=== PATIENT | female | born 1965 | race Caucasian/White ===

== ENCOUNTER → 2016-05-13 | Outpatient (CLI) | payer OTHER ==
[2016-05-13 12:42] VITALS: BP 144/81; PULSE 92; RESP 18
--- NOTE | 2016-05-13 13:13 | P.PN ---
Progress Note - Text This is a 50-year-old female with lower back pain due to lumbar spondylosis without myelopathy. The patient's pain has been relatively well controlled with a combination of Wilmer and tramadol. She does not show any drug-seeking behavior and she does not look oversedated. She also denies any suicidal thoughts. She did have coronary stents placed and and has been on Effient however she stopped using it recently and was cleared by her senior drafter to receive any injections that we deem appropriate for her. The patient has a pending computed tomography scan for her cervical and lumbar spines. Today I will discontinue with tramadol and keep her on Wilmer up to 4 pills a day if needed for pain I will add trazodone to help her sleep at night because she complains of some insomnia and pain during the night. We will see the patient next month for reevaluation.
== END | disposition home or self-care (01) ==
LOC: PNWHC3 12:13
PROVIDERS: ATTEND Anesthesiology
DX: M47.816 Spondylosis without myelopathy or radiculopathy, lumbar region (principal); G47.00 Insomnia, unspecified; Z95.5 Presence of coronary angioplasty implant and graft; Z79.899 Other long term (current) drug therapy
CPT/HCPCS: 99211

== ENCOUNTER 2016-05-14 21:21 | Observation (INO) | payer OTHER ==
--- NOTE | 2016-05-14 21:48 | ED ---
General Adult HPI - General Chief complaint: Chest Pain Stated complaint: Palpatations Time Seen by Provider: 05/14/16 21:39 Source: patient, RN notes reviewed, old records reviewed Mode of arrival: ambulatory Limitations: no limitations - History of Present Illness Initial comments: This is a 50-year-old female here for evaluation of chest pain. Patient currently without chest pain but has had episodic chest pain for the past week. Patient does have history of heart disease with 3 stents. Patient states she also has history of back pain which she does see a pain specialist for. Patient states the pain is episodic, comes and goes, can be sometimes heaviness with symptoms under her jaw. Patient states that her heart that she did have symptoms and her job but it was different than the pain she is having now. No significant shortness of breath, and can't tie the pain and any certain experience, the pain has been going on for greater than a week and again is episodic. She takes nothing for the pain when it comes and it usually abates after a few seconds - Related Data Home Medications Medication Instructions Recorded Confirmed Multivitamins, Thera [Multivitamin] 1 tab PO DAILY 10/23/13 05/14/16 Omeprazole [PriLOSEC] 20 mg PO AC-BRKFST 04/16/15 05/14/16 Vitamin B Complex 1 cap PO DAILY 04/16/15 05/14/16 Trolamine Salicylate [Aspercreme] 1 applic TOPICAL DAILY PRN 11/27/15 05/14/16 Lisinopril [Zestril] 2.5 mg PO QAM 03/03/16 05/14/16 Acetaminophen Tab [Tylenol Tab] 500 mg PO Q6H PRN 04/01/16 05/14/16 Ipratropium-Albuterol Nebulize 3 ml INHALATION RT-QID PRN 04/01/16 05/14/16 [Duoneb 0.5 mg-3 mg/3 ml Soln] Ascorbic Acid [Vitamin C] 500 mg PO DAILY 05/14/16 05/14/16 Previous Rx's Medication Instructions Recorded Aspirin 325 mg PO DAILY #30 tab 02/22/14 Atorvastatin [Lipitor] 80 mg PO HS #30 tab 02/22/14 Metoprolol Tartrate [Lopressor] 25 mg PO BID #60 tab 02/22/14 Nitroglycerin Sl Tabs [Nitrostat] 0.4 mg SUBLINGUAL Q5M PRN #25 tab 02/22/14 Gabapentin [Neurontin] 300 mg PO TID #90 cap 03/18/16 HYDROcodone/APAP 10-325MG [Gazelle 1 tab PO Q4-6H PRN #120 tab 03/18/16 10-325] traMADol HCL [Ultram] 50 mg PO Q8HR PRN #90 tablet 03/18/16 Allergies Allergy/AdvReac Type Severity Reaction Status Date / Time ibuprofen [From Motrin] Allergy throat Verified 05/14/16 22:00 swelling amoxicillin trihydrate AdvReac Vomiting Verified 05/14/16 22:00 [From Augmentin] potassium clavulanate AdvReac Vomiting Verified 05/14/16 22:00 [From Augmentin] SALMON Allergy Anaphylaxis Uncoded 05/14/16 21:36 Review of Systems ROS Statement: Those systems with pertinent positive or pertinent negative responses have been documented in the HPI. ROS Other: All systems not noted in ROS Statement are negative. Past Medical History Past Medical History: Coronary Artery Disease (CAD), COPD, Fibromyalgia, Hyperlipidemia, Hypertension, Myocardial Infarction (ME), Osteoarthritis (OA), Pneumonia Additional Past Medical History / Comment(s): crohns, colitis, osteoporosis, CHRONIC BACK PAIN,DDD,DJD, SCIATICA,SPINAL STENOSIS RADIATES DOWN LEGS, INCONT OF URINE, PAIN CLINIC FOR INJECTIONS FOR BACK PROBLEMS Last Myocardial Infarction Date:: 02/19/14- NON-ST ELEVATATION ME History of Any Multi-Drug Resistant Organisms: MRSA Date of last positivie culture/infection: 2009 MDRO Source:: abdominal Past Surgical History: Appendectomy, Bowel Resection, Heart Catheterization With Stent, Joint Replacement, Orthopedic Surgery, Tonsillectomy Additional Past Surgical History / Comment(s): 2 small bowel resections D/T CROHNS; LT TOTAL KNEE REPLACEMENT THEN A REVISION-HAS TITANIUM; ADA CTR; trigger finger and thumbs Past Anesthesia/Blood Transfusion Reactions: No Reported Reaction Date of Last Stent Placement:: 2 STENTS PLACED 02/20/14 Past Psychological History: Anxiety, Depression Additional Psychological History / Comment(s): FOUND SPOUSE ON 03/17/14, HAD ME 02/19/14. STILL TRYING TO PROCESS EVERYTHING. Smoking Status: Former smoker Past Alcohol Use History: None Reported Additional Past Alcohol Use History / Comment(s): QUIT SMOKING 02/19/14, for 15 YRS, LESS A PPD. Past Drug Use History: None Reported - Past Family History Father Family Medical History: Cancer Additional Family Medical History / Comment(s): LUNG CANCER Mother Additional Family Medical History / Comment(s): WHEN PT WAS AGE 14 NOT SURE WHY, HX OF MENTAL HEALTH ISSUES General Exam Limitations: no limitations Course Vital Signs 05/14/16 05/14/16 21:34 22:32 Temperature 98.3 F Pulse Rate 86 67 Respiratory 20 16 Rate Blood Pressure 147/92 144/90 O2 Sat by Pulse 98 98 Oximetry - Reevaluation(s) Reevaluation #1: 05/14/16 23:47 Patient still having bouts of episodic chest pain EKG Findings - EKG Comments: EKG Findings:: EKG shows normal sinus rhythm rate of 89, DC 154, QRS 86, QTc 455 Medical Decision Making - Medical Decision Making 50 female here with significant heart history coming in with chest pain, side chest pain for a week, patient is high cardiac risk initial EKG and troponin are negative patient be admitted for cardiac observation, still troponins - Lab Data Result diagrams: 05/14/16 21:55 05/14/16 21:55 Lab Results 05/14/16 05/14/16 05/14/16 Range/Units 21:55 21:55 21:55 WBC 12.3 H (3.8-10.6) k/uL RBC 4.86 (3.80-5.40) m/uL Hgb 13.9 (11.4-16.0) gm/dL Hct 42.9 (34.0-46.0) % MCV 88.2 (80.0-100.0) fL MCH 28.5 (25.0-35.0) pg MCHC 32.3 (31.0-37.0) g/dL RDW 13.7 (11.5-15.5) % Plt Count 113 L (150-450) k/uL Neutrophils % (Manual) 40.0 % Lymphocytes % (Manual) 53.0 % Monocytes % (Manual) 6.0 % Eosinophils % (Manual) 1.0 % Neutrophils # (Manual) 4.9 (1.3-7.7) k/uL Lymphocytes # (Manual) 6.5 H (1.0-4.8) k/uL Monocytes # (Manual) 0.7 (0-1.0) k/uL Eosinophils # (Manual) 0.1 (0-0.7) k/uL Nucleated RBCs 0 (0-0) /100 WBC Large Platelets Present Polychromasia Present PT (9.0-12.0) sec INR (<1.1) APTT (22.0-30.0) sec Sodium 139 (137-145) mmol/L Potassium 3.4 L (3.5-5.1) mmol/L Chloride 106 (98-107) mmol/L Carbon Dioxide 22 (22-30) mmol/L Anion Gap 11 mmol/L BUN 6 L (7-17) mg/dL Creatinine 0.65 (0.52-1.04) mg/dL Est GFR (MDRD) Af Amer >60 (>60 ml/min/1.73 sqM) Est GFR (MDRD) Non-Af >60 (>60 ml/min/1.73 sqM) Glucose 86 (74-99) mg/dL Calcium 9.4 (8.4-10.2) mg/dL Magnesium 1.5 L (1.6-2.3) mg/dL Total Bilirubin 0.4 (0.2-1.3) mg/dL AST 23 (14-36) U/L ALT 32 (9-52) U/L Alkaline Phosphatase 42 (38-126) U/L Total Creatine Kinase 64 (30-135) U/L CK-MB (CK-2) 0.8 (0.0-2.4) ng/mL CK-MB (CK-2) Rel Index 1.3 Troponin I <0.012 (0.000-0.034) ng/mL Total Protein 6.8 (6.3-8.2) g/dL Albumin 4.1 (3.5-5.0) g/dL Lipase 116 (23-300) U/L 05/14/16 Range/Units 21:55 WBC (3.8-10.6) k/uL RBC (3.80-5.40) m/uL Hgb (11.4-16.0) gm/dL Hct (34.0-46.0) % MCV (80.0-100.0) fL MCH (25.0-35.0) pg MCHC (31.0-37.0) g/dL RDW (11.5-15.5) % Plt Count (150-450) k/uL Neutrophils % (Manual) % Lymphocytes % (Manual) % Monocytes % (Manual) % Eosinophils % (Manual) % Neutrophils # (Manual) (1.3-7.7) k/uL Lymphocytes # (Manual) (1.0-4.8) k/uL Monocytes # (Manual) (0-1.0) k/uL Eosinophils # (Manual) (0-0.7) k/uL Nucleated RBCs (0-0) /100 WBC Large Platelets Polychromasia PT 10.9 (9.0-12.0) sec INR 1.1 (<1.1) APTT 25.9 (22.0-30.0) sec Sodium (137-145) mmol/L Potassium (3.5-5.1) mmol/L Chloride (98-107) mmol/L Carbon Dioxide (22-30) mmol/L Anion Gap mmol/L BUN (7-17) mg/dL Creatinine (0.52-1.04) mg/dL Est GFR (MDRD) Af Amer (>60 ml/min/1.73 sqM) Est GFR (MDRD) Non-Af (>60 ml/min/1.73 sqM) Glucose (74-99) mg/dL Calcium (8.4-10.2) mg/dL Magnesium (1.6-2.3) mg/dL Total Bilirubin (0.2-1.3) mg/dL AST (14-36) U/L ALT (9-52) U/L Alkaline Phosphatase (38-126) U/L Total Creatine Kinase (30-135) U/L CK-MB (CK-2) (0.0-2.4) ng/mL CK-MB (CK-2) Rel Index Troponin I (0.000-0.034) ng/mL Total Protein (6.3-8.2) g/dL Albumin (3.5-5.0) g/dL Lipase (23-300) U/L - Radiology Data Radiology results: report reviewed (Chest x-ray negative for acute disease), image reviewed Critical Care Time Critical Care Time: Yes Total Critical Care Time: 31 Disposition Clinical Impression: Chest pain Disposition: ADMITTED IP TO THIS [facility] Condition: Undetermined
[2016-05-14 22:10] LABS: CH 29.1; CHCM 33.2; HCT 42.9 % (34.0-46.0); HDW 2.55; HGB 13.9 gm/dL (11.4-16.0); Large Platelets Flag Slight; MCH 28.5 pg (25.0-35.0); MCHC 32.3 g/dL (31.0-37.0); MCV 88.2 fL (80.0-100.0); Mean Platelet Volume 10.8; RBC 4.86 m/uL (3.80-5.40); RDW 13.7 % (11.5-15.5); WBC 12.3 k/uL (3.8-10.6)
--- NOTE | 2016-05-14 22:13 | XR ---
EXAMINATION TYPE: XR chest 2V DATE OF EXAM: 05/14/2016 10:06 PM COMPARISON: 04/01/2016 HISTORY: Chest pain TECHNIQUE: Frontal and lateral views of the chest are obtained. FINDINGS: There is no heart failure nor confluent pneumonic infiltrate. Costophrenic angles are jojo r. Heart and mediastinum are normal. There is no pleural effusion. There is slight coarsening of inte rstitial markings. IMPRESSION: Minimal pulmonary fibrotic changes. No acute lung disease. No change.
[2016-05-14 22:19] LABS: INR 1.1 (<1.1); Partial Thromboplastin Time 25.9 sec (22.0-30.0); Prothrombin Time 10.9 sec (9.0-12.0)
[2016-05-14 22:21] LABS: ALT 32 U/L (9-52); AST 23 U/L (14-36); Alkaline Phosphatase 42 U/L (38-126); Anion Gap 11 mmol/L; Blood Urea Nitrogen 6 mg/dL (7-17); Calcium 9.4 mg/dL (8.4-10.2); Carbon Dioxide 22 mmol/L (22-30); Chloride 106 mmol/L (98-107); Glucose 86 mg/dL (74-99); Magnesium 1.5 mg/dL (1.6-2.3); Non-African American GFR(MDRD) >60 (>60 ml/min/1.73 sqM); Potassium 3.4 mmol/L (3.5-5.1); Sodium 139 mmol/L (137-145); Total Bilirubin 0.4 mg/dL (0.2-1.3); Total Protein 6.8 g/dL (6.3-8.2)
[2016-05-14 22:31] LABS: Creatine Kinase 64 U/L (30-135)
[2016-05-14 22:44] LABS: Creatine Kinase MB 0.8 ng/mL (0.0-2.4); Troponin I <0.012 ng/mL (0.000-0.034)
[2016-05-14 22:45] LABS: Add Differential Manual Differential
[2016-05-14 22:48] LABS: Large Platelets Present; Nucleated Red Blood Cells 0 /100 WBC (0-0); Polychromasia Present; Total Cells Counted 100
[2016-05-14] MEDS ORDERED: HEPARIN SODIUM,PORCINE 5,000 UNIT/ML 1 ML VIAL IV ONE (23:37)
[2016-05-14] MEDS ORDERED: ASPIRIN 81 MG CHEW PO STA (23:37)
[2016-05-14] MEDS ORDERED: NITROGLYCERIN SL TABS 0.4 MG TAB SUBLINGUAL PRN (23:37)
[2016-05-14] MEDS ORDERED: HEPARIN SODIUM,PORCINE 5,000 UNIT/ML 1 ML VIAL IV PRN (23:37)
[2016-05-14] MEDS ORDERED: SODIUM CHLORIDE 0.9% 1,000 ML IV SCH (23:45)
[2016-05-14] MEDS ORDERED: HEPARIN SODIUM,PORCINE/D5W PMX 25,000 UNIT in DEXTROSE/WATER 1 500ML.BAG IV SCH (23:45)
[2016-05-15] MEDS: MORPHINE SULFATE 4 MG/ML SYRINGE IVP PRN ×3 (00:03→08:04)
[2016-05-15 01:05] VITALS: BMI 30.9
[2016-05-15 05:09] LABS: Large Platelets Flag Slight; Mean Platelet Volume 10.6
[2016-05-15 05:40] LABS: Creatine Kinase 47 U/L (30-135)
[2016-05-15 05:50] LABS: Cholesterol 102 mg/dL (<200); HDL Cholesterol 45 mg/dL (40-60); Triglycerides 104 mg/dL (<150)
[2016-05-15 05:51] LABS: Creatine Kinase MB 0.6 ng/mL (0.0-2.4); Troponin I <0.012 ng/mL (0.000-0.034)
[2016-05-15] MEDS ORDERED: ASPIRIN 325 MG TAB PO SCH (09:00)
[2016-05-15] MEDS ORDERED: ATORVASTATIN 80 MG TAB PO SCH ×2 (09:00→21:00)
[2016-05-15] MEDS ORDERED: REGADENOSON 0.4 MG/5 ML SYRINGE IV ONE (09:08)
[2016-05-15] MEDS ORDERED: AMINOPHYLLINE 500 MG/20 ML VIAL IV PRN (09:08)
[2016-05-15 09:48] LABS: Basophils # (A) 0.1 k/uL (0-0.2); Basophils % (A) 1 %; CH 28.7; CHCM 31.7; Eosinophils # (A) 0.2 k/uL (0-0.7); Eosinophils % (A) 2 %; HCT 42.2 % (34.0-46.0); HDW 2.47; HGB 13.4 gm/dL (11.4-16.0); Luc # (Auto) 0.18; Luc % (Auto) 2; Lymphocytes # (A) 4.3 k/uL (1.0-4.8); Lymphocytes % (A) 44 %; MCH 28.9 pg (25.0-35.0); MCHC 31.8 g/dL (31.0-37.0); MCV 91.2 fL (80.0-100.0); Mean Platelet Volume 10.6; Monocytes # (A) 0.5 k/uL (0-1.0); Monocytes % (A) 5 %; Neutrophils # (A) 4.5 k/uL (1.3-7.7); Neutrophils % (A) 46 %; RBC 4.63 m/uL (3.80-5.40); RDW 13.6 % (11.5-15.5); WBC 9.6 k/uL (3.8-10.6); WBC (Perox) 10.53
--- NOTE | 2016-05-15 10:01 | CONS ---
DATE OF CONSULTATION: CHIEF COMPLAINT: Chest pain. Abeba is a 50-year-old lady with a history of coronary artery disease, status post multivessel angioplasty, hypertension, and dyslipidemia who presented to the hospital complaining of chest pain. She states that she has been having on and off episodes of chest discomfort for the last several weeks, has been evaluated by Dr. Horowitz in the outpatient setting, was supposed to have a stress test done which she never got around to schedule. Came in as she continues to have these vague symptoms that are similar to the symptoms that she had prior to her angioplasty, but not as severe Since admission she ruled out for myocardial infarction, EKG does not reveal ischemic changes. She denies any other symptoms. She is not short of breath. There are focal neurological deficits. Past medical history is significant for coronary artery disease, status post multivessel angioplasty, hypertension, and dyslipidemia. Current medications include Lopressor 25 b.i.d., lisinopril 2.5 q. daily, Lidoderm patch, Neurontin, Lipitor, aspirin. ALLERGIES: The patient is allergic to MOTRIN, AUGMENTIN and SALMON. Family history is negative for premature coronary artery disease. Social history is negative for smoking, EtOH abuse, or drug abuse. REVIEW OF SYSTEMS: HEENT: Unremarkable. CARDIAC: As described above. RESPIRATORY: Negative. GI: Negative. GENITOURINARY: Negative. ALLERGY/IMMUNOLOGY: Negative. MUSCULOSKELETAL: Significant for arthritis. PSYCHOSOCIAL: Negative. ENDOCRINE: Negative. HEMATOLOGIC: Negative. DERMATOLOGY: Negative. CONSTITUTIONAL: Negative. ONCOLOGICAL: Negative. The rest of the system review is not relevant. On exam, comfortable at rest. Vital signs are stable. There is no jugular venous distention. Carotid upstroke is normal. There is no bruit. Chest exam reveals good air entry bilaterally. Heart exam reveals first and second heart sounds. No gallop. No murmur, no rub. Abdomen is soft, nontender. Exam of extremities did not reveal edema. Peripheral pulses are felt. LOAN ANALYST exam did not reveal focal neurological deficits. Labs show a hemoglobin of 13.9. Creatinine is 0.6. Two sets of cardiac enzymes are negative. LDL cholesterol is normal. ASSESSMENT: 1. Chest pain in a patient with known coronary artery disease, status post multivessel angioplasty. 2. Hypertension. 3. Dyslipidemia. PLAN: I advised the patient to undergo a stress test today. If this is abnormal she will undergo cardiac catheterization. If stress test is normal, she can be discharged home and outpatient followup arranged with Dr. Horowitz.
[2016-05-15 10:27] LABS: ALT 34 U/L (9-52); AST 22 U/L (14-36); Alkaline Phosphatase 41 U/L (38-126); Anion Gap 9 mmol/L; Blood Urea Nitrogen 6 mg/dL (7-17); Calcium 8.8 mg/dL (8.4-10.2); Carbon Dioxide 23 mmol/L (22-30); Chloride 111 mmol/L (98-107); Glucose 84 mg/dL (74-99); Magnesium 1.6 mg/dL (1.6-2.3); Non-African American GFR(MDRD) >60 (>60 ml/min/1.73 sqM); Potassium 3.9 mmol/L (3.5-5.1); Sodium 143 mmol/L (137-145); Total Bilirubin 0.6 mg/dL (0.2-1.3); Total Protein 6.3 g/dL (6.3-8.2)
[2016-05-15 10:29] LABS: Creatine Kinase 47 U/L (30-135)
[2016-05-15 10:39] LABS: Troponin I <0.012 ng/mL (0.000-0.034)
[2016-05-15 10:51] LABS: Creatine Kinase MB 0.7 ng/mL (0.0-2.4)
--- NOTE | 2016-05-15 11:05 | EST ---
DATE OF SERVICE: 05/15/2016 AGE: 50Y SEX: F HT: 5'3" WT: 180 lbs. Protocol Ovidio: Other: Lexiscan Cardiolite Stage: Dur. of Exercise: *Heart Rate Blood Pressure *Rest: 76 Rest: 101/57 * *Max. Achieved: 122 Maximum BP: 144/47 85% PMHR: 100% PMHR: *METS: INDICATION OF THE STUDY: Chest pain. MEDICATIONS: STRESS DATA: Pretesting physical examination showed the heart rate of 76, pressure is 101/57 mmHg. Baseline EKG showed sinus mechanism; 0.4 mg of Lexiscan was given to the patient over 15 seconds per protocol. Max heart rate was 122 beats per minute. Maximum pressure was 144/47 mmHg. Clinically, the patient did not have any symptoms of chest pain and the EKG did not show any significant ST or T wave abnormalities consistent with ischemia. CONCLUSION: 1. Nondiagnostic electrocardiogram stress testing in response to Lexiscan. 2. Please follow up on the Cardiolite portion on a separate report from the radiology department.
--- NOTE | 2016-05-15 11:51 | NM ---
EXAMINATION TYPE: NM stress lexiscan cardiolite DATE OF EXAM: 05/15/2016 11:21 AM COMPARISON: 07/23/2014 HISTORY: Chest pain TECHNIQUE: After the intravenous administration of 11.0 mCi Tc 99m Sestamibi - Cardiolite resting SP ECT images acquired 45 minutes post injection. The patient received 0.4mg Lexiscan, 27.3 mCi Tc 99m Sestamibi - Stress images obtained [address] injection FINDINGS: Review of stress and rest SPECT images demonstrates no distinct perfusion abnormality. Gated analysi s shows normal wall motion with an estimated left ventricular ejection fraction of 52 %. No fixed or reversible perfusion defects are evident. Gated wall motion is unremarkable. IMPRESSION: No stress-induced ischemic changes.
--- NOTE | 2016-05-15 12:22 | ECHOF ---
Referral Reason:heart structure/ function MEASUREMENTS -------- HEIGHT: 160.0 cm WEIGHT: 79.4 kg BP: IVSd: 1.2 cm (0.6 - 1.1) LVIDd: 3.6 cm (3.9 - 5.3) LVPWd: 1.3 cm (0.6 - 1.1) IVSs: 2.2 cm LVIDs: 1.3 cm LVPWs: 1.7 cm Ao Diam: 3.0 cm (2.0 - 3.7) AV Cusp: 1.8 cm (1.5 - 2.6) LA Diam: 3.0 cm (2.7 - 3.8) MV EXCURSION: 13.189 mm (> 18.000) MV EF SLOPE: 103 mm/s (70 - 150) EPSS: 0.6 cm MV E Elias: 1.20 m/s MV DecT: 260 ms MV A Elias: 1.18 m/s MV E/A Ratio: 1.01 RAP: 5.00 mmHg RVSP: 18.88 mmHg FINDINGS -------- Sinus rhythm. This was a technically good study. There is mild concentric left ventricular hypertrophy. Overall left ventricular systolic function is normal with, an EF between 55 - 60 %. The right ventricle is normal in size and function. The left atrium is normal in size. The right atrium is normal in size. Aortic valve is trileaflet and is mildly thickened. The mitral valve leaflets are mildly thickened. Mild mitral regurgitation is present. Mild tricuspid regurgitation present. The right ventricular systolic pressure, as measured by Doppler, is 18.88mmHg. Pulmonic valve appears structurally normal. The aortic root size is normal. The pericardium is normal. CONCLUSIONS -------- 1. Sinus rhythm. 2. Mild mitral regurgitation is present. 3. Mild tricuspid regurgitation present. 4. The right ventricular systolic pressure, as measured by Doppler, is 18.88mmHg. 5. Pulmonic valve appears structurally normal. 6. The aortic root size is normal. 7. The pericardium is normal. 8. This was a technically good study. 9. There is mild concentric left ventricular hypertrophy. 10. Overall left ventricular systolic function is normal with, an EF between 55 - 60 %. 11. The right ventricle is normal in size and function. 12. The left atrium is normal in size. 13. The right atrium is normal in size. 14. Aortic valve is trileaflet and is mildly thickened. 15. The mitral valve leaflets are mildly thickened. CABINET PROFESSIONAL: Sade Goff RDCS
[2016-05-15] MEDS ORDERED: HYDROcodone/APAP 10-325MG 1 EACH TAB PO PRN (13:10)
[2016-05-15] MEDS ORDERED: IPRATROPIUM-ALBUTEROL 3 ML NEB INHALATION PRN (13:10)
[2016-05-15] MEDS ORDERED: traMADol 50 MG TAB PO PRN (13:10)
[2016-05-15] MEDS ORDERED: ACETAMINOPHEN TAB 500 MG TAB PO PRN (13:10)
[2016-05-15] MEDS ORDERED: NICOTINE 14MG/24HR PATCH TRANSDERM SCH (13:30)
[2016-05-15] MEDS ORDERED: METOPROLOL TARTRATE 25 MG TAB PO SCH (14:00)
[2016-05-15 14:05] VITALS: BP 108/51; PULSE 73; RESP 14; TEMP 98.6
--- NOTE | 2016-05-15 14:27 | P.HPIM ---
History of Present Illness H&P Date: 05/15/16 Chief Complaint: Chest pain Patient is a 50-year-old female who presented to [facility] emergency room with a chief complaint of chest pain, patient describes a pressure in the middle of her chest radiating up to her jaw having episodes on and off of the chest pain she also had multiple medical problems including epigastric discomfort and acid reflux and neck and upper back pain she was evaluated in emergency room and was admitted for 24-hour observation and serial EKGs and cardiac enzymes were ordered. Past Medical History Past Medical History: Coronary Artery Disease (CAD), COPD, Fibromyalgia, Hyperlipidemia, Hypertension, Myocardial Infarction (OR), Osteoarthritis (OA), Pneumonia Additional Past Medical History / Comment(s): crohns, colitis, osteoporosis, CHRONIC BACK PAIN,DDD,DJD, SCIATICA,SPINAL STENOSIS RADIATES DOWN LEGS, INCONT OF URINE, PAIN CLINIC FOR INJECTIONS FOR BACK PROBLEMS Last Myocardial Infarction Date:: 02/19/14- NON-ST ELEVATATION [place] History of Any Multi-Drug Resistant Organisms: MRSA Date of last positivie culture/infection: 2009 MDRO Source:: abdominal Past Surgical History: Appendectomy, Bowel Resection, Heart Catheterization With Stent, Joint Replacement, Orthopedic Surgery, Tonsillectomy Additional Past Surgical History / Comment(s): 2 small bowel resections D/T CROHNS; LT TOTAL KNEE REPLACEMENT THEN A REVISION-HAS TITANIUM; ADA CTR; trigger finger and thumbs Past Anesthesia/Blood Transfusion Reactions: No Reported Reaction Date of Last Stent Placement:: 2 STENTS PLACED 02/20/14 Past Psychological History: Anxiety, Depression Additional Psychological History / Comment(s): FOUND SPOUSE ON 03/17/14, HAD OR 02/19/14. STILL TRYING TO PROCESS EVERYTHING. Smoking Status: Former smoker Past Alcohol Use History: None Reported Additional Past Alcohol Use History / Comment(s): QUIT SMOKING 02/19/14, for 15 YRS, LESS A PPD. Past Drug Use History: None Reported - Past Family History Father Family Medical History: Cancer Additional Family Medical History / Comment(s): LUNG CANCER Mother Additional Family Medical History / Comment(s): WHEN PT WAS AGE 14 NOT SURE WHY, HX OF MENTAL HEALTH ISSUES Medications and Allergies Home Medications Medication Instructions Recorded Confirmed Type Multivitamins, Thera [Multivitamin] 1 tab PO DAILY 10/23/13 05/15/16 History Omeprazole [PriLOSEC] 20 mg PO AC-BRKFST 04/16/15 05/15/16 History Vitamin B Complex 1 cap PO DAILY 04/16/15 05/15/16 History Trolamine Salicylate [Aspercreme] 1 applic TOPICAL DAILY PRN 11/27/15 05/15/16 History Lisinopril [Zestril] 2.5 mg PO QAM 03/03/16 05/15/16 History Acetaminophen Tab [Tylenol Tab] 500 mg PO Q6H PRN 04/01/16 05/15/16 History Ipratropium-Albuterol Nebulize 3 ml INHALATION RT-QID PRN 04/01/16 05/15/16 History [Duoneb 0.5 mg-3 mg/3 ml Soln] Ascorbic Acid [Vitamin C] 500 mg PO DAILY 05/14/16 05/15/16 History Lidocaine 5% Patch [Lidoderm 5% 1 patch TOPICAL BID 05/15/16 05/15/16 History Patch] Allergies Allergy/AdvReac Type Severity Reaction Status Date / Time ibuprofen [From Motrin] Allergy throat Verified 05/15/16 01:06 swelling amoxicillin trihydrate AdvReac Vomiting Verified 05/15/16 01:06 [From Augmentin] potassium clavulanate AdvReac Vomiting Verified 05/15/16 01:06 [From Augmentin] SALMON Allergy Anaphylaxis Uncoded 05/15/16 01:06 Physical Exam Vitals: Vital Signs Temp Pulse Pulse Resp BP BP BP 05/15/16 12:00 98.6 F 73 14 108/51 05/15/16 08:00 74 16 05/15/16 07:33 98.4 F 74 16 93/56 05/15/16 04:00 98.1 F 66 16 96/53 05/15/16 00:00 97.9 F 59 L 18 103/58 05/14/16 23:59 97.1 F L 75 16 132/81 Pulse Ox 05/15/16 12:00 96 05/15/16 08:00 05/15/16 07:33 97 05/15/16 04:00 97 05/15/16 00:00 100 05/14/16 23:59 98 Intake and Output 05/14/16 05/15/16 05/15/16 22:59 06:59 14:59 Intake Total 693 222 Balance 693 222 Intake: Intake, IV Titration 693 Amount Heparin Sodium,Porcine/ 93 D5w Pmx 25,000 unit In Dextrose/Water 1 500ml. bag @ 12 UNITS/KG/HR 18.5 mls/hr IV .Q24H GERA Rx#: [id number] Sodium Chloride 0.9% 1, 600 000 ml @ 100 mls/hr IV . Q10H GERA Rx#:[id number] Oral 0 222 Other: Voiding Method Toilet Toilet Diaper Diaper # Voids 2 2 Weight 79.379 kg In general patient is alert and oriented 3 in no apparent distress HEENT head normocephalic and atraumatic Neck is supple no JVD no goiter no lymphadenopathy Chest exam reveals a few scattered crackles bilaterally no wheezing Cardiac exam reveals regular heart sounds no gallops no murmurs Abdomen is soft nontender no organomegaly Extremity exam reveals no edema no cyanosis or clubbing Results CBC & Chem 7: 05/15/16 09:28 05/15/16 09:28 Labs: Abnormal Lab Results - Last 24 Hours (Table) 05/15/16 05/15/16 05/15/16 Range/Units 04:50 04:50 09:28 Plt Count 102 L 111 L (150-450) k/uL APTT 65.3 H (22.0-30.0) sec Chloride (98-107) mmol/L BUN (7-17) mg/dL 05/15/16 Range/Units 09:28 Plt Count (150-450) k/uL APTT (22.0-30.0) sec Chloride 111 H (98-107) mmol/L BUN 6 L (7-17) mg/dL Thrombosis Risk Factor Assmnt - Choose All That Apply Each Factor Represents 1 point: Age 41-60 years, Obesity (BMI >25) Thrombosis Risk Factor Assessment Total Risk Factor Score: 2 Thrombosis Risk Factor Assessment Level: Low Risk Assessment and Plan Plan: #1 episode of chest pain in a 50-year-old female was known history of coronary artery disease was previous history of angioplasty and 3 stent placement in 2013 , patient is admitted to observation unit serial EKGs and cardiac enzymes were ordered cardiology consult was requested. #2 gastroesophageal reflux disease was epigastric discomfort continue was omeprazole 20 mg twice daily #3 history of hypertension well-controlled continue was current medication #4 COPD maintained on DuoNeb 4 times daily when necessary continue #5 tobacco abuse patient was counseled in length quit smoking #6 hyperlipidemia At this time awaiting cardiac testing will follow
--- NOTE | 2016-05-15 14:30 | P.DS ---
Providers Date of admission: 05/14/16 23:39 Expected date of discharge: 05/15/16 Attending physician: Juliane Santos Primary care physician: Juliane Santos [place] Hospital Course: Hospital course Patient is a 50-year-old female admitted with an episode of chest pain, serial EKG and cardiac enzymes did not reveal any evidence of acute myocardial infarction, patient underwent a stress test during this admission which was negative. Echocardiogram revealed good left ventricular function with ejection fraction of 55-60% patient was seen by cardiology and was cleared for discharge Patient was stable and she did not have any recurrence of her chest pain she was discharged home on 05/15/2016 she will be continued on her same home medications Follow-up with her primary care physician Dr. 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 Horowitz in 1-2 weeks Patient Condition at Discharge: Undetermined Plan - Discharge Summary Discharge Medication List Multivitamins, Thera [Multivitamin] 1 tab PO DAILY 10/23/13 [History] Aspirin 325 mg PO DAILY #30 tab 02/22/14 [Rx] Atorvastatin [Lipitor] 80 mg PO HS #30 tab 02/22/14 [Rx] Metoprolol Tartrate [Lopressor] 25 mg PO BID #60 tab 02/22/14 [Rx] Nitroglycerin Sl Tabs [Nitrostat] 0.4 mg SUBLINGUAL Q5M PRN #25 tab 02/22/14 [Rx ] Omeprazole [PriLOSEC] 20 mg PO AC-BRKFST 04/16/15 [History] Vitamin B Complex 1 cap PO DAILY 04/16/15 [History] Trolamine Salicylate [Aspercreme] 1 applic TOPICAL DAILY PRN 11/27/15 [History] Lisinopril [Zestril] 2.5 mg PO QAM 03/03/16 [History] Gabapentin [Neurontin] 300 mg PO TID #90 cap 03/18/16 [Rx] HYDROcodone/APAP 10-325MG [[place] 10-325] 1 tab PO Q4-6H PRN #120 tab 03/18/16 [ Rx] traMADol HCL [Ultram] 50 mg PO Q8HR PRN #90 tablet 03/18/16 [Rx] Acetaminophen Tab [Tylenol Tab] 500 mg PO Q6H PRN 04/01/16 [History] Ipratropium-Albuterol Nebulize [Duoneb 0.5 mg-3 mg/3 ml Soln] 3 ml INHALATION RT -QID PRN 04/01/16 [History] Ascorbic Acid [Vitamin C] 500 mg PO DAILY 05/14/16 [History] Lidocaine 5% Patch [Lidoderm 5% Patch] 1 patch TOPICAL BID 05/15/16 [History] Follow up Appointment(s)/Referral(s): Bryan Horowitz MD [STAFF PHYSICIAN] - 1 Week Juliane Santos MD [Primary Care Provider] - 1-2 days
[2016-05-15] MEDS ORDERED: GABAPENTIN 300 MG CAP PO SCH (16:00)
[2016-05-16] MEDS ORDERED: PANTOPRAZOLE 40 MG TABLET PO SCH (07:30)
[2016-05-16] MEDS ORDERED: ASPIRIN 325 MG TAB PO SCH (09:00)
[2016-05-16] MEDS ORDERED: ASCORBIC ACID 500 MG TAB PO SCH (12:00)
[2016-05-16] MEDS ORDERED: MULTIVITAMINS, THERA 1 EACH TAB PO SCH (12:00)
== END 2016-05-15 15:47 | disposition home or self-care (01) ==
LOC: EC 21:21 → 3OBS 23:39
PROVIDERS: ADMIT Internal Medicine; ATTEND Internal Medicine
DX: R07.9 Chest pain, unspecified (principal); I25.10 Atherosclerotic heart disease of native coronary artery without angina pectoris; I10 Essential (primary) hypertension; E78.5 Hyperlipidemia, unspecified; I25.2 Old myocardial infarction; J44.9 Chronic obstructive pulmonary disease, unspecified; K21.9 Gastro-esophageal reflux disease without esophagitis; M79.7 Fibromyalgia; F17.200 Nicotine dependence, unspecified, uncomplicated; Z79.82 Long term (current) use of aspirin; Z95.5 Presence of coronary angioplasty implant and graft; Z79.899 Other long term (current) drug therapy; Z88.6 Allergy status to analgesic agent; Z88.1 Allergy status to other antibiotic agents
CPT/HCPCS: 36415; 93005; 93017; 93306; 80061; 80053 ×2; 82550 ×2; 82553 ×2; 83690; 83735 ×2; 84484 ×2; 85025 ×2; 85049; 85610; 85730 ×2; 71020; 78452; 99291; 96376; 96375; G0378 ×2; A9500; S4990; J2270; J1644 ×2; J2785; 96366

== ENCOUNTER → 2016-06-01 | Outpatient (CLI) | payer OTHER ==
--- NOTE | 2016-06-01 14:06 | CT ---
EXAMINATION TYPE: CT cervical spine wo con DATE OF EXAM: 06/01/2016 1:55 PM COMPARISON: NONE HISTORY: Cervical spondylosis, pain and numbness down arms and fingers CT DLP: 557 mGycm Automated exposure control for dose reduction was used. TECHNIQUE: CT scan of the cervical spine is obtained without contrast, axial images are obtained, sa gittal and coronal reformatted images are also reviewed. FINDINGS: Some mild disc bulging is present C4-5 with mild anterior thecal sac contact. No AP spinal canal stenosis is present. Some endplate spurring from the superior endplate of C5 is present. There is mild narrowing of the C5-6 disc space. Endplates disc bulging is present with moderate anter ior thecal sac compression. Some spinal canal narrowing may be present. Consider MRI for additional e valuation. IMPRESSION: 1. Disc bulging C5-C6 with loss of disc height. Some spinal canal narrowing may be present. Consider additional evaluation with MRI of the cervical spine without contrast. 2. Disc bulging C4-5
--- NOTE | 2016-06-01 14:09 | CT ---
EXAMINATION TYPE: CT lumbar spine wo con DATE OF EXAM: 06/01/2016 1:55 PM COMPARISON: NONE HISTORY: Lumbar spondylosis CT DLP: 753.4 mGycm CONTRAST: None TECHNIQUE: CT of the lumbar spine is performed on a spiral scan at 3 mm thick sections. Reconstructed images are performed in the coronal and sagittal planes. FINDINGS: T12-L1: No focal disc herniation or significant disc bulge is evident. No spinal canal stenosis or neural foraminal stenosis is present. L1-L2: No focal disc herniation or significant disc bulge is evident. No spinal canal stenosis or n eural foraminal stenosis is present L2-L3: Minimal disc bulge may be present with anterior thecal sac flattening. No AP spinal canal sten osis or neural foraminal stenosis is present. Some facet ligamentum flavum laxity is noted. L3-L4: Minimal disc bulge is present with anterior thecal sac flattening. Ligamentum flavum laxity is present. No spinal canal stenosis or neural foraminal stenosis is present. L4-L5: There is a grade 1 spondylolisthesis of L4 anterior to L5. Disc uncovering is present. There i s moderate anterior thecal sac flattening. Facet hypertrophy is present with ligamentum flavum laxity . These are contributing to some spinal canal narrowing at the level of the superior endplate of L5. L5-S1: No focal disc herniation or significant disc bulge is evident. No spinal canal stenosis or n eural foraminal stenosis is present. Facet hypertrophy is present. IMPRESSION: 1. Grade 1 spondylolisthesis of L4 anteriorly on L5. 2. Mild spinal canal narrowing L4-5 secondary to disc uncovering and ligamentum flavum laxity. 3. Multilevel facet hypertrophy
== END | disposition home or self-care (01) ==
LOC: RADCTMAIN 13:07
PROVIDERS: ATTEND Anesthesiology
DX: M50.222 Other cervical disc displacement at C5-C6 level (principal); M48.06 Spinal stenosis, lumbar region; M43.16 Spondylolisthesis, lumbar region
CPT/HCPCS: 72125; 72131

== ENCOUNTER → 2016-06-10 | Outpatient (CLI) | payer OTHER ==
[2016-06-10 11:02] VITALS: BP 140/83; PULSE 80; RESP 18; TEMP 98.7
--- NOTE | 2016-06-10 11:40 | P.PN ---
Progress Note - Text Patient returns for followup for chronic back and leg pain. Patient had bilateral lumbar RFA with some relief. Patient continues on [place] and Neurontin medications for pain with good relief, as Dr. Beth stopped her tramadol at last visit. Patient denies adverse drug effects from medications but states that trazodone does not help her sleep and she would prefer to have her tramadol pills. Today, pt denies new-onset weakness, bowel/bladder incontinence, or any other signs or symptoms of cauda equina syndrome. There are no signs of acute intoxication, and no indications of medication diversion or overuse. Today, patient also complains of neck pain in the right side of her neck with some radiation of numbness/prickly feeling into RUE. In addition to above, 13-point review of systems is also negative for chest pain , shortness of breath, changes in vision, changes in hearing, new onset weakness , abdominal pain, diarrhea, extreme fatigue, malaise, fever, skin changes, homicidal or suicidal ideation, or bowel or bladder incontinence. Gen: WDWN, AAOx3, NAD HEENT: NCAT, EOMI, hearing grossly normal Pulm: resp unlabored Abd: soft, NT, ND Neck: supple, trachea midline. Decreased ROM in extension, Spurling's + R side. 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 ROM in flexion lumbar spine: reduced ROM in extension lumbar spine: reduced Lumbar paravertebral tenderness: + Facet loading: + bilaterally, R > L SI joint tenderness: + R side Jared's test: + R side Straight leg raise: negative bilaterally Neuro: CN II-XII grossly intact, muscle strength lower extremities PRESERVED Imaging: Computed tomography scan of the lumbar spine dated 06/01/2016 demonstrates minimal disc bulges at the L2-L3 and L3-L4 levels with anterior thecal sac flattening. There is ligamentum flavum laxity noted at the L3-L4 level. There is a grade 1 spondylolisthesis of L4 anterior to L5 with disc uncovering present there is moderate anterior thecal sac flattening. There is facet hypertrophy present with ligamentum flavum laxity at this level. There is facet hypertrophy present at the L5-S1 level. Computed tomography scan of the cervical spine dated 06/01/2016 demonstrates disc bulging at C5-C6 with loss of disc height there is some's possible spinal canal stenosis. There is also disc bulging at the C4-C5 level with anterior thecal sac contact. Assessment and Plan (1) Lumbosacral spondylosis without myelopathy (2) Sacroiliitis (3) Lumbar degenerative disc disease (4) Cervical radiculopathy Plan: 1. Explanation: Opioid and psychological risk scores were reviewed. Diagnoses , prognoses, and multiple treatment options including but not limited to physical therapy, interventional therapies, adjuvant medical therapies, narcotic medication therapies, and surgery were discussed with the patient and all questions were answered to the patient's satisfaction. 2. Opioid agreement: Patient has previously signed narcotic agreement, and was orally counseled to not overuse, abuse, divert, or cell medications, and to take them as prescribed by only 1 healthcare provider. The patient was also counseled to take medications as prescribed by only 1 healthcare provider and to store opioid medications in the safe and preferably locked location. Patient was also counseled against driving while using narcotic medications and also to not use alcohol or any illicit or recreational drugs. The patient verbalized understanding that lack of compliance with any of the above and likely result in failure to renew narcotic prescriptions, possible discharge from the clinic, and possible legal ramifications thereafter if indicated. 3. Counseling: The patient was counseled extensively on BODY MASS INDEX, EXERCISE, and ALCOHOL use. Specifically, the patient was instructed regarding the importance of obesity, and exercise in the context of both chronic pain and overall health. 4. Procedures: R SIJ injection in next 2-3 weeks 5. Consultations: none 6. Investigations: UDS repeat today (last negative for opioids), CT cervical spine for eval of neck pain and CT lumbar spine 7. Medications: [place] #120 x 1 month; start MSContin 15 mg po qhs to help with sleep and pain; stop trazodone 8. Disposition: f/u for procedure as scheduled PQRS measures: 1-Patient's medications are documented in the chart. 2-Tobacco use is negative, counseling given 3-Patient has not had a pneumococcal vaccine. 4-Advanced care planning discussed, patient not eligible. 5-Opioid contract signed with the patient. 6-Pain positive, follow-up visit or procedure scheduled 7-Patient's blood pressure measured and documented, and patient will follow up with the primary care due to hypertension. 8-Patient's weight was measured, and body mass index ABOVE the normal limits, and counseling was done. Patient instructed to follow up with PCP. 9-Patient WAS NOT identified as an unhealthy alcohol user.
== END | disposition home or self-care (01) ==
LOC: PNWHC3 10:42
PROVIDERS: ATTEND Anesthesiology
DX: G89.29 Other chronic pain (principal); M47.817 Spondylosis without myelopathy or radiculopathy, lumbosacral region; M46.1 Sacroiliitis, not elsewhere classified; M51.36 Other intervertebral disc degeneration, lumbar region; I10 Essential (primary) hypertension; M54.12 Radiculopathy, cervical region; Z71.6 Tobacco abuse counseling; Z79.891 Long term (current) use of opiate analgesic; Z98.890 Other specified postprocedural states; Z71.3 Dietary counseling and surveillance
CPT/HCPCS: 80307 ×2; G0480; G0463; 80373; 99211

== ENCOUNTER → 2016-07-08 | Outpatient (CLI) | payer OTHER ==
[2016-07-08 12:52] VITALS: PULSE 82; RESP 16; TEMP 98
--- NOTE | 2016-07-08 13:19 | P.PN ---
Progress Note - Text Patient returns for followup for chronic back and leg pain. Patient had bilateral lumbar RFA with some relief. Patient continues on MSContin + [place] and Neurontin medications for pain with good relief. Patient denies adverse drug effects from medications and notes that her sleeping has improved with MSContin. Today, pt denies new-onset weakness, bowel/bladder incontinence, or any other signs or symptoms of cauda equina syndrome. There are no signs of acute intoxication, and no indications of medication diversion or overuse. Today, patient also complains of neck pain in the right side of her neck with some radiation of numbness/prickly feeling into RUE. In addition to above, 13-point review of systems is also negative for chest pain , shortness of breath, changes in vision, changes in hearing, new onset weakness , abdominal pain, diarrhea, extreme fatigue, malaise, fever, skin changes, homicidal or suicidal ideation, or bowel or bladder incontinence. Gen: WDWN, AAOx3, NAD HEENT: NCAT, EOMI, hearing grossly normal Pulm: resp unlabored Abd: soft, NT, ND Neck: supple, trachea midline. Decreased ROM in extension, Spurling's + R side. 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 ROM in flexion lumbar spine: reduced ROM in extension lumbar spine: reduced Lumbar paravertebral tenderness: + Facet loading: + bilaterally, R > L SI joint tenderness: + R side Jared's test: + R side Straight leg raise: negative bilaterally Neuro: CN II-XII grossly intact, muscle strength lower extremities PRESERVED Imaging: Computed tomography scan of the lumbar spine dated 06/01/2016 demonstrates minimal disc bulges at the L2-L3 and L3-L4 levels with anterior thecal sac flattening. There is ligamentum flavum laxity noted at the L3-L4 level. There is a grade 1 spondylolisthesis of L4 anterior to L5 with disc uncovering present there is moderate anterior thecal sac flattening. There is facet hypertrophy present with ligamentum flavum laxity at this level. There is facet hypertrophy present at the L5-S1 level. Computed tomography scan of the cervical spine dated 06/01/2016 demonstrates disc bulging at C5-C6 with loss of disc height there is some's possible spinal canal stenosis. There is also disc bulging at the C4-C5 level with anterior thecal sac contact. Assessment and Plan (1) Lumbosacral spondylosis without myelopathy (2) Sacroiliitis (3) Lumbar degenerative disc disease (4) Cervical radiculopathy Plan: 1. Explanation: Opioid and psychological risk scores were reviewed. Diagnoses , prognoses, and multiple treatment options including but not limited to physical therapy, interventional therapies, adjuvant medical therapies, narcotic medication therapies, and surgery were discussed with the patient and all questions were answered to the patient's satisfaction. 2. Opioid agreement: Patient has previously signed narcotic agreement, and was orally counseled to not overuse, abuse, divert, or cell medications, and to take them as prescribed by only 1 healthcare provider. The patient was also counseled to take medications as prescribed by only 1 healthcare provider and to store opioid medications in the safe and preferably locked location. Patient was also counseled against driving while using narcotic medications and also to not use alcohol or any illicit or recreational drugs. The patient verbalized understanding that lack of compliance with any of the above and likely result in failure to renew narcotic prescriptions, possible discharge from the clinic, and possible legal ramifications thereafter if indicated. 3. Counseling: The patient was counseled extensively on BODY MASS INDEX, EXERCISE, and ALCOHOL use. Specifically, the patient was instructed regarding the importance of obesity, and exercise in the context of both chronic pain and overall health. 4. Procedures: R SIJ injection in next 2-3 weeks 5. Consultations: none 6. Investigations: UDS repeat today (positive for tramadol) 7. Medications: [place] #120 x 2 month; MSContin 15 mg po qhs #30 x 2 months; Neurontin with two refills 8. Disposition: f/u for procedure as scheduled PQRS measures: 1-Patient's medications are documented in the chart. 2-Tobacco use is negative, counseling given 3-Patient has not had a pneumococcal vaccine. 4-Advanced care planning discussed, patient not eligible. 5-Opioid contract signed with the patient. 6-Pain positive, follow-up visit or procedure scheduled 7-Patient's blood pressure measured and documented, and patient will follow up with the primary care due to hypertension. 8-Patient's weight was measured, and body mass index ABOVE the normal limits, and counseling was done. Patient instructed to follow up with PCP. 9-Patient WAS NOT identified as an unhealthy alcohol user.
[2016-07-08 13:25] VITALS: BP 149/88
== END | disposition home or self-care (01) ==
LOC: PNWHC3 12:19
PROVIDERS: ATTEND Anesthesiology
DX: M51.36 Other intervertebral disc degeneration, lumbar region (principal); M47.817 Spondylosis without myelopathy or radiculopathy, lumbosacral region; M54.12 Radiculopathy, cervical region; M46.1 Sacroiliitis, not elsewhere classified
CPT/HCPCS: 80307 ×2; G0463; 80364; 99211

== ENCOUNTER 2016-07-17 17:37 | Emergency (ER) | payer OTHER ==
[2016-07-17] MEDS ORDERED: SODIUM CHLORIDE 0.9% 1,000 ML IV STA (17:58)
--- NOTE | 2016-07-17 18:01 | ED ---
General Adult HPI - General Chief complaint: Chest Pain Stated complaint: CHEST DISCOMFORT BETWEEN FRONT AND BACK Time Seen by Provider: 07/17/16 17:58 Source: patient, RN notes reviewed, old records reviewed Mode of arrival: wheelchair Limitations: no limitations - History of Present Illness Initial comments: This is a 51-year-old female ER for evaluation. This patient presents today for evaluation of chest pain. Patient does have strong history of chest pain and heart disease. Patient states it's more of his pulled muscle today. But she is home alone and became a little bit nervous. She was doing some moving of some go shopping earlier today felt a twinge in her lower back, that seems to be worse with movement. Patient has no shortness of breath no diaphoresis and again is without pain when she moves or pushes in the right direction. She does have recent hospitalization which she told she had stress test which was normal - Related Data Home Medications Medication Instructions Recorded Confirmed Multivitamins, Thera [Multivitamin 1 tab PO DAILY 10/23/13 07/17/16 (formulary)] Omeprazole [PriLOSEC] 20 mg PO AC-BRKFST 04/16/15 07/17/16 Vitamin B Complex 1 cap PO DAILY 04/16/15 07/17/16 Trolamine Salicylate [Aspercreme] 1 applic TOPICAL DAILY PRN 11/27/15 07/17/16 Lisinopril [Zestril] 2.5 mg PO QAM 03/03/16 07/17/16 Acetaminophen Tab [Tylenol] 500 mg PO Q6H PRN 04/01/16 07/17/16 Ipratropium-Albuterol Nebulize 3 ml INHALATION RT-QID PRN 04/01/16 07/17/16 [Duoneb 0.5 mg-3 mg/3 ml Soln] Ascorbic Acid [Vitamin C] 500 mg PO DAILY 05/14/16 07/17/16 Previous Rx's Medication Instructions Recorded Aspirin 325 mg PO DAILY #30 tab 02/22/14 Atorvastatin [Lipitor] 80 mg PO HS #30 tab 02/22/14 Metoprolol Tartrate [Lopressor] 25 mg PO BID #60 tab 02/22/14 Nitroglycerin Sl Tabs [Nitrostat] 0.4 mg SUBLINGUAL Q5M PRN #25 tab 02/22/14 Gabapentin [Neurontin] 300 mg PO TID #90 cap 07/08/16 HYDROcodone/APAP 10-325MG [[place] 1 tab PO Q6HR PRN #120 tab 07/08/16 10-325] Morphine Sulfate ER [Ms Contin] 15 mg PO DAILY #30 tab 07/08/16 Allergies Allergy/AdvReac Type Severity Reaction Status Date / Time ibuprofen [From Motrin] Allergy throat Verified 07/17/16 17:46 swelling amoxicillin trihydrate AdvReac Vomiting Verified 07/17/16 17:46 [From Augmentin] potassium clavulanate AdvReac Vomiting Verified 07/17/16 17:46 [From Augmentin] SALMON Allergy Anaphylaxis Uncoded 07/17/16 17:46 Review of Systems ROS Statement: Those systems with pertinent positive or pertinent negative responses have been documented in the HPI. ROS Other: All systems not noted in ROS Statement are negative. Past Medical History Past Medical History: Coronary Artery Disease (CAD), COPD, Fibromyalgia, Hyperlipidemia, Hypertension, Myocardial Infarction (SC), Osteoarthritis (OA), Pneumonia Additional Past Medical History / Comment(s): crohns, colitis, osteoporosis, CHRONIC BACK PAIN,DDD,DJD, SCIATICA,SPINAL STENOSIS RADIATES DOWN LEGS, INCONT OF URINE, PAIN CLINIC FOR INJECTIONS FOR BACK PROBLEMS Last Myocardial Infarction Date:: 02/19/14- NON-ST ELEVATATION SC History of Any Multi-Drug Resistant Organisms: MRSA Date of last positivie culture/infection: 2009 MDRO Source:: abdominal Past Surgical History: Appendectomy, Bowel Resection, Heart Catheterization With Stent, Joint Replacement, Orthopedic Surgery, Tonsillectomy Additional Past Surgical History / Comment(s): 2 small bowel resections D/T CROHNS; LT TOTAL KNEE REPLACEMENT THEN A REVISION-HAS TITANIUM; ADA CTR; trigger finger and thumbs Past Anesthesia/Blood Transfusion Reactions: No Reported Reaction Date of Last Stent Placement:: 2 STENTS PLACED 02/20/14 Past Psychological History: Anxiety, Depression Additional Psychological History / Comment(s): FOUND SPOUSE ON 03/17/14, HAD SC 02/19/14. STILL TRYING TO PROCESS EVERYTHING. Smoking Status: Former smoker Past Alcohol Use History: None Reported Additional Past Alcohol Use History / Comment(s): QUIT SMOKING 02/19/14, for 15 YRS, LESS A PPD. Past Drug Use History: None Reported - Past Family History Father Family Medical History: Cancer Additional Family Medical History / Comment(s): LUNG CANCER Mother Additional Family Medical History / Comment(s): WHEN PT WAS AGE 14 NOT SURE WHY, HX OF MENTAL HEALTH ISSUES General Exam Limitations: no limitations General appearance: alert, in no apparent distress Head exam: Present: atraumatic, normocephalic, normal inspection Eye exam: Present: normal appearance, PERRL, EOMI. Absent: scleral icterus, conjunctival injection, periorbital swelling ENT exam: Present: normal exam, mucous membranes moist Neck exam: Present: normal inspection. Absent: tenderness, meningismus, lymphadenopathy Respiratory exam: Present: normal lung sounds bilaterally. Absent: respiratory distress, wheezes, rales, rhonchi, stridor Cardiovascular Exam: Present: regular rate, normal rhythm, normal heart sounds. Absent: systolic murmur, diastolic murmur, rubs, gallop, clicks GI/Abdominal exam: Present: soft, normal bowel sounds. Absent: distended, tenderness, guarding, rebound, rigid Extremities exam: Present: normal inspection, full ROM, normal capillary refill. Absent: tenderness, pedal edema, joint swelling, calf tenderness Back exam: Present: normal inspection Neurological exam: Present: alert, oriented X3, CN II-XII intact Psychiatric exam: Present: normal affect, normal mood Skin exam: Present: warm, dry, intact, normal color. Absent: rash Course Vital Signs 07/17/16 17:43 Temperature 98.3 F Pulse Rate 74 Respiratory 20 Rate Blood Pressure 117/68 O2 Sat by Pulse 98 Oximetry - Reevaluation(s) Reevaluation #1: 07/17/16 18:17 Medical records thoroughly reviewed EKG Findings - EKG Comments: EKG Findings:: EKG shows normal sinus rhythm rate of 76, ID 1:30, QRS 86, QTC 420 Medical Decision Making - Medical Decision Making 51 female here for evaluation nonspecific chest pain, muscle strain, patient will be discharged home with normal troponin and normal EKG - Radiology Data Radiology results: report reviewed (Chest x-ray is negative for acute disease), image reviewed Disposition Clinical Impression: Chronic pain syndrome, Chest pain Disposition: HOME SELF-CARE Condition: Good Instructions: Costochondritis (ED), Chest Pain (ED) Referrals: Juliane Barksdale MD [Primary Care Provider] - 1-2 days
[2016-07-17 18:15] LABS: Basophils # (A) 0.1 k/uL (0-0.2); Basophils % (A) 1 %; CH 28.4; CHCM 32.2; Eosinophils # (A) 0.2 k/uL (0-0.7); Eosinophils % (A) 2 %; HCT 42.5 % (34.0-46.0); HDW 2.46; HGB 13.6 gm/dL (11.4-16.0); Luc # (Auto) 0.19; Luc % (Auto) 2; Lymphocytes # (A) 4.7 k/uL (1.0-4.8); Lymphocytes % (A) 45 %; MCH 28.4 pg (25.0-35.0); MCV 88.6 fL (80.0-100.0); Mean Platelet Volume 9.5; Monocytes # (A) 0.5 k/uL (0-1.0); Monocytes % (A) 5 %; Neutrophils # (A) 4.8 k/uL (1.3-7.7); Neutrophils % (A) 46 %; RBC 4.79 m/uL (3.80-5.40); RDW 14.3 % (11.5-15.5); WBC 10.5 k/uL (3.8-10.6); WBC (Perox) 10.45
[2016-07-17 18:28] LABS: ALT 29 U/L (9-52); AST 29 U/L (14-36); Alkaline Phosphatase 39 U/L (38-126); Anion Gap 10 mmol/L; Blood Urea Nitrogen 5 mg/dL (7-17); Calcium 9.6 mg/dL (8.4-10.2); Carbon Dioxide 25 mmol/L (22-30); Chloride 105 mmol/L (98-107); Glucose 80 mg/dL (74-99); Magnesium 1.8 mg/dL (1.6-2.3); Non-African American GFR(MDRD) >60 (>60 ml/min/1.73 sqM); Partial Thromboplastin Time 26.2 sec (22.0-30.0); Potassium 3.4 mmol/L (3.5-5.1); Prothrombin Time 10.5 sec (9.0-12.0); Sodium 140 mmol/L (137-145); Total Bilirubin 0.5 mg/dL (0.2-1.3); Total Protein 7.2 g/dL (6.3-8.2)
[2016-07-17 18:38] LABS: Creatine Kinase 68 U/L (30-135)
[2016-07-17 18:41] VITALS: RESP 16
--- NOTE | 2016-07-17 18:42 | XR ---
EXAMINATION TYPE: XR chest 2V DATE OF EXAM: 07/17/2016 6:36 PM COMPARISON: 05/14/2016 HISTORY: Chest pain TECHNIQUE: Frontal and lateral views of the chest are obtained. FINDINGS: Heart and mediastinum are normal. Lungs are clear of consolidation. Costophrenic angles ar e clear. There are slight increased interstitial pulmonary markings. There are chest leads. IMPRESSION: Mild pulmonary fibrotic changes. No acute lung disease. No change compared to old exam. Normal heart.
[2016-07-17 18:51] LABS: Creatine Kinase MB 0.8 ng/mL (0.0-2.4); Troponin I <0.012 ng/mL (0.000-0.034)
[2016-07-17 19:21] VITALS: BP 118/87; PULSE 74; TEMP 98.1
== END 2016-07-17 19:22 | disposition home or self-care (01) ==
LOC: EC 17:37
DX: G89.4 Chronic pain syndrome (principal); R07.89 Other chest pain; I10 Essential (primary) hypertension; I25.10 Atherosclerotic heart disease of native coronary artery without angina pectoris; I25.2 Old myocardial infarction; Z87.891 Personal history of nicotine dependence; Z79.891 Long term (current) use of opiate analgesic; Z79.899 Other long term (current) drug therapy; Z88.0 Allergy status to penicillin; Z88.6 Allergy status to analgesic agent; Z91.013 Allergy to seafood; Z87.19 Personal history of other diseases of the digestive system; Z95.818 Presence of other cardiac implants and grafts
CPT/HCPCS: 36415; 71020; 80053; 82550; 82553; 83690; 83735; 83880; 84484; 85025; 85379; 85610; 85730; 93005; 96360; 99285

== ENCOUNTER → 2016-09-02 | Outpatient (CLI) | payer OTHER ==
[2016-09-02 12:18] VITALS: BP 145/83; PULSE 80; RESP 16; TEMP 99
--- NOTE | 2016-09-02 12:26 | P.PN ---
Subjective This is follow-up visit for this patient with a history of severe and chronic low back pain secondary to lumbar degenerative disc diseases , lumbar spondylosis with facet arthropathy, And right sacroiliitis we have done interventional pain management injection,, diagnostic medial branch block , RFA of the medial branches and right sacroiliac joint. Steroid Injection, she did well after the injections, ,she is currently on pain medications 1-[place] 10/325 every 6 hours 2-MS Contin 15 mg daily at bedtime. 3-Neurontin 300 mg every 8 hours Patient reportes excessive drowsiness with the Neurontin 300 mg, denies suicidal ideation, and reports that the current pain medication is NOT helping To control the pain and improve activity of daily living Patient denies any motor or sensory deficit , patient denies any fever or night sweats, denies any change in the bowel movements or urination Objective - Vital Signs Vital signs: Vital Signs Temp 99.0 F 09/02/16 12:17 Pulse 80 09/02/16 12:17 Resp 16 09/02/16 12:17 BP 145/83 09/02/16 12:17 Pulse Ox Intake & Output 09/01/16 09/02/16 09/02/16 18:59 06:59 18:59 Weight 77.111 kg - Exam Physical Examinations : 1-Constitutiona : Cooperative , not in acute distress . 2-HEENT : nech ; supple , no Lymphadenopathy , normal thyroid size . eyes : no ptosis , no icterus, no photophobia . ENT : normal of hearing , normal oropharynx , no Thrush . 3- Respiratory : Chest clear to auscultations Bilaterally , no wheezing , no Rhonchi . 4- Cardiovascular : regular rate and rhythem , S1 , S2 , no S3 , no S4. 5- Gastrointestinal : abdomen soft no tenderness , bowel sounds positive all four quadrents , no organomegally . 6- Genitourinary : Defferred . 7- neurologic : Cranial nerve II to XII intact , no focal neurological deffecit . 8-psychatric : alert , oriented X 3 , appropriate affect , intact judgment and insight . 9-Lymphatic : no Lymphadenopathy . 10- musculoskeltal : , . exams of the Lumber spine = normal moter stegnth lower extremities ,thigh and legs .5/5 deep tendon reflexes : normal Knee Jerk , normal ankle Jerk . positive lumber facet Loading Test strait leg raising test positive at 30 degree , RT ,LT , Fabere test positive RT and positive LT . Sever tenderness over the Sacroiliac joint on the Right , Assessment and Plan Plan: Assessment and plan = - Chronic low back pain secondary to lumbar degenerative disc disease , lumbar spondylosis with facet arthropathy without myelopathy , right sacroiliitis The patient was counseled about risk of opioid use, psychological risk associated with opioids discussed with the patient, body mass index and exercise. Patient signed the narcotic agreement , and was orally counseled not to overuse , abuse , divert, or sell medications ,and take them as prescribed only , and the patient was counseled against driving and while you are using the narcotic medication also not to use alcohol or any illicit drugs and the patient verbalized understanding that lack of compliance and could result in failure to renew narcotics prescriptions and possible discharge from the clinic - diagnoses, prognosis, and treatment options including but not limited to physical therapy, surgical interventions, interventional therapies and medication management including narcotics and adjuvant medication were discussed with the patient and all questions answered to the patient's satisfaction. -medication refile =1- MS Contin 15 mg daily at bedtime dispense 30 with one refill 2- [place] 10/325 every 6 hours dispense 120 with one refill 3-decrease in Neurontin to 200 mg 2 tablets 3 times a day dispense 180 with 1 refill -procedure= right side medial branch radiofrequency ablation at L3-4 /L4-L5/L5- S1 Time with Patient: Less than 30
== END | disposition home or self-care (01) ==
LOC: PNWHC3 11:21
PROVIDERS: ATTEND Specialist
DX: M51.36 Other intervertebral disc degeneration, lumbar region (principal); M47.816 Spondylosis without myelopathy or radiculopathy, lumbar region; M46.96 Unspecified inflammatory spondylopathy, lumbar region; M46.1 Sacroiliitis, not elsewhere classified; G89.29 Other chronic pain; Z79.899 Other long term (current) drug therapy
CPT/HCPCS: 99211

== ENCOUNTER 2016-10-15 09:51 | Day surgery (SDC) | payer OTHER ==
[2016-10-09 18:22] VITALS: BMI 31.8
[~2016-10-15 09:51] MED LIST: LACTATED RINGERS 1,000 ML IV SCH
[2016-10-15] MEDS ORDERED: LIDOCAINE 1% 20 ML VIAL (10MG/ML) FOR IV START INTRADERMA ONE (09:52)
[2016-10-15 10:02] VITALS: RESP 18; TEMP 97.7
--- NOTE | 2016-10-15 11:19 | P.PCN ---
Date of Procedure: 10/15/16 Preoperative Diagnosis: Lumbar spondylosis without myelopathy Postoperative Diagnosis: Same as above Procedure(s) Performed: Right lumbar medial branch radiofrequency ablation under fluoroscopic guidance Implants: Anesthesia: other (Local with moderate sedation) Surgeon: Angelita Beth Pathology: none sent Condition: stable Disposition: PACU Indications for Procedure: Operative Findings: Description of Procedure: The patient was seen in preop holding area consent was obtained then she was brought into the procedure when placed in prone position. Then was prepped with ChloraPrep and draped in a sterile manner. Lidocaine 1% was used to numb the skin up at the target points that were chosen as follows: For the L5-S1 level which corresponds to the dorsal ramus of L5 the target point was at the superior medial aspect of the sacral ala on the right side of the spine on the AP view of fluoroscopy, and for the L2,L3 and L4 medial branches the target points were the connection between the transverse process and the superior to go process of L3,L4 and L5 vertebra respectively on the right oblique view of fluoroscopy. I used 18-gauge 150 mm in length with 10 mm curved active tip radiofrequency ablation needles for this procedure. AP, oblique, and lateral views of fluoroscopy were used to verify needle tip position. Motor stimulation showed only local twitches of these needles with no radiation of twitching to the right lower extremity. I then prepared a solution of 3 MLS Marcaine 0.5% +10 mg of dexamethasone. 1 mL of this solution was given in each needle then radiofrequency ablation was started for 90 seconds at 80C and after the first session was done the needles were withdrawn by 1 or 2 mm and the bevels were turned 180 then another session of ablation was started for 90 seconds at 80C. The patient tolerated procedure well.
--- NOTE | 2016-10-15 11:21 | FL ---
EXAMINATION TYPE: FL guided pain mgmt statistic DATE OF EXAM: 10/15/2016 CLINICAL HISTORY: Low back pain. TECHNIQUE: Fluoroscopy. COMPARISON: None. FINDINGS: Fluoroscopic guidance was provided during pain relief procedure performed by Dr. Beth . A total of 11 seconds of fluoroscopic time was utilized during the procedure and single spot images acquired. Single image acquired shows needle localization at several levels in the lower lumbar spi ne. IMPRESSION: As Above.
[2016-10-15 11:36] VITALS: BP 104/62; PULSE 56
[2016-10-15] MEDS ORDERED: IV FLUID CONTINUATION 350 ML IV ONE (11:43)
== END 2016-10-15 12:06 | disposition home or self-care (01) ==
LOC: ORPAIN 09:51
PROVIDERS: ATTEND Anesthesiology
DX: M47.816 Spondylosis without myelopathy or radiculopathy, lumbar region (principal); I25.10 Atherosclerotic heart disease of native coronary artery without angina pectoris; Z91.09 Other allergy status, other than to drugs and biological substances
CPT/HCPCS: 64635; 64636; 99152; 99153; J2250; J1100; J3010

== ENCOUNTER 2016-10-26 12:36 | Emergency (ER) | payer OTHER ==
--- NOTE | 2016-10-26 13:19 | ED ---
General Adult HPI - General Chief complaint: Shortness of Breath Stated complaint: Difficulty Breathing Time Seen by Provider: 10/26/16 13:00 Source: patient, RN notes reviewed Mode of arrival: ambulatory Limitations: no limitations - History of Present Illness Initial comments: This is a 51-year-old female presents emergency department with past medical history significant for cardiac stents. Patient states she has had a cough for 2 weeks and has some pleuritic chest pain with deep breathing over that time period. Patient states that he has been coughing up some green sputum as well. Patient also is complaining of occasional fullness in her neck over the 2 week. Patient denies any palpitations. Patient denies any known fever patient denies chills. Patient denies any lightheadedness dizziness or near syncopal episode. Patient denies any abdominal pain patient denies nausea vomiting diarrhea. Patient denies any injury or trauma. - Related Data Home Medications Medication Instructions Recorded Confirmed Multivitamins, Thera [Multivitamin 1 tab PO DAILY 10/23/13 10/26/16 (formulary)] Omeprazole [PriLOSEC] 20 mg PO AC-BRKFST 04/16/15 10/26/16 Vitamin B Complex 1 cap PO DAILY 04/16/15 10/26/16 Trolamine Salicylate [Aspercreme] 1 applic TOPICAL BID PRN 11/27/15 10/26/16 Lisinopril [Zestril] 2.5 mg PO QAM 03/03/16 10/26/16 Acetaminophen Tab [Tylenol] 500 mg PO BID PRN 04/01/16 10/26/16 Aspirin EC [Ecotrin] 325 mg PO DAILY 07/17/16 10/26/16 Morphine Sulfate ER [Ms Contin] 15 mg PO HS PRN 07/17/16 10/26/16 Tetrahydrozoline HCl/Zinc Sulf 1 drop BOTH EYES BID PRN 07/17/16 10/26/16 [Visine Allergy Relief Drop] Gabapentin [Neurontin] 200 mg PO TID 09/02/16 10/26/16 Previous Rx's Medication Instructions Recorded Atorvastatin [Lipitor] 80 mg PO HS #30 tab 02/22/14 Metoprolol Tartrate [Lopressor] 25 mg PO BID #60 tab 02/22/14 Nitroglycerin Sl Tabs [Nitrostat] 0.4 mg SUBLINGUAL Q5M PRN #25 tab 02/22/14 HYDROcodone/APAP 10-325MG [[place] 1 tab PO Q6HR PRN #120 tab 07/08/16 10-325] Azithromycin [Zithromax Tri-Jared] 500 mg PO DAILY #3 tab 10/26/16 Allergies Allergy/AdvReac Type Severity Reaction Status Date / Time ibuprofen [From Motrin] Allergy Anaphylaxis Verified 10/26/16 13:52 /Swelling amoxicillin trihydrate AdvReac Nausea & Verified 10/26/16 13:52 [From Augmentin] Vomiting potassium clavulanate AdvReac Nausea & Verified 10/26/16 13:52 [From Augmentin] Vomiting SALMON Allergy Anaphylaxis Uncoded 10/26/16 12:49 Review of Systems ROS Statement: Those systems with pertinent positive or pertinent negative responses have been documented in the HPI. ROS Other: All systems not noted in ROS Statement are negative. Past Medical History Past Medical History: Coronary Artery Disease (CAD), COPD, Fibromyalgia, Hyperlipidemia, Hypertension, Myocardial Infarction (NM), Osteoarthritis (OA), Pneumonia Additional Past Medical History / Comment(s): Crohns, Colitis. Osteoporosis. CHRONIC BACK PAIN, DDD, DJD, SCIATICA, SPINAL STENOSIS RADIATES DOWN LEGS. INCONT OF URINE IN NOC, SINCE BOWEL SURGERY. LMP 2011. Last Myocardial Infarction Date:: 02/19/14- NON-ST ELEVATION NM History of Any Multi-Drug Resistant Organisms: MRSA Date of last positivie culture/infection: 2009 MDRO Source:: abdominal Past Surgical History: Appendectomy, Bowel Resection, Heart Catheterization With Stent, Joint Replacement, Orthopedic Surgery, Tonsillectomy Additional Past Surgical History / Comment(s): 2 Small Bowel Resections D/T CROHNS; LT TOTAL KNEE REPLACEMENT THEN A REVISION-HAS TITANIUM; ADA CTR; Trigger Fingers, Thumbs. PTCA 02/2014 W/ 2 STENTS; 1 STENT 04/2014. MULT PAIN PROCEDURES. Past Anesthesia/Blood Transfusion Reactions: No Reported Reaction Date of Last Stent Placement:: 2 STENTS PLACED 02/20/14 Past Psychological History: Anxiety Smoking Status: Former smoker - Past Family History Father Family Medical History: Cancer Additional Family Medical History / Comment(s): LUNG CANCER Mother Additional Family Medical History / Comment(s): WHEN PT WAS AGE 14 NOT SURE WHY, HX OF MENTAL HEALTH ISSUES General Exam - General Exam Comments Initial Comments: GENERAL: Patient is well-developed and well-nourished. Patient is nontoxic and well- hydrated and is in mild distress. ENT: Neck is soft and supple. No significant lymphadenopathy is noted. Oropharynx is clear. Moist mucous membranes. Neck has full range of motion without eliciting any pain. EYES: The sclera were anicteric and conjunctiva were pink and moist. Extraocular movements were intact and pupils were equal round and reactive to light. Eyelids were unremarkable. PULMONARY: Unlabored respirations. Good breath sounds bilaterally. No audible rales rhonchi or wheezing was noted. CARDIOVASCULAR: There is a regular rate and rhythm without any murmurs gallops or rubs. ABDOMEN: Soft and nontender with normal bowel sounds. No palpable organomegaly was noted. There is no palpable pulsatile mass. SKIN: Skin is clear with no lesions or rashes and otherwise unremarkable. NEUROLOGIC: Patient is alert and oriented x3. Cranial nerves II through XII are grossly intact. Motor and sensory are also intact. Normal speech, volume and content. Symmetrical smile. MUSCULOSKELETAL: Normal extremities with adequate strength and full range of motion. No lower extremity swelling or edema. No calf tenderness. LYMPHATICS: No significant lymphadenopathy is noted PSYCHIATRIC: Normal psychiatric evaluation. Normal interpersonal interactions appears functionally intact in deals appropriately with others. 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 Patient's EKG shows no ST segment elevation or depression or T wave abnormalities are noted. QT interval 388 QTC is 409 Patient was sleeping comfortably without any distress. When she awoke I told her all lab work was good and she stated she felt much better just knowing that. Patient states she still is coughing and coughing up some green sputum. - Lab Data Result diagrams: 10/26/16 13:25 10/26/16 13:25 Lab Results 10/26/16 10/26/16 10/26/16 Range/Units 13:25 13:25 13:25 WBC 11.0 H (3.8-10.6) k/uL RBC 4.78 (3.80-5.40) m/uL Hgb 13.8 (11.4-16.0) gm/dL Hct 41.4 (34.0-46.0) % MCV 86.7 (80.0-100.0) fL MCH 28.8 (25.0-35.0) pg MCHC 33.3 (31.0-37.0) g/dL RDW 15.2 (11.5-15.5) % Plt Count 124 L (150-450) k/uL Neutrophils % 59 % Lymphocytes % 32 % Monocytes % 5 % Eosinophils % 2 % Basophils % 1 % Neutrophils # 6.5 (1.3-7.7) k/uL Lymphocytes # 3.6 (1.0-4.8) k/uL Monocytes # 0.5 (0-1.0) k/uL Eosinophils # 0.2 (0-0.7) k/uL Basophils # 0.1 (0-0.2) k/uL PT (9.0-12.0) sec INR (<1.2) APTT (22.0-30.0) sec D-Dimer 0.51 (<0.60) mg/L FEU Sodium (137-145) mmol/L Potassium (3.5-5.1) mmol/L Chloride (98-107) mmol/L Carbon Dioxide (22-30) mmol/L Anion Gap mmol/L BUN (7-17) mg/dL Creatinine (0.52-1.04) mg/dL Est GFR (MDRD) Af Amer (>60 ml/min/1.73 sqM) Est GFR (MDRD) Non-Af (>60 ml/min/1.73 sqM) Glucose (74-99) mg/dL Calcium (8.4-10.2) mg/dL Total Bilirubin (0.2-1.3) mg/dL AST (14-36) U/L ALT (9-52) U/L Alkaline Phosphatase (38-126) U/L Total Creatine Kinase 71 (30-135) U/L CK-MB (CK-2) 0.7 (0.0-2.4) ng/mL CK-MB (CK-2) Rel Index 1.0 Troponin I <0.012 (0.000-0.034) ng/mL Total Protein (6.3-8.2) g/dL Albumin (3.5-5.0) g/dL TSH (0.465-4.680) mIU/L Free T4 (0.78-2.19) ng/dL 10/26/16 10/26/16 Range/Units 13:25 13:25 WBC (3.8-10.6) k/uL RBC (3.80-5.40) m/uL Hgb (11.4-16.0) gm/dL Hct (34.0-46.0) % MCV (80.0-100.0) fL MCH (25.0-35.0) pg MCHC (31.0-37.0) g/dL RDW (11.5-15.5) % Plt Count (150-450) k/uL Neutrophils % % Lymphocytes % % Monocytes % % Eosinophils % % Basophils % % Neutrophils # (1.3-7.7) k/uL Lymphocytes # (1.0-4.8) k/uL Monocytes # (0-1.0) k/uL Eosinophils # (0-0.7) k/uL Basophils # (0-0.2) k/uL PT 10.6 (9.0-12.0) sec INR 1.0 (<1.2) APTT 25.9 (22.0-30.0) sec D-Dimer (<0.60) mg/L FEU Sodium 141 (137-145) mmol/L Potassium 4.0 (3.5-5.1) mmol/L Chloride 109 H (98-107) mmol/L Carbon Dioxide 20 L (22-30) mmol/L Anion Gap 12 mmol/L BUN 5 L (7-17) mg/dL Creatinine 0.60 (0.52-1.04) mg/dL Est GFR (MDRD) Af Amer >60 (>60 ml/min/1.73 sqM) Est GFR (MDRD) Non-Af >60 (>60 ml/min/1.73 sqM) Glucose 78 (74-99) mg/dL Calcium 9.6 (8.4-10.2) mg/dL Total Bilirubin 0.5 (0.2-1.3) mg/dL AST 26 (14-36) U/L ALT 27 (9-52) U/L Alkaline Phosphatase 38 (38-126) U/L Total Creatine Kinase (30-135) U/L CK-MB (CK-2) (0.0-2.4) ng/mL CK-MB (CK-2) Rel Index Troponin I (0.000-0.034) ng/mL Total Protein 7.0 (6.3-8.2) g/dL Albumin 4.3 (3.5-5.0) g/dL TSH 1.510 (0.465-4.680) mIU/L Free T4 1.01 (0.78-2.19) ng/dL Disposition Clinical Impression: Acute bronchitis Disposition: HOME SELF-CARE Condition: Good Instructions: Acute Bronchitis (ED) Prescriptions: Azithromycin [Zithromax Tri-Jared] 500 mg PO DAILY #3 tab Referrals: Juliane Barksdale MD [Primary Care Provider] - 1-2 days Time of Disposition: 15:09
[2016-10-26 13:34] VITALS: RESP 18
[2016-10-26 13:44] LABS: Basophils # (A) 0.1 k/uL (0-0.2); Basophils % (A) 1 %; CH 28.3; CHCM 32.8; Eosinophils # (A) 0.2 k/uL (0-0.7); Eosinophils % (A) 2 %; HCT 41.4 % (34.0-46.0); HDW 2.45; HGB 13.8 gm/dL (11.4-16.0); Luc # (Auto) 0.17; Luc % (Auto) 2; Lymphocytes # (A) 3.6 k/uL (1.0-4.8); Lymphocytes % (A) 32 %; MCH 28.8 pg (25.0-35.0); MCHC 33.3 g/dL (31.0-37.0); MCV 86.7 fL (80.0-100.0); Mean Platelet Volume 10.4; Monocytes # (A) 0.5 k/uL (0-1.0); Monocytes % (A) 5 %; Neutrophils # (A) 6.5 k/uL (1.3-7.7); Neutrophils % (A) 59 %; RBC 4.78 m/uL (3.80-5.40); RDW 15.2 % (11.5-15.5)
[2016-10-26 13:54] LABS: ALT 27 U/L (9-52); AST 26 U/L (14-36); Alkaline Phosphatase 38 U/L (38-126); Anion Gap 12 mmol/L; Blood Urea Nitrogen 5 mg/dL (7-17); Calcium 9.6 mg/dL (8.4-10.2); Carbon Dioxide 20 mmol/L (22-30); Chloride 109 mmol/L (98-107); Glucose 78 mg/dL (74-99); Non-African American GFR(MDRD) >60 (>60 ml/min/1.73 sqM); Sodium 141 mmol/L (137-145); Total Bilirubin 0.5 mg/dL (0.2-1.3)
--- NOTE | 2016-10-26 13:57 | XR ---
EXAMINATION TYPE: XR chest 2V DATE OF EXAM: 10/26/2016 HISTORY: difficulty breathing. REFERENCE: Previous study dated 07/17/2016. FINDINGS: There is a stable reticular-nodular pattern to the lungs particularly in the lower lobes. T here is no lobar pneumonia or edema. The heart is not enlarged. Pleural spaces are clear IMPRESSION: CHRONIC RETICULAR-NODULAR PATTERN WITHOUT SUPERIMPOSED ABNORMALITY.
[2016-10-26 14:17] LABS: Partial Thromboplastin Time 25.9 sec (22.0-30.0); Prothrombin Time 10.6 sec (9.0-12.0)
[2016-10-26 14:24] LABS: Creatine Kinase 71 U/L (30-135)
[2016-10-26 14:36] VITALS: BP 113/50; PULSE 66; TEMP 98
[2016-10-26 14:37] LABS: Creatine Kinase MB 0.7 ng/mL (0.0-2.4); Troponin I <0.012 ng/mL (0.000-0.034)
== END 2016-10-26 15:22 | disposition home or self-care (01) ==
LOC: EC 12:36
DX: J20.9 Acute bronchitis, unspecified (principal); E78.5 Hyperlipidemia, unspecified; I25.10 Atherosclerotic heart disease of native coronary artery without angina pectoris; I10 Essential (primary) hypertension; M19.90 Unspecified osteoarthritis, unspecified site; M79.7 Fibromyalgia; Z87.891 Personal history of nicotine dependence; Z88.6 Allergy status to analgesic agent; Z88.0 Allergy status to penicillin; Z91.018 Allergy to other foods; Z79.82 Long term (current) use of aspirin; Z79.899 Other long term (current) drug therapy
CPT/HCPCS: 36415; 71020; 80053; 82550; 82553; 84439; 84443; 84484; 85025; 85379; 85610; 85730; 93005; 99285

== ENCOUNTER → 2016-11-11 | Outpatient (CLI) | payer OTHER ==
[2016-11-11 13:51] VITALS: BP 119/65; PULSE 66; RESP 16; TEMP 98
--- NOTE | 2016-11-11 14:21 | P.PN ---
Progress Note - Text Patient returns for followup for chronic back and leg pain. Patient had recent right lumbar RFA with 60% relief of back pain. Patient continues on MSContin + [place] and Neurontin medications for pain with good relief, but complains of sedation with MSContin and wishes to have tramadol at night instead. Patient denies other ADEs. Today, pt denies new-onset weakness, bowel/bladder incontinence, or any other signs or symptoms of cauda equina syndrome. There are no signs of acute intoxication, and no indications of medication diversion or overuse. In addition to above, 13-point review of systems is also negative for chest pain , shortness of breath, changes in vision, changes in hearing, new onset weakness , abdominal pain, diarrhea, extreme fatigue, malaise, fever, skin changes, homicidal or suicidal ideation, or bowel or bladder incontinence. Gen: WDWN, AAOx3, NAD HEENT: NCAT, EOMI, hearing grossly normal Pulm: resp unlabored Abd: soft, NT, ND ROM in flexion lumbar spine: reduced ROM in extension lumbar spine: reduced Lumbar paravertebral tenderness: + Facet loading: + bilateral SI joint tenderness: + R side > L side Jared's test: + R side > L side Straight leg raise: negative bilaterally Neuro: CN II-XII grossly intact, muscle strength lower extremities PRESERVED Imaging: Reviewed in EMR Assessment: 1. lumbar spondylosis without myelopathy 2. lumbar DDD 3. cervical radic 4. sacroiliitis Plan: 1. Explanation: Opioid and psychological risk scores were reviewed. Diagnoses , prognoses, and multiple treatment options including but not limited to physical therapy, interventional therapies, adjuvant medical therapies, narcotic medication therapies, and surgery were discussed with the patient and all questions were answered to the patient's satisfaction. 2. Opioid agreement: Patient has previously signed narcotic agreement, and was orally counseled to not overuse, abuse, divert, or cell medications, and to take them as prescribed by only 1 healthcare provider. The patient was also counseled to take medications as prescribed by only 1 healthcare provider and to store opioid medications in the safe and preferably locked location. Patient was also counseled against driving while using narcotic medications and also to not use alcohol or any illicit or recreational drugs. The patient verbalized understanding that lack of compliance with any of the above and likely result in failure to renew narcotic prescriptions, possible discharge from the clinic, and possible legal ramifications thereafter if indicated. 3. Counseling: The patient was counseled extensively on BODY MASS INDEX, EXERCISE. Specifically, the patient was instructed regarding the importance of weight control and exercise in the context of both chronic pain and overall health. 4. Procedures: none for now 5. Consultations: none 6. Investigations: none 7. Medications: [place] 10/325 #120 x 2 month; start tramadol 50 mg #30 to be used at night; Neurontin with two refills 8. Disposition: f/u for procedure as scheduled PQRS measures: 1-Patient's medications are documented in the chart. 2-Tobacco use is negative, counseling given 3-Patient has not had a pneumococcal vaccine. 4-Advanced care planning discussed, patient not eligible. 5-Opioid contract signed with the patient. 6-Pain positive, follow-up visit or procedure scheduled 7-Patient's blood pressure measured and documented, and patient will follow up with the primary care due to hypertension. 8-Patient's weight was measured, and body mass index ABOVE the normal limits, and counseling was done. Patient instructed to follow up with PCP. 9-Patient WAS NOT identified as an unhealthy alcohol user.
== END ==
LOC: PNWHC3 12:27
PROVIDERS: ATTEND Anesthesiology
DX: M51.36 Other intervertebral disc degeneration, lumbar region (principal); M47.816 Spondylosis without myelopathy or radiculopathy, lumbar region; M46.1 Sacroiliitis, not elsewhere classified; Z79.891 Long term (current) use of opiate analgesic; Z79.899 Other long term (current) drug therapy
CPT/HCPCS: 99211

== ENCOUNTER → 2017-01-06 | Outpatient (CLI) | payer OTHER ==
[2017-01-06 13:01] VITALS: BP 126/67; PULSE 74; RESP 16
--- NOTE | 2017-01-06 13:24 | P.PN ---
Progress Note - Text Progress Note Date: 01/06/17 Patient returns for followup for chronic back and leg pain. Patient had recent right lumbar RFA with 60% relief of back pain but it has begun to return. Patient continues on MSContin, Neurontin, and tramadol (at night only) and is doing better with this combination. Patient denies other ADEs. Today, pt denies new-onset weakness, bowel/bladder incontinence, or any other signs or symptoms of cauda equina syndrome. There are no signs of acute intoxication, and no indications of medication diversion or overuse. In addition to above, 13-point review of systems is also negative for chest pain , shortness of breath, changes in vision, changes in hearing, new onset weakness , abdominal pain, diarrhea, extreme fatigue, malaise, fever, skin changes, homicidal or suicidal ideation, or bowel or bladder incontinence. Gen: WDWN, AAOx3, NAD HEENT: NCAT, EOMI, hearing grossly normal Pulm: resp unlabored Abd: soft, NT, ND ROM in flexion lumbar spine: reduced ROM in extension lumbar spine: reduced Lumbar paravertebral tenderness: + Facet loading: + bilateral SI joint tenderness: + R side >> L side Jared's test: + R side >> L side Straight leg raise: negative bilaterally Neuro: CN II-XII grossly intact, muscle strength lower extremities PRESERVED Imaging: Reviewed in EMR Assessment: 1. lumbar spondylosis without myelopathy 2. lumbar DDD 3. cervical radic 4. sacroiliitis Plan: 1. Explanation: Opioid and psychological risk scores were reviewed. Diagnoses , prognoses, and multiple treatment options including but not limited to physical therapy, interventional therapies, adjuvant medical therapies, narcotic medication therapies, and surgery were discussed with the patient and all questions were answered to the patient's satisfaction. 2. Opioid agreement: Patient has previously signed narcotic agreement, and was orally counseled to not overuse, abuse, divert, or cell medications, and to take them as prescribed by only 1 healthcare provider. The patient was also counseled to take medications as prescribed by only 1 healthcare provider and to store opioid medications in the safe and preferably locked location. Patient was also counseled against driving while using narcotic medications and also to not use alcohol or any illicit or recreational drugs. The patient verbalized understanding that lack of compliance with any of the above and likely result in failure to renew narcotic prescriptions, possible discharge from the clinic, and possible legal ramifications thereafter if indicated. 3. Counseling: The patient was counseled extensively on BODY MASS INDEX, EXERCISE. Specifically, the patient was instructed regarding the importance of weight control and exercise in the context of both chronic pain and overall health. 4. Procedures: R SIJ injection 5. Consultations: none 6. Investigations: none 7. Medications: [place] 10/325 #120 with no refill; continue tramadol 50 mg #30 to be used at night; Neurontin with two refills 8. Disposition: f/u for procedure as scheduled PQRS measures: 1-Patient's medications are documented in the chart. 2-Tobacco use is negative, counseling given 3-Patient has not had a pneumococcal vaccine. 4-Advanced care planning discussed, patient not eligible. 5-Opioid contract signed with the patient. 6-Pain positive, follow-up visit or procedure scheduled 7-Patient's blood pressure measured and documented, and patient will follow up with the primary care due to hypertension. 8-Patient's weight was measured, and body mass index ABOVE the normal limits, and counseling was done. Patient instructed to follow up with PCP. 9-Patient WAS NOT identified as an unhealthy alcohol user.
== END | disposition home or self-care (01) ==
LOC: PNWHC3 12:33
PROVIDERS: ATTEND Anesthesiology
DX: M51.36 Other intervertebral disc degeneration, lumbar region (principal); M47.816 Spondylosis without myelopathy or radiculopathy, lumbar region; M46.1 Sacroiliitis, not elsewhere classified
CPT/HCPCS: 99211

== ENCOUNTER 2017-02-01 07:28 | Day surgery (SDC) | payer OTHER ==
[2017-01-26 15:23] VITALS: BMI 30.9
[2017-02-01 07:45] VITALS: TEMP 97.5
[2017-02-01] MEDS ORDERED: LACTATED RINGERS 1,000 ML IV SCH (07:45)
[2017-02-01] MEDS ORDERED: LIDOCAINE 1% 20 ML VIAL (10MG/ML) FOR IV START INTRADERMA ONE (07:48)
--- NOTE | 2017-02-01 08:29 | P.PCN ---
Date of Procedure: 02/01/17 Surgeon: Maurisio Bryant Pathology: none sent Condition: stable Disposition: PACU Description of Procedure: PREOPERATIVE DIAGNOSIS: 1-Bilateral sacroiliitis. 2 Lumbar DDD POSTOPERATIVE DIAGNOSIS:. 1-Bilateral sacroiliitis. 2 Lumbar DDD PROCEDURES: Right Sacroiliac joint steroid injection with fluoroscopic guidance ANESTHESIA: Local with 1% lidocaine; conscious sedation EBL: Minimal. PROCEDURE INDICATIONS: This patient with a history of low back pain secondary to sacroiliitis and lumbar DDD unresponsive to conservative management, R SIJ injection #1. No use of blood thinners. PROCEDURE DESCRIPTION: The patient was seen and identified in the preoperative area. Risks, benefits, complications, and alternatives were discussed with the patient (including but not limited to incomplete pain relief, bleeding, infection, nerve damage, and allergies to medications), the patient agreed to proceed with the procedure and signed the consent after all questions were answered. Patient was taken to the OR and time out was completed to verify proper patient , position, laterality of pain, and allergies. Pt was placed in the prone position and a pillow was placed under the abdomen to reduce lumbar lordosis. The lumbosacral area was prepped and draped in the usual sterile fashion. Critical pause was taken. Vital signs were closely monitored during the procedure. The fluoroscopic camera was placed in contralateral oblique view and right sacroiliiac joint lower pole was identified. After local infiltration with 1% lidocaine 2 ml, Subsequently, a 22-gauge 3.5 inch spinal needle was introduced into the posteroinferior aspect of the right sacroiliac joint under direct fluoroscopic visualization. Subsequently, 4 ml of a solution of a total of 4 ml solution containing total 3 mL of 0.5% preservative-free bupivicaine mixed with 40 mg of Kenalog was injected after negative aspiration for CSF, blood, and air and negative for paresthesia. The entire procedure was repeated on the left side as above. Needle was withdrawn intact. Skin was cleansed, and bandages were applied. COMPLICATIONS: None. COMMENTS: DISPOSITION / PLANS: The patient was placed in a supine position and transferred to the recovery area in a stable condition for observation and was discharged from the recovery room after meeting discharge criteria. Home discharge instructions given to the patient by the staff. The patient was reexamined prior to discharge. The patient will schedule a repeat procedure (R SIJ injection) in 2-4 weeks.
[2017-02-01] MEDS ORDERED: IV FLUID CONTINUATION 1,000 ML IV ONE (08:32)
[2017-02-01 08:36] VITALS: RESP 18
[2017-02-01] MEDS ORDERED: PANTOPRAZOLE 40 MG TABLET PO STA (08:50)
[2017-02-01 08:53] VITALS: BP 109/60; PULSE 78
--- NOTE | 2017-02-01 09:16 | FL ---
Fluoroscopy HISTORY: Pain 3 seconds fluoroscopy time supplied to the referring clinician. 2 intraoperative C-arm images docume nt the procedure. See dictated report from anesthesia.
== END 2017-02-01 09:20 | disposition home or self-care (01) ==
LOC: ORPAIN 07:28
PROVIDERS: ATTEND Anesthesiology
DX: G89.29 Other chronic pain (principal); M46.1 Sacroiliitis, not elsewhere classified; M51.36 Other intervertebral disc degeneration, lumbar region; Z79.891 Long term (current) use of opiate analgesic; Z79.899 Other long term (current) drug therapy
CPT/HCPCS: J2250; J3301; Q9965; J3010; G0260; 27096; 99152

== ENCOUNTER 2017-03-03 07:52 | Day surgery (SDC) | payer OTHER ==
[2017-03-01 15:02] VITALS: BMI 30.1
[2017-03-03 09:10] VITALS: RESP 18; TEMP 98.6
[2017-03-03] MEDS ORDERED: LIDOCAINE 1% 20 ML VIAL (10MG/ML) FOR IV START INTRADERMA ONE (09:12)
--- NOTE | 2017-03-03 09:33 | P.PCN ---
Date of Procedure: 03/03/17 Surgeon: Maurisio Bryant Pathology: none sent Condition: stable Disposition: PACU Description of Procedure: PREOPERATIVE DIAGNOSIS: 1-Bilateral sacroiliitis. 2 Lumbar DDD POSTOPERATIVE DIAGNOSIS:. 1-Bilateral sacroiliitis. 2 Lumbar DDD PROCEDURES: Right Sacroiliac joint steroid injection with fluoroscopic guidance ANESTHESIA: Local with 1% lidocaine; conscious sedation EBL: Minimal. PROCEDURE INDICATIONS: This patient with a history of low back pain secondary to sacroiliitis and lumbar DDD unresponsive to conservative management, R SIJ injection #2 after two weeks' relief from first procedure. No use of blood thinners. PROCEDURE DESCRIPTION: The patient was seen and identified in the preoperative area. Risks, benefits, complications, and alternatives were discussed with the patient (including but not limited to incomplete pain relief, bleeding, infection, nerve damage, and allergies to medications), the patient agreed to proceed with the procedure and signed the consent after all questions were answered. Patient was taken to the OR and time out was completed to verify proper patient , position, laterality of pain, and allergies. Pt was placed in the prone position and a pillow was placed under the abdomen to reduce lumbar lordosis. The lumbosacral area was prepped and draped in the usual sterile fashion. Critical pause was taken. Vital signs were closely monitored during the procedure. The fluoroscopic camera was placed in contralateral oblique view and right sacroiliiac joint lower pole was identified. After local infiltration with 1% lidocaine 2 ml, Subsequently, a 22-gauge 3.5 inch spinal needle was introduced into the posteroinferior aspect of the right sacroiliac joint under direct fluoroscopic visualization. Subsequently, 4 ml of a solution of a total of 4 ml solution containing total 3 mL of 0.5% preservative-free bupivacaine mixed with 40 mg of Kenalog was injected after negative aspiration for CSF, blood, and air and negative for paresthesia. The entire procedure was repeated on the left side as above. Needle was withdrawn intact. Skin was cleansed, and bandages were applied. COMPLICATIONS: None. COMMENTS: DISPOSITION / PLANS: The patient was placed in a supine position and transferred to the recovery area in a stable condition for observation and was discharged from the recovery room after meeting discharge criteria. Home discharge instructions given to the patient by the staff. The patient was reexamined prior to discharge and there were no issues. The patient will schedule a follow-up in clinic in 2-4 weeks.
[2017-03-03] MEDS ORDERED: IV FLUID CONTINUATION 1,000 ML IV ONE (09:39)
--- NOTE | 2017-03-03 09:43 | FL ---
EXAMINATION TYPE: FL guided pain mgmt statistic DATE OF EXAM: 03/03/2017 CLINICAL HISTORY: Low back sacroiliac joint pain. TECHNIQUE: Fluoroscopy. COMPARISON: None. FINDINGS: Fluoroscopic guidance was provided during pain relief procedure performed by Dr. Bryant . A total of 3 seconds of fluoroscopic time was utilized during the procedure and two spot images are a cquired. Images acquired shows needle localization at level of right sacroiliac joint. IMPRESSION: As Above.
[2017-03-03 09:58] VITALS: BP 91/55; PULSE 72
== END 2017-03-03 10:18 | disposition home or self-care (01) ==
LOC: ORPAIN 07:52
PROVIDERS: ATTEND Anesthesiology
DX: M46.1 Sacroiliitis, not elsewhere classified (principal); M51.36 Other intervertebral disc degeneration, lumbar region; I10 Essential (primary) hypertension; J44.9 Chronic obstructive pulmonary disease, unspecified; Z88.0 Allergy status to penicillin; Z88.6 Allergy status to analgesic agent; Z79.82 Long term (current) use of aspirin; Z95.5 Presence of coronary angioplasty implant and graft
CPT/HCPCS: G0260; J2250; J3301; Q9965; J3010; 27096

== ENCOUNTER → 2017-03-18 | Outpatient (CLI) | payer OTHER ==
[2017-03-18 14:29] VITALS: BP 136/82; PULSE 94; RESP 16; TEMP 98.2
--- NOTE | 2017-03-18 15:12 | P.PN ---
Subjective Progress Note Date: 03/18/17 This is follow-up visit for this patient with a history of severe and chronic low back pain secondary to lumbar degenerative disc disease, lumbar facet arthropathy, and right sacroiliitis ,we did interventional pain management injection, Zwolle ablation of the right medial branch lumbar area, simply we have done right side sacroiliac joint steroid injections , reported that she gets excellent pain relief after the right sacroiliac joint steroid injections patient currently on 1-[place] 10/325 every 6 hours 2- ultram 50 mg daily 3-Neurontin 100 mg 2 tablets 3 times a day Patient denies any side effects of the medication, denies excessive drowsiness or sleepiness, denies suicidal ideation, and reports that the current pain medication is helping To control the pain and improve activity of daily living . Patient denies any motor or sensory deficit, denies change in bowel movement or urination, patient denies any fever or night sweats and patient here for follow-up visit and medication refill Objective - Vital Signs Vital signs: Vital Signs Temp 98.2 F 03/18/17 14:17 Pulse 94 03/18/17 14:17 Resp 16 03/18/17 14:17 BP 136/82 03/18/17 14:17 Pulse Ox Intake & Output 03/17/17 03/18/17 03/18/17 18:59 06:59 18:59 Weight 77.111 kg - Exam Physical Examinations : 1-Constitutiona : Cooperative , not in acute distress . 2-HEENT : nech ; supple , no Lymphadenopathy , normal thyroid size . eyes : no ptosis , no icterus, no photophobia . ENT : normal of hearing , normal oropharynx , no Thrush . 3- Respiratory : Chest clear to auscultations Bilaterally , no wheezing , no Rhonchi . 4- Cardiovascular : regular rate and rhythem , S1 , S2 , no S3 , no S4. 5- Gastrointestinal : abdomen soft no tenderness , bowel sounds positive all four quadrents , no organomegally . 6- Genitourinary : Defferred . 7- neurologic : Cranial nerve II to XII intact , no focal neurological deffecit . 8-psychatric : alert , oriented X 3 , appropriate affect , intact judgment and insight . 9-Lymphatic : no Lymphadenopathy . 10- musculoskeltal : , Lumber spine = normal moter stegnth lower extremities ,thigh and legs .5/5 deep tendon reflexes : normal Knee Jerk , normal ankle Jerk . lumber facet Loading Test positive strait leg raising test negative Fabere test negative bilaterally tenderness over the Sacroiliac joint on the Right , Trigger points identified in the lumbar paravertebral muscles Assessment and Plan Plan: Assessment and plan= chronic low back pain secondary to lumbar degenerative disc disease , lumbar spondylosis with lumbar facet arthropathy , sacroiliitis She had excellent pain relief after the right-sided sacroiliac joint steroid injections chronic and current use of high-risk medication (opioids) Patient denies any side effects of the current pain medication and the current treatment/medication ML and the patient to do activity of daily living , Diagnoses, prognosis, treatment options, including but not limited to physical therapy, medication management, interventional therapies, and surgery, were discussed with the patient All the questions answered Patient signed the narcotic agreement, and he was orally counseled, not to overuse, not to abuse, not to Divert , not tp sell pain medication, and to take it as prescribed only, Patient was counseled not to drive or operate heavy equipment while using narcotic medication, and advised not to use alcohol or any Illicit drugs while using the narcotis, the patient's verbalized understanding that lack of compliance with any of the above instructions and will likely to cause discharge from the pain service, not to renew his narcotic prescriptions Medication managements= patient will be given prescription refills for 1-[place] 10/325 every 6 hours dispense 120 with one refill 2-ultram 50 mg daily dispense 30 with one refill 3-Neurontin 100 mg 2 tablets every 8 hours dispense 180 with 1 refill Interventional pain management=in the future patient could be a good candidate for radiofrequency ablation of the right sacroiliac join Follow-up= 2 months , ( next visit we'll do a urine drug screen ) , Time with Patient: Less than 30
--- NOTE | 2017-03-18 15:14 | P.PN ---
Progress Note - Text Progress Note Date: 03/18/17 This is an addendum to the note dictated today addendume To the diagnosis patient had myofascial pain syndrome lumbar area. addendum to the end that the patient will be referred to have physical therapy to have myofascial release lumbar area
== END | disposition home or self-care (01) ==
LOC: PNWHC3 12:35
PROVIDERS: ATTEND Specialist
DX: M51.36 Other intervertebral disc degeneration, lumbar region (principal); M47.816 Spondylosis without myelopathy or radiculopathy, lumbar region; M46.96 Unspecified inflammatory spondylopathy, lumbar region; M53.3 Sacrococcygeal disorders, not elsewhere classified; M79.1 Myalgia; Z79.899 Other long term (current) drug therapy
CPT/HCPCS: 99211

== ENCOUNTER → 2017-05-13 | Outpatient (CLI) | payer OTHER ==
[2017-05-13 12:19] VITALS: BP 156/74; PULSE 75; RESP 16
--- NOTE | 2017-05-13 13:10 | P.PN ---
Subjective Progress Note Date: 05/13/17 This is follow-up visit for this patient with a history of severe and chronic low back pain secondary to lumbar degenerative disc diseases , lumbar spondylosis with facet arthropathy, And sacroiliitis ,we have done radiofrequency ablation of the medial branch lumbar area and right side sacroiliac joint steroid injections, she had good results. Patients currently on [place] 10/325 every 6 hours, Neurontin 200 mg every 8 hours , Ultram 50 mg once a day Patient denies any side effects of the medication, denies excessive drowsiness or sleepiness, denies suicidal ideation, and reports that the current pain medication is NOT helping To control the pain , and improve activity of daily living Patient denies any motor or sensory deficit , patient denies any fever or night sweats, denies any change in the bowel movements or urination Physical Examinations : 1-Constitutiona : Cooperative , not in acute distress . 2-HEENT : nech ; supple , no Lymphadenopathy , no Thyromegaly , normal thyroid size . eyes : no ptosis , no icterus, no photophobia . ENT : normal of hearing , normal oropharynx , no Thrush . 3- Respiratory : Chest clear to auscultations Bilaterally , no wheezing , no Rhonchi . 4- Cardiovascular : regular rate and rhythem , S1 , S2 , no S3 , no S4. 5- Gastrointestinal : abdomen soft no tenderness , bowel sounds positive all four quadrents , no organomegally . 6- Genitourinary : Defferred . 7- neurologic : Cranial nerve II to XII intact , no focal neurological deffecit . 8-psychatric : alert , oriented X 3 , appropriate affect , intact judgment and insight . 9-Lymphatic : no Lymphadenopathy . 10- musculoskeltal : exams of the Lumber spine = motor strength lower extremities ,thigh and legs .5/5 deep tendon reflexes : normal Knee Jerk , normal ankle Jerk . lumber facet Loading Test positive on the Right side , negative on the left side strait leg raising test negative bilaterally Fabere test negative bilaterally Range of motion: Range of motion in flexion of the lumbar spine 30 degrees Range of motion range of motion of extension of the lumbar spine 10 Assessment and plan = Chronic low back pain secondary to lumbar degenerative disc disease , lumbar spondylosis with facet arthropathy without myelopathy , and sacroiliitis chronic and current use of high-risk medication (Opioids). The patient was counseled about risk of opioid use, psychological risk associated with opioids and was orally counseled to not overuse , divert,or sell dictations to take medications as prescribed only , and to restore medication in safe location , and the patient counseled against driving while using narcotic medications, and also not to use alcohol or any illicit recreational drugs, the patient's verbalized understanding that the lack of compliance will result in failure to renew narcotic prescription and possible discharge from the clinic - diagnoses, prognosis, and treatment options including but not limited to physical therapy, surgical interventions, interventional therapies , and medication management including narcotics and adjuvant medication were discussed with the patient and all the questions answered Patient could benefit from repeat radiofrequency ablation of the medial branch on the right side Prescription refill for [place] 10/325 dispense 120 with one refill , Ultram 50 mg every 8 hours dispense 30 with one refill , Neurontin 100 mg 2 tablets every 8 hours dispensed 180 with 2 refill Objective - Vital Signs Vital signs: Vital Signs Temp Pulse 75 05/13/17 12:04 Resp 16 05/13/17 12:04 BP 156/74 05/13/17 12:04 Pulse Ox Intake & Output 05/12/17 05/13/17 05/13/17 18:59 06:59 18:59 Weight 78.471 kg
== END | disposition home or self-care (01) ==
LOC: PNWHC3 11:30
PROVIDERS: ATTEND Specialist
DX: G89.29 Other chronic pain (principal); M54.5 Low back pain; M51.36 Other intervertebral disc degeneration, lumbar region; M47.816 Spondylosis without myelopathy or radiculopathy, lumbar region; M46.86 Other specified inflammatory spondylopathies, lumbar region; M46.1 Sacroiliitis, not elsewhere classified; Z79.52 Long term (current) use of systemic steroids; Z79.891 Long term (current) use of opiate analgesic; Z79.899 Other long term (current) drug therapy; Z79.1 Long term (current) use of non-steroidal anti-inflammatories (NSAID); Z71.89 Other specified counseling; Z76.0 Encounter for issue of repeat prescription
CPT/HCPCS: 99211

== ENCOUNTER 2017-06-25 13:44 | Emergency (ER) | payer OTHER ==
[2017-06-25 14:56] VITALS: RESP 20
[2017-06-25] MEDS ORDERED: IPRATROPIUM-ALBUTEROL 3 ML NEB INHALATION STA (15:19)
[2017-06-25] MEDS ORDERED: SODIUM CHLORIDE 0.9% 1,000 ML IV STA (15:19)
[2017-06-25 15:48] LABS: Basophils % (A) 1 %; Eosinophils # (A) 0.1 k/uL (0-0.7); Eosinophils % (A) 1 %; HCT 42.7 % (34.0-46.0); HGB 14.4 gm/dL (11.4-16.0); Lymphocytes # (A) 2.8 k/uL (1.0-4.8); Lymphocytes % (A) 44 %; MCH 28.7 pg (25.0-35.0); MCHC 33.8 g/dL (31.0-37.0); MCV 84.9 fL (80.0-100.0); Mean Platelet Volume 11.7; Monocytes # (A) 0.3 k/uL (0-1.0); Monocytes % (A) 5 %; Neutrophils # (A) 2.9 k/uL (1.3-7.7); Neutrophils % (A) 46 %; RBC 5.03 m/uL (3.80-5.40); RDW 13.3 % (11.5-15.5); WBC 6.4 k/uL (3.8-10.6)
--- NOTE | 2017-06-25 15:56 | XR ---
EXAMINATION TYPE: XR chest 2V DATE OF EXAM: 06/25/2017 COMPARISON: 10/26/2016 HISTORY: Shortness of breath TECHNIQUE: Frontal and lateral views of the chest are obtained. FINDINGS: Scattered senescent parenchymal changes noted. Hyperinflation compatible with COPD. No evidence for infiltrate. No evidence for atelectasis. Heart size is stable. Mediastinal structures are stable and grossly unremarkable. No evidence for hilar prominence. Degenerative changes dorsal spine. IMPRESSION: 1. No evidence for acute pulmonary disease.
[2017-06-25 15:59] LABS: ALT 27 U/L (9-52); AST 35 U/L (14-36); Albumin 4.1 g/dL (3.5-5.0); Alkaline Phosphatase 39 U/L (38-126); Anion Gap 14 mmol/L; Blood Urea Nitrogen 7 mg/dL (7-17); Calcium 9.4 mg/dL (8.4-10.2); Carbon Dioxide 20 mmol/L (22-30); Chloride 107 mmol/L (98-107); D-Dimer 0.7 mg/L FEU (<0.60); Glucose 85 mg/dL (74-99); Magnesium 1.9 mg/dL (1.6-2.3); Potassium 3.9 mmol/L (3.5-5.1); Sodium 141 mmol/L (137-145); Total Bilirubin 0.4 mg/dL (0.2-1.3); Total Protein 6.9 g/dL (6.3-8.2)
[2017-06-25 16:03] LABS: Partial Thromboplastin Time 27.4 sec (22.0-30.0)
[2017-06-25 16:09] LABS: Large Platelets Present; Platelet Count 81 k/uL (150-450)
[2017-06-25 16:12] LABS: Creatine Kinase 48 U/L (30-135)
--- NOTE | 2017-06-25 16:13 | ED ---
General Adult HPI - General Chief complaint: Upper Respiratory Infection Stated complaint: Congested Time Seen by Provider: 06/25/17 15:03 Source: patient, RN notes reviewed, old records reviewed Mode of arrival: ambulatory Limitations: no limitations - History of Present Illness Initial comments: This is a 52-year-old female to the ER for evaluation today. She presents for evaluation regards to increased fatigue as of late, sore throat 2 weeks ago occasional cough and congestion. He denies any specific chest pain. She does acute occasionally cough up sputum. No recent travel history or sick contacts. No prior hospitalizations - Related Data Home Medications Medication Instructions Recorded Confirmed Multivitamins, Thera [Multivitamin 1 tab PO DAILY 10/23/13 06/25/17 (formulary)] Omeprazole [PriLOSEC] 20 mg PO AC-BRKFST 04/16/15 06/25/17 Trolamine Salicylate [Aspercreme] 1 applic TOPICAL BID PRN 11/27/15 06/25/17 Lisinopril [Zestril] 2.5 mg PO QAM 03/03/16 06/25/17 Aspirin EC [Ecotrin] 325 mg PO DAILY 07/17/16 06/25/17 Tetrahydrozoline HCl/Zinc Sulf 1 drop BOTH EYES BID PRN 07/17/16 06/25/17 [Visine Allergy Relief Drop] Albuterol Inhaler [Ventolin Hfa 2 puff INHALATION RT-QID PRN 06/25/17 06/25/17 Inhaler] HYDROcodone/APAP 10-325MG [C[place] 1 tab PO QID PRN 06/25/17 06/25/17 10-325] Previous Rx's Medication Instructions Recorded Atorvastatin [Lipitor] 80 mg PO HS #30 tab 02/22/14 Metoprolol Tartrate [Lopressor] 25 mg PO BID #60 tab 02/22/14 Nitroglycerin Sl Tabs [Nitrostat] 0.4 mg SUBLINGUAL Q5M PRN #25 tab 02/22/14 Gabapentin [Neurontin] 200 mg PO TID #180 cap 05/13/17 traMADol HCL [Ultram] 50 mg PO HS PRN #30 tablet 05/13/17 Allergies Allergy/AdvReac Type Severity Reaction Status Date / Time ibuprofen [From Motrin] Allergy Anaphylaxis Verified 06/25/17 15:28 /Swelling amoxicillin trihydrate AdvReac Nausea & Verified 06/25/17 15:28 [From Augmentin] Vomiting potassium clavulanate AdvReac Nausea & Verified 06/25/17 15:28 [From Augmentin] Vomiting SALMON Allergy Anaphylaxis Uncoded 06/25/17 14:56 Review of Systems ROS Statement: Those systems with pertinent positive or pertinent negative responses have been documented in the HPI. ROS Other: All systems not noted in ROS Statement are negative. Past Medical History Past Medical History: Coronary Artery Disease (CAD), COPD, Fibromyalgia, Hyperlipidemia, Hypertension, Myocardial Infarction ([place]), Osteoarthritis (OA), Pneumonia Additional Past Medical History / Comment(s): Crohns, Colitis. Osteoporosis. CHRONIC BACK PAIN, DDD, DJD, SCIATICA, SPINAL STENOSIS RADIATES DOWN LEGS. INCONT OF URINE IN NOC, SINCE BOWEL SURGERY. Last Myocardial Infarction Date:: 02/19/14- NON-ST ELEVATION [place] History of Any Multi-Drug Resistant Organisms: MRSA Date of last positivie culture/infection: 2009 MDRO Source:: abdominal Past Surgical History: Appendectomy, Bowel Resection, Heart Catheterization With Stent, Joint Replacement, Orthopedic Surgery, Tonsillectomy Additional Past Surgical History / Comment(s): 2 Small Bowel Resections D/T CROHNS; LT TOTAL KNEE REPLACEMENT THEN A REVISION-HAS TITANIUM; ADA CTR; Trigger Fingers, Thumbs. PTCA 02/2014 W/ 2 STENTS; 1 STENT 04/2014. MULT PAIN PROCEDURES. Past Anesthesia/Blood Transfusion Reactions: No Reported Reaction Date of Last Stent Placement:: 04/2016 Past Psychological History: No Psychological Hx Reported Smoking Status: Former smoker Past Alcohol Use History: None Reported Past Drug Use History: None Reported - Past Family History Father Family Medical History: Cancer Additional Family Medical History / Comment(s): LUNG CANCER Mother Additional Family Medical History / Comment(s): WHEN PT WAS AGE 14 NOT SURE WHY, HX OF MENTAL HEALTH ISSUES General Exam Limitations: no limitations General appearance: alert, in no apparent distress Head exam: Present: atraumatic, normocephalic, normal inspection Eye exam: Present: normal appearance, PERRL, EOMI. Absent: scleral icterus, conjunctival injection, periorbital swelling ENT exam: Present: normal exam, mucous membranes moist Neck exam: Present: normal inspection. Absent: tenderness, meningismus, lymphadenopathy Respiratory exam: Present: normal lung sounds bilaterally. Absent: respiratory distress, wheezes, rales, rhonchi, stridor Cardiovascular Exam: Present: regular rate, normal rhythm, normal heart sounds. Absent: systolic murmur, diastolic murmur, rubs, gallop, clicks GI/Abdominal exam: Present: soft, normal bowel sounds. Absent: distended, tenderness, guarding, rebound, rigid Extremities exam: Present: normal inspection, full ROM, normal capillary refill. Absent: tenderness, pedal edema, joint swelling, calf tenderness Back exam: Present: normal inspection Neurological exam: Present: alert, oriented X3, CN II-XII intact Psychiatric exam: Present: normal affect, normal mood Skin exam: Present: warm, dry, intact, normal color. Absent: rash Course Vital Signs 06/25/17 06/25/17 06/25/17 14:53 15:45 15:57 Temperature 98.9 F Pulse Rate 88 78 80 Respiratory 20 Rate Blood Pressure 142/83 O2 Sat by Pulse 99 Oximetry - Reevaluation(s) Reevaluation #1: 06/25/17 18:14 Patient's in no acute distress EKG Findings - EKG Comments: EKG Findings:: EKG shows normal sinus rhythm rate of 85, ND 154, QRS Medical Decision Making - Medical Decision Making 52 female the ER for evaluation of cough and congestion, remote history of smoking, positive bronchitis. Patient can be discharged home - Lab Data Result diagrams: 06/25/17 15:33 06/25/17 15:33 Lab Results 06/25/17 06/25/17 06/25/17 Range/Units 15:33 15:33 15:33 WBC 6.4 (3.8-10.6) k/uL RBC 5.03 (3.80-5.40) m/uL Hgb 14.4 (11.4-16.0) gm/dL Hct 42.7 (34.0-46.0) % MCV 84.9 (80.0-100.0) fL MCH 28.7 (25.0-35.0) pg MCHC 33.8 (31.0-37.0) g/dL RDW 13.3 (11.5-15.5) % Plt Count 81 L (150-450) k/uL Neutrophils % 46 % Lymphocytes % 44 % Monocytes % 5 % Eosinophils % 1 % Basophils % 1 % Neutrophils # 2.9 (1.3-7.7) k/uL Lymphocytes # 2.8 (1.0-4.8) k/uL Monocytes # 0.3 (0-1.0) k/uL Eosinophils # 0.1 (0-0.7) k/uL Basophils # 0.0 (0-0.2) k/uL Manual Slide Review Performed Large Platelets Present PT (9.0-12.0) sec INR (<1.2) APTT (22.0-30.0) sec D-Dimer (<0.60) mg/L FEU Sodium 141 (137-145) mmol/L Potassium 3.9 (3.5-5.1) mmol/L Chloride 107 (98-107) mmol/L Carbon Dioxide 20 L (22-30) mmol/L Anion Gap 14 mmol/L BUN 7 (7-17) mg/dL Creatinine 0.51 L (0.52-1.04) mg/dL Est GFR (CKD-EPI)AfAm >90 (>60 ml/min/1.73 sqM) Est GFR (CKD-EPI)NonAf >90 (>60 ml/min/1.73 sqM) Glucose 85 (74-99) mg/dL Calcium 9.4 (8.4-10.2) mg/dL Magnesium 1.9 (1.6-2.3) mg/dL Total Bilirubin 0.4 (0.2-1.3) mg/dL AST 35 (14-36) U/L ALT 27 (9-52) U/L Alkaline Phosphatase 39 (38-126) U/L Total Creatine Kinase 48 (30-135) U/L CK-MB (CK-2) 0.5 (0.0-2.4) ng/mL CK-MB (CK-2) Rel Index 1.0 Troponin I <0.012 (0.000-0.034) ng/mL NT-Pro-B Natriuret Pep pg/mL Total Protein 6.9 (6.3-8.2) g/dL Albumin 4.1 (3.5-5.0) g/dL 06/25/17 06/25/17 Range/Units 15:33 15:33 WBC (3.8-10.6) k/uL RBC (3.80-5.40) m/uL Hgb (11.4-16.0) gm/dL Hct (34.0-46.0) % MCV (80.0-100.0) fL MCH (25.0-35.0) pg MCHC (31.0-37.0) g/dL RDW (11.5-15.5) % Plt Count (150-450) k/uL Neutrophils % % Lymphocytes % % Monocytes % % Eosinophils % % Basophils % % Neutrophils # (1.3-7.7) k/uL Lymphocytes # (1.0-4.8) k/uL Monocytes # (0-1.0) k/uL Eosinophils # (0-0.7) k/uL Basophils # (0-0.2) k/uL Manual Slide Review Large Platelets PT 10.0 (9.0-12.0) sec INR 1.0 (<1.2) APTT 27.4 (22.0-30.0) sec D-Dimer 0.70 H (<0.60) mg/L FEU Sodium (137-145) mmol/L Potassium (3.5-5.1) mmol/L Chloride (98-107) mmol/L Carbon Dioxide (22-30) mmol/L Anion Gap mmol/L BUN (7-17) mg/dL Creatinine (0.52-1.04) mg/dL Est GFR (CKD-EPI)AfAm (>60 ml/min/1.73 sqM) Est GFR (CKD-EPI)NonAf (>60 ml/min/1.73 sqM) Glucose (74-99) mg/dL Calcium (8.4-10.2) mg/dL Magnesium (1.6-2.3) mg/dL Total Bilirubin (0.2-1.3) mg/dL AST (14-36) U/L ALT (9-52) U/L Alkaline Phosphatase (38-126) U/L Total Creatine Kinase (30-135) U/L CK-MB (CK-2) (0.0-2.4) ng/mL CK-MB (CK-2) Rel Index Troponin I (0.000-0.034) ng/mL NT-Pro-B Natriuret Pep 22 pg/mL Total Protein (6.3-8.2) g/dL Albumin (3.5-5.0) g/dL - Radiology Data Radiology results: report reviewed (Chest x-ray CTA chest negative for acute disease), image reviewed Disposition Clinical Impression: Upper respiratory infection, Acute bronchitis Disposition: ADMITTED IP TO THIS HOSP Condition: Good Instructions: Upper Respiratory Infection (ED), Acute Bronchitis (ED) Referrals: Juliane Barksdale MD [Primary Care Provider] - 1-2 days
[2017-06-25 16:25] LABS: Creatine Kinase MB 0.5 ng/mL (0.0-2.4); Troponin I <0.012 ng/mL (0.000-0.034)
[2017-06-25] MEDS ORDERED: RX INFO: IV CONTRAST WAS GIVEN 1 EACH MISC MISCELLANE PRN (16:45)
[2017-06-25] MEDS ORDERED: AZITHROMYCIN 500 MG TAB PO STA (18:15)
[2017-06-25] MEDS ORDERED: methylPREDNISolone SOD SUCCI 125 MG/2 ML VIAL IV STA (18:15)
[2017-06-25 18:27] VITALS: BP 127/62; PULSE 86; TEMP 98
--- NOTE | 2017-06-25 18:42 | CT ---
EXAMINATION TYPE: t with contrast and with 3-D reconstruction renderings. DATE OF EXAM: 06/25/2017 5:51 PM COMPARISON: 04/16/2015 HISTORY: Congestion and shortness of breath. CT DLP: 466 mGycm Automated exposure control for dose reduction was used. CONTRAST: CTA scan of the thorax is performed with IV Contrast, patient injected with 78 mL of Omnipaque 350, p ulmonary embolism protocol. 3-D reconstruction renderings. FINDINGS: LUNGS: There is a minimal diffuse bronchiectasis pattern with hyperinflation. There is also a mosaic pattern of groundglass opacity, nonspecific finding which can correlate with a clinical diagnosis of asthma. No lung consolidation. No dependent changes to suggest pulmonary edema. 5 mm right upper lobe and 5 mm pulmonary lower lobe nodules are unchanged when compared to the prior CT. PLEURAL SPACES: Negative. SOFT TISSUES: There is satisfactory enhancement of the pulmonary artery and its branches, there is no CT evidence for pulmonary embolism. There are prominent coronary artery calcifications redemonstrate d. No cardiomegaly. No pericardial effusion. Bilateral mild hilar adenopathy, greater on the right. M ild subcarinal adenopathy noted with few top normal mediastinal lymph nodes also seen. The aorta is u nremarkable. Generalized subcutaneous diaphragmatic structures are negative for acute findings. OSSEOUS STRUCTURES: Unremarkable. IMPRESSION: 1. NEGATIVE FOR PULMONARY EMBOLISM. 2. HYPERINFLATION PATTERN DISCUSSED. 3. Prominent Coronary Calcifications Redemonstrated. 4. Mild Bilateral Hilar And Subcarinal Adenopathy, Nonspecific. 5. Two 5 Mm Pulmonary Nodules.
== END 2017-06-25 19:38 | disposition other institution (70) ==
LOC: EC 13:44
DX: J20.9 Acute bronchitis, unspecified (principal); J06.9 Acute upper respiratory infection, unspecified; R53.83 Other fatigue; I25.10 Atherosclerotic heart disease of native coronary artery without angina pectoris; I10 Essential (primary) hypertension; I25.2 Old myocardial infarction; Z86.14 Personal history of Methicillin resistant Staphylococcus aureus infection; Z87.891 Personal history of nicotine dependence; Z79.82 Long term (current) use of aspirin; Z79.899 Other long term (current) drug therapy; Z88.6 Allergy status to analgesic agent; Z88.0 Allergy status to penicillin; Z91.013 Allergy to seafood
CPT/HCPCS: 36415; 94640; 93005; 85379; 83880; 80053; 82550; 82553; 83735; 84484; 85025; 85610; 85730; 71046; 71275; 99284; 96374; 96361 ×3; J2930; Q9967

== ENCOUNTER → 2017-07-08 | Outpatient (CLI) | payer OTHER ==
[2017-07-08 12:36] VITALS: BP 130/74; PULSE 66; RESP 18
--- NOTE | 2017-07-08 14:56 | P.PN ---
Subjective Progress Note Date: 07/08/17 This is follow-up visit for this patient with a history of severe and chronic low back pain secondary to lumbar degenerative disc disease, lumbar facet arthropathy, and right sacroiliitis we have done diagnostic medial branch block lumbar area , which was positive on it and we did right-sided sacroiliac joint steroid injection patient getting excellent pain relief patient currently on [place] 10/ 325 every 6 hours , Neurontin 200 mg 3 times a day , Ultram 50 mg daily at bedtime Patient denies any side effects of the medication, denies excessive drowsiness or sleepiness, denies suicidal ideation, and reports that the current pain medication is helping To control the pain and improve activity of daily living . Patient denies any motor or sensory deficit, denies change in bowel movement or urination, patient denies any fever or night sweats and patient here for follow-up visit and medication refill Objective - Vital Signs Vital signs: Vital Signs Temp Pulse 66 07/08/17 12:26 Resp 18 07/08/17 12:26 BP 130/74 07/08/17 12:26 Pulse Ox 95 07/08/17 12:26 Intake & Output 07/07/17 07/08/17 07/08/17 18:59 06:59 18:59 Weight 78.018 kg - Exam Physical Examinations : 1-Constitutiona : Cooperative , not in acute distress . 2-HEENT : nech ; supple , no Lymphadenopathy , normal thyroid size . eyes : no ptosis , no icterus, no photophobia . ENT : normal of hearing , normal oropharynx , no Thrush . 3- Respiratory : Chest clear to auscultations Bilaterally , no wheezing , no Rhonchi . 4- Cardiovascular : regular rate and rhythem , S1 , S2 , no S3 , no S4. 5- Gastrointestinal : abdomen soft no tenderness , bowel sounds positive all four quadrents , no organomegally . 6- Genitourinary : Defferred . 7- neurologic : Cranial nerve II to XII intact , no focal neurological deffecit . 8-psychatric : alert , oriented X 3 , appropriate affect , intact judgment and insight . 9-Lymphatic : no Lymphadenopathy . 10- musculoskeltal : cervical spine = motor stregnth in the deltoid and biceps, motor stregnth biceps and the wrist extensors (C6) . motor stregnth in the triceps muscle . deep tendon reflexes normal at the biceps , normal at Brachioradialis , normal at the Triceps positive cervical facet loading test . , Lumber spine = normal moter stegnth lower extremities ,thigh and legs .5/5 deep tendon reflexes : normal Knee Jerk , normal ankle Jerk . lumber facet Loading Test positive strait leg raising test negative bilaterally Fabere test negative bilaterally Sever tenderness over the Sacroiliac joint on the Right , Assessment and Plan Plan: Assessment and plan= chronic low back pain secondary to lumbar degenerative disc disease , lumbar spondylosis with lumbar facet arthropathy , right sacroiliitis She hasn't been resolved after the medial branch block and after the right- sided sacroiliac joint steroid injections chronic and current use of high-risk medication (opioids) Patient denies any side effects of the current pain medication and the current treatment/medication ML and the patient to do activity of daily living , Diagnoses, prognosis, treatment options, including but not limited to physical therapy, medication management, interventional therapies, and surgery, were discussed with the patient All the questions answered Patient signed the narcotic agreement, and he was orally counseled, not to overuse, not to abuse, not to Divert , not tp sell pain medication, and to take it as prescribed only, Patient was counseled not to drive or operate heavy equipment while using narcotic medication, and advised not to use alcohol or any Illicit drugs while using the narcotis, the patient's verbalized understanding that lack of compliance with any of the above instructions and will likely to cause discharge from the pain service, not to renew his narcotic prescriptions Medication managements= patient will be given prescription refills for [place] 10/325 every 6 hours dispensed 120 with one refill, Neurontin 200 mg 3 times a day, Ultram 50 mg daily at bedtime dispense 30 with one refill, and patient scheduled to have radiofrequency ablation of the lumbar/sacral area ,
== END | disposition home or self-care (01) ==
LOC: PNWHC3 12:15
PROVIDERS: ATTEND Specialist
DX: G89.29 Other chronic pain (principal); M51.36 Other intervertebral disc degeneration, lumbar region; M47.816 Spondylosis without myelopathy or radiculopathy, lumbar region; M46.96 Unspecified inflammatory spondylopathy, lumbar region; M46.1 Sacroiliitis, not elsewhere classified; Z79.891 Long term (current) use of opiate analgesic; Z79.899 Other long term (current) drug therapy
CPT/HCPCS: 99211

== ENCOUNTER 2017-07-22 08:29 | Day surgery (SDC) | payer OTHER ==
[2017-07-19 14:31] VITALS: BMI 30.1
[2017-07-22] MEDS ORDERED: LIDOCAINE 1% 20 ML VIAL (10MG/ML) FOR IV START INTRADERMA ONE (10:02)
[2017-07-22 10:10] VITALS: RESP 16; TEMP 98.4
[2017-07-22] MEDS ORDERED: ONDANSETRON 4 MG/2 ML VIAL ONE (10:18)
[2017-07-22] MEDS ORDERED: ONDANSETRON 4 MG/2 ML VIAL IVP ONE (10:19)
--- NOTE | 2017-07-22 11:11 | P.PCN ---
Date of Procedure: 07/22/17 Procedure(s) Performed: PREOPERATIVE DIAGNOSIS: 1-Lumbar Spondylosis with Facet Arthropathy without myelopathy. 2-sacroiliitis POSTOPERATIVE DIAGNOSIS: 1- Lumbar Spondylosis with Facet Arthropathy without myelopathy. 2- sacroiliitis. PROCEDURES : Right Radiofrequency thermocoagulation, L3-L4, L4-L5, and L5-S1 medial branch, with fluoroscopic guidance ANESTHESIA: Moderate sedation with intravenous versed 2 mg and fentaneyl 100 mcg and local infiltration with lidocaine 1% 6 ml EBL: Minimal PROCEDURE INDICATION: The patient with low back pain secondary to lumbar facet arthropathy who had more than 50% relief of her pain with previous diagnostic lumbar medial branch block with bupivacaine. PROCEDURE DESCRIPTION / TECHNIQUE: The patient was seen and identified in the preoperative area. Risks, benefits, complications, including but not limited to risk of infection ,bleeding , allergic reactions to the medications and no complete pain releife , and alternatives were discussed with the patient, the patient agreed to proceed with the procedure and signed the consent. IV was started. Vital signs remained stable throughout the procedure. Patient was taken to the OR and time out was completed. The patient was placed in the prone position on the procedure table. The lumber area was prepped and draped in the usual sterile fashion. . Vital signs were closely monitored during the procedure .IV sedation was used during the procedure to decrease patients anxiety. Using AP and then oblique fluoroscopy, the ``eye of the Lee dog corresponding to the connection between the superior and transverse articular processes of right L3, L4, and L5 were identified, marked, and localized with 1 % lidocaine. Subsequently, a 18 [id number] radiofrequency cannula with a 10- mm active tip was advanced guided by fluoroscopy to each of the ``eyes of the Lee dog at right L3, L4, and L5. Each site then underwent sensory testing at 50 Hz and 0 to 1 volt and motor testing at 2.5 Hz and 0 to 3 volt with local stimulation, but no radicular symptoms down the legs. Thereafter the right L3-4, L4-5, and L5-S1 sites underwent radiofrequency thermocoagulation at 80 degrees celsius for 90 seconds after injecting 0.5 ml of PF lidocaine 1%. then After the thermocoagulation done , 1 ml of the block solution containing Kenalog 40 mg and 3 ml of marcain 0.5% was injected at the right L3- 4 , L4-5 , and L5-S1, levels after negative aspiration of CSF and blood and with no paresthesias. Cannulas were retracted while injecting lidocaine 1% until the needle is out. At the end of the procedure, the skin was cleansed and bandages were applied. COMPLICATIONS: No acute complications. DISPOSITION / PLANS: The patient was placed in a supine position and transferred to the recovery area in a stable condition for observation and was discharged from the recovery room after meeting discharge criteria. Home discharge instructions given to the patient by the staff. The patient was reexamined prior to discharge. The patient will schedule a follow up in the clinic in 2-4 weeks.
[2017-07-22] MEDS ORDERED: IV FLUID CONTINUATION 1,000 ML IV ONE (11:16)
--- NOTE | 2017-07-22 11:25 | FL ---
EXAMINATION TYPE: FL guided pain mgmt statistic DATE OF EXAM: 07/22/2017 HISTORY: Lumbar Rad Freq 6sec fluoro time, 3 images scanned.
[2017-07-22 11:36] VITALS: BP 103/58; PULSE 16
== END 2017-07-22 11:52 | disposition home or self-care (01) ==
LOC: ORPAIN 08:29
PROVIDERS: ATTEND Specialist
DX: M47.816 Spondylosis without myelopathy or radiculopathy, lumbar region (principal); M46.1 Sacroiliitis, not elsewhere classified; Z78.0 Asymptomatic menopausal state; F17.200 Nicotine dependence, unspecified, uncomplicated; Z88.6 Allergy status to analgesic agent; Z91.013 Allergy to seafood
CPT/HCPCS: 64635; 64636; 99152

== ENCOUNTER → 2017-09-02 | Outpatient (CLI) | payer OTHER ==
[2017-09-02 11:53] VITALS: BP 133/68; PULSE 81; RESP 16
--- NOTE | 2017-09-02 13:12 | P.PAINPG ---
Subjective Progress Note Date: 09/02/17 Principal diagnosis: bilateral lumbar spondylosis This is a 52-year-old woman with a long-standing history of low back pain. We have been treating her with facet type interventions. She most recently has been going through treatment for her right side. This is been helpful for her. Approximately 3 years ago, she did go to radio frequency ablation on her left side. She reports to me today that these symptoms and feelings are coming back and she is adjusted in pursuing therapy on this side. She reports that she does have good benefit from taking [place] as well as tramadol. She also reports that the Neurontin is helpful. For her. She does need a refill of her [place] today. She denies any bowel or bladder dysfunction. Objective - Vital Signs Vital signs: Vital Signs Temp Pulse 81 09/02/17 11:42 Resp 16 09/02/17 11:42 BP 133/68 09/02/17 11:42 Pulse Ox Intake & Output 09/01/17 09/02/17 09/02/17 18:59 06:59 18:59 Weight 77.111 kg - Exam General: The patient is alert and oriented. Patient is not sedateded Patient is a question appropriately. Cardiac: Heart is regular in rate and rhythm Respiratory: Clear to auscultation. No audible wheezes. Abdomen: Soft nontender nondistended. Lower extremities: Strength is normal bilaterally. Sensation is normal bilaterally. Reflexes are preserved and symmetric bilaterally. Straight leg raise is negative bilaterally. Facet loading maneuvers are positive bilaterally but more so on the left Assessment and Plan (1) Lumbar spondylosis Current Visit: Yes Status: Acute Code(s): M47.816 - SPONDYLOSIS W/O MYELOPATHY OR RADICULOPATHY, LUMBAR REGION SNOMED Code(s): 133849028 Plan: Plan of Care 1. Medications: We'll refill the patient's [place] today. She does not need refills for gabapentin or tramadol I have reviewed the patient's MAPS report and it reveals expected results. Patient has signed an opiate agreement as well as opiate consent for treatment in our clinic. They understand the risks and benefits of opiate medications. They are aware of the potential for addiction. 2. Interventions: Schedule the patient for left lumbar medial branch radiofrequency ablation at the L4, L5 and sacral ala levels. 3. Referrals: None 4. Testing: We will obtain a CAT scan of the patient's lumbar spine if she feels receive benefit from this procedure. 5. Psychological: Patient denies significant depression or anxiety. PQRS Measure Charge Sheet Measure #130: Documentation of Current Meds in Medical Chart: Patient's medications documented in chart Measure #226: Tobacco Use: Screen & Cessation Intervention: Pt screened for tobacco use AND intervention given Measure #111: Pneumonia Vaccination: Pneumococcal vaccine NOT administered or previously given Measure #47: Advance Care Plan: Advance care planning discussed & documented, pt chose/unable to give Measure #412: Opioid Treatment Agreement: Documented signed opioid trtmnt agreemnt min once during opioid trtmnt Measure #408: Opioid Therapy Follow-up Evaluation: Patient had f/u eval minimum every 3 months during opioid therapy Measure #317: Preventitive Care & Scrn High Bld Press & F/U: Pre-hypertensive or hypertensive BP documented, pt will f/u with PCP Measure #128: Body Mass Index (BMI) Screening & Follow-up: BMI documented ABOVE normal parameters - f/u documented Measure #131: Pain Assessment & Follow-up: Pain positive & plan documented Measure #431: Unhealthy Alcohol Use Preventative Care & Scrn: Patient not identified as an unhealthy alcohol user PQRS Narrative: Smoking Status Current some day smoker Do You Want the Pneumonia No Vaccine AT THIS TIME? Narcotic Agreement Date Signed 06/10/16 Blood Pressure 133/68 Pain Intensity [Bilateral 7 Lower Back] Scale Used Numeric (1 - 10) Hx Alcohol Use (MH) No Home Medications: Ambulatory Orders Multivitamins, Thera [Multivitamin (formulary)] 1 tab PO DAILY 10/23/13 Atorvastatin [Lipitor] 80 mg PO HS #30 tab 02/22/14 Metoprolol Tartrate [Lopressor] 25 mg PO BID #60 tab 02/22/14 Nitroglycerin Sl Tabs [Nitrostat] 0.4 mg SUBLINGUAL Q5M PRN #25 tab 02/22/14 Omeprazole [PriLOSEC] 20 mg PO AC-BRKFST 04/16/15 Trolamine Salicylate [Aspercreme] 1 applic TOPICAL BID PRN 11/27/15 Lisinopril [Zestril] 2.5 mg PO QAM 03/03/16 Aspirin EC [Ecotrin] 325 mg PO DAILY 04/14/17 Tetrahydrozoline HCl/Zinc Sulf [Visine Allergy Relief Drop] 1 drop BOTH EYES BID PRN 07/17/16 Albuterol Inhaler [Ventolin Hfa Inhaler] 2 puff INHALATION RT-QID PRN 06/25/17 Albuterol Sulfate [Proair Hfa] 1 - 2 puff INHALATION Q4H PRN #1 inhaler Gabapentin [Neurontin] 200 mg PO TID #180 cap 07/08/17 traMADol HCL [Ultram] 50 mg PO HS PRN #30 tablet 07/08/17 HYDROcodone/APAP 10-325MG [[place] 10-325] 1 tab PO Q6H PRN #120 tab 09/02/17 Controlled Substance Measures - Controlled Substance Measures Is patient prescribed a controlled substance at discharge?: Yes When asked, does pt state using other controlled substances?: No If prescribed controlled substance>3 days was MAPS reviewed?: Yes If Rx opioid, was Start Talking consent form obtained?: Yes If opioid is for acute pain is fill amount 7 days or less?: Yes Was information provided regarding opioid addiction?: Yes
== END | disposition home or self-care (01) ==
LOC: PNWHC3 10:55
PROVIDERS: ATTEND Pain Medicine Pain Medicine
DX: M47.816 Spondylosis without myelopathy or radiculopathy, lumbar region (principal); Z79.891 Long term (current) use of opiate analgesic; Z79.899 Other long term (current) drug therapy; Z87.891 Personal history of nicotine dependence; Z79.82 Long term (current) use of aspirin; Z79.51 Long term (current) use of inhaled steroids
CPT/HCPCS: 80356; 99211

== ENCOUNTER 2017-09-30 09:16 | Day surgery (SDC) | payer OTHER ==
[2017-09-28 16:12] VITALS: BMI 31.5
[2017-09-30 10:00] VITALS: RESP 16; TEMP 97.5
[2017-09-30] MEDS ORDERED: LIDOCAINE 1% 20 ML VIAL (10MG/ML) FOR IV START INTRADERMA ONE (10:19)
--- NOTE | 2017-09-30 11:21 | P.PCN ---
Date of Procedure: 09/30/17 Surgeon: Angelita Beth Pathology: none sent Condition: stable Disposition: PACU Description of Procedure: PREOPERATIVE DIAGNOSIS: 1-Lumbar Spondylosis with Facet Arthropathy without myelopathy. 2-sacroiliitis POSTOPERATIVE DIAGNOSIS: 1- Lumbar Spondylosis with Facet Arthropathy without myelopathy. 2- sacroiliitis. PROCEDURES : Left Radiofrequency thermocoagulation, L3-L4, L4-L5, and L5-S1 medial branch, with fluoroscopic guidance ANESTHESIA: Moderate sedation with intravenous versed 2 mg and fentaneyl 100 mcg and local infiltration with lidocaine 1% EBL: Minimal PROCEDURE INDICATION: The patient with low back pain secondary to lumbar facet arthropathy who had more than 50% relief of her pain with previous diagnostic lumbar medial branch block with bupivacaine. PROCEDURE DESCRIPTION / TECHNIQUE: The patient was seen and identified in the preoperative area. Risks, benefits, complications, including but not limited to risk of infection ,bleeding , allergic reactions to the medications and no complete pain releife , and alternatives were discussed with the patient, the patient agreed to proceed with the procedure and signed the consent. IV was started. Vital signs remained stable throughout the procedure. Patient was taken to the OR and time out was completed. The patient was placed in the prone position on the procedure table. The lumber area was prepped and draped in the usual sterile fashion. . Vital signs were closely monitored during the procedure .IV sedation was used during the procedure to decrease patients anxiety. Using AP and then oblique fluoroscopy, the ``eye of the Lee dog corresponding to the connection between the superior and transverse articular processes of left L3, L4, and L5 were identified, marked, and localized with 1 % lidocaine. Subsequently, a 18 -gh radiofrequency cannula with a 10- mm active tip was advanced guided by fluoroscopy to each of the ``eyes of the Lee dog at Left L3, L4, and L5. Each site then underwent sensory testing at 50 Hz and 0 to 1 volt and motor testing at 2.5 Hz and 0 to 3 volt with local stimulation, but no radicular symptoms down the legs. Thereafter the leftL3-4, L4-5, and L5-S1 sites underwent radiofrequency thermocoagulation at 80 degrees celsius for 90 seconds after injecting 0.5 ml of PF lidocaine 1%. then After the thermocoagulation done , 1 ml of the block solution containing Kenalog 40 mg and 3 ml of Ropivacaine 0.5% was injected at the leftL3-4 , L4- 5 , and L5-S1, levels after negative aspiration of CSF and blood and with no paresthesias. Cannulas were retracted while injecting lidocaine 1% until the needle is out. At the end of the procedure, the skin was cleansed and bandages were applied. COMPLICATIONS: No acute complications. DISPOSITION / PLANS: The patient was placed in a supine position and transferred to the recovery area in a stable condition for observation and was discharged from the recovery room after meeting discharge criteria. Home discharge instructions given to the patient by the staff. The patient was reexamined prior to discharge. The patient will schedule a follow up in the clinic in 2-4 weeks.
[2017-09-30] MEDS ORDERED: IV FLUID CONTINUATION 1,000 ML IV ONE (11:29)
[2017-09-30 11:51] VITALS: BP 112/54; PULSE 68
--- NOTE | 2017-09-30 12:07 | FL ---
EXAMINATION TYPE: FL guided pain mgmt statistic DATE OF EXAM: 09/30/2017 HISTORY: Pain 22 sec fl time 2 images scanned
== END 2017-09-30 12:10 | disposition home or self-care (01) ==
LOC: ORPAIN 09:16
PROVIDERS: ATTEND Anesthesiology
DX: M47.816 Spondylosis without myelopathy or radiculopathy, lumbar region (principal); M46.1 Sacroiliitis, not elsewhere classified; K50.90 Crohn's disease, unspecified, without complications; M19.90 Unspecified osteoarthritis, unspecified site; I25.10 Atherosclerotic heart disease of native coronary artery without angina pectoris; F17.200 Nicotine dependence, unspecified, uncomplicated; Z78.0 Asymptomatic menopausal state; Z88.0 Allergy status to penicillin; Z88.8 Allergy status to other drugs, medicaments and biological substances; Z88.6 Allergy status to analgesic agent; Z91.013 Allergy to seafood
CPT/HCPCS: 64635; 64636; J2250; J3301; J2001; J3010; 99152

== ENCOUNTER → 2017-10-28 | Outpatient (CLI) | payer OTHER ==
[2017-10-28 12:10] VITALS: BP 134/68; PULSE 77; RESP 16
--- NOTE | 2017-10-28 12:34 | P.PAINPG ---
Subjective Progress Note Date: 10/28/17 Principal diagnosis: Back pain, left foot pain This is a pleasant 52-year-old woman with a history of intractable low back pain as well as neuropathy in her legs and previous orthopedic pain in her left foot who presents today for follow-up appointment after undergoing a left lumbar medial branch radiofrequency ablation. She reports this was very helpful in controlling her back pain. She reports that since the procedure she has had pain in her left foot. It is unclear whether this is related the procedure or not. She does have a known history of significant orthopedic problems in her left foot and she has seen specialists for this in the past and been told she has bone spurs among other abnormalities in her foot. She has not followed up with any other foot doctor. She also does not know if she did something to her foot of a traumatic nature since she had the procedure. She denies bowel or bladder dysfunction. She does report numbness or lower extremities bilaterally to the mid resendez level. Objective - Vital Signs Vital signs: Vital Signs Temp Pulse 77 10/28/17 12:07 Resp 16 10/28/17 12:07 BP 134/68 10/28/17 12:07 Pulse Ox 97 10/28/17 12:07 Intake & Output 10/27/17 10/28/17 10/28/17 18:59 06:59 18:59 Weight 79.379 kg - Exam General: The patient is alert and oriented. Patient is not sedateded Patient answers all question appropriately. Cardiac: Heart is regular in rate and rhythm Respiratory: Clear to auscultation. No audible wheezes. Abdomen: Soft nontender nondistended. Lower extremities: Strength is normal bilaterally. Sensation is normal bilaterally. Reflexes are preserved and symmetric bilaterally. Straight leg raise is negative bilaterally. Minimal tenderness to palpation over the lumbar facets in the left side. Decreased strength with extensor pollicis longus on the left side. Decreased strength with foot dorsiflexion. Neurologic: Patient demonstrated decreased sensory perception in the L4, L5 and sacral ala dermatomes on the left side compared to the right. Reflexes are depressed but symmetric bilaterally. Straight leg raise is negative bilaterally. No focal deficits are seen. Assessment and Plan (1) Peripheral neuropathy Narrative/Plan: Plan of Care 1. Medications: I will refill the patient's [place] and Neurontin today. I have reviewed the patient's MAPS report and it reveals expected results. Patient has signed an opiate agreement as well as opiate consent for treatment in our clinic. They understand the risks and benefits of opiate medications. They are aware of the potential for addiction. 2. Interventions: No interventions are indicated this time. 3. Referrals: I'm referring the patient to a foot doctor for evaluation of her foot pain given her previous history of foot problems. 4. Testing: I ordered x-rays of her left foot as well as EMGs of her lower extremities to evaluate for her diagnosis of neuropathy. I'm also ordering a CAT scan of her lower back to evaluate for lumbar compression. She had one of the stomach couple years ago. I will not order an MRI due to the fact the patient has cardiac stents. 5. Psychological: Patient reports she is doing well psychologically I would not refer her to a specialist at this time. Current Visit: Yes Status: Acute Code(s): G62.9 - POLYNEUROPATHY, UNSPECIFIED SNOMED Code(s): 734623235 (2) Foot pain, left Current Visit: Yes Status: Acute Code(s): M79.672 - PAIN IN LEFT FOOT SNOMED Code(s): 31466028 (3) Lumbar spondylosis Current Visit: No Status: Acute Code(s): M47.816 - SPONDYLOSIS W/O MYELOPATHY OR RADICULOPATHY, LUMBAR REGION SNOMED Code(s): 579858455 PQRS Measure Charge Sheet Measure #130: Documentation of Current Meds in Medical Chart: Patient's medications documented in chart Measure #226: Tobacco Use: Screen & Cessation Intervention: Pt screened for tobacco use AND intervention given Measure #111: Pneumonia Vaccination: Pneumococcal vaccine administered or previously received Measure #47: Advance Care Plan: Advance care planning discussed & documented, pt chose/unable to give Measure #412: Opioid Treatment Agreement: Documented signed opioid trtmnt agreemnt min once during opioid trtmnt Measure #408: Opioid Therapy Follow-up Evaluation: Patient had f/u eval minimum every 3 months during opioid therapy Measure #317: Preventitive Care & Scrn High Bld Press & F/U: Normal blood pressure, f/u not required Measure #128: Body Mass Index (BMI) Screening & Follow-up: BMI documented ABOVE normal parameters - f/u documented Measure #131: Pain Assessment & Follow-up: Pain positive & plan documented Measure #431: Unhealthy Alcohol Use Preventative Care & Scrn: Patient not identified as an unhealthy alcohol user PQRS Narrative: Smoking Status Former smoker Do You Want the Pneumonia Vaccine Up to Date Vaccine AT THIS TIME? Narcotic Agreement Date Signed 06/10/16 Blood Pressure 134/68 Pain Intensity [Lower Back] 6 Scale Used Numeric (1 - 10) Hx Alcohol Use (MH) No Home Medications: Ambulatory Orders Multivitamins, Thera [Multivitamin (formulary)] 1 tab PO DAILY 10/23/13 Atorvastatin [Lipitor] 80 mg PO HS #30 tab 02/22/14 Metoprolol Tartrate [Lopressor] 25 mg PO BID #60 tab 02/22/14 Nitroglycerin Sl Tabs [Nitrostat] 0.4 mg SUBLINGUAL Q5M PRN #25 tab 02/22/14 Omeprazole [PriLOSEC] 20 mg PO AC-BRKFST 04/16/15 Trolamine Salicylate [Aspercreme] 1 applic TOPICAL BID PRN 11/27/15 Lisinopril [Zestril] 2.5 mg PO QAM 03/03/16 Aspirin EC [Ecotrin] 325 mg PO DAILY 07/17/16 Tetrahydrozoline HCl/Zinc Sulf [Visine Allergy Relief Drop] 1 drop BOTH EYES BID PRN 07/17/16 Albuterol Sulfate [Proair Hfa] 1 - 2 puff INHALATION Q4H PRN #1 inhaler Gabapentin [Neurontin] 200 mg PO TID #180 cap 07/08/17 traMADol HCL [Ultram] 50 mg PO HS PRN #30 tablet 07/08/17 HYDROcodone/APAP 10-325MG [[place] 10-325] 1 tab PO Q6H PRN #120 tab 09/02/17 Controlled Substance Measures - Controlled Substance Measures Is patient prescribed a controlled substance at discharge?: Yes When asked, does pt state using other controlled substances?: No If Rx opioid, was Start Talking consent form obtained?: Yes Was information provided regarding opioid addiction?: Yes
== END | disposition home or self-care (01) ==
LOC: PNWHC3 11:41
PROVIDERS: ATTEND Pain Medicine Pain Medicine
DX: M79.672 Pain in left foot (principal); M47.816 Spondylosis without myelopathy or radiculopathy, lumbar region; G62.9 Polyneuropathy, unspecified; Z87.891 Personal history of nicotine dependence; Z79.899 Other long term (current) drug therapy; Z79.82 Long term (current) use of aspirin
CPT/HCPCS: 99211

== ENCOUNTER → 2017-12-03 | Outpatient (CLI) | payer OTHER ==
--- NOTE | 2017-12-03 13:46 | CT ---
EXAMINATION TYPE: CT lumbar spine wo con DATE OF EXAM: 12/03/2017 COMPARISON: 05/25/1716 HISTORY: Low back pain CT DLP: [address] of the lumbar spine was performed. Bone and soft tissue window settings are submitted as well as coronal and sagittal reconstructions. L1-L2: Normal disc space height. No disc herniation protrusion or central stenosis. No facet joint arthropathy. No evidence for foraminal encroachment. L2-L3: Normal disc space height. No disc herniation protrusion or central stenosis. No facet joint arthropathy. No evidence for foraminal encroachment. L3-L4: Normal disc space height. No disc herniation protrusion or central stenosis. No facet joint arthropathy. No evidence for foraminal encroachment. L4-L5: Grade 1 anterolisthesis L4 and L5 measuring 4.3 mm. Vacuum disc noted. Deformity of thecal sac with moderate central stenosis. Vacuum changes of the facet joints. L5-S1: Normal disc space height. No disc herniation protrusion or central stenosis. No facet joint arthropathy. No evidence for foraminal encroachment. No paraspinal masses are identified. Lumbar segments are free if fracture. IMPRESSION: 1. Grade 1 anterolisthesis L4 and L5 measuring 4.3 mm. Vacuum disc noted. Deformity of thecal sac wit h moderate central stenosis. Vacuum changes of the facet joints.
== END | disposition home or self-care (01) ==
LOC: RADCTMAIN 12:18
PROVIDERS: ATTEND Pain Medicine Pain Medicine
DX: M48.061 Spinal stenosis, lumbar region without neurogenic claudication (principal); M43.16 Spondylolisthesis, lumbar region
CPT/HCPCS: 72131

== ENCOUNTER → 2017-12-23 | Outpatient (CLI) | payer OTHER ==
[2017-12-23 12:17] VITALS: BP 137/68; PULSE 80; RESP 16
--- NOTE | 2017-12-25 06:29 | P.PN ---
Subjective Progress Note Date: 12/23/17 This is a follow-up visit for this 52 years old female with a chronic history of severe low back pain, she is diagnosed with lumbar spondylosis, and we've done radiofrequency ablation of the medial branch lumbar area, patient continued to severe low back pain with rotation to the buttock area bilaterally , and there is occasional numbness and tingling sensation in the buttock and thigh, she had MRI of the lumbar spine recently which showed patient spondylolisthesis ,and central canal stenosis and lumbar facet arthropathy at L4 5, and also she had EMG showing sensory neuropathic ,she is able to ambulate without difficult she is complaining of severe pain in the buttock area bilaterally, she denies any fever or night sweats, she denies any change in the bowel movements or urination, and no motor or sensory deficits, she continued to use [place] 10/325 every 6 hours, Ultram 50 mg daily at bedtime, and Neurontin 100 mg 2 tablet 3 times a day, she denies any side effect of the medication. Objective - Vital Signs Vital signs: Vital Signs Temp Pulse 80 12/23/17 12:16 Resp 16 12/23/17 12:16 BP 137/68 12/23/17 12:16 Pulse Ox 98 12/23/17 12:16 - Exam Physical Examinations : 1-Constitutiona : Cooperative , not in acute distress . 2-HEENT : nech ; supple , no Lymphadenopathy , normal thyroid size . eyes : no ptosis , no icterus , no photophobia . ENT : normal of hearing , normal oropharynx , no Thrush . 3- Respiratory : Chest clear to auscultations Bilaterally , no wheezing , no Rhonchi . 4- Cardiovascular : regular rate and rhythem , S1 , S2 , no S3 , no S4. 5- Gastrointestinal : abdomen soft no tenderness , bowel sounds , no organomegally . 6- Genitourinary : Defferred . 7- neurologic : Cranial nerve II to XII intact , no focal neurological deffecit . 8-psychatric : alert , oriented X 3 , appropriate affect , intact judgment and insight . 9-Lymphatic : no Lymphadenopathy . 10- musculoskeltal : Lumber spine moter stegnth lower extremities ,thigh and legs 5/5 Right side , 5/5 Left side deep tendon reflexes : normal Knee Jerk , normal ankle Jerk positive lumber facet Loading Test Range of motion of the lumbar spine Flexion 30 degrees, extension 10 degrees strait leg raising test , positive at 30 degree Fabere test positive RT and positive LT . Sever tenderness over the Sacroiliac joint on the R and L sides Assessment and Plan Plan: Assessment and plan= chronic low back pain secondary to lumbar degenerative disc disease , lumbar spondylosis with lumbar facet arthropathy . chronic and current use of high-risk medication (opioids) Patient denies any side effects of the current pain medication and the current treatment/medication helping the patient to do activity of daily living , Diagnoses, prognosis, treatment options, including but not limited to physical therapy, medication management, interventional therapies, and surgery, were discussed with the patient All the questions answered The narcotic consent was signed and patient agreed and understood the side effects and complications of opioid treatment. Patient signed the narcotic agreement, and was orally counseled, not to overuse, not to abuse, not to Divert , not tp sell pain medication, and to take it as prescribed only, Patient was counseled not to drive or operate heavy equipment while using narcotic medication, and advised not to use alcohol or any Illicit drugs while using the narcotices understanding that lack of compliance with any of the above instructions, will likely to cause discharge from, the pain service, not to renew his narcotic prescriptions [facility] Reviwed and it was apropriate . Medication managements= patient will be given prescription refills for Neurontin 100 mg tabletes , 3 times a day, , Talco 10/325 every 6 hours dispense 120 with one refill Ultram 50 mg daily at bedtime dispense 30 with one refill. Interventions patient could benefit from bilateral sacroiliac steroid injections, procedure risk and benefits and alternatives discussed with the patient and she agreed with proceeding , - PQRS measures = - Patient's medications are documented in the chart. -Tobacco use is positive, and counseling.Given. -Patient's has received pneumococcal vaccine. -Advanced care planning discussed, patient not eligible. -Opiate contract signed. -Pain positive and follow-up visit/procedure is scheduled. -Patient's blood pressure measured 137/64 , and documented in the record ,and patient will follow up with the primary care. -Patient's weight was measured and body mass index [ 31,9 ] above the, and counseling was done. and patient instructed to follow-up with the primary care physician. -Patient was not identified as an unhealthy alcohol user Time with Patient: Less than 30
== END | disposition home or self-care (01) ==
LOC: PNWHC3 10:59
PROVIDERS: ATTEND Specialist
DX: G89.29 Other chronic pain (principal); M51.36 Other intervertebral disc degeneration, lumbar region; M47.816 Spondylosis without myelopathy or radiculopathy, lumbar region; M46.96 Unspecified inflammatory spondylopathy, lumbar region; Z98.890 Other specified postprocedural states; Z79.891 Long term (current) use of opiate analgesic; Z79.899 Other long term (current) drug therapy
CPT/HCPCS: 99211

== ENCOUNTER 2017-12-24 11:34 | Emergency (ER) | payer OTHER ==
[2017-12-24 11:45] VITALS: RESP 18
[2017-12-24 12:31] LABS: Basophils # (A) 0.1 k/uL (0-0.2); Basophils % (A) 1 %; Eosinophils # (A) 0.3 k/uL (0-0.7); Eosinophils % (A) 3 %; HGB 13.6 gm/dL (11.4-16.0); Lymphocytes # (A) 4.4 k/uL (1.0-4.8); Lymphocytes % (A) 38 %; MCH 28.3 pg (25.0-35.0); MCHC 33.2 g/dL (31.0-37.0); MCV 85.3 fL (80.0-100.0); Mean Platelet Volume 9.8; Monocytes # (A) 0.5 k/uL (0-1.0); Monocytes % (A) 4 %; Neutrophils # (A) 6.2 k/uL (1.3-7.7); Neutrophils % (A) 53 %; Platelet Count 139 k/uL (150-450); RDW 14.3 % (11.5-15.5); WBC 11.6 k/uL (3.8-10.6)
[2017-12-24 12:38] LABS: Prothrombin Time 10.2 sec (9.0-12.0)
--- NOTE | 2017-12-24 12:46 | ED ---
General Adult HPI - General Chief complaint: Chest Pain Stated complaint: Chest Pressure Time Seen by Provider: 12/24/17 11:47 Source: patient, RN notes reviewed, old records reviewed Mode of arrival: wheelchair Limitations: no limitations - History of Present Illness Initial comments: 52-year-old female presenting for evaluation of central chest pressure. Pain has been present for the past 2 days, worsened yesterday evening. Patient does report some nausea and vomiting although this is been ongoing she relates to her gastric reflux, present for the past several months. She does have history of CAD status post stenting. She follows with cardiology on a regular basis. States her symptoms are somewhat similar to her chest pain in the past although there is some differences as well. No jaw pain, no extremity pain. No abdominal pain. No fever or chills. No cough. - Related Data Home Medications Medication Instructions Recorded Confirmed Multivitamins, Thera [Multivitamin 1 tab PO DAILY 10/23/13 12/24/17 (formulary)] Omeprazole [PriLOSEC] 20 mg PO AC-BRKFST 04/16/15 12/24/17 Trolamine Salicylate [Aspercreme] 1 applic TOPICAL BID PRN 11/27/15 12/24/17 Lisinopril [Zestril] 2.5 mg PO QAM 03/03/16 12/24/17 Aspirin EC [Ecotrin] 325 mg PO DAILY 07/17/16 12/24/17 Tetrahydrozoline HCl/Zinc Sulf 1 drop BOTH EYES BID PRN 07/17/16 12/24/17 [Visine Allergy Relief Drop] Previous Rx's Medication Instructions Recorded Atorvastatin [Lipitor] 80 mg PO HS #30 tab 02/22/14 Metoprolol Tartrate [Lopressor] 25 mg PO BID #60 tab 02/22/14 Nitroglycerin Sl Tabs [Nitrostat] 0.4 mg SUBLINGUAL Q5M PRN #25 tab 02/22/14 Albuterol Sulfate [Proair Hfa] 1 - 2 puff INHALATION Q4H PRN #1 06/25/17 inhaler Gabapentin [Neurontin] 200 mg PO TID #180 cap 07/08/17 HYDROcodone/APAP 10-325MG [[place] 1 tab PO Q6H PRN #120 tab 12/23/17 10-325] traMADol HCL [Ultram] 50 mg PO HS PRN #30 tablet 12/23/17 Allergies Allergy/AdvReac Type Severity Reaction Status Date / Time ibuprofen [From Motrin] Allergy Anaphylaxis Verified 12/24/17 12:04 /Swelling amoxicillin trihydrate AdvReac Nausea & Verified 12/24/17 12:04 [From Augmentin] Vomiting potassium clavulanate AdvReac Nausea & Verified 12/24/17 12:04 [From Augmentin] Vomiting SALMON Allergy Anaphylaxis Uncoded 12/24/17 11:45 Review of Systems ROS Statement: Those systems with pertinent positive or pertinent negative responses have been documented in the HPI. ROS Other: All systems not noted in ROS Statement are negative. Past Medical History Past Medical History: Coronary Artery Disease (CAD), COPD, Fibromyalgia, Hyperlipidemia, Hypertension, Myocardial Infarction (IA), Osteoarthritis (OA), Pneumonia Additional Past Medical History / Comment(s): Crohns, Colitis. Osteoporosis. CHRONIC BACK PAIN, DDD, DJD, SCIATICA, SPINAL STENOSIS RADIATES DOWN LEGS. INCONT OF URINE IN NOC, SINCE BOWEL SURGERY. 06/26 UPPER RESPIRATORY INFECTION- MANAGED BY ER-ZITHROMAX DOSE FINISHED Last Myocardial Infarction Date:: 02/19/14- NON-ST ELEVATION IA History of Any Multi-Drug Resistant Organisms: MRSA Date of last positivie culture/infection: 2009 MDRO Source:: abdominal Past Surgical History: Appendectomy, Bowel Resection, Heart Catheterization With Stent, Joint Replacement, Orthopedic Surgery, Tonsillectomy Additional Past Surgical History / Comment(s): 2 Small Bowel Resections D/T CROHNS; LT TOTAL KNEE REPLACEMENT THEN A REVISION-HAS TITANIUM; ADA CTR; Trigger Fingers, Thumbs. PTCA 02/2014 W/ 2 STENTS; 1 STENT 04/2014. MULT PAIN PROCEDURES. Diagnosed with Peripheral Artery disease per Dr. Patton Past Anesthesia/Blood Transfusion Reactions: No Reported Reaction Date of Last Stent Placement:: 04/2016 Past Psychological History: No Psychological Hx Reported Smoking Status: Former smoker Past Alcohol Use History: None Reported Past Drug Use History: None Reported - Past Family History Father Family Medical History: Cancer Additional Family Medical History / Comment(s): LUNG CANCER Mother Additional Family Medical History / Comment(s): WHEN PT WAS AGE 14 NOT SURE WHY, HX OF MENTAL HEALTH ISS General Exam Limitations: no limitations General appearance: alert, in no apparent distress Head exam: Present: atraumatic, normocephalic Eye exam: Present: normal appearance, PERRL ENT exam: Present: normal exam Neck exam: Present: normal inspection. Absent: tenderness, meningismus Respiratory exam: Present: normal lung sounds bilaterally. Absent: respiratory distress, wheezes Cardiovascular Exam: Present: regular rate, normal rhythm GI/Abdominal exam: Present: soft. Absent: distended, tenderness, guarding Extremities exam: Present: normal inspection, normal capillary refill. Absent: pedal edema Neurological exam: Present: alert, oriented X3, CN II-XII intact. Absent: motor sensory deficit Psychiatric exam: Present: normal affect, normal mood Skin exam: Present: warm, dry, intact. Absent: cyanosis, diaphoretic Course Vital Signs 12/24/17 11:43 Temperature 98.7 F Pulse Rate 74 Respiratory 18 Rate Blood Pressure 102/65 O2 Sat by Pulse 96 Oximetry EKG Findings - EKG Comments: EKG Findings:: EKG: Normal sinus rhythm, rate of 72, AR interval 168, QRS duration 82, QTC 392, QTC 429, no ST segment elevation or depression Medical Decision Making - Medical Decision Making 52-year-old female presenting with central chest pressure. Symptoms have been present for the past several days but they worsened yesterday evening. They have been constant since yesterday evening which is greater than 12 hours. EKG shows normal sinus rhythm. Patient does have history of CAD. She states her pain is dissimilar from previous IA. No cough or fever. EKG is nonischemic, chest x-ray negative for focal pneumonia, normal CBC, normal CMP, troponin is negative which is reassuring given the timing of symptoms. Patient is offered observation for serial cardiac enzymes and cardiology consultation, she declines. She prefers outpatient follow-up. She will return with worsening or changing symptoms. - Lab Data Result diagrams: 12/24/17 12:12 12/24/17 12:12 Lab Results 12/24/17 12/24/17 12/24/17 Range/Units 12:12 12:12 12:12 WBC 11.6 H (3.8-10.6) k/uL RBC 4.80 (3.80-5.40) m/uL Hgb 13.6 (11.4-16.0) gm/dL Hct 41.0 (34.0-46.0) % MCV 85.3 (80.0-100.0) fL MCH 28.3 (25.0-35.0) pg MCHC 33.2 (31.0-37.0) g/dL RDW 14.3 (11.5-15.5) % Plt Count 139 L (150-450) k/uL Neutrophils % 53 % Lymphocytes % 38 % Monocytes % 4 % Eosinophils % 3 % Basophils % 1 % Neutrophils # 6.2 (1.3-7.7) k/uL Lymphocytes # 4.4 (1.0-4.8) k/uL Monocytes # 0.5 (0-1.0) k/uL Eosinophils # 0.3 (0-0.7) k/uL Basophils # 0.1 (0-0.2) k/uL PT (9.0-12.0) sec INR (<1.2) APTT (22.0-30.0) sec Sodium 139 (137-145) mmol/L Potassium 3.8 (3.5-5.1) mmol/L Chloride 107 (98-107) mmol/L Carbon Dioxide 20 L (22-30) mmol/L Anion Gap 12 mmol/L BUN 7 (7-17) mg/dL Creatinine 0.57 (0.52-1.04) mg/dL Est GFR (CKD-EPI)AfAm >90 (>60 ml/min/1.73 sqM) Est GFR (CKD-EPI)NonAf >90 (>60 ml/min/1.73 sqM) Glucose 95 (74-99) mg/dL Calcium 9.4 (8.4-10.2) mg/dL Magnesium 1.7 (1.6-2.3) mg/dL Total Bilirubin 0.5 (0.2-1.3) mg/dL AST 26 (14-36) U/L ALT 22 (9-52) U/L Alkaline Phosphatase 35 L (38-126) U/L Total Creatine Kinase 65 (30-135) U/L CK-MB (CK-2) 0.7 (0.0-2.4) ng/mL CK-MB (CK-2) Rel Index 1.1 Troponin I <0.012 (0.000-0.034) ng/mL Total Protein 6.9 (6.3-8.2) g/dL Albumin 4.1 (3.5-5.0) g/dL 12/24/17 Range/Units 12:12 WBC (3.8-10.6) k/uL RBC (3.80-5.40) m/uL Hgb (11.4-16.0) gm/dL Hct (34.0-46.0) % MCV (80.0-100.0) fL MCH (25.0-35.0) pg MCHC (31.0-37.0) g/dL RDW (11.5-15.5) % Plt Count (150-450) k/uL Neutrophils % % Lymphocytes % % Monocytes % % Eosinophils % % Basophils % % Neutrophils # (1.3-7.7) k/uL Lymphocytes # (1.0-4.8) k/uL Monocytes # (0-1.0) k/uL Eosinophils # (0-0.7) k/uL Basophils # (0-0.2) k/uL PT 10.2 (9.0-12.0) sec INR 1.0 (<1.2) APTT 26.0 (22.0-30.0) sec Sodium (137-145) mmol/L Potassium (3.5-5.1) mmol/L Chloride (98-107) mmol/L Carbon Dioxide (22-30) mmol/L Anion Gap mmol/L BUN (7-17) mg/dL Creatinine (0.52-1.04) mg/dL Est GFR (CKD-EPI)AfAm (>60 ml/min/1.73 sqM) Est GFR (CKD-EPI)NonAf (>60 ml/min/1.73 sqM) Glucose (74-99) mg/dL Calcium (8.4-10.2) mg/dL Magnesium (1.6-2.3) mg/dL Total Bilirubin (0.2-1.3) mg/dL AST (14-36) U/L ALT (9-52) U/L Alkaline Phosphatase (38-126) U/L Total Creatine Kinase (30-135) U/L CK-MB (CK-2) (0.0-2.4) ng/mL CK-MB (CK-2) Rel Index Troponin I (0.000-0.034) ng/mL Total Protein (6.3-8.2) g/dL Albumin (3.5-5.0) g/dL Disposition Clinical Impression: Chest pain Disposition: HOME SELF-CARE Condition: Good Instructions: Chest Pain (ED) Is patient prescribed a controlled substance at d/c from ED?: No Referrals: Jaja Goodman MD [Primary Care Provider] - 1-2 days Decision to Admit Reason: Admit from EC Decision Date: 12/24/17 Decision Time: 14:56
[2017-12-24 12:56] LABS: Creatine Kinase 65 U/L (30-135)
[2017-12-24 13:08] LABS: Creatine Kinase MB 0.7 ng/mL (0.0-2.4); Troponin I <0.012 ng/mL (0.000-0.034)
[2017-12-24 13:20] LABS: ALT 22 U/L (9-52); AST 26 U/L (14-36); Albumin 4.1 g/dL (3.5-5.0); Alkaline Phosphatase 35 U/L (38-126); Anion Gap 12 mmol/L; Blood Urea Nitrogen 7 mg/dL (7-17); Calcium 9.4 mg/dL (8.4-10.2); Carbon Dioxide 20 mmol/L (22-30); Chloride 107 mmol/L (98-107); Glucose 95 mg/dL (74-99); Magnesium 1.7 mg/dL (1.6-2.3); Potassium 3.8 mmol/L (3.5-5.1); Sodium 139 mmol/L (137-145); Total Bilirubin 0.5 mg/dL (0.2-1.3); Total Protein 6.9 g/dL (6.3-8.2)
--- NOTE | 2017-12-24 14:00 | XR ---
EXAMINATION TYPE: XR chest 2V DATE OF EXAM: 12/24/2017 COMPARISON: Chest x-ray and CTA chest June 25, 2017 HISTORY: Chest pain for 2 days. TECHNIQUE: Frontal and lateral views of the chest are obtained. FINDINGS overlying EKG leads are seen currently. There is some chronic parenchymal change without escobedo spicious new focal air space opacity, pleural effusion, or pneumothorax seen. The cardiac silhouette size is within normal limits. The osseous structures are intact. IMPRESSION: No acute cardiopulmonary process. No significant change from prior studies.
[2017-12-24 15:21] VITALS: BP 120/55; PULSE 80; TEMP 98.2
== END 2017-12-24 15:10 | disposition home or self-care (01) ==
LOC: EC 11:34
DX: R07.89 Other chest pain (principal); R11.2 Nausea with vomiting, unspecified; I25.10 Atherosclerotic heart disease of native coronary artery without angina pectoris; J44.9 Chronic obstructive pulmonary disease, unspecified; I10 Essential (primary) hypertension; I25.2 Old myocardial infarction; K21.9 Gastro-esophageal reflux disease without esophagitis; Z86.14 Personal history of Methicillin resistant Staphylococcus aureus infection; Z95.5 Presence of coronary angioplasty implant and graft; Z96.652 Presence of left artificial knee joint; Z87.891 Personal history of nicotine dependence; Z53.29 Procedure and treatment not carried out because of patient's decision for other reasons; Z79.82 Long term (current) use of aspirin; Z79.899 Other long term (current) drug therapy; Z88.6 Allergy status to analgesic agent; Z88.0 Allergy status to penicillin; Z91.013 Allergy to seafood
CPT/HCPCS: 36415; 71046; 80053; 82550; 82553; 83735; 84484; 85025; 85610; 85730; 93005; 99285

== ENCOUNTER → 2018-02-08 | Day surgery (SDC) | payer OTHER ==
[~2018-02-08] MED LIST changes: -LACTATED RINGERS 1,000 ML IV SCH; +SODIUM CHLORIDE 0.9% 500 ML 500 ML IV ONE
[2018-02-08 10:24] VITALS: TEMP 98.4
--- NOTE | 2018-02-08 11:04 | P.PCN ---
Date of Procedure: 02/08/18 Procedure(s) Performed: Procedure= bilateral sacral iliac joints steroid injection under fluoroscopy guidance Preoperative diagnosis= 1-sacroiliitis 2-lumbar degenerative disc disease 3- lumbar spondylosis with lumbar facet arthropathy Postoperative diagnosis= same as they have diagnoses. Complication = none Condition= stable Fluoroscopy time = seconds Anesthesia= moderate sedation with intravenous Versed 2 mg , and fentanyl 100 micrograms and local infiltration with lidocaine 1% 5 mL Indication for the procedure= patient complaining of low back pain , examination was positive for severe tenderness over the sacroiliac joints bilaterally and patient diagnosed with sacroiliitis, for this reason he/ she was good candidate for sacroiliac joint steroid injection. Description of the procedure= procedure risk and benefits discussed with the patient, including but not limited, risk of infection and bleeding, and ALLERGIC reaction to the medication and not complete pain relief and patient agreed with the preceding patient taken to the operating room, placed in prone position or standard monitors applied to the patient then after induction of anesthesia back prepped with chlorhexidine 3 times , Then under strict sterile technique, first I did the right sacroiliac joint the which was identified under fluoroscopy guidance been local infiltration of the skin and subcu interstitial with lidocaine 1% then 25-gauge Quincke Needle advanced slowly under fluoroscopy and placed in the right sacroiliac joint needle placement confirmed with AP and oblique and lateral view and after appropriate needle placement confirmed and after negative aspiration, or heme , then Ropivacaine 0.5% 3 mL, and 20 mg of Kenalog mixed together and injected in the right sacroiliac joint after negative aspiration patient tolerated the procedure well without any complication. Then the left sacroiliac joint steroid injection done under strict sterile technique local infiltration of the skin and subcu interstitial at the location of the left sacroiliac joint then a 25-gauge Quincke Needle advanced slowly under fluoroscopy time placed in the left sacroiliac joint, needle placement confirmed with AP and oblique and lateral view then after appropriate needle placement confirmed and after negative aspiration 0.5% Marcaine 3 mL and 20 mg of Kenalog injected in the left sacroiliac joint after negative aspiration patient tolerated the procedure well that any complications and she will follow up in clinic 3 weeks
[2018-02-08 11:17] VITALS: RESP 18
[2018-02-08 11:40] VITALS: BP 102/54; PULSE 64
--- NOTE | 2018-02-08 13:06 | FL ---
Fluoroscopy INDICATION: Pain FINDINGS: Fluoroscopy time: 4 seconds. Images obtained: 2. IMPRESSIONS: 1. Documentation of fluoroscopy.
== END ==
LOC: ORPAIN 09:07
PROVIDERS: ATTEND Specialist
DX: M46.1 Sacroiliitis, not elsewhere classified (principal); M51.36 Other intervertebral disc degeneration, lumbar region; M47.816 Spondylosis without myelopathy or radiculopathy, lumbar region; I25.10 Atherosclerotic heart disease of native coronary artery without angina pectoris; Z79.82 Long term (current) use of aspirin; Z88.6 Allergy status to analgesic agent; Z91.013 Allergy to seafood; Z78.0 Asymptomatic menopausal state
CPT/HCPCS: J2250; J3301; J3010; G0260

== ENCOUNTER 2018-03-24 09:16 | Day surgery (SDC) | payer OTHER ==
[2018-03-22 12:27] VITALS: BMI 30.1
[~2018-03-24 09:16] MED LIST changes: -SODIUM CHLORIDE 0.9% 500 ML 500 ML IV ONE; +SODIUM CHLORIDE 0.9% 500 ML 500 ML IV SCH
[2018-03-24 10:35] VITALS: RESP 16; TEMP 97.5
[2018-03-24] MEDS ORDERED: LIDOCAINE 1% 20 ML VIAL (10MG/ML) FOR IV START INTRADERMA ONE (10:42)
[2018-03-24] MEDS ORDERED: LACTATED RINGERS 1,000 ML IV ONE (10:44)
--- NOTE | 2018-03-24 11:49 | P.PCN ---
Date of Procedure: 03/24/18 Procedure(s) Performed: PREOPERATIVE DIAGNOSIS: 1-Lumbosacral spondylosis with facet arthropathy without myelopathy. 2- sacroiliit. post operative Diagnosis: . 1-Lumbosacral spondylosis with facet arthropathy without myelopathy. 2-sacroiliit. PROCEDURES: 1- Right radiofrequency thermocoagulation/ablation of the L5 dorsal ramus. 2- Right multi-site radiofrequency thermocoagulation/ablation of the S1, S2 lateral branchs. The procedure was performed using fluoroscopic guidance during needle placement to assure proper position and maximize safety . ANESTHESIA: LOCAL ANESTHESIA = moderate sedation with intravenous versed 2 mg and Fentanyle 100mcg EBL: NONE INDICATION/MEDICAL NECESSITY: History of low back pain secondary to left right bilateral sacroiliitis and lumbosacral arthropathy unresponsive to more conservative treatments. The patient reported more than 50% relief of pain symptoms following 2 previous diagnostic blocks with Bupivacaine. PROCEDURE DESCRIPTION: The patient was seen and identified in the preoperative area. Risks, benefits, complications, and alternatives were discussed with the patient. The patient agreed to proceed with the procedure and signed the consent. Vital signs were checked before and after the procedure and they remained stable. Patient ambulated to the procedure room and time out was completed. The patient was placed in the prone position on the procedure table and a pillow was placed under the abdomen to reduce lumbar lordosis. The lumbosacral area was prepped and draped in the usual sterile fashion. Critical pause was taken. L5 Dorsal Ramus RF: Using right oblique fluoroscopy, the junction of the transverse process and the superior articular process of the right S1 vertebra, which correspond to the fluoroscopic image of the "eye of the Lee dog" was identified. Subsequently, a 10-cm 20 -gauge radiofrequency cannula with a 10-mm active tip was advanced under fluoroscopic guidance until contact was made with periosteum. At this level, the Sensory testing of the L5 dorsal ramus was performed at 50 Hz and 0 to 1 volt with production of concordant pain starting at 0.5 volt. Motor stimulation was done at 2.5 Hz with stimulation of mulitifidus muscle contration . No radicular symptoms or paresthesias were produced during the testing. Subsequently, the L5 dorsal ramus was subjected to a radiofrequency ablation at 80 degree celsius for 90 seconds . after 0.5% Ropivacaine 1 ml injected at each level after negative aspirations . The needle was withdrawn intact . S1, and S2 Lateral Branch RF: The lateral margins of the Right S1, S2, and S3 foramina were identified using AP fluoroscopy. Under fluoroscopic guidance, three 10-cm 20 -gauge radiofrequency cannula with a 10-mm active tip were inserted at 8-10 mm peripheral to the posterior S1 foramen, at various locations using clock-face coordinates. The center of the clock was registered at the lateral margin of the foramen. The 2:30, 4:00, and 5:30 oclock positions were used. At this level, the sensory testing of the S1 lateral branch was performed at 50 Hz and 0 to 1 volt at the three levels with production of concordant pain starting at 0.5 volt. Motor stimulation was done at 2.5 Hz. No radicular symptoms or paresthesias were produced during the testing. Subsequently, the S1 lateral branch was subjected to a radiofrequency ablation at a mode of 90 seconds at 80 degrees Celsius at the 3 levels after negative motor and sensory testing and after injecting 0.5 ml of preservative free Ropivacaine 0.5 %. The same procedure was performed at the level of the S2 foramen. ( I did not visualizethe S3 foramina ) COMPLICATIONS: The patient tolerated the procedure well without any acute complications. DISPOSTION/PLAN: The patient ambulated to the recovery area after the procedure in a stable condition for observation. Patient was reexamined prior to discharge. Patient was observed for 30 minutes in the recovery area and was discharged home, accompanied by an adult, after meeting discharged criteria. Discharge instructions were give to the patient by the staff. Patient was specifically instructed not to drive today and to rest for the rest of the day. The patient will schedule a follow up visit in the clinic in weeks or earlier if needed.
[2018-03-24] MEDS ORDERED: LACTATED RINGERS 600 ML IV ONE (11:59)
--- NOTE | 2018-03-24 12:03 | FL ---
EXAMINATION TYPE: FL guided pain mgmt statistic DATE OF EXAM: 03/24/2018 HISTORY: Pain R side SI and foramina steroid injections, 12sec fl time
[2018-03-24 12:19] VITALS: BP 103/52; PULSE 76
== END 2018-03-24 12:26 | disposition home or self-care (01) ==
LOC: ORPAIN 09:16
PROVIDERS: ATTEND Specialist
DX: M47.817 Spondylosis without myelopathy or radiculopathy, lumbosacral region (principal); M46.1 Sacroiliitis, not elsewhere classified
CPT/HCPCS: 64640; 64635; J2250; J1030; J3010; 64636; 99152; 99153

== ENCOUNTER → 2018-04-14 | Outpatient (CLI) | payer OTHER ==
[2018-04-14 13:38] VITALS: BP 103/62; PULSE 99; RESP 16
--- NOTE | 2018-04-14 14:09 | P.PN ---
Subjective Progress Note Date: 04/14/18 Georgia is a 52-year-old female presents today with continued low back pain. She is status post radiofrequency ablation of the right sacroiliac lateral branch. Is also has had radiofrequency ablation the lumbar medial branch as well. She continues to have some pain over the left side of her lower spine. She reports a right-sided significantly better after the radiofrequency ablation. She has a history of bilateral lower extremity pain secondary to peripheral vascular disease and claudication. Was that she uses medications as prescribed and denies any side effects from the current medication regimen which includes tramadol 50 mg once per day as well as [place] 10 2-3 times per day. She denies any new symptoms, any new bowel or bladder incontinence, any new numbness or tingling in her lower upper extremities. On her last visit we Decreased her [place] to 3 times per day and added one tramadol. She reports that , does not help and is requesting to go back to [place] 10 3-4 times per day. Objective - Vital Signs Vital signs: Intake & Output 04/13/18 04/14/18 04/14/18 18:59 06:59 18:59 Weight 79.379 kg - Exam General: Awake and alert oriented 3 no distress Respiratory exam: No audible wheezing no accessory muscle usage Cardiovascular exam: regular rate, decreased bilateral pulses in her lower extremities, positive for skin changes in the lower extremities, minimal edema Abdominal exam: No distention nontender to palpation Cervical spine: Normal alignment, Spurling's negative, facet loading negative Lumbar spine: Loss of lumbar lordosis, normal alignment, tender to palpation over bilateral paraspinal muscles, facet loading is positive bilaterally. Straight leg raise is negative. Sacroiliac joints: Tender to palpation over left SI joint gaenselons test positive on the left, Silvana's test is positive on the left Neuro exam: Normal sensation in bilateral upper extremities, deep tendon reflexes are 2+ bilateral upper extremities. Normal sensation in bilateral lower extremities. Deep tendon reflexes are 1+ in lower extremities Psych exam: Cooperative, appropriate mood Assessment and Plan Assessment: #1 lumbar spondylosis without myelopathy #2 sacroiliitis #3 peripheral vascular disease with claudication Plan: Sacral lateral branch ablation on the left side to be done soon. Refill [place] 10 mg #120 tablets. Maps was checked. Urine drug screens have been adequate and appropriate. Opioid start talking forms in the chart. I also refilled her gabapentin.
== END ==
LOC: PNWHC3 13:04
PROVIDERS: ATTEND Hospitalist
DX: M47.816 Spondylosis without myelopathy or radiculopathy, lumbar region (principal); M46.1 Sacroiliitis, not elsewhere classified; I73.9 Peripheral vascular disease, unspecified
CPT/HCPCS: 99211

== ENCOUNTER 2018-04-16 12:56 | Emergency (ER) | payer OTHER ==
[2018-04-16 13:03] VITALS: RESP 18
[2018-04-16 14:22] LABS: Appearance,Urine Clear (Clear); Basophils # (A) 0.1 k/uL (0-0.2); Basophils % (A) 1 %; Bilirubin,Urine Negative (Negative); Blood,Urine Negative (Negative); Color,Urine Yellow; Eosinophils # (A) 0.2 k/uL (0-0.7); Eosinophils % (A) 2 %; Glucose,Urine (UA) Negative (Negative); HCT 45.1 % (34.0-46.0); HGB 14.1 gm/dL (11.4-16.0); Ketones,Urine Negative (Negative); Leukocyte Esterase,Urine Negative (Negative); Lymphocytes # (A) 3.6 k/uL (1.0-4.8); Lymphocytes % (A) 29 %; MCH 26.8 pg (25.0-35.0); MCHC 31.3 g/dL (31.0-37.0); MCV 85.4 fL (80.0-100.0); Mean Platelet Volume 10.7; Monocytes # (A) 0.5 k/uL (0-1.0); Monocytes % (A) 4 %; Neutrophils % (A) 64 %; Nitrite,Urine Negative (Negative); Platelet Count 123 k/uL (150-450); Protein,Urine Negative (Negative); RBC 5.28 m/uL (3.80-5.40); Specific Gravity,Urine 1.016 (1.001-1.035); Urobilinogen,Urine <2.0 mg/dL (<2.0); WBC 12.6 k/uL (3.8-10.6)
--- NOTE | 2018-04-16 14:26 | XR ---
EXAMINATION TYPE: XR chest 2V DATE OF EXAM: 04/16/2018 COMPARISON: Prior chest x-ray 12/24/2017 HISTORY: Cough and congestion TECHNIQUE: Frontal and lateral views of the chest are obtained. FINDINGS: There is no focal air space opacity, pleural effusion, or pneumothorax seen. The cardiac silhouette size is within normal limits. The osseous structures are intact. Interstitium mildly inc reased. Suggestion of some mild bronchial wall thickening. IMPRESSION: Possible underlying interstitial lung disease. Correlate for bronchitis, reactive airways disease.
[2018-04-16 14:32] LABS: ALT 22 U/L (9-52); AST 24 U/L (14-36); Albumin 4.4 g/dL (3.5-5.0); Alkaline Phosphatase 38 U/L (38-126); Anion Gap 8 mmol/L; Blood Urea Nitrogen 8 mg/dL (7-17); Calcium 9.8 mg/dL (8.4-10.2); Carbon Dioxide 27 mmol/L (22-30); Chloride 106 mmol/L (98-107); Glucose 101 mg/dL (74-99); Potassium 3.5 mmol/L (3.5-5.1); Sodium 141 mmol/L (137-145); Total Bilirubin 0.5 mg/dL (0.2-1.3); Total Protein 7.3 g/dL (6.3-8.2)
--- NOTE | 2018-04-16 14:38 | ED ---
General Adult HPI - General Chief complaint: Upper Respiratory Infection Stated complaint: Cough Source: patient Mode of arrival: ambulatory Limitations: no limitations - History of Present Illness Initial comments: 52-year-old female patient with past medical history of COPD, heart stents, chronic back pain, GERD, hypertension presents to ED with 2 complaints. Patient initial complaint of sinus congestion, rhinorrhea for approximately 4 weeks. Patient states that she has been taking mucinex at home with mild success. Patient additionally complains of intermittent dry cough. Patient denies sore throat, otalgia. Patient denies chest pain, shortness of breath, nausea vomiting diarrhea. Patient second complaint is of right shoulder pain for approximately 2 weeks. She states that the pain is located primarily at her acromioclavicular joint. Patient states that the pain is worse with movements, lifting motions of her right arm. Patient states that she has had chronic pain in shoulders and past and this feels similar. Patient states that she has used warming blankets on shoulder with success. Patient denies other complaints. Systemic: Pt denies fatigue, rash. Pt denies weakness, night sweats, weight loss. Neuro: Pt denies headache, visual disturbances, syncope or pre-syncope. HEENT: Pt denies ocular discharge or irritation, otalgia, rhinorrhea, pharyngitis or notable lymphadenopathy. Cardiopulmonary: Pt denies chest pain, SOB, heart palpitations, dyspnea on exertion. Abdominal/GI: Pt denies abdominal pain, n/v/d. : Pt denies dysuria, burning w/ urination, frequency/urgency. Denies new onset urinary or bowel incontinence. MSK: Pt denies loss of strength or function in extremities. Neuro: Pt denies new onset weakness, paresthesias. - Related Data Home Medications Medication Instructions Recorded Confirmed Multivitamins, Thera [Multivitamin 1 tab PO DAILY 10/23/13 04/16/18 (formulary)] Omeprazole [PriLOSEC] 20 mg PO AC-BRKFST 04/16/15 04/16/18 Trolamine Salicylate [Aspercreme] 1 applic TOPICAL BID PRN 11/27/15 04/16/18 Lisinopril [Zestril] 2.5 mg PO QAM 03/03/16 04/16/18 Aspirin EC [Ecotrin] 325 mg PO DAILY 07/17/16 04/16/18 Tetrahydrozoline HCl/Zinc Sulf 1 drop BOTH EYES BID PRN 07/17/16 04/16/18 [Visine Allergy Relief Drop] Tussin Dm 10 ml PO DIRECTED PRN 03/22/18 04/16/18 HYDROcodone/APAP 10-325MG [[place] 1 tab PO Q8HR PRN 04/14/18 04/16/18 10-325] Previous Rx's Medication Instructions Recorded Atorvastatin [Lipitor] 80 mg PO HS #30 tab 02/22/14 Metoprolol Tartrate [Lopressor] 25 mg PO BID #60 tab 02/22/14 Nitroglycerin Sl Tabs [Nitrostat] 0.4 mg SUBLINGUAL Q5M PRN #25 tab 02/22/14 Albuterol Sulfate [Proair Hfa] 1 - 2 puff INHALATION Q4H PRN #1 06/25/17 inhaler Gabapentin [Neurontin] 200 mg PO TID #180 cap 07/08/17 Doxycycline [Vibramycin] 100 mg PO BID 7 Days #14 capsule 04/16/18 Allergies Allergy/AdvReac Type Severity Reaction Status Date / Time ibuprofen [From Motrin] Allergy Anaphylaxis Verified 04/16/18 13:03 /Swelling amoxicillin trihydrate AdvReac Nausea & Verified 04/16/18 13:03 [From Augmentin] Vomiting potassium clavulanate AdvReac Nausea & Verified 04/16/18 13:03 [From Augmentin] Vomiting SALMON Allergy Anaphylaxis Uncoded 04/16/18 13:03 Review of Systems ROS Statement: Those systems with pertinent positive or pertinent negative responses have been documented in the HPI. ROS Other: All systems not noted in ROS Statement are negative. Past Medical History Past Medical History: Coronary Artery Disease (CAD), Chest Pain / Angina, COPD, Fibromyalgia, GERD/Reflux, Hypertension, Myocardial Infarction ([place]), Osteoarthritis (OA), Pneumonia, Vascular Disorder Additional Past Medical History / Comment(s): Crohns, Colitis. Osteoporosis. CHRONIC BACK PAIN, DDD, nighttime leakage of urine, PAD, hx kidney stone Last Myocardial Infarction Date:: 02/19/14- History of Any Multi-Drug Resistant Organisms: MRSA Date of last positivie culture/infection: 2009 MDRO Source:: abdominal Past Surgical History: Appendectomy, Bowel Resection, Heart Catheterization With Stent, Joint Replacement, Orthopedic Surgery, Tonsillectomy Additional Past Surgical History / Comment(s): 2 Small Bowel Resections D/T CROHNS; LT TOTAL KNEE REPLACEMENT THEN A REVISION-HAS TITANIUM; ADA carpal tunnel, Trigger Fingersthumb x 6. total 3 cardiac stents Past Anesthesia/Blood Transfusion Reactions: Motion Sickness Date of Last Stent Placement:: 04/2014 Past Psychological History: No Psychological Hx Reported Smoking Status: Current some day smoker Past Alcohol Use History: None Reported Past Drug Use History: None Reported - Past Family History Father Family Medical History: Cancer Additional Family Medical History / Comment(s): LUNG CANCER Mother Additional Family Medical History / Comment(s): WHEN PT WAS AGE 14 NOT SURE WHY, HX OF MENTAL HEALTH ISS General Exam - General Exam Comments Initial Comments: Constitutional: NAD, AOX3, Pt has pleasant affect. HEENT: NC/AT, trachea midline, neck supple, no lymphadenopathy. Posterior pharynx non erythematous, without exudates. External ears appear normal, without discharge. Mucous membranes moist. Eyes PERRLA, EOM intact. There is no scleral icterus. No pallor noted. Cardiopulmonary: RRR, no murmurs, rubs or gallops, no JVD noted. Lungs CTAB in anterior and posterior heredia. No peripheral edema. Abdominal exam: Abdomen soft and non-distended. Abdomen non-tender to palpation in all 4 quadrants. Bowel sounds active in LLQ. No hepatosplenomegaly. No ecchymosis Neuro: CN II-XII grossly intact. No nuchal rigidity. MSK: Empty can test positive R arm, triceps and biceps strength 5/5 bilaterally , tricep extension reproduced pain in R shoulder. R AC joint mildly tender to palpation. No ecchymosis. No posterior calf tenderness bilaterally, homans sign negative bilaterally. Posterior tibialis and radial pulse +2 bilaterally. Sensation intact in upper and lower extremities. Full active ROM in upper and lower extremities, 5/5 stregnth. Limitations: no limitations Course Vital Signs 04/16/18 04/16/18 13:00 16:03 Temperature 98.2 F 97.5 F L Pulse Rate 83 85 Respiratory 18 18 Rate Blood Pressure 131/86 114/70 O2 Sat by Pulse 97 97 Oximetry Medical Decision Making - Medical Decision Making 52-year-old female patient with past medical history of COPD, heart stents, chronic back pain, GERD, hypertension presents to ED with 2 complaints. Patient initial complaint of sinus congestion, rhinorrhea for approximately 4 weeks. Patient additionally complains of intermittent dry cough. Patient denies chest pain, shortness of breath, nausea vomiting diarrhea. Patient second complaint is of right shoulder pain for approximately 2 weeks. She states that the pain is located primarily at her acromioclavicular joint. Patient states that the pain is worse with movements, lifting motions of her right arm. Patient states that she has had chronic pain in shoulders and past and this feels similar. Phyical exam displayed: Empty can test positive R arm, triceps and biceps strength 5/5 bilaterally, tricep extension reproduced pain in R shoulder. R AC joint mildly tender to palpation. No ecchymosis. No posterior calf tenderness bilaterally, homans sign negative bilaterally. RRR, no murmurs, rubs or gallops, no JVD noted. Lungs CTAB in anterior and posterior heredia. Laboratory investigations revealed mild leukocytosis of 12.6, mild decrease of platelets that for patient. CMP was non-impressive. Troponin negative. EKG not concerning for acute ischemia. UA nonimpressive. Influenza A &B negative. X-ray right shoulder suggestive of calcific tendinitis. Chest x- ray displayed some bronchial wall thickening. PT states that she cannot be because she is 8 years post menopausal and has not been sexually active in <3 years. Pt to be tx with doxycycline for sinusitis. Pt to follow up with orthopedics for right shoulder pain. Patient to follow up with primary care provider in 1-2 days. Patient to return to ED if conditions worsen, new signs or symptoms develop. Pt discussed in depth with Dr. Davis. - Lab Data Result diagrams: 04/16/18 14:10 04/16/18 14:10 Lab Results 04/16/18 04/16/18 04/16/18 Range/Units 13:38 14:10 14:10 WBC 12.6 H (3.8-10.6) k/uL RBC 5.28 (3.80-5.40) m/uL Hgb 14.1 (11.4-16.0) gm/dL Hct 45.1 (34.0-46.0) % MCV 85.4 (80.0-100.0) fL MCH 26.8 (25.0-35.0) pg MCHC 31.3 (31.0-37.0) g/dL RDW 15.0 (11.5-15.5) % Plt Count 123 L (150-450) k/uL Neutrophils % 64 % Lymphocytes % 29 % Monocytes % 4 % Eosinophils % 2 % Basophils % 1 % Neutrophils # 8.0 H (1.3-7.7) k/uL Lymphocytes # 3.6 (1.0-4.8) k/uL Monocytes # 0.5 (0-1.0) k/uL Eosinophils # 0.2 (0-0.7) k/uL Basophils # 0.1 (0-0.2) k/uL Sodium (137-145) mmol/L Potassium (3.5-5.1) mmol/L Chloride (98-107) mmol/L Carbon Dioxide (22-30) mmol/L Anion Gap mmol/L BUN (7-17) mg/dL Creatinine (0.52-1.04) mg/dL Est GFR (CKD-EPI)AfAm (>60 ml/min/1.73 sqM) Est GFR (CKD-EPI)NonAf (>60 ml/min/1.73 sqM) Glucose (74-99) mg/dL Calcium (8.4-10.2) mg/dL Total Bilirubin (0.2-1.3) mg/dL AST (14-36) U/L ALT (9-52) U/L Alkaline Phosphatase (38-126) U/L Troponin I <0.012 (0.000-0.034) ng/mL Total Protein (6.3-8.2) g/dL Albumin (3.5-5.0) g/dL Urine Color Urine Appearance (Clear) Urine pH (5.0-8.0) Ur Specific [place] (1.001-1.035) Urine Protein (Negative) Urine Glucose (UA) (Negative) Urine Ketones (Negative) Urine Blood (Negative) Urine Nitrite (Negative) Urine Bilirubin (Negative) Urine Urobilinogen (<2.0) mg/dL Ur Leukocyte Esterase (Negative) Influenza Type A RNA Not Detected (Not Detectd) Influenza Type B (PCR) Not Detected (Not Detectd) 04/16/18 04/16/18 Range/Units 14:10 14:10 WBC (3.8-10.6) k/uL RBC (3.80-5.40) m/uL Hgb (11.4-16.0) gm/dL Hct (34.0-46.0) % MCV (80.0-100.0) fL MCH (25.0-35.0) pg MCHC (31.0-37.0) g/dL RDW (11.5-15.5) % Plt Count (150-450) k/uL Neutrophils % % Lymphocytes % % Monocytes % % Eosinophils % % Basophils % % Neutrophils # (1.3-7.7) k/uL Lymphocytes # (1.0-4.8) k/uL Monocytes # (0-1.0) k/uL Eosinophils # (0-0.7) k/uL Basophils # (0-0.2) k/uL Sodium 141 (137-145) mmol/L Potassium 3.5 (3.5-5.1) mmol/L Chloride 106 (98-107) mmol/L Carbon Dioxide 27 (22-30) mmol/L Anion Gap 8 mmol/L BUN 8 (7-17) mg/dL Creatinine 0.57 (0.52-1.04) mg/dL Est GFR (CKD-EPI)AfAm >90 (>60 ml/min/1.73 sqM) Est GFR (CKD-EPI)NonAf >90 (>60 ml/min/1.73 sqM) Glucose 101 H (74-99) mg/dL Calcium 9.8 (8.4-10.2) mg/dL Total Bilirubin 0.5 (0.2-1.3) mg/dL AST 24 (14-36) U/L ALT 22 (9-52) U/L Alkaline Phosphatase 38 (38-126) U/L Troponin I (0.000-0.034) ng/mL Total Protein 7.3 (6.3-8.2) g/dL Albumin 4.4 (3.5-5.0) g/dL Urine Color Yellow Urine Appearance Clear (Clear) Urine pH 6.0 (5.0-8.0) Ur Specific [place] 1.016 (1.001-1.035) Urine Protein Negative (Negative) Urine Glucose (UA) Negative (Negative) Urine Ketones Negative (Negative) Urine Blood Negative (Negative) Urine Nitrite Negative (Negative) Urine Bilirubin Negative (Negative) Urine Urobilinogen <2.0 (<2.0) mg/dL Ur Leukocyte Esterase Negative (Negative) Influenza Type A RNA (Not Detectd) Influenza Type B (PCR) (Not Detectd) - EKG Data -: EKG Interpreted by Me (and dr davis) EKG Comments: Ventricular rate 70, patient follow 164, QRS 76, QT/QTC 388/424. Normal sinus rhythm, normal EKG. Disposition Clinical Impression: Sinusitis, Shoulder pain, right Disposition: HOME SELF-CARE Condition: Good Instructions: Sinusitis (ED) Additional Instructions: Patient to adhere to previously discussed treatment plan and will take medication(s) as directed. Patient to follow up with PCP in 1-2 days. Patient to return to ED if symptoms do not improve. Prescriptions: Doxycycline [Vibramycin] 100 mg PO BID 7 Days #14 capsule Is patient prescribed a controlled substance at d/c from ED?: No Referrals: None,Stated [Primary Care Provider] - 1-2 days Jose Moncada MD [Medical Doctor] - 1-2 days
--- NOTE | 2018-04-16 14:59 | XR ---
Right shoulder HISTORY: Pain 3 views of the right shoulder Small calcification adjacent to the humeral head may represent calcific tendinitis. There is arthropa thy at the acromioclavicular joint. Glenohumeral joint is intact. No fracture or dislocation. Right l xochitl apex as visualized is normal. IMPRESSION: Suggestive of calcific tendinitis, shoulder MRI may be of benefit. Acromioclavicular join t arthropathy.
[2018-04-16 16:29] VITALS: BP 114/70; PULSE 85; TEMP 97.5
== END 2018-04-16 16:15 | disposition home or self-care (01) ==
LOC: EC 12:56
DX: J32.9 Chronic sinusitis, unspecified (principal); M25.511 Pain in right shoulder; G89.29 Other chronic pain; D72.829 Elevated white blood cell count, unspecified; R91.8 Other nonspecific abnormal finding of lung field; Z78.0 Asymptomatic menopausal state; I10 Essential (primary) hypertension; I25.119 Atherosclerotic heart disease of native coronary artery with unspecified angina pectoris; M19.90 Unspecified osteoarthritis, unspecified site; K21.9 Gastro-esophageal reflux disease without esophagitis; I25.2 Old myocardial infarction; F17.200 Nicotine dependence, unspecified, uncomplicated; Z88.0 Allergy status to penicillin; Z88.6 Allergy status to analgesic agent; Z91.013 Allergy to seafood; Z79.82 Long term (current) use of aspirin; Z79.899 Other long term (current) drug therapy; Z95.5 Presence of coronary angioplasty implant and graft; Z96.652 Presence of left artificial knee joint; Z86.14 Personal history of Methicillin resistant Staphylococcus aureus infection; Z80.1 Family history of malignant neoplasm of trachea, bronchus and lung; Z87.19 Personal history of other diseases of the digestive system; Z90.49 Acquired absence of other specified parts of digestive tract
CPT/HCPCS: 36415; 71046; 80053; 81003; 84484; 85025; 87502; 93005; 99284

== ENCOUNTER → 2018-06-09 | Outpatient (CLI) | payer OTHER ==
[2018-06-09 12:09] VITALS: BP 137/84; PULSE 88; RESP 16; TEMP 98.7
--- NOTE | 2018-06-09 12:24 | P.PAINPG ---
Subjective Progress Note Date: 06/09/18 Principal diagnosis: Lumbar spondylosis, bilateral sacroiliac pain This very pleasant 53-year-old woman who presents today for reevaluation in our clinic. She is undergone previous sacroiliac joint radiofrequency ablations and these have been helpful for her. She was recently scheduled to have this done on the left side however she had to cancel due to some significant illnesses in the family. She presents today to ask for medication refills. She also has pain in her back which radiates down both legs. This is much worse with standing and walking. She does see a engineer automated equipment. She has had some vascular studies done recently in her lower extremities and she is going to have these results reviewed with her engineer automated equipment shortly. She also had a CAT scan performed which demonstrated moderate lumbar spinal stenosis at L4 5. She also has an EMG which demonstrates L4 V nerve irritation. She has never had epidural steroid injections performed. She denies any bowel or bladder dysfunction. She also reports pain in her right shoulder. This is been diagnosed as calcific tendinitis. Objective - Vital Signs Vital signs: Vital Signs Temp 98.7 F 06/09/18 12:01 Pulse 88 06/09/18 12:01 Resp 16 06/09/18 12:01 BP 137/84 06/09/18 12:01 Pulse Ox 98 06/09/18 12:01 Intake & Output 06/08/18 06/09/18 06/09/18 18:59 06:59 18:59 Weight 77.111 kg - Exam General: The patient is alert and oriented. Patient is not sedated Patient answers all question appropriately. Cardiac: Heart is regular in rate and rhythm Respiratory: Clear to auscultation. No audible wheezes. Abdomen: Soft nontender nondistended. Musculoskeletal: Strength is normal bilaterally. Sensation is normal bilaterally. Straight leg raise is negative bilaterally. Neurological: Reflexes are preserved and symmetric bilaterally. Sensation is intact in the lower extremities on the left side however it is decreased on the right side from the knee to the foot. Assessment and Plan (1) Lumbar spinal stenosis Narrative/Plan: Plan of Care 1. Medications: I will refill the patient's gabapentin at 200 mg by mouth 3 times a day. She has tried this at 300 mg and finds this dose is quite sedating. She also continues take [place] on a daily basis. She reports that this is extremely helpful and she cannot function without it. It helps her sleep as well as function and be active. She is aware of the risks and benefits of opiate medications. I discussed these with her. She does give her medications locked up at home. I have reviewed the patient's MAPS report and it reveals expected results. Patient has signed an opiate agreement as well as opiate consent for treatment in our clinic. They understand the risks and benefits of opiate medications. They are aware of the potential for addiction. 2. Interventions: We will schedule patient for left sacroiliac joint radiofrequency ablation as she previously had been scheduled. We will also schedule her after that for a lumbar epidural steroid injection at L4 5. 3. Referrals: Patient will follow up with her engineer automated equipment to discuss results of her vascular studies 4. Testing: None 5. Follow-up: Left sacroiliac radio frequency ablation Current Visit: Yes Status: Acute Code(s): M48.061 - SPINAL STENOSIS, LUMBAR REGION WITHOUT NEUROGENIC LEONARDO SNOMED Code(s): 65415844 (2) Lumbosacral spondylosis without myelopathy Current Visit: No Status: Chronic Code(s): M47.817 - SPONDYLS W/O MYELOPATHY OR RADICULOPATHY, LUMBOSACR REGION SNOMED Code(s): 85402487 (3) Sacroiliitis Current Visit: No Status: Chronic Code(s): M46.1 - SACROILIITIS, NOT ELSEWHERE CLASSIFIED SNOMED Code(s): 37456337 PQRS Measure Charge Sheet Measure #130: Documentation of Current Meds in Medical Chart: Patient's medications documented in chart Measure #226: Tobacco Use: Screen & Cessation Intervention: Pt screened for tobacco use AND intervention given Measure #111: Pneumonia Vaccination: Pneumococcal vaccine NOT administered or previously given Measure #47: Advance Care Plan: Advance care planning discussed & documented, plan or surrogate given Measure #412: Opioid Treatment Agreement: No documentation of signed opioid treatment agreement Measure #408: Opioid Therapy Follow-up Evaluation: Patient had f/u eval minimum every 3 months during opioid therapy Measure #317: Preventitive Care & Scrn High Bld Press & F/U: Normal blood pressure, f/u not required Measure #128: Body Mass Index (BMI) Screening & Follow-up: BMI documented ABOVE normal parameters - f/u documented Measure #131: Pain Assessment & Follow-up: Pain positive & plan documented Measure #431: Unhealthy Alcohol Use Preventative Care & Scrn: Patient not identified as an unhealthy alcohol user PQRS Narrative: Smoking Status Current some day smoker Do You Want the Pneumonia No Vaccine AT THIS TIME? Narcotic Agreement Date Signed 06/10/16 Blood Pressure 137/84 Pain Intensity [Bilateral 8 Lower Posterior Back] Scale Used Numeric (1 - 10) Hx Alcohol Use (MH) No Home Medications: Ambulatory Orders Multivitamins, Thera [Multivitamin (formulary)] 1 tab PO DAILY 10/23/13 Atorvastatin [Lipitor] 80 mg PO HS #30 tab 02/22/14 Metoprolol Tartrate [Lopressor] 25 mg PO BID #60 tab 02/22/14 Nitroglycerin Sl Tabs [Nitrostat] 0.4 mg SUBLINGUAL Q5M PRN #25 tab 02/22/14 Omeprazole [PriLOSEC] 20 mg PO AC-BRKFST 04/16/15 Trolamine Salicylate [Aspercreme] 1 applic TOPICAL BID PRN 11/27/15 Lisinopril [Zestril] 2.5 mg PO QAM 03/03/16 Aspirin EC [Ecotrin] 325 mg PO DAILY 07/17/16 Tetrahydrozoline HCl/Zinc Sulf [Visine Allergy Relief Drop] 1 drop BOTH EYES BID PRN 07/17/16 Albuterol Sulfate [Proair Hfa] 1 - 2 puff INHALATION Q4H PRN #1 inhaler 06/25/17 Gabapentin [Neurontin] 200 mg PO TID #180 cap 07/08/17 Tussin Dm 10 ml PO DIRECTED PRN 03/22/18 HYDROcodone/APAP 10-325MG [[place] 10-325] 1 tab PO Q6H PRN 04/14/18 Controlled Substance Measures - Controlled Substance Measures Is patient prescribed a controlled substance at discharge?: Yes When asked, does pt state using other controlled substances?: No If prescribed controlled substance>3 days was MAPS reviewed?: Yes If Rx opioid, was Start Talking consent form obtained?: Yes
== END ==
LOC: PNWHC3 11:45
PROVIDERS: ATTEND Pain Medicine Pain Medicine
DX: M48.061 Spinal stenosis, lumbar region without neurogenic claudication (principal); M47.816 Spondylosis without myelopathy or radiculopathy, lumbar region; M46.1 Sacroiliitis, not elsewhere classified; F17.200 Nicotine dependence, unspecified, uncomplicated; Z79.899 Other long term (current) drug therapy; Z79.82 Long term (current) use of aspirin; Z79.891 Long term (current) use of opiate analgesic
CPT/HCPCS: 99211

== ENCOUNTER 2018-06-24 12:21 | Emergency (ER) | payer OTHER ==
[2018-06-24 12:35] VITALS: TEMP 98.8
[2018-06-24] MEDS ORDERED: SODIUM CHLORIDE 0.9% 1,000 ML IV STA (12:52)
[2018-06-24] MEDS ORDERED: IPRATROPIUM-ALBUTEROL 3 ML NEB INHALATION STA (12:52)
[2018-06-24] MEDS ORDERED: methylPREDNISolone SOD SUCCI 125 MG/2 ML VIAL IV STA (12:53)
[2018-06-24 13:00] VITALS: RESP 16
[2018-06-24 13:13] LABS: Basophils % (A) 0 %; Eosinophils # (A) 0.1 k/uL (0-0.7); Eosinophils % (A) 1 %; HGB 13.6 gm/dL (11.4-16.0); Hypochromasia Slight; Lymphocytes # (A) 2.8 k/uL (1.0-4.8); Lymphocytes % (A) 30 %; MCH 27.4 pg (25.0-35.0); MCHC 31.7 g/dL (31.0-37.0); MCV 86.3 fL (80.0-100.0); Mean Platelet Volume 9.4; Monocytes # (A) 0.4 k/uL (0-1.0); Monocytes % (A) 4 %; Neutrophils # (A) 5.7 k/uL (1.3-7.7); Neutrophils % (A) 63 %; Platelet Count 136 k/uL (150-450); RBC 4.98 m/uL (3.80-5.40); RDW 14.7 % (11.5-15.5); WBC 9.2 k/uL (3.8-10.6)
--- NOTE | 2018-06-24 13:20 | ED ---
SOB HPI - General Chief Complaint: Shortness of Breath Stated Complaint: SOB, Cough Time Seen by Provider: 06/24/18 12:40 Source: patient, RN notes reviewed Mode of arrival: ambulatory Limitations: no limitations - History of Present Illness Initial Comments: 53-year-old female presents emergency Department chief complaint cough congestion. Patient states she has been sick for last 2 months. Patient has been on 3 different antibiotics for her cough congestion. Patient states that she is not improved. She states the cough is worsening which is productive with phlegm. She has a history of COPD. Patient does not take any current breathing treatments at home for this. Patient states that she believes she had a fever but no recorded temperature. Patient denies any nausea vomiting diarrhea constipation. Patient states she does not have a current primary care physician. Patient does see pain management on a regular basis. Patient denies any current chest pain but states that she's had intermittent pain with coughing. - Related Data Home Medications Medication Instructions Recorded Confirmed Multivitamins, Thera [Multivitamin 1 tab PO DAILY 10/23/13 06/24/18 (formulary)] Omeprazole [PriLOSEC] 20 mg PO AC-BRKFST 04/16/15 06/24/18 Lisinopril [Zestril] 2.5 mg PO QAM 03/03/16 06/24/18 Aspirin EC [Ecotrin] 325 mg PO DAILY 07/17/16 06/24/18 HYDROcodone/APAP 10-325MG [[place] 1 tab PO Q4H PRN 04/14/18 06/24/18 10-325] Nicotine 14Mg/24Hr Patch [Habitrol 1 patch TRANSDERM DAILY 06/24/18 06/24/18 14Mg/24Hr Patch] Previous Rx's Medication Instructions Recorded Atorvastatin [Lipitor] 80 mg PO HS #30 tab 02/22/14 Metoprolol Tartrate [Lopressor] 25 mg PO BID #60 tab 02/22/14 Nitroglycerin Sl Tabs [Nitrostat] 0.4 mg SUBLINGUAL Q5M PRN #25 tab 02/22/14 Gabapentin [Neurontin] 200 mg PO TID #180 cap 07/08/17 Albuterol Sulfate [Proair Hfa] 1 - 2 puff INHALATION Q4HR PRN #1 06/24/18 inhaler Levofloxacin [Levaquin] 500 mg PO DAILY #10 tab 06/24/18 predniSONE 50 mg PO DAILY #5 tab 06/24/18 Allergies Allergy/AdvReac Type Severity Reaction Status Date / Time ibuprofen [From Motrin] Allergy Anaphylaxis Verified 06/24/18 12:58 /Swelling amoxicillin trihydrate AdvReac Nausea & Verified 06/24/18 12:58 [From Augmentin] Vomiting potassium clavulanate AdvReac Nausea & Verified 06/24/18 12:58 [From Augmentin] Vomiting SALMON Allergy Anaphylaxis Uncoded 06/24/18 12:35 Review of Systems ROS Statement: Those systems with pertinent positive or pertinent negative responses have been documented in the HPI. ROS Other: All systems not noted in ROS Statement are negative. Past Medical History Past Medical History: Coronary Artery Disease (CAD), Chest Pain / Angina, COPD, Fibromyalgia, GERD/Reflux, Hypertension, Myocardial Infarction ([place]), Osteoarthritis (OA), Pneumonia, Vascular Disorder Additional Past Medical History / Comment(s): Crohns, Colitis. Osteoporosis. CHRONIC BACK PAIN, DDD, nighttime leakage of urine, PAD, hx kidney stone X1. Last Myocardial Infarction Date:: 02/16 History of Any Multi-Drug Resistant Organisms: MRSA Date of last positivie culture/infection: 2009 MDRO Source:: abdominal Past Surgical History: Appendectomy, Bowel Resection, Heart Catheterization With Stent, Joint Replacement, Orthopedic Surgery, Tonsillectomy Additional Past Surgical History / Comment(s): 2 Small Bowel Resections D/T CROHNS; LEFT TOTAL KNEE REPLACEMENT THEN A REVISION-HAS TITANIUM; Bilateral carpal tunnel, Trigger Fingers/thumb x 6, total of 3 cardiac stents, pain procedures Past Anesthesia/Blood Transfusion Reactions: Motion Sickness Date of Last Stent Placement:: 04/2014 Past Psychological History: No Psychological Hx Reported Smoking Status: Current some day smoker Past Alcohol Use History: None Reported Past Drug Use History: None Reported - Past Family History Father Family Medical History: Cancer Additional Family Medical History / Comment(s): LUNG CANCER Mother Additional Family Medical History / Comment(s): WHEN PT WAS AGE 14 NOT SURE WHY, HX OF MENTAL HEALTH ISS General Exam Limitations: no limitations General appearance: alert, in no apparent distress Head exam: Present: atraumatic, normocephalic, normal inspection Eye exam: Present: normal appearance, PERRL, EOMI. Absent: scleral icterus, conjunctival injection, periorbital swelling ENT exam: Present: normal exam, normal oropharynx, mucous membranes moist, TM's normal bilaterally, normal external ear exam Neck exam: Present: normal inspection, full ROM. Absent: tenderness, meningismus, lymphadenopathy Respiratory exam: Present: wheezes. Absent: normal lung sounds bilaterally, respiratory distress, rales, rhonchi, stridor Cardiovascular Exam: Present: regular rate, normal rhythm, normal heart sounds. Absent: systolic murmur, diastolic murmur, rubs, gallop, clicks GI/Abdominal exam: Present: soft, normal bowel sounds. Absent: distended, tenderness, guarding, rebound, rigid Course Vital Signs 06/24/18 06/24/18 06/24/18 12:32 12:57 13:00 Temperature 98.8 F Pulse Rate 77 85 Respiratory 18 16 Rate Blood Pressure 138/72 O2 Sat by Pulse 96 Oximetry 06/24/18 13:27 Temperature Pulse Rate 89 Respiratory Rate Blood Pressure O2 Sat by Pulse Oximetry Medical Decision Making - Medical Decision Making 53-year-old female presented for cough cold like symptoms for last 2 months. Patient does have underlying COPD. Patient had complete workup including labs, EKG, chest x-ray, CT of the chest to rule out PE. Shows no acute inflammatory process. Patient has COPD exacerbation. Patient continues to smoke as she has known lung disease.I counseled the patient for smoking cessation for greater than 3 minutes. Patient will be discharged on antibiotics and steroids. She'll be given a PCP and she is advised to follow-up in 2 days return for any worsening symptoms. - Lab Data Result diagrams: 06/24/18 12:43 06/24/18 12:43 Lab Results 06/24/18 06/24/18 06/24/18 Range/Units 12:43 12:43 12:43 WBC 9.2 (3.8-10.6) k/uL RBC 4.98 (3.80-5.40) m/uL Hgb 13.6 (11.4-16.0) gm/dL Hct 43.0 (34.0-46.0) % MCV 86.3 (80.0-100.0) fL MCH 27.4 (25.0-35.0) pg MCHC 31.7 (31.0-37.0) g/dL RDW 14.7 (11.5-15.5) % Plt Count 136 L (150-450) k/uL Neutrophils % 63 % Lymphocytes % 30 % Monocytes % 4 % Eosinophils % 1 % Basophils % 0 % Neutrophils # 5.7 (1.3-7.7) k/uL Lymphocytes # 2.8 (1.0-4.8) k/uL Monocytes # 0.4 (0-1.0) k/uL Eosinophils # 0.1 (0-0.7) k/uL Basophils # 0.0 (0-0.2) k/uL Hypochromasia Slight PT 10.3 (9.0-12.0) sec INR 1.0 (<1.2) APTT 26.5 (22.0-30.0) sec D-Dimer 0.66 H (<0.60) mg/L FEU Sodium 142 (137-145) mmol/L Potassium 3.8 (3.5-5.1) mmol/L Chloride 108 H (98-107) mmol/L Carbon Dioxide 27 (22-30) mmol/L Anion Gap 7 mmol/L BUN 8 (7-17) mg/dL Creatinine 0.58 (0.52-1.04) mg/dL Est GFR (CKD-EPI)AfAm >90 (>60 ml/min/1.73 sqM) Est GFR (CKD-EPI)NonAf >90 (>60 ml/min/1.73 sqM) Glucose 87 (74-99) mg/dL Calcium 9.4 (8.4-10.2) mg/dL Magnesium 1.8 (1.6-2.3) mg/dL Total Bilirubin 0.6 (0.2-1.3) mg/dL AST 24 (14-36) U/L ALT 30 (9-52) U/L Alkaline Phosphatase 44 (38-126) U/L Troponin I (0.000-0.034) ng/mL NT-Pro-B Natriuret Pep pg/mL Total Protein 6.9 (6.3-8.2) g/dL Albumin 4.2 (3.5-5.0) g/dL 06/24/18 06/24/18 Range/Units 12:43 12:43 WBC (3.8-10.6) k/uL RBC (3.80-5.40) m/uL Hgb (11.4-16.0) gm/dL Hct (34.0-46.0) % MCV (80.0-100.0) fL MCH (25.0-35.0) pg MCHC (31.0-37.0) g/dL RDW (11.5-15.5) % Plt Count (150-450) k/uL Neutrophils % % Lymphocytes % % Monocytes % % Eosinophils % % Basophils % % Neutrophils # (1.3-7.7) k/uL Lymphocytes # (1.0-4.8) k/uL Monocytes # (0-1.0) k/uL Eosinophils # (0-0.7) k/uL Basophils # (0-0.2) k/uL Hypochromasia PT (9.0-12.0) sec INR (<1.2) APTT (22.0-30.0) sec D-Dimer (<0.60) mg/L FEU Sodium (137-145) mmol/L Potassium (3.5-5.1) mmol/L Chloride (98-107) mmol/L Carbon Dioxide (22-30) mmol/L Anion Gap mmol/L BUN (7-17) mg/dL Creatinine (0.52-1.04) mg/dL Est GFR (CKD-EPI)AfAm (>60 ml/min/1.73 sqM) Est GFR (CKD-EPI)NonAf (>60 ml/min/1.73 sqM) Glucose (74-99) mg/dL Calcium (8.4-10.2) mg/dL Magnesium (1.6-2.3) mg/dL Total Bilirubin (0.2-1.3) mg/dL AST (14-36) U/L ALT (9-52) U/L Alkaline Phosphatase (38-126) U/L Troponin I <0.012 (0.000-0.034) ng/mL NT-Pro-B Natriuret Pep 189 pg/mL Total Protein (6.3-8.2) g/dL Albumin (3.5-5.0) g/dL - EKG Data EKG Comments: EKG performed at 12:40 normal sinus rhythm with a rate of 85 WA 156 QRS 86 QT/QTC 358/426 Disposition Clinical Impression: COPD exacerbation Disposition: HOME SELF-CARE Condition: Stable Instructions (If sedation given, give patient instructions): COPD (Chronic Obstructive Pulmonary Disease) (ED) Additional Instructions: Please return to the Emergency Department if symptoms worsen or any other concerns. Prescriptions: Levofloxacin [Levaquin] 500 mg PO DAILY #10 tab predniSONE 50 mg PO DAILY #5 tab Albuterol Sulfate [Proair Hfa] 1 - 2 puff INHALATION Q4HR PRN #1 inhaler PRN Reason: difficulty in breathing Is patient prescribed a controlled substance at d/c from ED?: No Referrals: Ange El MD [STAFF PHYSICIAN] - 1-2 days Time of Disposition: 14:56
[2018-06-24 13:26] LABS: ALT 30 U/L (9-52); AST 24 U/L (14-36); Albumin 4.2 g/dL (3.5-5.0); Alkaline Phosphatase 44 U/L (38-126); Anion Gap 7 mmol/L; Blood Urea Nitrogen 8 mg/dL (7-17); Calcium 9.4 mg/dL (8.4-10.2); Carbon Dioxide 27 mmol/L (22-30); Chloride 108 mmol/L (98-107); Glucose 87 mg/dL (74-99); Magnesium 1.8 mg/dL (1.6-2.3); Potassium 3.8 mmol/L (3.5-5.1); Sodium 142 mmol/L (137-145); Total Bilirubin 0.6 mg/dL (0.2-1.3); Total Protein 6.9 g/dL (6.3-8.2)
[2018-06-24 13:28] LABS: Partial Thromboplastin Time 26.5 sec (22.0-30.0); Prothrombin Time 10.3 sec (9.0-12.0)
--- NOTE | 2018-06-24 13:39 | XR ---
EXAMINATION TYPE: XR chest 2V DATE OF EXAM: 06/24/2018 COMPARISON: Chest x-ray dated April 16, 2018. HISTORY: Cough and congestion for 2 months. TECHNIQUE: Frontal and lateral views of the chest are obtained. FINDINGS: There is some chronic brachial change without suspicious new focal air space opacity, pleu ral effusion, or pneumothorax seen. The cardiac silhouette size is within normal limits. The osseo us structures are intact. IMPRESSION: No suspicious acute infiltrate. No significant change from prior.
[2018-06-24 13:41] LABS: D-Dimer 0.66 mg/L FEU (<0.60)
[2018-06-24] MEDS ORDERED: HYDROcodone/APAP 10-325MG 1 EACH TAB PO ONE (14:09)
--- NOTE | 2018-06-24 14:23 | CT ---
EXAMINATION TYPE: CT chest angio for PE DATE OF EXAM: 06/24/2018 COMPARISON: None HISTORY: AOB, Cough CT DLP: 393.7 mGycm CONTRAST: CT chest with contrast and 3D reconstruction with MIP imaging is performed with IV Contrast, patient injected with 100 mL of Isovue 370. Contrast-enhanced CT of the chest was performed through the course of the pulmonary arteries with javid g and mediastinal window settings submitted. 3D reconstruction with MIP imaging was also performed. PULMONARY ARTERIES: The pulmonary arteries and their major tributaries are patent. I do not see camden dence for sizable filling defect to suggest pulmonary embolic process. LUNGS: Scattered groundglass infiltrates may reflect mild inflammatory process. No evidence for focal consolidation. No evidence for atelectasis. No pulmonary nodule or mass is detected. No pleural e ffusion. MEDIASTINUM: Thoracic aorta is of normal caliber,however, evaluation is limited given timing of the contrast bolus. If there is concern for thoracic aortic pathology consider HAILEE. Correlate clinicall y . The heart is not enlarged. No evidence for mediastinal mass. No mediastinal lymph nodes greater than 1cm. HILAR STRUCTURES: No evidence for mass. No hilar lymph nodes greater than 1 cm. UPPER ABDOMEN: Midline epigastric fat-containing hernia. IMPRESSION: 1. No evidence for Pulmonary embolism at this time. 2. Nonspecific scattered groundglass infiltrates may reflect acute inflammatory process.
[2018-06-24 15:47] VITALS: BP 121/76; PULSE 66
== END 2018-06-24 15:46 | disposition home or self-care (01) ==
LOC: EC 12:21
DX: J44.1 Chronic obstructive pulmonary disease with (acute) exacerbation (principal); K21.9 Gastro-esophageal reflux disease without esophagitis; I10 Essential (primary) hypertension; I25.2 Old myocardial infarction; I73.9 Peripheral vascular disease, unspecified; M19.90 Unspecified osteoarthritis, unspecified site; F17.200 Nicotine dependence, unspecified, uncomplicated; Z71.6 Tobacco abuse counseling; Z87.01 Personal history of pneumonia (recurrent); Z86.14 Personal history of Methicillin resistant Staphylococcus aureus infection; Z95.5 Presence of coronary angioplasty implant and graft; Z96.652 Presence of left artificial knee joint; Z79.82 Long term (current) use of aspirin; Z79.899 Other long term (current) drug therapy; Z88.6 Allergy status to analgesic agent; Z88.0 Allergy status to penicillin; Z91.013 Allergy to seafood
CPT/HCPCS: 36415; 94640; 93005; 85379; 83880; 80053; 83735; 84484; 85025; 85610; 85730; 71046; 71275; 99285; 99406; 96374; 96361 ×2; J2930; Q9967

== ENCOUNTER → 2018-08-04 | Outpatient (CLI) | payer OTHER ==
[2018-08-04 11:06] VITALS: BP 133/83; PULSE 83; RESP 18
--- NOTE | 2018-08-04 11:29 | P.PN ---
Subjective Progress Note Date: 08/04/18 This is a 53-year-old female with history of chronic lower back pain with radiation to the hips bilaterally. The patient denies any bowel or bladder dysfunction or any weakness in the lower extremities. She does have osteoarthritis in both knees and she had left total knee replacement. The patient's pain has been well-controlled with a combination of interventional pain procedures and oral opioids. The patient is scheduled the radio for an RFA on the sacroiliac joint. She still uses Riverside 10 mg 4 times a day and the Neurontin 600 mg a day. The patient recently started to have pain on the right side of her neck with radiation to the shoulder. Today, pt denies new-onset weakness, bowel/bladder incontinence, or any other signs or symptoms of cauda equina syndrome. There are no signs of acute intoxication, and no indications of medication diversion or overuse. In addition to above, 13-point review of systems is also negative for chest pain, shortness of breath, changes in vision, changes in hearing, new onset weakness, abdominal pain, diarrhea, extreme fatigue, malaise, fever, skin changes, homicidal or suicidal ideation, or bowel or bladder incontinence. Vital Signs: Reviewed in EMR Gen: AAOx3, NAD HEENT: PERRLA,hearing grossly normal Pulm: resp unlabored,CTA Heart:S1,S2, No Mur Neck: supple, trachea midline Neuro exam of the lower extremities: Normal muscle strength, hyperactive knee reflexes, absent ankle reflex bilaterally and symmetrically Tenderness in the paravertebral musculature: Positive tenderness in the lumbar paravertebral area and around the sacroiliac joints bilaterally. Positive tenderness in the right cervical paravertebral musculature and also in the right trapezius muscle Neuro: CN II-XII grossly intact, Imaging: Reviewed in EMR/chart Assessment: Lumbar spondylosis without myelopathy Bilateral sacroiliac joint dysfunction Morbid obesity Tobacco abuse Opioid dependence Peripheral vascular disease Myofascial pain in the neck and right shoulder Plan: 1. Explanation: Opioid and psychological risk scores were reviewed. Diagnoses, prognoses, and multiple treatment options including but not limited to physical therapy, interventional therapies, adjuvant medical therapies, narcotic medication therapies, and surgery were discussed with the patient and all questions were answered to the patient's satisfaction. 2. Opioid agreement: Signed with the patient and the patient is warned not to use opioids while driving or before driving and not to combine opioids with benzodiazepines or alcohol. 3. Counseling: The patient was counseled extensively on SMOKING CESSATION, BODY MASS INDEX, EXERCISE. Specifically, the patient was instructed regarding the importance of smoking cessation, obesity, and exercise in the context of both chronic pain and overall health. 4. Procedures: The patient is already scheduled for an RFA on the sacroiliac joint 5. Consultations: None 6. Investigations: None 7. Medications: Continue Riverside 10 mg 4 times a day and Neurontin 200 mg 3 times a day. I'll also give her Flexeril 5 mg 1 by mouth daily at bedtime for the next 5 days because of her recent neck pain. 8. Maps were reviewed and were appropriate. PQRS measures: 1-Patient's medications are documented in the chart. 2-Tobacco use is positive, counseling given 3-Patient has not had a pneumococcal vaccine. 4-Advanced care planning discussed, patient unable to give 5-Opioid contract signed with the patient. 6-Pain positive, follow-up visit or procedure scheduled 7-Patient's blood pressure measured and documented within normal limits. The patient will follow up with his primary care physician. 8-Patient's weight was measured, and body mass index ABOVE the normal limits, and counseling was done. Patient instructed to follow up with PCP. 9-Patient WAS NOT identified as an unhealthy alcohol user. Controlled Substance Measures Is patient prescribed a controlled substance at discharge?: Yes When asked, does pt state using other controlled substances?: No If prescribed controlled substance>3 days was MAPS reviewed?: Yes If Rx opioid, was Start Talking consent form obtained?: Yes If opioid is for acute pain is fill amount 7 days or less?: No Was information provided regarding opioid addiction?: Yes Objective - Vital Signs Vital signs: Vital Signs Temp Pulse 83 08/04/18 10:58 Resp 18 08/04/18 10:58 BP 133/83 08/04/18 10:58 Pulse Ox Intake & Output 08/03/18 08/04/18 08/04/18 18:59 06:59 18:59 Weight 79.379 kg
== END | disposition home or self-care (01) ==
LOC: PNWHC3 10:43
PROVIDERS: ATTEND Anesthesiology
DX: G89.29 Other chronic pain (principal); M47.816 Spondylosis without myelopathy or radiculopathy, lumbar region; M53.3 Sacrococcygeal disorders, not elsewhere classified; M79.18 Myalgia, other site; M17.0 Bilateral primary osteoarthritis of knee; E66.01 Morbid (severe) obesity due to excess calories; I73.9 Peripheral vascular disease, unspecified; F11.20 Opioid dependence, uncomplicated; Z96.652 Presence of left artificial knee joint; Z79.899 Other long term (current) drug therapy; Z72.0 Tobacco use; Z71.6 Tobacco abuse counseling; Z68.31 Body mass index [BMI] 31.0-31.9, adult
CPT/HCPCS: 99211

== ENCOUNTER 2018-08-16 09:09 | Day surgery (SDC) | payer OTHER ==
[2018-08-12 10:12] VITALS: BMI 30.8
[~2018-08-16 09:09] MED LIST changes: +LACTATED RINGERS 1,000 ML IV SCH; -SODIUM CHLORIDE 0.9% 500 ML 500 ML IV SCH
[2018-08-16 09:33] VITALS: TEMP 98.6
[2018-08-16] MEDS ORDERED: ONDANSETRON 4 MG/2 ML VIAL IVP ONE (09:42)
[2018-08-16] MEDS ORDERED: IV FLUID CONTINUATION 1,000 ML IV ONE (10:28)
--- NOTE | 2018-08-16 10:29 | P.PCN ---
Date of Procedure: 08/16/18 Procedure(s) Performed: PREOPERATIVE DIAGNOSIS: 1-Lumbosacral spondylosis with facet arthropathy without myelopathy. 2-Bilateral sacroiliit. post operative Diagnosis: . 1-Lumbosacral spondylosis with facet arthropathy without myelopathy. 2-Bilateral sacroiliit. PROCEDURES: 1- Left radiofrequency thermocoagulation/ablation of the L5 dorsal ramus. 2- Left multi-site radiofrequency thermocoagulation/ablation of the S1, S2, and S3 lateral branchs. The procedure was performed using fluoroscopic guidance during needle placement to assure proper position and maximize safety . ANESTHESIA: = moderate sedation with intravenous versed 2 mg and Fentanyle 100 mcg EBL: NONE INDICATION/MEDICAL NECESSITY: History of low back pain secondary to sacroiliitis and lumbosacral arthropathy unresponsive to more conservative treatments. The patient reported more than 50% relief of pain symptoms following 2 previous diagnostic blocks with Bupivacaine. PROCEDURE DESCRIPTION: The patient was seen and identified in the preoperative area. Risks, benefits, complications, and alternatives were discussed with the patient. The patient agreed to proceed with the procedure and signed the consent. Vital signs were checked before and after the procedure and they remained stable. Patient ambulated to the procedure room and time out was completed. The patient was placed in the prone position on the procedure table and a pillow was placed under the abdomen to reduce lumbar lordosis. The lumbosacral area was prepped and draped in the usual sterile fashion. Critical pause was taken. L5 Dorsal Ramus RF: Using left oblique fluoroscopy, the junction of the transverse process and the superior articular process of the left S1 vertebra, which correspond to the fluoroscopic image of the "eye of the Lee dog" was identified. Subsequently, a 10-cm 20 -gauge radiofrequency cannula with a 10-mm active tip was advanced under fluoroscopic guidance until contact was made with periosteum. At this level, the Sensory testing of the L5 dorsal ramus was performed at 50 Hz and 0 to 1 volt with production of concordant pain starting at 0.5 volt. Motor stimulation was done at 2.5 Hz with stimulation of mulitifidus muscle contration . No radicular symptoms or paresthesias were produced during the testing. Subsequently, the L5 dorsal ramus was subjected to a radiofrequency ablation at 80 degree celsius for 90 seconds . after 0.5% Bupivacaine 1 ml injected at each level after negative aspirations . S1, S3, and S3 Lateral Branch RF: Total of 6 needle 20-gauge 10 cm radiofrequency active tip needles placed at the medial edge of the left sacroiliac joint, starting from the inferior border of the jailed going superiorly, total of 6 needle was placed, then we did the sensory testing 50 Hz and motor stimulation at 2.5 Hz, and the stimulation was positive for localized contractions in the left buttock area, and there was no radicular contractions in the lower extremity, and there was no paresthesia, and then 1 mL of ropivacaine 0.5% injected through each needle after negative aspiration, and then the thermocoagulation done at 80C for 90 seconds at each level, and before the needles taken ROPIVACAINE 0.5% 6 mL mixed with 40 mg of Depo-Medrol, 1 mL injected at each level after negative aspiration, COMPLICATIONS: The patient tolerated the procedure well without any acute complications note = the S2 and S3 foramina was not visualized.(The abdomen was full of Gas ) DISPOSTION/PLAN: The patient ambulated to the recovery area after the procedure in a stable condition for observation. Patient was reexamined prior to discharge. Patient was observed for 30 minutes in the recovery area and was discharged home, accompanied by an adult, after meeting discharged criteria. Discharge instructions were give to the patient by the staff. Patient was specifically instructed not to drive today and to rest for the rest of the day. The patient will schedule a follow up visit in the clinic in weeks or earlier if needed.
[2018-08-16 10:32] VITALS: RESP 16
--- NOTE | 2018-08-16 10:33 | FL ---
EXAMINATION TYPE: FL guided pain mgmt statistic DATE OF EXAM: 08/16/2018 CLINICAL HISTORY: Sacroiliac joint pain. TECHNIQUE: Fluoroscopy. COMPARISON: None. FINDINGS: Fluoroscopic guidance was provided during pain relief procedure performed by Dr. Melo . A total of 25 seconds of fluoroscopic time was utilized during the procedure and 6 spot images are acquired. Images acquired shows needle localization of the left sacroiliac joint. IMPRESSION: As Above.
[2018-08-16 10:41] VITALS: BP 109/51; PULSE 73
== END 2018-08-16 10:58 | disposition home or self-care (01) ==
LOC: ORPAIN 09:09
PROVIDERS: ATTEND Specialist
DX: M47.817 Spondylosis without myelopathy or radiculopathy, lumbosacral region (principal); M46.1 Sacroiliitis, not elsewhere classified; Z88.6 Allergy status to analgesic agent; Z88.0 Allergy status to penicillin; Z91.018 Allergy to other foods
CPT/HCPCS: 64640; 64635; J2250; J1030; J2405; J3010; 64636; 99152; 99153

== ENCOUNTER → 2018-09-29 | Outpatient (CLI) | payer OTHER ==
[2018-09-29 12:59] VITALS: BP 138/88; PULSE 87; RESP 20
--- NOTE | 2018-09-29 14:46 | P.PAINPG ---
Subjective Progress Note Date: 09/29/18 This is a follow-up visit for this 53 years old female with a chronic history of severe low back pain, she is diagnosed with lumbar spondylosis, and sacroiliitis and we've done radiofrequency ablation of the medial branch lumbar area, patient continued to severe low back pain with rotation to the buttock area bilaterally, and there is occasional numbness and tingling sensation in the lower extremity, patient had EMG/conduction study done previously and it showed that she had chronic L4 V nerve root irritation, she denies any fever or night sweats, she denies any change in the bowel movements or urination, and no motor or sensory deficits, she continued to use [place] 10/325 every 6 hours, Ultram 50 mg daily at bedtime, and Neurontin 100 mg 2 tablet 3 times a day, she denies any side effect of the medication.(Patient has side effects from the Neurontin 300 mg 3 times a day she reported that thismade her foggy and dizzy funguses and she is currently on 200 mg 3 times a day) Physical Examinations : -Constitutiona : Cooperative , not in acute distress . -HEENT : nech ; supple , no Lymphadenopathy , normal thyroid size . eyes : no ptosis , no icterus, no photophobia . ENT : normal of hearing , normal oropharynx , no Thrush . 3- Respiratory : Chest clear to auscultations Bilaterally , no wheezing , no Rhonchi . 4- Cardiovascular : regular rate and rhythem , S1 , S2 , no S3 , no S4. 5- Gastrointestinal : abdomen soft no tenderness , bowel sounds , no organomegally . 6- Genitourinary : Defferred . 7- neurologic : Cranial nerve II to XII intact , no focal neurological deffecit . 8-psychatric : alert , oriented X 3 , appropriate affect , intact judgment and insight . 9-Lymphatic : no Lymphadenopathy . 10- musculoskeltal : Lumber spine moter stegnth lower extremities ,thigh and legs 5/5 Right side , 5/5 Left side deep tendon reflexes : normal Knee Jerk , normal ankle Jerk positive lumber facet Loading Test Range of motion of the lumbar spine Flexion 30 degrees, extension 10 degrees strait leg raising test , positive at 30 degree Fabere test positive RT and positive LT . tenderness over the Sacroiliac joint on the R and L sides Assessment and plan= chronic low back pain secondary to lumbar radiculopathy , lumbar spondylosis with lumbar facet arthropathy . And sacroiliitis chronic and current use of high-risk medication (opioids) Patient denies any side effects of the current pain medication and the current treatment/medication helping the patient to do activity of daily living , Diagnoses, prognosis, treatment options, including but not limited to physical therapy, medication management, interventional therapies, and surgery, were discussed with the patient All the questions answered The narcotic consent was signed and patient agreed and understood the side effects and complications of opioid treatment. Patient signed the narcotic agreement, and was orally counseled, not to overuse, not to abuse, not to Divert , not tp sell pain medication, and to take it as prescribed only, Patient was counseled not to drive or operate heavy equipment while using narcotic medication, and advised not to use alcohol or any Illicit drugs while using the narcotices understanding that lack of compliance with any of the above instructions, will likely to cause discharge from, the pain service, not to renew his narcotic prescriptions MAPS Reviwed and it was apropriate . Medication managements= patient will be given prescription refills for Neurontin 100 mg tabletes , 3 times a day, , [place] 10/325 every 6 hours dispense 120 with one refill Interventions patient could benefit from lumbar epidural steroid injections, procedure risk and benefits and alternatives discussed with the patient and she agreed with proceeding Urine drug screen ordered today , Objective - Vital Signs Vital signs: Vital Signs Temp Pulse 87 09/29/18 12:54 Resp 20 09/29/18 12:54 BP 138/88 09/29/18 12:54 Pulse Ox 97 09/29/18 12:54 Intake & Output 09/28/18 09/29/18 09/29/18 18:59 06:59 18:59 Weight 79.379 kg PQRS Measure Charge Sheet Measure #130: Documentation of Current Meds in Medical Chart: Patient's medications documented in chart Measure #226: Tobacco Use: Screen & Cessation Intervention: Pt screened for tobacco use AND intervention given Measure #111: Pneumonia Vaccination: Pneumococcal vaccine NOT administered or previously given Measure #47: Advance Care Plan: Advance care planning discussed & documented, pt chose/unable to give Measure #412: Opioid Treatment Agreement: No documentation of signed opioid treatment agreement Measure #408: Opioid Therapy Follow-up Evaluation: Patient had f/u eval minimum every 3 months during opioid therapy Measure #317: Preventitive Care & Scrn High Bld Press & F/U: Normal blood pressure, f/u not required Measure #128: Body Mass Index (BMI) Screening & Follow-up: BMI documented ABOVE normal parameters - f/u documented Measure #131: Pain Assessment & Follow-up: Pain positive & plan documented, Follow-up scheduled Measure #431: Unhealthy Alcohol Use Preventative Care & Scrn: Patient not identified as an unhealthy alcohol user PQRS Narrative: Smoking Status Current every day smoker Narcotic Agreement Date Signed 06/10/16 Blood Pressure 138/88 Pain Intensity [Lower Neck] 7 Scale Used Numeric (1 - 10) Hx Alcohol Use (MH) No Home Medications: Ambulatory Orders Multivitamins, Thera [Multivitamin (formulary)] 1 tab PO DAILY 10/23/13 Atorvastatin [Lipitor] 80 mg PO HS #30 tab 02/22/14 Metoprolol Tartrate [Lopressor] 25 mg PO BID #60 tab 02/22/14 Nitroglycerin Sl Tabs [Nitrostat] 0.4 mg SUBLINGUAL Q5M PRN #25 tab 02/22/14 Omeprazole [PriLOSEC] 20 mg PO AC-BRKFST 04/16/15 Lisinopril [Zestril] 2.5 mg PO QAM 03/03/16 Aspirin EC [Ecotrin] 325 mg PO DAILY 07/17/16 Albuterol Sulfate [Proair Hfa] 1 - 2 puff INHALATION Q4HR PRN #1 inhaler 06/24/18 Gabapentin [Neurontin] 200 mg PO TID #180 cap 09/29/18 HYDROcodone/APAP 10-325MG [[place] 10-325] 1 tab PO Q4H PRN #120 tab 09/29/18 HYDROcodone/APAP 10-325MG [[place] 10-325] 1 tab PO Q4HR PRN 30 Days #120 tab 09/29/18 Controlled Substance Measures - Controlled Substance Measures Is patient prescribed a controlled substance at discharge?: Yes When asked, does pt state using other controlled substances?: No If prescribed controlled substance>3 days was MAPS reviewed?: Yes If Rx opioid, was Start Talking consent form obtained?: Yes If opioid is for acute pain is fill amount 7 days or less?: No Was information provided regarding opioid addiction?: Yes
== END | disposition home or self-care (01) ==
LOC: PNWHC3 12:21
PROVIDERS: ATTEND Specialist
DX: G89.29 Other chronic pain (principal); M47.26 Other spondylosis with radiculopathy, lumbar region; M46.96 Unspecified inflammatory spondylopathy, lumbar region; M46.1 Sacroiliitis, not elsewhere classified; F17.200 Nicotine dependence, unspecified, uncomplicated; Z98.890 Other specified postprocedural states; Z79.891 Long term (current) use of opiate analgesic
CPT/HCPCS: 80307; G0482; G0463; 99211

== ENCOUNTER 2018-11-17 09:13 | Day surgery (SDC) | payer OTHER ==
[2018-11-15 13:07] VITALS: BMI 30.8
[2018-11-17 09:59] VITALS: RESP 16; TEMP 97.1
[2018-11-17] MEDS ORDERED: LIDOCAINE 1% 20 ML VIAL (10MG/ML) FOR IV START INTRADERMA ONE (10:06)
--- NOTE | 2018-11-17 11:06 | P.PCN ---
Date of Procedure: 11/17/18 Procedure(s) Performed: PREOPERATIVE DIAGNOSIS: 1- Lumbar radiculopathy 2-Lumbar spondylosis with Facet arthropathy without myelopathy POSTOPERATIVE DIAGNOSIS: 1-Lumber radiculopathy 2-Lumbar spondylosis with Facet arthropathy without myelopathy PROCEDURE 1. Lumbar epidural steroid injection under fluoroscopic guidance at the L4-5 level. (Fluoroscopy imaging was available in radiology department) 2. Lumbar epidurogram. ANESTHESIA: Local with 1% lidocaine 3 ml and , moderate sedation with intravenous Versed 2 mg ,and fentanyle 100 Mcg EBL: Minimal PROCEDURE INDICATION: The patient with low back pain and radiculitis symptoms unresponsive to conservative treatment. Fluoroscopy was used to optimize visualization of the needle placement and to maximize safety. PROCEDURE DESCRIPTION / TECHNIQUE: The patient was seen and identified in the preoperative area. Risks, benefits, complications including but not limited to infections ,bleeding ,allergic reaction to the medications ,nerve damage and not complete pain releife , and alternatives were discussed with the patient. The patient agreed to proceed with the procedure and signed the consent. IV was started, and vital signs were stable. Patient was taken to the OR and time out was completed. The patient was placed in the prone position on procedure table and a pillow was placed under the abdomen to reduce lumbar lordosis. The lumbosacral area was prepped and draped in the usual sterile fashion.ere closely monitored during the procedure. Conscious sedation was used during the procedure to decrease patients anxiety. Vital signs was monitered during the entire procedure. Using anterior-posterior fluoroscopy, the L4-5 interlaminar space was identified and the skin over this site was marked and then infiltrated with 1% lidocaine subcutaneously. Subsequently, a 20-gauge Tuohy epidural needle was inserted and advanced toward the epidural space using the ``Loss of resistance technique and guided by AP and lateral fluoroscopy. The correct needle position in the epidural space was verified with the injection of 2 mL of the water soluble contrast dye Isovue 200 contrast and observing an excellent epidurogram with the epidural spread of the dye, after negative aspiration for blood and CSF and in the absence of paresthesias. Again after negative aspiration, a 6 ml mixture containing 80 mg of Depo-medrol , and 2 ml of preservative free Normal Saline, and 2 ml of preservative free lidocaine 1% solution was injected and a washout of epidurogram was seen. Needle was withdrawn intact, skin was cleansed, and bandages were applied. COMPLICATIONS: None DISPOSITION / PLANS: The patient was placed in a supine position and transferred to the recovery area in a stable condition for observation. There was no evidence of lower extremity motor or sensory deficit after the procedure. Patient was discharged from the recovery room after meeting discharge criteria. Home discharge instructions were given to the patient by the staff. The patient was reexamined prior to discharge. The patient will schedule a follow up in the clinic in 2-4 weeks.
[2018-11-17] MEDS ORDERED: IV FLUID CONTINUATION 1,000 ML IV ONE (11:11)
[2018-11-17 11:24] VITALS: BP 115/75; PULSE 64
--- NOTE | 2018-11-17 11:29 | FL ---
EXAMINATION TYPE: FL guided pain mgmt statistic DATE OF EXAM: 11/17/2018 CLINICAL HISTORY: Low back pain. TECHNIQUE: Fluoroscopy. COMPARISON: None. FINDINGS: Fluoroscopic guidance was provided during pain relief procedure performed by Dr. Melo . A total of 3 seconds of fluoroscopic time was utilized during the procedure and 1 spot images are acquired. Images acquired shows needle localization of the lumbar spine and. IMPRESSION: As Above.
== END 2018-11-17 11:40 | disposition home or self-care (01) ==
LOC: ORPAIN 09:13
PROVIDERS: ATTEND Specialist
DX: M47.26 Other spondylosis with radiculopathy, lumbar region (principal); I10 Essential (primary) hypertension; Z79.82 Long term (current) use of aspirin
CPT/HCPCS: 62323; J2250; J1030; J3010; Q9966

== ENCOUNTER → 2018-11-24 | Outpatient (CLI) | payer OTHER ==
[2018-11-24 14:47] VITALS: BP 132/85; PULSE 79; RESP 16
--- NOTE | 2018-11-24 15:34 | P.PAINPG ---
Subjective Progress Note Date: 11/24/18 This is a follow-up visit for this 53 years old female with a chronic history of severe low back pain, she is diagnosed with lumbar spondylosis, and sacroiliitis , patient continued to severe low back pain with radiation to the buttock area bilaterally, and there is occasional numbness and tingling sensation in the lower extremity, she denies any fever or night sweats, she denies any change in the bowel movements or urination, and no motor or sensory deficits, she continued to use [place] 10/325 every 6 hours, and Neurontin 100 mg 2 tablet 3 times a day, she denies any side effect of the medication.(Patient has side effects from the Neurontin 300 mg 3 times a day she reported that this made her foggy and dizzy funguses and she is currently on 200 mg 3 times a day) Physical Examinations : -Constitutiona : Cooperative , not in acute distress . -HEENT : nech ; supple , no Lymphadenopathy , normal thyroid size . eyes : no ptosis , no icterus, no photophobia . ENT : normal of hearing , normal oropharynx , no Thrush . 3- Respiratory : Chest clear to auscultations Bilaterally , no wheezing , no Rhonchi . 4- Cardiovascular : regular rate and rhythem , S1 , S2 , no S3 , no S4. 5- Gastrointestinal : abdomen soft no tenderness , bowel sounds , no organomegally . 6- Genitourinary : Defferred . 7- neurologic : Cranial nerve II to XII intact , no focal neurological deffecit . 8-psychatric : alert , oriented X 3 , appropriate affect , intact judgment and insight . 9-Lymphatic : no Lymphadenopathy . 10- musculoskeltal : Lumber spine moter stegnth lower extremities ,thigh and legs 5/5 Right side , 5/5 Left side deep tendon reflexes : normal Knee Jerk , normal ankle Jerk positive lumber facet Loading Test Range of motion of the lumbar spine Flexion 30 degrees, extension 10 degrees strait leg raising test , positive at 30 degree Fabere test positive RT and positive LT . tenderness over the Sacroiliac joint on the R and L sides Assessment and plan= chronic low back pain secondary to lumbar radiculopathy , lumbar spondylosis with lumbar facet arthropathy . And sacroiliitis chronic and current use of high-risk medication (opioids) Patient denies any side effects of the current pain medication and the current treatment/medication helping the patient to do activity of daily living , Diagnoses, prognosis, treatment options, including but not limited to physical therapy, medication management, interventional therapies, and surgery, were discussed with the patient All the questions answered The narcotic consent was signed and patient agreed and understood the side effects and complications of opioid treatment. Patient signed the narcotic agreement, and was orally counseled, not to overuse, not to abuse, not to Divert , not tp sell pain medication, and to take it as prescribed only, Patient was counseled not to drive or operate heavy equipment while using narcotic medication, and advised not to use alcohol or any Illicit drugs while using the narcotices understanding that lack of compliance with any of the above instructions, will likely to cause discharge from, the pain service, not to renew his narcotic prescriptions MAPS Reviwed and it was apropriate . Medication managements= patient will be given prescription refills for Neurontin 100 mg tabletes , 3 times a day, , [place] 10/325 every 6 hours dispense 120 with one refill Interventions patient could benefit from lumbar epidural steroid injections, procedure risk and benefits and alternatives discussed with the patient and she agreed with proceeding Urine drug screen ordered today , Objective - Vital Signs Vital signs: Vital Signs Temp Pulse 79 11/24/18 14:40 Resp 16 11/24/18 14:40 BP 132/85 11/24/18 14:40 Pulse Ox 97 11/24/18 14:40 Intake & Output 11/23/18 11/24/18 11/24/18 18:59 06:59 18:59 Weight 81.647 kg PQRS Measure Charge Sheet Measure #130: Documentation of Current Meds in Medical Chart: Patient's medications documented in chart Measure #226: Tobacco Use: Screen & Cessation Intervention: Pt not a tobacco user Measure #111: Pneumonia Vaccination: Pneumococcal vaccine NOT administered or previously given Measure #47: Advance Care Plan: Advance care planning discussed & documented, pt chose/unable to give Measure #412: Opioid Treatment Agreement: Documented signed opioid trtmnt agreemnt min once during opioid trtmnt Measure #408: Opioid Therapy Follow-up Evaluation: Patient had f/u eval minimum every 3 months during opioid therapy Measure #317: Preventitive Care & Scrn High Bld Press & F/U: Normal blood pressure, f/u not required Measure #128: Body Mass Index (BMI) Screening & Follow-up: BMI documented ABOVE normal parameters - f/u documented Measure #131: Pain Assessment & Follow-up: Pain positive & plan documented, Follow-up scheduled Measure #431: Unhealthy Alcohol Use Preventative Care & Scrn: Patient not identified as an unhealthy alcohol user PQRS Narrative: Smoking Status Current every day smoker Narcotic Agreement Date Signed 06/10/16 Blood Pressure 132/85 Pain Intensity [Lower Back] 7 Scale Used Numeric (1 - 10) Hx Alcohol Use (MH) No Home Medications: Ambulatory Orders Multivitamins, Thera [Multivitamin (formulary)] 1 tab PO DAILY 10/23/13 Atorvastatin [Lipitor] 80 mg PO HS #30 tab 02/22/14 Metoprolol Tartrate [Lopressor] 25 mg PO BID #60 tab 02/22/14 Nitroglycerin Sl Tabs [Nitrostat] 0.4 mg SUBLINGUAL Q5M PRN #25 tab 02/22/14 Omeprazole [PriLOSEC] 20 mg PO AC-BRKFST 04/16/15 Lisinopril [Zestril] 2.5 mg PO QAM 03/03/16 Aspirin EC [Ecotrin] 325 mg PO DAILY 07/17/16 Albuterol Sulfate [Proair Hfa] 1 - 2 puff INHALATION Q4HR PRN #1 inhaler 06/24/18 B Complex-Vit C-Vit E-Zinc [Z-Bec] 1 tab PO DAILY 11/24/18 Gabapentin [Neurontin] 200 mg PO TID #180 cap 11/24/18 HYDROcodone/APAP 10-325MG [[place] 10-325] 1 tab PO Q6HR PRN #120 tab 11/24/18 HYDROcodone/APAP 10-325MG [[place] 10-325] 1 tab PO Q6HR PRN 30 Days #120 tab 11/24/18 Controlled Substance Measures - Controlled Substance Measures Is patient prescribed a controlled substance at discharge?: Yes When asked, does pt state using other controlled substances?: No If prescribed controlled substance>3 days was MAPS reviewed?: Yes If Rx opioid, was Start Talking consent form obtained?: Yes If opioid is for acute pain is fill amount 7 days or less?: No Was information provided regarding opioid addiction?: Yes
== END | disposition home or self-care (01) ==
LOC: PNWHC3 12:32
PROVIDERS: ATTEND Specialist
DX: G89.29 Other chronic pain (principal); M47.26 Other spondylosis with radiculopathy, lumbar region; M46.96 Unspecified inflammatory spondylopathy, lumbar region; M46.1 Sacroiliitis, not elsewhere classified; F17.200 Nicotine dependence, unspecified, uncomplicated; Z79.82 Long term (current) use of aspirin; Z79.891 Long term (current) use of opiate analgesic; Z79.899 Other long term (current) drug therapy
CPT/HCPCS: 99211

== ENCOUNTER 2018-12-29 09:19 | Day surgery (SDC) | payer OTHER ==
[2018-12-28 08:46] VITALS: BMI 33.4
[2018-12-29 10:15] VITALS: TEMP 96.8
[2018-12-29] MEDS ORDERED: LIDOCAINE 1% 20 ML VIAL (10MG/ML) FOR IV START INTRADERMA ONE (10:21)
[2018-12-29] MEDS ORDERED: ONDANSETRON 4 MG/2 ML VIAL IVP ONE (10:34)
--- NOTE | 2018-12-29 11:11 | P.PCN ---
Date of Procedure: 12/29/18 Procedure(s) Performed: PREOPERATIVE DIAGNOSIS: Lumbar radicular pain POSTOPERATIVE DIAGNOSIS: Same PROCEDURE Lumbar epidural steroid injection under fluoroscopic guidance at the L4-L5 level. ANESTHESIA: Local with 1% lidocaine 3 ml; moderate sedation with 2 mg of midazolam and 100 g fentanyl EBL: Minimal PROCEDURE INDICATION: Radicular pain. PROCEDURE DESCRIPTION / TECHNIQUE: The patient was seen and identified in the preoperative area. Risks, benefits, complications including but not limited to infections ,bleeding ,allergic reaction to the medications ,nerve damage and not complete pain relief , and alternatives were discussed with the patient. The patient agreed to proceed with the procedure and signed the consent. IV was started, and vital signs were stable. Patient was taken to the OR and time out was completed. The patient was placed in the prone position on procedure table and a pillow was placed under the abdomen to reduce lumbar lordosis. The lumbosacral area was prepped and draped in the usual sterile fashion. The patient was closely monitored during the procedure. Conscious sedation was used during the procedure to decrease patients anxiety. Vital signs was monitored during the entire procedure. Using anterior-posterior fluoroscopy, the L4-L5 interlaminar space was identified and the skin over this site was marked and then infiltrated with 1% lidocaine subcutaneously. Subsequently, a 20-gauge Tuohy epidural needle was inserted and advanced toward the epidural space using the loss of resistance technique and guided by AP and lateral fluoroscopy. The correct needle position in the epidural space was verified. After negative aspiration, a solution containing 80 mg of Depo-Medrol, 2 mL of preservative-free 1% lidocaine, 2 mL of preservative-free normal saline was injected. The needle was withdrawn intact, skin was cleansed, and bandages were applied. Images were saved to the chart. COMPLICATIONS: None DISPOSITION / PLANS: The patient was returned to the supine position and transferred to the recovery area in a stable condition for observation. There was no evidence of lower extremity motor or sensory deficit after the procedure. Patient was discharged from the recovery room after meeting discharge criteria. Home discharge instructions were given to the patient by the staff. Follow up plan: She'll follow up in clinic in a few weeks
[2018-12-29] MEDS ORDERED: IV FLUID CONTINUATION 1,000 ML IV ONE ×2 (11:15)
[2018-12-29 11:18] VITALS: RESP 17
[2018-12-29 11:36] VITALS: BP 107/68; PULSE 68
--- NOTE | 2018-12-29 13:58 | FL ---
EXAMINATION TYPE: FL guided pain mgmt statistic DATE OF EXAM: 12/29/2018 COMPARISON: NONE HISTORY: Back pain TECHNIQUE: Fluoroscopy. FINDINGS: Fluoroscopic guidance was provided during procedure performed by Dr. Alegre. A total of 15 seconds of fluoroscopic time was utilized during the procedure and 3 spot images was acquired demo nstrating localization of the lumbar spine. IMPRESSION: As Above.
== END 2018-12-29 11:58 | disposition home or self-care (01) ==
LOC: ORPAIN 09:19
PROVIDERS: ATTEND Student in an Organized Health Care Education/Training Program
DX: M54.16 Radiculopathy, lumbar region (principal); Z79.82 Long term (current) use of aspirin
CPT/HCPCS: 62323; J2250; J1030; J2405; J3010; Q9966

== ENCOUNTER → 2019-01-19 | Outpatient (CLI) | payer OTHER ==
[2019-01-19 12:32] VITALS: BP 98/56; PULSE 67; RESP 16
--- NOTE | 2019-01-22 19:25 | P.PAINPG ---
Subjective Progress Note Date: 01/19/19 This is a follow-up visit for this 53 years old female with a chronic history of severe low back pain, she is diagnosed with lumbar spondylosis, and sacroiliitis , recently we have done lumbar epidural steroid injection, which helped her low back pain , currently she is complaining of severe neck pain and shoulder blade pain in the pain increases with any activity, she denies any fever or night sweats, she denies any change in the bowel movements or urination, and no motor or sensory deficits, she continued to use [place] 10/325 every 6 hours, and Neurontin 100 mg 2 tablet 3 times a day, she denies any side effect of the medication.(Patient has side effects from the Neurontin 300 mg 3 times a day she reported that this made her foggy and dizzy funguses and she is currently on 200 mg 3 times a day) Objective - Vital Signs Vital signs: Vital Signs Temp Pulse 67 01/19/19 12:27 Resp 16 01/19/19 12:27 BP 98/56 01/19/19 12:27 Pulse Ox 98 01/19/19 12:27 - Exam Physical Examinations : -Constitutiona : Cooperative , not in acute distress . -HEENT : nech : supple , no Lymphadenopathy , normal thyroid size . eyes : no ptosis , no icterus, no photophobia . ENT : normal of hearing , normal oroph arynx , no Thrush . - Respiratory : Chest clear to auscultations Bilaterally , no wheezing , no Rhonchi . - Cardiovascula : regular rate and rhythem , S1 , S2 , no S3 , no S4. - Gastrointestina : abdomen soft no tenderness , bowel sounds , no organomegally . - Genitourinary : Defferred . - neurologic : Cranial nerve II to XII intact , no focal ne urological deffecit . -psychatric : alert , oriented X 3 , appropriate affect , intact judgment and insight . -Lymphatic : no Lymphadenopathy . - musculoskeltal : Cervical Spine motor stregnth in the deltoid and biceps, normal right side , normal Left side motor stregnth biceps and the wrist extensors normal right side ,normal left side . motor stregnth in the triceps muscle . normal Right side , normal Left side deep tendon reflexes normal at the biceps , normal at Brachioradialis , normal at triceps. Multiple trigger points in the right shoulder area trapezius suprascapular infrascapular area Lumber spine moter stegnth lower extremities ,thigh and legs 5/5 Right side , 5/5 Left side deep tendon reflexes : normal Knee Jerk , normal ankle Jerk positive lumber facet Loading Test Range of motion of the lumbar spine Flexion 30 degrees, extension 10 degrees strait leg raising test , positive at 45 degree Fabere test positive RT and positive LT . Assessment and Plan Plan: Assessment and plan= chronic low back pain secondary to lumbar degenerative disc disease , lumbar spondylosis with lumbar facet arthropathy . Sacroiliitis, Myofascial pain syndrome cervical suprascapular and infrascapular area chronic and current use of high-risk medication (opioids) Patient denies any side effects of the current pain medication and the current treatment/medication helping the patient to do activity of daily living , Diagnoses, prognosis, treatment options, including but not limited to physical therapy, medication management, interventional therapies, and surgery, were discussed with the patient All the questions answered The narcotic consent was signed and patient agreed and understood the side effects and complications of opioid treatment. Patient signed the narcotic agreement, and was orally counseled, not to overuse, not to abuse, not to Divert , not tp sell pain medication, and to take it as prescribed only, Patient was counseled not to drive or operate heavy equipment while using narcotic medication, and advised not to use alcohol or any Illicit drugs while using the narcotis. understanding that lack of compliance with any of the above instructions, will likely to cause discharge from, the pain service, not to renew his narcotic prescriptions MAPS Reviwed and it was apropriate . Medication managements= patient will be given prescription refills for [place] 10/325 by mouth every 6 hours space 120 with one refill, Neurontin 100 mg 2 tablets by mouth every 8 hours dispense 180 with 1 refill. Interventions= showing good candidate for trigger point injections in t rapezius suprascapular and infrascapular area , Time with Patient: Less than 30 PQRS Measure Charge Sheet Measure #130: Documentation of Current Meds in Medical Chart: Patient's medications documented in chart Measure #226: Tobacco Use: Screen & Cessation Intervention: Pt screened for tobacco use AND intervention given Measure #111: Pneumonia Vaccination: Pneumococcal vaccine administered or previously received Measure #47: Advance Care Plan: Advance care planning discussed & documented, pt chose/unable to give Measure #412: Opioid Treatment Agreement: Documented signed opioid trtmnt agreemnt min once during opioid trtmnt Measure #408: Opioid Therapy Follow-up Evaluation: Patient had f/u eval minimum every 3 months during opioid therapy Measure #317: Preventitive Care & Scrn High Bld Press & F/U: Normal blood pressure, f/u not required Measure #128: Body Mass Index (BMI) Screening & Follow-up: BMI documented ABOVE normal parameters - f/u documented Measure #131: Pain Assessment & Follow-up: Pain positive & plan documented, Follow-up scheduled Measure #431: Unhealthy Alcohol Use Preventative Care & Scrn: Patient not identified as an unhealthy alcohol user PQRS Narrative: Smoking Status Current some day smoker Narcotic Agreement Date Signed 06/10/16 Blood Pressure 98/56 Pain Intensity [Neck] 7 Pain Intensity [Back] 5 Scale Used Numeric (1 - 10) Hx Alcohol Use (MH) No Home Medications: Ambulatory Orders Multivitamins, Thera [Multivitamin (formulary)] 1 tab PO DAILY 10/23/13 Atorvastatin [Lipitor] 80 mg PO HS #30 tab 02/22/14 Metoprolol Tartrate [Lopressor] 25 mg PO BID #60 tab 02/22/14 Nitroglycerin Sl Tabs [Nitrostat] 0.4 mg SUBLINGUAL Q5M PRN #25 tab 02/22/14 Omeprazole [PriLOSEC] 20 mg PO AC-BRKFST 04/16/15 Lisinopril [Zestril] 2.5 mg PO QAM 03/03/16 Aspirin EC [Ecotrin] 325 mg PO DAILY 07/17/16 Albuterol Sulfate [Proair Hfa] 1 - 2 puff INHALATION Q4HR PRN #1 inhaler 06/24/18 B Complex-Vit C-Vit E-Zinc [Z-Bec] 1 tab PO DAILY 11/24/18 Cough Syrup 01/19/19 Gabapentin [Neurontin] 200 mg PO TID #180 cap 01/19/19 HYDROcodone/APAP 10-325MG [[place] 10-325] 1 tab PO Q6HR PRN 30 Days #120 tab 01/19/19 HYDROcodone/APAP 10-325MG [[place] 10-325] 1 tab PO Q6HR PRN 30 Days #120 tab 01/19/19 Controlled Substance Measures - Controlled Substance Measures Is patient prescribed a controlled substance at discharge?: Yes
== END ==
LOC: PNWHC3 11:27
PROVIDERS: ATTEND Specialist
DX: G89.29 Other chronic pain (principal); M51.36 Other intervertebral disc degeneration, lumbar region; M47.816 Spondylosis without myelopathy or radiculopathy, lumbar region; M46.96 Unspecified inflammatory spondylopathy, lumbar region; M46.1 Sacroiliitis, not elsewhere classified; M79.18 Myalgia, other site; F17.200 Nicotine dependence, unspecified, uncomplicated; Z79.899 Other long term (current) drug therapy; Z79.82 Long term (current) use of aspirin; Z79.891 Long term (current) use of opiate analgesic
CPT/HCPCS: 99211

== ENCOUNTER → 2019-03-16 | Outpatient (CLI) | payer OTHER ==
[2019-03-16 13:52] VITALS: BP 106/72; PULSE 82; RESP 18
--- NOTE | 2019-03-20 09:40 | P.PAINPG ---
Subjective Progress Note Date: 03/16/19 This is a follow-up visit for this 53 years old female with a chronic history of severe low back pain, she is diagnosed with lumbar spondylosis, and sacroiliitis , she has been managed with a combination of interventional pain procedures and medications. currently she is complaining of low back pain, rated as 7/10, constant, radiating to right lateral hip and right lower extremity. she does endorse bilateral calf numbness. today, she would like to take a break from lumbar procedures, she reports that she had some heart racing the day after her last lumbar procedure.. Pain is better with medications and positioning, worse with any activity. she is also complaining of neck pain and right shoulder pain, rated as 5/10. Pain is described as throbbing, tightness. Pain is better with ice, heat, position and worse with activity. She is going to follow up with an orthopedic surgeon regarding the shoulder. She continued to use [place] 10/325 every 6 hours, and Neurontin 100 mg 2 tablet 3 times a day, she denies any side effect of the medication, medications are allowing her to function.(Patient has side effects from the Neurontin 300 mg 3 times a day she reported that this made her foggy and dizzy and she is currently on 200 mg 3 times a day) Review of systems is negative for chest pain, shortness of breath, new onset weakness, numbness/tingling, abdominal pain, malaise, fever, night sweats, chills, homicidal or suicidal ideation, or bowel incontinence.she does have c hronic bladder incontinence. Objective Physical exam: Vitals: Reviewed in EMR GENERAL: Well appearing, in no acute distress PSYCH: Mood and affect is appropriate. Awake, alert, and oriented SKIN: Skin color, texture, turgor normal, no rashes or lesions HEENT: Normocephalic, atraumatic. EOM intact CV: No pedal edema RESP: Respirations are unlabored, no audible wheezing GI: Abdomen non-distended MUSCULOSKELETAL: Bilateral upper and lower extremity strength is normal and symmetric. No atrophy or tone abnormalities are noted. Neck: tenderness to palpation over the cervical paraspinous muscles, with palpable trigger points in the right cervical paraspinal musculature as well as trapezius and rhomboids. Spurling negative, Kim's sign negative. NEUR: Bilateral upper and lower extremity coordination and muscle stretch reflexes are physiologic and symmetric. No loss of sensation is noted. cranial nerves are grossly intact imaging: MRI lumbar spine done in November 2010 shows narrowing of the right neuroforamen at L4-5. EMG done in 2012 shows chronic left L4, L5 nerve root radiculopathy Assessment and Plan Plan: Assessment and plan= chronic low back pain secondary to lumbar degenerative disc disease , lumbar spondylosis with lumbar facet arthropathy . Sacroiliitis, Myofascial pain syndrome cervical suprascapular and infrascapular area chronic and current use of high-risk medication (opioids) Patient denies any side effects of the current pain medication and the current treatment/medication helping the patient to do activity of daily living , Diagnoses, prognosis, treatment options, including but not limited to physical therapy, medication management, interventional therapies, and surgery, were discussed with the patient All the questions answered The narcotic consent was signed and patient agreed and understood the side effects and complications of opioid treatment MAPS Reviewed and it was appropriate . Medication managements= patient will be given prescription refills for [place] 10/325 by mouth every 6 hours space 120 with one refill, Neurontin 100 mg 2 tablets by mouth every 8 hours dispense 180 with 2 refills. I provided to refills of the patient takes the bus to come to clinic, and anticipates poor weather in May and will be latia ble to come. Interventions= patient has procedure scheduled for 04/10/2019trigger point injections 3 minutes was spent counseling patient on the importance of smoking cessation as it relates overall health, and particularly pain control Time with Patient: Less than 30 PQRS Measure Charge Sheet Measure #130: Documentation of Current Meds in Medical Chart: Patient's medications documented in chart Measure #226: Tobacco Use: Screen & Cessation Intervention: Pt screened for tobacco use AND intervention given Measure #111: Pneumonia Vaccination: Pneumococcal vaccine administered or previously received Measure #47: Advance Care Plan: Advance care planning discussed & documented, pt chose/unable to give Measure #412: Opioid Treatment Agreement: Documented signed opioid trtmnt agreemnt min once during opioid trtmnt Measure #408: Opioid Therapy Follow-up Evaluation: Patient had f/u eval minimum every 3 months during opioid therapy Measure #317: Preventitive Care & Scrn High Bld Press & F/U: Normal blood pressure, f/u not required Measure #128: Body Mass Index (BMI) Screening & Follow-up: BMI documented ABOVE normal parameters - f/u documented Measure #131: Pain Assessment & Follow-up: Pain positive & plan documented, Follow-up scheduled Measure #431: Unhealthy Alcohol Use Preventative Care & Scrn: Patient not identified as an unhealthy alcohol user PQRS Measure Charge Sheet PQRS Narrative: Smoking Status Current every day smoker Narcotic Agreement Date Signed 06/10/16 Pain Intensity [Right Shoulder 7 ] Pain Intensity [Lower Back] 5 Hx Alcohol Use (MH) No Home Medications: Ambulatory Orders Multivitamins, Thera [Multivitamin (formulary)] 1 tab PO DAILY 10/23/13 Atorvastatin [Lipitor] 80 mg PO HS #30 tab 02/22/14 Metoprolol Tartrate [Lopressor] 25 mg PO BID #60 tab 02/22/14 Nitroglycerin Sl Tabs [Nitrostat] 0.4 mg SUBLINGUAL Q5M PRN #25 tab 02/22/14 Omeprazole [PriLOSEC] 20 mg PO AC-BRKFST 04/16/15 Lisinopril [Zestril] 2.5 mg PO QAM 03/03/16 Aspirin EC [Ecotrin] 325 mg PO DAILY 07/17/16 Albuterol Sulfate [Proair Hfa] 1 - 2 puff INHALATION Q4HR PRN #1 inhaler 06/24/18 Gabapentin [Neurontin] 200 mg PO TID #180 cap 01/19/19 HYDROcodone/APAP 10-325MG [[place] 10-325] 1 tab PO Q6HR PRN 30 Days #120 tab 01/19/19 Controlled Substance Measures - Controlled Substance Measures Is patient prescribed a controlled substance at discharge?: Yes When asked, does pt state using other controlled substances?: No If prescribed controlled substance>3 days was MAPS reviewed?: Yes If Rx opioid, was Start Talking consent form obtained?: Yes If opioid is for acute pain is fill amount 7 days or less?: No Was information provided regarding opioid addiction?: Yes
== END ==
LOC: PNWHC3 12:16
PROVIDERS: ATTEND Anesthesiology
DX: G89.29 Other chronic pain (principal); M51.36 Other intervertebral disc degeneration, lumbar region; M47.816 Spondylosis without myelopathy or radiculopathy, lumbar region; M46.96 Unspecified inflammatory spondylopathy, lumbar region; M46.1 Sacroiliitis, not elsewhere classified; M96.1 Postlaminectomy syndrome, not elsewhere classified; F17.200 Nicotine dependence, unspecified, uncomplicated; Z79.899 Other long term (current) drug therapy; Z79.82 Long term (current) use of aspirin; Z79.891 Long term (current) use of opiate analgesic
CPT/HCPCS: 99211

== ENCOUNTER → 2019-06-08 | Outpatient (CLI) | payer OTHER ==
[2019-06-08 11:48] VITALS: BP 122/77; PULSE 73; RESP 18
--- NOTE | 2019-06-08 12:17 | P.PAINPG ---
Subjective Progress Note Date: 06/08/19 This is a follow-up visit for this 54 years old female with a chronic history of severe low back pain, she is diagnosed with lumbar spondylosis, and sacroiliitis , recently we have done lumbar epidural steroid injection, which helped her low back pain , previously we have done RFA of the medial branch lumbar area currently she is complaining of severe neck pain and shoulder blade pain in the pain increases with any activity, she denies any fever or night sweats, she denies any change in the bowel movements or urination, and no motor or sensory deficits, she continued to use [place] 10/325 every 6 hours, and Neurontin 100 mg 2 tablet 3 times a day, she denies any side effect of the medication.(Patient has side effects from the Neurontin 300 mg 3 times a day she reported that this made her foggy and dizzy , and she is currently on 200 mg 3 times a day) currently she is complaining of increased pain in the cervical area with radiation to the right shoulder. Right upper extremity, associated with some numbness and tingling sensation Objective - Vital Signs Vital signs: Vital Signs Temp Pulse 73 06/08/19 11:20 Resp 18 06/08/19 11:20 BP 122/77 06/08/19 11:20 Pulse Ox 98 06/08/19 11:20 Intake & Output 06/07/19 06/08/19 06/08/19 18:59 06:59 18:59 Weight 79.379 kg - Exam -Constitutiona : Cooperative , not in acute distress . -HEENT : nech : supple , no Lymphadenopathy , normal thyroid size . eyes : no ptosis , no icterus, no photophobia . ENT : normal of hearing , normal oropharynx , no Thrush . - Respiratory : Chest clear to auscultations Bilaterally , no wheezing , no Rhonchi . - Cardiovascula : regular rate and rhythem , S1 , S2 , no S3 , no S4. - Gastrointestina : abdomen soft no tenderness , bowel sounds , no organomegally . - Genitourinary : Defferred . - neurologic : Cranial nerve II to XII intact , no focal neurological deffecit . -psychatric : alert , oriented X 3 , appropriate affect , intact judgment and insight . -Lymphatic : no Lymphadenopathy . - musculoskeltal : Cervical Spine motor stregnth in the deltoid and biceps, normal right side , normal Left side motor stregnth biceps and the wrist extensors normal right side ,normal left side . motor stregnth in the triceps muscle . normal Right side , normal Left side deep tendon reflexes normal at the biceps , normal at Brachioradialis , normal at triceps. Multiple trigger points in the right shoulder area trapezius suprascapular infrascapular area Facet loading test positive bilaterally Shoulder joint= pain with abduction and adduction of the right shoulder Lumber spine moter stegnth lower extremities ,thigh and legs 5/5 Right side , 5/5 Left side deep tendon reflexes : normal Knee Jerk , normal ankle Jerk positive lumber facet Loading Test Range of motion of the lumbar spine Flexion 30 degrees, extension 10 degrees strait leg raising test , positive at 45 degree Fabere test positive RT and positive LT Assessment and Plan Plan: chronic low back pain secondary to lumbar degenerative disc disease , lumbar spondylosis with lumbar facet arthropathy . Sacroiliitis, Chronic neck pain secondary to cervical degenerative disc disease Myofascial pain syndrome cervical suprascapular and infrascapular area chronic and current use of high-risk medication (opioids) Patient denies any side effects of the current pain medication and the current treatment/medication helping the patient to do activity of daily living , Diagnoses, prognosis, treatment options, including but not limited to physical therapy, medication management, interventional therapies, and surgery, were discussed with the patient All the questions answered The narcotic consent was signed and patient agreed and understood the side ef fects and complications of opioid treatment. Patient signed the narcotic agreement, and was orally counseled, not to overuse, not to abuse, not to Divert , not tp sell pain medication, and to take it as prescribed only, Patient was counseled not to drive or operate heavy equipment while using narcotic medication, and advised not to use alcohol or any Illicit drugs while using the narcotis. understanding that lack of compliance with any of the above instructions, will likely to cause discharge from, the pain service, not to renew his narcotic prescriptions MAPS Reviwed and it was apropriate . Medication managements= patient will be given prescription refills for [place] 10/325 by mouth every 6 hours space 120 with one refill, Neurontin 100 mg 2 tablets by mouth every 8 hours dispense 180 with 1 refill. Investigations= will order a computed tomography scan of the cervical spine (patient had coronary angioplasty we can't do MRI ) Time with Patient: Less than 30 PQRS Measure Charge Sheet Measure #130: Documentation of Current Meds in Medical Chart: Patient's medications documented in chart Measure #226: Tobacco Use: Screen & Cessation Intervention: Pt screened for tobacco use AND intervention given Measure #111: Pneumonia Vaccination: Pneumococcal vaccine administered or previously received Measure #47: Advance Care Plan: Advance care planning discussed & documented, pt chose/unable to give Measure #412: Opioid Treatment Agreement: Documented signed opioid trtmnt agreemnt min once during opioid trtmnt Measure #408: Opioid Therapy Follow-up Evaluation: Patient had f/u eval minimum every 3 months during opioid therapy Measure #317: Preventitive Care & Scrn High Bld Press & F/U: Normal blood pressure, f/u not required Measure #128: Body Mass Index (BMI) Screening & Follow-up: BMI documented ABOVE normal parameters - f/u documented Measure #131: Pain Assessment & Follow-up: Pain positive & plan documented, Follow-up scheduled Measure #431: Unhealthy Alcohol Use Preventative Care & Scrn: Patient not identified as an unhealthy alcohol user PQRS Narrative: Smoking Status Current every day smoker Narcotic Agreement Date Signed 09/29/18 Blood Pressure 122/77 Pain Intensity [Right Shoulder 6 ] Scale Used Numeric (1 - 10) Hx Alcohol Use (MH) No Home Medications: Ambulatory Orders Multivitamins, Thera [Multivitamin (formulary)] 1 tab PO DAILY 10/23/13 Atorvastatin [Lipitor] 80 mg PO HS #30 tab 02/22/14 Metoprolol Tartrate [Lopressor] 25 mg PO BID #60 tab 02/22/14 Nitroglycerin Sl Tabs [Nitrostat] 0.4 mg SUBLINGUAL Q5M PRN #25 tab 02/22/14 Omeprazole [PriLOSEC] 20 mg PO AC-BRKFST 04/16/15 Lisinopril [Zestril] 2.5 mg PO QAM 03/03/16 Aspirin EC [Ecotrin] 325 mg PO DAILY 07/17/16 Albuterol Sulfate [Proair Hfa] 1 - 2 puff INHALATION Q4HR PRN #1 inhaler 06/24/18 Gabapentin [Neurontin] 200 mg PO TID #180 cap 03/05/20 HYDROcodone/APAP 10-325MG [[place] 10-325] 1 tab PO Q6HR PRN 30 Days #120 tab 06/08/19 HYDROcodone/APAP 10-325MG [[place] 10-325] 1 tab PO Q6HR PRN 30 Days #120 tab 06/08/19 Controlled Substance Measures - Controlled Substance Measures Is patient prescribed a controlled substance at discharge?: Yes When asked, does pt state using other controlled substances?: No If prescribed controlled substance>3 days was MAPS reviewed?: Yes If Rx opioid, was Start Talking consent form obtained?: Yes If opioid is for acute pain is fill amount 7 days or less?: No Was information provided regarding opioid addiction?: Yes
== END | disposition home or self-care (01) ==
LOC: PNWHC3 11:10
PROVIDERS: ATTEND Specialist
DX: G89.29 Other chronic pain (principal); M51.36 Other intervertebral disc degeneration, lumbar region; M47.816 Spondylosis without myelopathy or radiculopathy, lumbar region; M46.1 Sacroiliitis, not elsewhere classified; M50.30 Other cervical disc degeneration, unspecified cervical region; M79.18 Myalgia, other site; F17.200 Nicotine dependence, unspecified, uncomplicated; Z79.82 Long term (current) use of aspirin; Z79.899 Other long term (current) drug therapy
CPT/HCPCS: 99211

== ENCOUNTER → 2019-08-30 | Outpatient (CLI) | payer OTHER ==
--- NOTE | 2019-08-31 07:28 | P.PAINPG ---
Subjective Progress Note Date: 08/30/19 THIS ENCOUNTER WAS PERFORMED A TELEMEDICINE VISIT VIA SECURE TWO-WAY AUDIO TO MINIMIZE RISK AND TRANSMISSION OF COVID-19. This is a follow-up visit for this 54 years old female with a chronic history of severe low back pain, she is diagnosed with lumbar spondylosis, and sacroiliitis. Managed with combination of interventional pain procedures and medications. She continues to use [place] 10/325 every 6 hours, and Neurontin 100 mg 2 tablet 3 times a day, she denies any side effect of the medication.(Patient has side effects from the Neurontin 300 mg 3 times a day she reported that this made her foggy and dizzy , and she is currently on 200 mg 3 times a day). Medications are helping her function and perform activities of daily living, she denies side effects. Today, she had multiple areas of painlow back, radiating to the tailbone and right hip as well as lateral aspect of right thigh. She describes a sensation of "locking up" of her back. She also has neck pain radiating to right shoulder and right arm. This is unchanged from prior visit. At last visit, we had ordered a neck computed tomography scan, however she was unable to have this done due to Covid pandemic. She rates her pain as 3-8/10, described as constant, deep seated pain. Pain is worse with standing, sitting, lifting and better with medications. Of note, she is currently undergoing evaluation for multiple sclerosis. She also has Crohn's disease, she denies recent flareup. She continues to perform stretching exercises. Review of systems is negative for chest pain, shortness of breath, new onset weakness, numbness/tingling, abdominal pain, malaise, fever, night sweats, chills, homicidal or suicidal ideation, or bowel incontinence. She does have chronic bladder incontinence. Objective Physical exam: unable to be performed due to audio only telemedicine visit Assessment and Plan Plan: chronic low back pain secondary to lumbar degenerative disc disease , lumbar spondylosis with lumbar facet arthropathy . Sacroiliitis, Chronic neck pain secondary to cervical degenerative disc disease Myofascial pain syndrome cervical suprascapular and infrascapular area, fibromyalgia Crohn's disease chronic and current use of high-risk medication (opioids) Patient denies any side effects of the current pain medication and the current treatment/medication helping the patient to do activity of daily living , The narcotic consent was signed and is on file MAPS Reviewed and it was appropriate . Medication managements= patient will be given prescription refills for [place] 10/325 by mouth every 6 hours 120 with one refill, Neurontin 100 mg 2 tablets by mouth every 8 hours dispense 180 with 1 refill. Investigations= patient instructed to schedule computed tomography scan of the cervical spine which was ordered last time (patient had coronary angioplasty we can't do MRI ) Follow-up: In 2 months for medication management and review of CT cervical spine PQRS Measure Charge Sheet PQRS Narrative: Smoking Status Current every day smoker Narcotic Agreement Date Signed 09/29/18 Pain Intensity [Lower Back] 7 Scale Used Numeric (1 - 10) Hx Alcohol Use (MH) No Home Medications: Ambulatory Orders Multivitamins, Thera [Multivitamin (formulary)] 1 tab PO DAILY 10/23/13 Atorvastatin [Lipitor] 80 mg PO HS #30 tab 02/22/14 Metoprolol Tartrate [Lopressor] 25 mg PO BID #60 tab 02/22/14 Nitroglycerin Sl Tabs [Nitrostat] 0.4 mg SUBLINGUAL Q5M PRN #25 tab 02/22/14 Omeprazole [PriLOSEC] 20 mg PO AC-BRKFST 04/16/15 Lisinopril [Zestril] 2.5 mg PO QAM 03/03/16 Aspirin EC [Ecotrin] 325 mg PO DAILY 07/17/16 Albuterol Sulfate [Proair Hfa] 1 - 2 puff INHALATION Q4HR PRN #1 inhaler Gabapentin [Neurontin] 200 mg PO TID #180 cap 08/30/19 HYDROcodone/APAP 10-325MG [[place] 10-325] 1 tab PO Q6HR PRN 30 Days #120 tab 08/30/19 HYDROcodone/APAP 10-325MG [[place] 10-325] 1 tab PO Q6HR PRN 30 Days #120 tab 08/30/19 Controlled Substance Measures - Controlled Substance Measures Is patient prescribed a controlled substance at discharge?: Yes When asked, does pt state using other controlled substances?: No If prescribed controlled substance>3 days was MAPS reviewed?: Yes If Rx opioid, was Start Talking consent form obtained?: Yes If opioid is for acute pain is fill amount 7 days or less?: No Was information provided regarding opioid addiction?: Yes
== END | disposition home or self-care (01) ==
LOC: PNWHC3 07:22
PROVIDERS: ATTEND Anesthesiology
DX: Z53.9 Procedure and treatment not carried out, unspecified reason (principal)

== ENCOUNTER → 2019-10-21 | Outpatient (CLI) | payer OTHER ==
--- NOTE | 2019-10-22 23:19 | CT ---
EXAMINATION TYPE: CT cervical spine wo con DATE OF EXAM: 10/21/2019 COMPARISON: 06/01/2016 HISTORY: 54-year-old female neck pain with radiation to right arm TECHNIQUE: Contiguous axial scanning of the cervical spine without IV contrast. Coronal and sagittal reconstructions performed. CT DLP: 636.9 mGycm Automated exposure control for dose reduction was used. FINDINGS: No craniocervical junction abnormality, predental space widening, or prevertebral soft tissue swellin g. Facet and uncovertebral joint arthropathy is present throughout. Reversal of the normal cervical lordosis which is grade 1 anterolisthesis at C3-C4, unchanged from pr ior exam. Slightly progressive moderate degenerative disc disease and endplate spondylosis C4-C7 levels. Disc osteophyte complexes at these levels result in mild narrowing of the spinal canal. No acute fracture the cervical spine. At C5-C6, changes result in mild bilateral neuroforaminal stenoses. No prevertebral or paravertebral soft tissue abnormality seen. IMPRESSION: 1. MODERATE SPONDYLOTIC CHANGE PARTICULARLY FROM C4 THROUGH C7 LEVELS WITH REVERSAL OF THE NORMAL CER VICAL LORDOSIS AND GRADE 1 ANTEROLISTHESIS AT C3-C4. THE DEGENERATIVE DISC DISEASE HAS PROGRESSED SLI GHTLY FROM 2017. 2. DISC OSTEOPHYTE COMPLEXES FROM C4 TO C7 LEVELS CAUSE MILD SPINAL CANAL STENOSES. 3. MILD BILATERAL NEUROFORAMINAL STENOSES AT C5-C6.
== END | disposition home or self-care (01) ==
LOC: RADCTMAIN 12:13
PROVIDERS: ATTEND Specialist
DX: M48.02 Spinal stenosis, cervical region (principal); M43.12 Spondylolisthesis, cervical region; M47.022 Vertebral artery compression syndromes, cervical region; M50.30 Other cervical disc degeneration, unspecified cervical region
CPT/HCPCS: 72125

== ENCOUNTER → 2019-10-25 | Outpatient (CLI) | payer OTHER ==
[2019-10-25 10:49] VITALS: BP 140/68; PULSE 68; RESP 18
--- NOTE | 2019-10-25 11:58 | P.PAINPG ---
Subjective Progress Note Date: 10/25/19 This is a follow-up visit for this 54 year old female with a chronic history of severe low back pain, she is diagnosed with lumbar spondylosis, and sacroiliitis. Managed with combination of interventional pain procedures and medications. She continues to use [place] 10/325 every 6 hours, and Neurontin 100 mg 2 tablet 3 times a day, she denies any side effect of the medication.(Patient has side effects from the Neurontin 300 mg 3 times a day she reported that this made her foggy and dizzy , and she is currently on 200 mg 3 times a day). Medications are helping her function and perform activities of daily living, she denies side effects. She underwent CT cervical spine, results below below. Today, her primary complaint is neck pain radiating to right shoulder and right arm. This is unchanged from prior visit. At last visit, we had ordered a neck computed tomography scan, results below. She rates her pain as 6, described as constant, pressure, spasm, throbbing. Pain is worse with lifting and better with medications, ice, heat. She does report difficulty on the right side with carrying a gallon of milk, she reports dropping objects on the right side. She does have right shoulder pain and finds certain shoulder movements difficult. She also has Crohn's disease, she denies recent flareup. She continues to perform stretching exercises. She does have an open wound on the lateral aspect of left foot, she is to follow-up with primary physician regarding this. Review of systems is negative for chest pain, shortness of breath, new onset weakness, numbness/tingling, abdominal pain, malaise, fever, night sweats, chills, homicidal or suicidal ideation, or bowel incontinence. She does have chronic bladder incontinence. She does have diarrhea that she attributes to Crohn's disease. She also endorses nausea and vomiting after eating greasy foods, I asked her to follow up with PCP regarding this. Objective Physical exam: Vitals: Reviewed in EMR GENERAL: Well appearing, in no acute distress PSYCH: Mood and affect is appropriate. Awake, alert, and oriented SKIN: Skin color, texture, turgor normal, no rashes or lesions HEENT: Normocephalic, atraumatic. EOM intact CV: No pedal edema RESP: Respirations are unlabored, no audible wheezing GI: Abdomen non-distended MUSCULOSKELETAL: Bilateral upper and lower extremity strength is normal and symmetric. No atrophy or tone abnormalities are noted. Neck: Mild tenderness to palpation over the cervical paraspinous muscles bilaterally. Spurling negative, Kim's sign negative. No pain with neck flexion, extension, or lateral flexion. Normal cervical lordotic curve Extremities: Right shoulderpositive Irene sign, negative crossed adduction sign, pain limited abduction beyond 90 NEUR: Bilateral upper extremity coordination and muscle stretch reflexes are physiologic and symmetric. Cranial nerves are grossly intact imaging: CT cervical spine [facility] at [facility] on 10/22/2019 shows moderate spondylotic changes from C4 through C7 levels, degenerative disc disease which has progressed from 2017. Mild spinal canal stenosis from C4 through C7. Assessment and Plan Plan: chronic low back pain secondary to lumbar degenerative disc disease , lumbar spondylosis with lumbar facet arthropathy . Sacroiliitis, Chronic neck pain secondary to cervical degenerative disc disease, cervical spondylosis, cervical spinal canal stenosis Right shoulder arthralgia Myofascial pain syndrome cervical suprascapular and infrascapular area, fibromyalgia Crohn's disease chronic and current use of high-risk medication (opioids) Patient denies any side effects of the current pain medication and the current treatment/medication helping the patient to do activity of daily living , The narcotic consent was signed and is on file MAPS Reviewed and it was appropriate . Urine drug screen ordered today Medication managements= patient will be given prescription refills for [place] 10/325 by mouth every 6 hours 120 with one refill, Neurontin 100 mg 2 tablets by mouth every 8 hours dispense 180 with 1 refill. procedures: She could potentially benefit from cervical epidural steroid injectionC7 to T1 right paramedian approach, we will hold off on this until her foot wound is addressed, she will call to schedule Investigations= CT cervical spine reviewed I offered physical therapy referral for shoulder pain, she would like to hold off on this due to current pandemic. I encouraged her to continue performing shoulder exercises Follow-up: In 2 months for medication management PQRS Measure Charge Sheet Measure #130: Documentation of Current Meds in Medical Chart: Patient's medications documented in chart Measure #226: Tobacco Use: Screen & Cessation Intervention: Pt screened for tobacco use AND intervention given Measure #111: Pneumonia Vaccination: Pneumococcal vaccine administered or previously received Measure #47: Advance Care Plan: Advance care planning discussed & documented, pt chose/unable to give Measure #412: Opioid Treatment Agreement: Documented signed opioid trtmnt agreemnt min once during opioid trtmnt Measure #408: Opioid Therapy Follow-up Evaluation: Patient had f/u eval minimum every 3 months during opioid therapy Measure #317: Preventitive Care & Scrn High Bld Press & F/U: Pre-hypertensive or hypertensive BP documented, pt will f/u with PCP Measure #128: Body Mass Index (BMI) Screening & Follow-up: BMI documented ABOVE normal parameters - f/u documented Measure #131: Pain Assessment & Follow-up: Pain positive & plan documented, Follow-up scheduled Measure #431: Unhealthy Alcohol Use Preventative Care & Scrn: Patient not identified as an unhealthy alcohol user PQRS Narrative: Smoking Status Current every day smoker Narcotic Agreement Date Signed 09/29/18 Pain Intensity [None Back] 5 Hx Alcohol Use (MH) No Home Medications: Ambulatory Orders Multivitamins, Thera [Multivitamin (formulary)] 1 tab PO DAILY 10/23/13 Atorvastatin [Lipitor] 80 mg PO HS #30 tab 02/22/14 Metoprolol Tartrate [Lopressor] 25 mg PO BID #60 tab 02/22/14 Nitroglycerin Sl Tabs [Nitrostat] 0.4 mg SUBLINGUAL Q5M PRN #25 tab 02/22/14 Omeprazole [PriLOSEC] 20 mg PO AC-BRKFST 04/16/15 lisinopriL [Zestril] 2.5 mg PO QAM 03/03/16 Aspirin EC [Ecotrin] 325 mg PO DAILY 07/17/16 Albuterol Sulfate [Proair Hfa] 1 - 2 puff INHALATION Q4HR PRN #1 inhaler 06/24/18 Vitamin B Complex 1 each PO DAILY 10/20/19 Gabapentin [Neurontin] 200 mg PO TID #180 cap 10/25/19 HYDROcodone/APAP 10-325MG [[place] 10-325] 1 tab PO Q6HR PRN 30 Days #120 tab 10/25/19 HYDROcodone/APAP 10-325MG [[place] 10-325] 1 tab PO Q6HR PRN 30 Days #120 tab 10/25/19 Controlled Substance Measures - Controlled Substance Measures Is patient prescribed a controlled substance at discharge?: Yes When asked, does pt state using other controlled substances?: No If prescribed controlled substance>3 days was MAPS reviewed?: Yes If Rx opioid, was Start Talking consent form obtained?: Yes If opioid is for acute pain is fill amount 7 days or less?: No Was information provided regarding opioid addiction?: Yes
== END | disposition home or self-care (01) ==
LOC: PNWHC3 10:03
PROVIDERS: ATTEND Anesthesiology
DX: G89.29 Other chronic pain (principal); M51.36 Other intervertebral disc degeneration, lumbar region; M47.816 Spondylosis without myelopathy or radiculopathy, lumbar region; M48.02 Spinal stenosis, cervical region; M50.30 Other cervical disc degeneration, unspecified cervical region; M47.812 Spondylosis without myelopathy or radiculopathy, cervical region; M46.1 Sacroiliitis, not elsewhere classified; K50.90 Crohn's disease, unspecified, without complications; M25.511 Pain in right shoulder; M79.7 Fibromyalgia; F17.200 Nicotine dependence, unspecified, uncomplicated; Z79.899 Other long term (current) drug therapy
CPT/HCPCS: 80307; G0482; G0463; 99211

== ENCOUNTER → 2019-12-20 | Outpatient (CLI) | payer OTHER ==
[2019-12-20 12:57] VITALS: BP 133/79; PULSE 84; RESP 18; TEMP 98.6
--- NOTE | 2019-12-20 13:23 | P.PN ---
Subjective Progress Note Date: 12/20/19 This is a 54-year-old lady with history of chronic neck and lower back pain. She had multiple injections of the lower back but recently she's been having increasing pain in her neck was started about one year ago. Recent computed tomography scan of the cervical spine showed mild central canal stenosis and neural foraminal stenosis at the C5-C6 level. The patient also has some shoulder pain on the right side with limited range of motion. Patient denies new-onset weakness, bowel/bladder incontinence, or any other signs or symptoms of cauda equina syndrome. There are no signs of acute intoxication, and no indications of medication diversion or overuse. In addition to above, 13-point review of systems is also negative for chest pain, shortness of breath, changes in vision, changes in hearing, new onset weakness, abdominal pain, diarrhea, extreme fatigue, malaise, fever, skin changes, homicidal or suicidal ideation, or bowel or bladder incontinence. Vital Signs: Reviewed in EMR Gen: AAOx3, NAD HEENT: PERRLA,hearing grossly normal Pulm: resp unlabored Heart: Regular Neck: supple, trachea midline Neuro exam of the lower extremities: Normal muscle strength in the lower extremities bilaterally. 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 Positive tenderness in the cervical paravertebral musculature and in the trapezius muscles bilaterally Neuro: CN II-XII grossly intact, Imaging: Reviewed in EMR/chart Assessmen: Lumbar spondylosis without myelopathy Bilateral sacroiliac joint dysfunction Morbid obesity Tobacco abuse Opioid dependence Peripheral vascular disease Myofascial pain in the neck and right shoulder Mild cervical stenosis Crohn's disease Plan: 1. Explanation: Opioid and psychological risk scores were reviewed. Diagnoses, prognoses, and multiple treatment options including but not limited to physical therapy, interventional therapies, adjuvant medical therapies, narcotic medication therapies, and surgery were discussed with the patient and all questions were answered to the patient's satisfaction. 2. Opioid agreement: Signed with the patient and the patient is warned not to use opioids while driving or before driving and not to combine opioids with benzodiazepines or alcohol. 3. Counseling: The patient was counseled extensively on SMOKING CESSATION, BODY MASS INDEX, EXERCISE. Specifically, the patient was instructed regarding the importance of smoking cessation, obesity, and exercise in the context of both chronic pain and overall health. 4. Procedures: Scheduled for trigger point injection in the cervical paravertebral musculature and in the trapezius muscles bilaterally. If this does not give her good relief of pain she might benefit from getting cervical epidural steroid injection in the future. 5. Consultations: None 6. Investigations: None 7. Medications: [place] 10 mg every 6 hours when necessary pain and Neurontin 300 mg twice a day. 8. Disposition: Return to clinic in 8 weeks' time to the above-mentioned procedure as soon as possible 9. Maps were reviewed and were appropriate. Objective - Vital Signs Vital signs: Vital Signs Temp 98.6 F 12/20/19 12:43 Pulse 84 12/20/19 12:43 Resp 18 12/20/19 12:43 BP 133/79 12/20/19 12:43 Pulse Ox 98 12/20/19 12:43
== END | disposition home or self-care (01) ==
LOC: PNWHC3 12:27
PROVIDERS: ATTEND Anesthesiology
DX: M48.02 Spinal stenosis, cervical region (principal); M47.816 Spondylosis without myelopathy or radiculopathy, lumbar region; M79.18 Myalgia, other site; M53.3 Sacrococcygeal disorders, not elsewhere classified; I73.9 Peripheral vascular disease, unspecified; K50.90 Crohn's disease, unspecified, without complications; E66.01 Morbid (severe) obesity due to excess calories; G89.29 Other chronic pain; F11.20 Opioid dependence, uncomplicated; Z72.0 Tobacco use; Z79.899 Other long term (current) drug therapy
CPT/HCPCS: 99211

== ENCOUNTER 2020-01-09 10:53 | Day surgery (SDC) | payer OTHER ==
[2020-01-09 11:28] VITALS: TEMP 98.4
[2020-01-09] MEDS ORDERED: ROPIVACAINE 5MG/ML 20ML VIAL ONE (12:17)
[2020-01-09] MEDS ORDERED: methylPREDNISolone ACETATE 40 MG/ML 1 ML VIAL ONE (12:17)
--- NOTE | 2020-01-09 12:33 | P.PCN ---
Date of Procedure: 01/09/20 Procedure(s) Performed: Procedure= trigger point injection cervical paraspinal muscles, trapezius muscles, rhomboid muscles bilaterally 3 trigger point on the right side cervical paraspinal muscles , and 2 on the left side Preoperative diagnosis=1- myofascial pain syndrome and cervical area 2-cervical spondylosis Postoperative diagnosis=Same as preop Diagnosis . Complication = none Condition= stable Anesthesia= none Indication for the procedure= patient complaining of severe neck pain and shoulder mechanics and posture for multiple trigger point identified in the cervical paraspinal muscles and rhomboid muscles and trapezius muscle, patient will be good candidate to have trigger point injections, procedure risk and benefits discussed with the patient she agreed to the preceding patient taken to the procedure room placed in sitting position the neck and shoulder blade area prepped with chlorhexidine 3 done under sterile technique using 25-gauge needle, 15 mL of ropivacaine 0.5% mixed with 40 mg of Depo-Medrol, and 3 mL of the mixture injected at each trigger point after negative aspiration under no paresthesia during the injection patient tolerated the procedure well without any complications, and patient will follow up in the pain clinic in a few weeks
[2020-01-09 12:36] VITALS: RESP 16
[2020-01-09 12:50] VITALS: BP 103/63; PULSE 62
== END 2020-01-09 13:10 | disposition home or self-care (01) ==
LOC: ORPAIN 10:53
PROVIDERS: ATTEND Specialist
DX: M79.18 Myalgia, other site (principal); M47.812 Spondylosis without myelopathy or radiculopathy, cervical region; Z78.0 Asymptomatic menopausal state; Z88.0 Allergy status to penicillin; Z88.6 Allergy status to analgesic agent
CPT/HCPCS: 20553; J1030; J2795

== ENCOUNTER → 2020-01-09 | Outpatient (CLI) | payer OTHER ==
[2020-01-09 13:54] LABS: HCT 41.2 % (34.0-46.0); Hypochromasia Slight; MCH 27.3 pg (25.0-35.0); MCHC 31.7 g/dL (31.0-37.0); MCV 86.3 fL (80.0-100.0); Mean Platelet Volume 10.4; Platelet Count 117 k/uL (150-450); RBC 4.77 m/uL (3.80-5.40); WBC 11.8 k/uL (3.8-10.6)
[2020-01-10 07:16] LABS: African American GFR (CKD) 118.1 (60.0-200.0); Albumin 4.2 g/dL (3.80-4.90); Anion Gap 12.3 mmol/L (4.00-12.00); BUN/Creat Ratio 13.33 Ratio (12.00-20.00); Calcium 9.2 mg/dL (8.7-10.3); Carbon Dioxide 22.7 mmol/L (21.6-31.8); Chol/HDL Ratio 2.69; Globulin 2.1 g/dL (1.6-3.3); LDL Cholesterol,Calculated 50.2 mg/dL (0.0-131.0); Magnesium 1.7 mg/dL (1.5-2.4); Non-African American GFR(CKD) 101.9 (60.0-200.0); Potassium 3.7 mmol/L (3.5-5.5); Total Bilirubin 0.4 mg/dL (0.3-1.2); Total Protein 6.3 g/dL (6.2-8.2); VLDL Calculation 20.8 mg/dL (5.00-40.00)
== END | disposition home or self-care (01) ==
LOC: LABWHC1 13:17
PROVIDERS: ATTEND Nurse Practitioner Adult Health
DX: I25.10 Atherosclerotic heart disease of native coronary artery without angina pectoris (principal); I10 Essential (primary) hypertension; E78.5 Hyperlipidemia, unspecified; F17.200 Nicotine dependence, unspecified, uncomplicated
CPT/HCPCS: 36415; 80053; 80061; 83735; 84443; 84481; 85027

== ENCOUNTER → 2020-02-14 | Outpatient (CLI) | payer OTHER ==
[2020-02-14 13:43] VITALS: BP 133/83; PULSE 78; RESP 16; TEMP 98.4
--- NOTE | 2020-02-14 14:14 | P.PN ---
Subjective Progress Note Date: 02/14/20 This is a follow-up visit for this 54 years old female with a chronic history of severe neck pain and low back pain, she is diagnosed with lumbar spondylosis, and sacroiliitis , myofascial pain syndrome cervical area ,recently we have done trigger point injection in the cervical area which helped her neck pain, previously we have done RFA of the medial branch lumbar area currently she is complaining of severe neck pain and shoulder blade, and also some low back pain mainly on the right side,the pain increases with any activity, she denies any fever or night sweats, she denies any change in the bowel movements or urination, and no motor or sensory deficits, she continued to use [place] 10/325 every 6 hours, and Neurontin 300 mg 2 times a day, she denies any side effect of the medication. Objective - Vital Signs Vital signs: Vital Signs Temp 98.4 F 02/14/20 13:27 Pulse 78 02/14/20 13:27 Resp 16 02/14/20 13:27 BP 133/83 02/14/20 13:27 Pulse Ox 99 02/14/20 13:27 Intake & Output 02/13/20 02/14/20 02/14/20 18:59 06:59 18:59 Weight 79.379 kg - Exam -Constitutiona : Cooperative , not in acute distress . -HEENT : nech : supple , no Lymphadenopathy , normal thyroid size . eyes : no ptosis , no icterus, no photophobia . ENT : normal of hearing , normal oropharynx , no Thrush . - Respiratory : Chest clear to auscultations Bilaterally , no wheezing , no Rhonchi . - Cardiovascula : regular rate and rhythem , S1 , S2 , no S3 , no S4. - Gastrointestina : abdomen soft no tenderness , bowel sounds , no organomegally . - Genitourinary : Defferred . - neurologic : Cranial nerve II to XII intact , no focal neurological deffecit . -psychatric : alert , oriented X 3 , appropriate affect , intact judgment and insight . -Lymphatic : no Lymphadenopathy . - musculoskeltal : Cervical Spine motor stregnth in the deltoid and biceps, normal right side , normal Left side motor stregnth biceps and the wrist extensors normal right side ,normal left side . motor stregnth in the triceps muscle . normal Right side , normal Left side deep tendon reflexes normal at the biceps , normal at Brachioradialis , normal at triceps. Multiple trigger points in the right shoulder area trapezius suprascapular infrascapular area Facet loading test positive bilaterally Shoulder joint= pain with abduction and adduction of the right shoulder Lumber spine moter stegnth lower extremities ,thigh and legs 5/5 Right side , 5/5 Left side deep tendon reflexes : normal Knee Jerk , normal ankle Jerk positive lumber facet Loading Test Range of motion of the lumbar spine Flexion 30 degrees, extension 10 degrees strait leg raising test , positive at 45 degree Fabere test positive RT and positive LT Severe tenderness in the lumbar paraspinal muscles on the right side Assessment and Plan Plan: Assessment and plan= chronic low back pain secondary to lumbar degenerative disc disease , lumbar spondylosis with lumbar facet arthropathy . Sacroiliitis, Myofascial pain syndrome cervical suprascapular and infrascapular area, right lumbar paraspinal muscles chronic and current use of high-risk medication (opioids) Patient denies any side effects of the current pain medication and the current treatment/medication helping the patient to do activity of daily living , Diagnoses, prognosis, treatment options, including but not limited to physical therapy, medication management, interventional therapies, and surgery, were discussed with the patient All the questions answered The narcotic consent was signed and patient agreed and understood the side effects and complications of opioid treatment. Patient signed the narcotic agreement, and was orally counseled, not to overuse, not to abuse, not to Divert , not tp sell pain medication, and to take it as prescribed only, Patient was counseled not to drive or operate heavy equipment while using narcotic medication, and advised not to use alcohol or any Illicit drugs while using the narcotis. understanding that lack of compliance with any of the above instructions, will likely to cause discharge from, the pain service, not to renew his narcotic prescriptions MAPS Reviwed and it was apropriate . Medication managements= patient will be given prescription refills for [place] 10/325 by mouth every 6 hours space 120 with 2 refill, Neurontin 300 mg 2 tablets BID 2 refill. Patient given prescription refill for her medication only during the wintertime (had a hard time transportation using the wintertime it takes her 3 hours to come to the pain clinic) She has to take 3 buses to come from her house to [facility] clinic, and it would be very hard for her to come during the wintertime We checked the urine drug screen done in October was appropriate Interventions= showing good candidate for trigger point injections in trapezius suprascapular and infrascapular area, cervical paraspinal muscles, lumbar paraspinal muscles , Time with Patient: Less than 30 PQRS Measure Charge Sheet Measure #130: Documentation of Current Meds in Medical Chart: Patient's medications documented in chart Measure #226: Tobacco Use: Screen & Cessation Intervention: Pt screened for tobacco use AND intervention given Measure #111: Pneumonia Vaccination: Pneumococcal vaccine administered or previously received Measure #47: Advance Care Plan: Advance care planning discussed & documented, pt chose/unable to give Measure #412: Opioid Treatment Agreement: Documented signed opioid trtmnt agreemnt min once during opioid trtmnt Measure #408: Opioid Therapy Follow-up Evaluation: Patient had f/u eval minimum every 3 months during opioid therapy Measure #317: Preventitive Care & Scrn High Bld Press & F/U: Normal blood pressure, f/u not required Measure #128: Body Mass Index (BMI) Screening & Follow-up: BMI documented ABOVE normal parameters - f/u documented Measure #131: Pain Assessment & Follow-up: Pain positive & plan documented, Follow-up scheduled Measure #431: Unhealthy Alcohol Use Preventative Care & Scrn: Patient not identified as an unhealthy alcohol user PQRS Narrative: Time with Patient: Less than 30
== END | disposition home or self-care (01) ==
LOC: PNWHC3 12:17
PROVIDERS: ATTEND Specialist
DX: M51.36 Other intervertebral disc degeneration, lumbar region (principal); M47.816 Spondylosis without myelopathy or radiculopathy, lumbar region; M46.1 Sacroiliitis, not elsewhere classified; M54.2 Cervicalgia; M79.18 Myalgia, other site; Z79.899 Other long term (current) drug therapy; Z79.891 Long term (current) use of opiate analgesic
CPT/HCPCS: 99211

== ENCOUNTER → 2020-05-08 | Outpatient (CLI) | payer OTHER ==
[2020-05-08 13:40] VITALS: BP 120/79; PULSE 86; RESP 20; TEMP 97.9
--- NOTE | 2020-06-10 14:16 | P.PN ---
Subjective Progress Note Date: 05/08/20 This is a follow-up visit for this 54 years old female with a chronic history of severe neck pain and low back pain, she is diagnosed with lumbar spondylosis, and sacroiliitis , myofascial pain syndrome cervical area , patient is scheduled to have trigger point injection next week, previously we have done RFA of the medial branch lumbar area currently she is complaining of severe neck pain and shoulder blade, and also some low back pain mainly on the right side,the pain increases with any activity, she denies any fever or night sweats, she denies any change in the bowel movements or urination, and no motor or sensory deficits, she continued to use [place] 10/325 every 6 hours, and Neurontin 300 mg 2 times a day, she denies any side effect of the medication. Physical exam -Constitutiona : Cooperative , not in acute distress . -HEENT : nech : supple , no Lymphadenopathy , normal thyroid size . eyes : no ptosis , no icterus, no photophobia . - neurologic : Cranial nerve II to XII intact , no focal ne urological deffecit . -psychatric : alert , oriented X 3 , appropriate affect , intact judgment and insight . -Lymphatic : no Lymphadenopathy . - musculoskeltal : Cervical Spine motor stregnth in the deltoid and biceps, normal right side , normal Left side motor stregnth biceps and the wrist extensors normal right side ,normal left side . motor stregnth in the triceps muscle . normal Right side , normal Left side deep tendon reflexes normal at the biceps , normal at Brachioradialis , normal at triceps. Multiple trigger points in the right shoulder area trapezius suprascapular infrascapular area Facet loading test positive bilaterally Shoulder joint= pain with abduction and adduction of the right shoulder Lumber spine moter stegnth lower extremities ,thigh and legs 5/5 Right side , 5/5 Left side deep tendon reflexes : normal Knee Jerk , normal ankle Jerk positive lumber facet Loading Test Range of motion of the lumbar spine Flexion 30 degrees, extension 10 degrees strait leg raising test , positive at 45 degree Fabere test positive RT and positive LT Severe tenderness in the lumbar paraspinal muscles on the right side Assessment and plan= chronic low back pain secondary to lumbar degenerative disc disease , lumbar spondylosis with lumbar facet arthropathy . Sacroiliitis, Myofascial pain syndrome cervical suprascapular and infrascapular area, right lumbar paraspinal muscles chronic and current use of high-risk medication (opioids) Patient denies any side effects of the current pain medication and the current treatment/medication helping the patient to do activity of daily living , Diagnoses, prognosis, treatment options, including but not limited to physical therapy, medication management, interventional therapies, and surgery, were discussed with the patient All the questions answered The narcotic consent was signed and patient agreed and understood the side effects and complications of opioid treatment. Patient signed the narcotic agreement, and was orally counseled, not to overuse, not to abuse, not to Divert , not tp sell pain medication, and to take it as prescribed only, Patient was counseled not to drive or operate heavy equipment while using narcotic medication, and advised not to use alcohol or any Illicit drugs while using the narcotis. understanding that lack of compliance with any of the above instructions, will likely to cause discharge from, the pain service, not to renew his narcotic prescriptions [employer] Reviwed and it was apropriate . Medication managements= patient will be given prescription refills for [place] 10/325 by mouth every 6 hours space 120 with 2 refill, Neurontin 300 mg 2 tablets BID 2 refill. Patient given prescription refill for her medication only during the wintertime (had a hard time transportation using the wintertime it takes her 3 hours to come to the pain clinic) She has to take 3 buses to come from her house to [facility], and it would be very hard for her to come during the wintertime We checked the urine drug screen ordered today Interventions= showing good candidate for trigger point injections in trapezius suprascapular and infrascapular area, cervical paraspinal muscles, lumbar paraspinal muscles , Time with Patient: Less than 30 PQRS Measure Charge Sheet Measure #130: Documentation of Current Meds in Medical Chart: Patient's medications documented in chart Measure #226: Tobacco Use: Screen & Cessation Intervention: Pt screened for tobacco use AND intervention given Measure #111: Pneumonia Vaccination: Pneumococcal vaccine administered or previously received Measure #47: Advance Care Plan: Advance care planning discussed & documented, pt chose/unable to give Measure #412: Opioid Treatment Agreement: Documented signed opioid trtmnt agreemnt min once during opioid trtmnt Measure #408: Opioid Therapy Follow-up Evaluation: Patient had f/u eval minimum every 3 months during opioid therapy Measure #317: Preventitive Care & Scrn High Bld Press & F/U: Normal blood pressure, f/u not required Measure #128: Body Mass Index (BMI) Screening & Follow-up: BMI documented ABOVE normal parameters - f/u documented Measure #131: Pain Assessment & Follow-up: Pain positive & plan documented, Follow-up scheduled Measure #431: Unhealthy Alcohol Use Preventative Care & Scrn: Patient not identified as an unhealthy alcohol user PQRS Narrative:
== END | disposition home or self-care (01) ==
LOC: PNWHC3 12:59
PROVIDERS: ATTEND Specialist
DX: M54.2 Cervicalgia (principal); G89.29 Other chronic pain; M46.1 Sacroiliitis, not elsewhere classified; M47.816 Spondylosis without myelopathy or radiculopathy, lumbar region; Z91.19 Patient's noncompliance with other medical treatment and regimen; M79.18 Myalgia, other site
CPT/HCPCS: 80307; G0482; G0463; 99212

== ENCOUNTER 2020-06-04 15:04 | Inpatient (IN) | payer OTHER ==
[2020-06-04] MEDS ORDERED: CLINDAMYCIN 600 MG in DEXTROSE 5% IN WATER 50 ML IVPB STA ×2 (16:00)
[2020-06-04] MEDS ORDERED: HYDROmorphone 0.5 MG/0.5 ML SYRINGE IVP STA (16:01)
--- NOTE | 2020-06-04 16:13 | ED ---
General Adult HPI - General Chief complaint: Extremity Problem,Nontraumatic Stated complaint: L Foot infection Time Seen by Provider: 06/04/20 15:15 Source: patient, RN notes reviewed, old records reviewed Mode of arrival: wheelchair Limitations: no limitations - History of Present Illness Initial comments: This is a 55-year-old female presents emergency Department complaining of left fifth toe swelling or redness and pain. Patient states his December she injured that area but everything seemed to heal fine but over a week ago she started having pain there again redness and swelling and she delayed coming in because some personal issues but today the pain was too great so she decided to come into the emergency department. Patient states the pain feels like it's going up her foot and the redness also appears to be going up the foot. Patient denies any recent injury. Patient denies any fever chills per patient denies any calf pain or leg swelling. Patient denies any other problems. - Related Data Home Medications Medication Instructions Recorded Confirmed Multivitamins, Thera [Multivitamin 1 tab PO DAILY 10/23/13 06/04/20 (formulary)] Omeprazole [PriLOSEC] 40 mg PO AC-BRKFST 04/16/15 06/04/20 Aspirin EC [Ecotrin] 325 mg PO DAILY 07/17/16 06/04/20 Nicotine 14Mg/24Hr Patch [Habitrol 1 patch TRANSDERM DAILY PRN 05/02/20 06/04/20 14Mg/24Hr Patch] Albuterol Sulfate [Proair Hfa] 2 puff INHALATION RT-QID PRN 06/04/20 06/04/20 Previous Rx's Medication Instructions Recorded Atorvastatin [Lipitor] 80 mg PO HS #30 tab 02/22/14 Metoprolol Tartrate [Lopressor] 25 mg PO BID #60 tab 02/22/14 Nitroglycerin Sl Tabs [Nitrostat] 0.4 mg SUBLINGUAL Q5M PRN #25 tab 02/22/14 Gabapentin [Neurontin] 300 mg PO BID #60 cap 05/08/20 HYDROcodone/APAP 10-325MG [[place] 1 tab PO Q6HR PRN 30 Days #120 tab 05/08/20 10-325] Allergies Allergy/AdvReac Type Severity Reaction Status Date / Time ibuprofen [From Motrin] Allergy Anaphylaxis Verified 06/04/20 17:49 /Swelling amoxicillin trihydrate AdvReac Nausea & Verified 06/04/20 17:49 [From Augmentin] Vomiting potassium clavulanate AdvReac Nausea & Verified 06/04/20 17:49 [From Augmentin] Vomiting SALMON Allergy Anaphylaxis Uncoded 06/04/20 15:21 Review of Systems ROS Statement: Those systems with pertinent positive or pertinent negative responses have been documented in the HPI. ROS Other: All systems not noted in ROS Statement are negative. Past Medical History Past Medical History: Coronary Artery Disease (CAD), Chest Pain / Angina, COPD, Fibromyalgia, GERD/Reflux, Hypertension, Myocardial Infarction (ME), Osteoarthritis (OA), Pneumonia, Vascular Disorder Additional Past Medical History / Comment(s): Crohns, Colitis. Osteoporosis. Chronic back pain & neck pain, DDD, spinal stenosis, nighttime leakage of urine, PAD, old hx kidney stone X1. Last Myocardial Infarction Date:: 02/2014 History of Any Multi-Drug Resistant Organisms: MRSA Date of last positivie culture/infection: 2009 est MDRO Source:: abdominal at Heparin injection site Past Surgical History: Appendectomy, Bowel Resection, Heart Catheterization With Stent, Joint Replacement, Orthopedic Surgery, Tonsillectomy Additional Past Surgical History / Comment(s): 2 Small Bowel Resections D/T Crohns; LEFT TOTAL KNEE REPLACEMENT THEN A REVISION-HAS TITANIUM; Bilateral carpal tunnel, Trigger Fingers/thumb x 6, total of 3 cardiac stents, pain procedures Past Anesthesia/Blood Transfusion Reactions: Motion Sickness Date of Last Stent Placement:: 04/2014 Past Psychological History: No Psychological Hx Reported Smoking Status: Light tobacco smoker Past Alcohol Use History: None Reported Past Drug Use History: None Reported - Past Family History Father Family Medical History: Cancer Additional Family Medical History / Comment(s): LUNG CANCER Mother Additional Family Medical History / Comment(s): WHEN PT WAS AGE 14 NOT SURE WHY, HX OF MENTAL HEALTH ISS General Exam - General Exam Comments Initial Comments: GENERAL: Patient is well-developed and well-nourished. Patient is nontoxic and well- hydrated and is in mild distress. ENT: Neck is soft and supple. No significant lymphadenopathy is noted. Oropharynx is clear. Moist mucous membranes. Neck has full range of motion without eliciting any pain. EYES: The sclera were anicteric and conjunctiva were pink and moist. Extraocular movements were intact and pupils were equal round and reactive to light. Eyelids were unremarkable. PULMONARY: Unlabored respirations. Good breath sounds bilaterally. No audible rales rhonchi or wheezing was noted. CARDIOVASCULAR: There is a regular rate and rhythm without any murmurs gallops or rubs. SKIN: Skin is clear with no lesions or rashes and otherwise unremarkable. NEUROLOGIC: Patient is alert and oriented x3. Cranial nerves II through XII are grossly intact. Motor and sensory are also intact. Normal speech, volume and content. Symmetrical smile. MUSCULOSKELETAL: Normal extremities with adequate strength and full range of motion. There appears to be an open wound between the fourth and fifth toe on the left the toe was very swollen red slightly fluctuant and the redness does extend up into the midfoot. LYMPHATICS: No significant lymphadenopathy is noted PSYCHIATRIC: Normal psychiatric evaluation. Limitations: no limitations Course Vital Signs 06/04/20 15:15 Temperature 98.0 F Pulse Rate 94 Respiratory 20 Rate Blood Pressure 141/78 O2 Sat by Pulse 97 Oximetry Medical Decision Making - Medical Decision Making X-ray shows no acute abnormality I went back into reevaluate the patient after she received clindamycin. Patient states she didn't think she could go home because she was having a difficult time walking on the foot isn't getting around. Patient requested being admitted overnight at least. I spoke with Dr. Meza she agreed to admit the patient admitted the patient wrote admitting orders - Lab Data Result diagrams: 06/04/20 16:35 06/04/20 16:35 Lab Results 06/04/20 06/04/20 06/04/20 Range/Units 16:35 16:35 16:35 WBC 11.6 H (3.8-10.6) k/uL RBC 5.92 H (3.80-5.40) m/uL Hgb 16.6 H (11.4-16.0) gm/dL Hct 50.8 H (34.0-46.0) % MCV 85.9 (80.0-100.0) fL MCH 28.1 (25.0-35.0) pg MCHC 32.7 (31.0-37.0) g/dL RDW 16.1 H (11.5-15.5) % Plt Count 96 L (150-450) k/uL MPV 11.1 Neutrophils % 74 % Lymphocytes % 20 % Monocytes % 4 % Eosinophils % 2 % Basophils % 0 % Neutrophils # 8.6 H (1.3-7.7) k/uL Lymphocytes # 2.3 (1.0-4.8) k/uL Monocytes # 0.4 (0-1.0) k/uL Eosinophils # 0.3 (0-0.7) k/uL Basophils # 0.0 (0-0.2) k/uL Manual Slide Review Performed Large Platelets Present Anisocytosis Slight Sodium 142 (137-145) mmol/L Potassium 3.0 L (3.5-5.1) mmol/L Chloride 109 H (98-107) mmol/L Carbon Dioxide 23 (22-30) mmol/L Anion Gap 10 mmol/L BUN 11 (7-17) mg/dL Creatinine 0.57 (0.52-1.04) mg/dL Est GFR (CKD-EPI)AfAm >90 (>60 ml/min/1.73 sqM) Est GFR (CKD-EPI)NonAf >90 (>60 ml/min/1.73 sqM) Glucose 97 (74-99) mg/dL Plasma Lactic Acid Slick 1.7 (0.7-2.0) mmol/L Calcium 9.3 (8.4-10.2) mg/dL Total Bilirubin 0.4 (0.2-1.3) mg/dL AST 23 (14-36) U/L ALT 16 (4-34) U/L Alkaline Phosphatase 46 (38-126) U/L Total Protein 6.8 (6.3-8.2) g/dL Albumin 4.0 (3.5-5.0) g/dL Disposition Clinical Impression: Cellulitis of foot Disposition: ADMITTED IP TO THIS HOSP Referrals: Ernesto Carolina [Primary Care Provider] - 1-2 days Time of Disposition: 18:12
--- NOTE | 2020-06-04 16:59 | XR ---
EXAMINATION TYPE: XR foot complete LT DATE OF EXAM: 06/04/2020 COMPARISON: 09/29/2009 HISTORY: Pain and redness TECHNIQUE: 3 views FINDINGS: There is plantar calcaneal spurring. Metatarsals are intact. I see no fracture nor dislocat ion. There is some spurring of the IP joint of the big toe. There is spurring at the third and fifth MP joints. There is spurring of the medial malleolus. IMPRESSION: No fracture. There are some osteoarthritic changes which show mild progression compared t o old exam.
[2020-06-04 17:15] LABS: ALT 16 U/L (4-34); AST 23 U/L (14-36); African American GFR (CKD) >90 (>60 ml/min/1.73 sqM); Alkaline Phosphatase 46 U/L (38-126); Anion Gap 10 mmol/L; Blood Urea Nitrogen 11 mg/dL (7-17); Calcium 9.3 mg/dL (8.4-10.2); Carbon Dioxide 23 mmol/L (22-30); Chloride 109 mmol/L (98-107); Glucose 97 mg/dL (74-99); Non-African American GFR(CKD) >90 (>60 ml/min/1.73 sqM); Sodium 142 mmol/L (137-145); Total Bilirubin 0.4 mg/dL (0.2-1.3); Total Protein 6.8 g/dL (6.3-8.2)
[2020-06-04 17:27] LABS: Anisocytosis Slight; Basophils % (A) 0 %; Eosinophils # (A) 0.3 k/uL (0-0.7); Eosinophils % (A) 2 %; HCT 50.8 % (34.0-46.0); HGB 16.6 gm/dL (11.4-16.0); Lymphocytes # (A) 2.3 k/uL (1.0-4.8); Lymphocytes % (A) 20 %; MCH 28.1 pg (25.0-35.0); MCHC 32.7 g/dL (31.0-37.0); MCV 85.9 fL (80.0-100.0); Mean Platelet Volume 11.1; Monocytes # (A) 0.4 k/uL (0-1.0); Monocytes % (A) 4 %; Neutrophils # (A) 8.6 k/uL (1.3-7.7); Neutrophils % (A) 74 %; RBC 5.92 m/uL (3.80-5.40); RDW 16.1 % (11.5-15.5); WBC 11.6 k/uL (3.8-10.6)
[2020-06-04 17:36] LABS: Large Platelets Present; Platelet Count 96 k/uL (150-450)
[2020-06-04] MEDS: POTASSIUM CHLORIDE ER 20 MEQ TAB.ER PO SCH ×2 (20:06→23:17)
[2020-06-04] MEDS: MORPHINE SULFATE 2 MG/ML SYRINGE IVP PRN (20:06)
[2020-06-04] MEDS ORDERED: ALBUTEROL NEBULIZED 2.5 MG/3 ML INHALATION PRN (21:34)
--- NOTE | 2020-06-04 21:37 | P.HPIM ---
History of Present Illness H&P Date: 06/04/20 The patient is a 55-year-old female with an extensive PMH including coronary artery disease status post 3 stents, COPD, Crohn's disease, hypertension, peripheral arterial disease, and peripheral neuropathy who presented to the emergency room with complaints of left foot pain. The patient notes that she initially suffered an injury to the left fifth toe when someone stepped on her accidentally at a wedding. She notes that she initially had some pain and redness of the area with some drainage and swelling which subsequently resolved. She notes that the foot had appeared to go back to normal except for mild opening in the skin over the past few months. She then noted that over the past 1 week, her left foot became increasingly painful and r She denied any recent injury to the area. Denied drainage from the foot. She also denied fever, chills, chest pain, shortness of breath, cough, nausea, vomiting, and abdominal pain. In the emergency room. X-ray revealed osteoarthritic changes but otherwise unremarkable. Laboratory evaluation was remarkable for leukocytosis of 11.6, thrombocytopenia at 96, and hypokalemia at 3.0 potassium. Review of Systems Pertinent positives and negatives as discussed in HPI, a complete review of systems was performed and all other systems are negative. Past Medical History Past Medical History: Coronary Artery Disease (CAD), Chest Pain / Angina, COPD, Fibromyalgia, GERD/Reflux, Hypertension, Myocardial Infarction ([place]), Osteoarthritis (OA), Pneumonia, Vascular Disorder Additional Past Medical History / Comment(s): Crohns, Colitis. Osteoporosis. Chronic back pain & neck pain, DDD, spinal stenosis, nighttime leakage of urine, PAD, old hx kidney stone X1. Last Myocardial Infarction Date:: 02/2014 History of Any Multi-Drug Resistant Organisms: MRSA Date of last positivie culture/infection: 2009 est MDRO Source:: abdominal at Heparin injection site Past Surgical History: Appendectomy, Bowel Resection, Heart Catheterization With Stent, Joint Replacement, Orthopedic Surgery, Tonsillectomy Additional Past Surgical History / Comment(s): 2 Small Bowel Resections D/T Crohns; LEFT TOTAL KNEE REPLACEMENT THEN A REVISION-HAS TITANIUM; Bilateral carpal tunnel, Trigger Fingers/thumb x 6, total of 3 cardiac stents, pain procedures Past Anesthesia/Blood Transfusion Reactions: Motion Sickness Date of Last Stent Placement:: 04/2014 Past Psychological History: No Psychological Hx Reported Additional Psychological History / Comment(s): FOUND SPOUSE ON 03/17/14, HAD NM 02/19/14. Smoking Status: Light tobacco smoker Past Alcohol Use History: None Reported Additional Past Alcohol Use History / Comment(s): Smoked 10 Years, <1/2 PPD, smokes occ cigarette now - wearing patch now to help quit. Past Drug Use History: None Reported - Past Family History Father Family Medical History: Cancer Additional Family Medical History / Comment(s): LUNG CANCER Mother Additional Family Medical History / Comment(s): WHEN PT WAS AGE 14 NOT SURE WHY, HX OF MENTAL HEALTH ISS Medications and Allergies Home Medications Medication Instructions Recorded Confirmed Type Multivitamins, Thera [Multivitamin 1 tab PO DAILY 10/23/13 06/04/20 History (formulary)] Atorvastatin [Lipitor] 80 mg PO HS #30 tab 02/22/14 06/04/20 Rx Metoprolol Tartrate [Lopressor] 25 mg PO BID #60 tab 02/22/14 06/04/20 Rx Nitroglycerin Sl Tabs [Nitrostat] 0.4 mg SUBLINGUAL Q5M PRN #25 tab 02/22/14 06/04/20 Rx Omeprazole [PriLOSEC] 40 mg PO AC-BRKFST 04/16/15 06/04/20 History Aspirin EC [Ecotrin] 325 mg PO DAILY 07/17/16 06/04/20 History Nicotine 14Mg/24Hr Patch [Habitrol 1 patch TRANSDERM DAILY PRN 05/02/20 06/04/20 History 14Mg/24Hr Patch] Gabapentin [Neurontin] 300 mg PO BID #60 cap 05/08/20 06/04/20 Rx HYDROcodone/APAP 10-325MG [[place] 1 tab PO Q6HR PRN 30 Days #120 tab 05/08/20 06/04/20 Rx 10-325] Albuterol Sulfate [Proair Hfa] 2 puff INHALATION RT-QID PRN 06/04/20 06/04/20 History Allergies Allergy/AdvReac Type Severity Reaction Status Date / Time ibuprofen [From Motrin] Allergy Anaphylaxis Verified 06/04/20 17:49 /Swelling amoxicillin trihydrate AdvReac Nausea & Verified 06/04/20 17:49 [From Augmentin] Vomiting potassium clavulanate AdvReac Nausea & Verified 06/04/20 17:49 [From Augmentin] Vomiting SALMON Allergy Anaphylaxis Uncoded 06/04/20 15:21 Physical Exam Vitals: Vital Signs Temp Pulse Resp BP Pulse Ox 06/04/20 18:40 98.3 F 88 20 139/79 98 06/04/20 15:15 98.0 F 94 20 141/78 97 Intake and Output 06/04/20 06/04/20 06/04/20 06:59 14:59 22:59 Other: Weight 83.915 kg General: non toxic, no distress, appears at stated age, obese Derm: Left fifth toe and surrounding foot erythema, warmth, and tenderness extending to mid dorsum of the foot; no unusual ecchymoses, warm, dry Head: atraumatic, normocephalic, symmetric Eyes: EOMI, no lid lag, anicteric sclera, pupils equal round reactive to light ENT: Nose and ears atraumatic, no thrush, no pharyngeal erythema Neck: No thyromegaly, no cervical lymphadenopathy, trachea midline, supple Mouth: no lip lesion, mucus membranes moist Cardiovascular: S1S2 reg, no murmur, positive posterior tibial pulse bilateral, no edema, capillary refill less than 2 seconds Lungs: CTA bilateral, no rhonchi, no rales , no accessory muscle use Abdominal: soft, nontender to palpation, no guarding, no appreciable organomegaly, normal bowel sounds Ext: no gross muscle atrophy, muscle strength 5 out of 5 in all 4 extremities grossly, no contractures, Neuro: CN II-XI grossly intact, light touch intact all 4 extremities, finger to nose within normal limits, Psych: Alert, oriented, appropriate affect Results CBC & Chem 7: 06/04/20 16:35 06/04/20 16:35 Labs: Abnormal Lab Results - Last 24 Hours (Table) 06/04/20 06/04/20 Range/Units 16:35 16:35 WBC 11.6 H (3.8-10.6) k/uL RBC 5.92 H (3.80-5.40) m/uL Hgb 16.6 H (11.4-16.0) gm/dL Hct 50.8 H (34.0-46.0) % RDW 16.1 H (11.5-15.5) % Plt Count 96 L (150-450) k/uL Neutrophils # 8.6 H (1.3-7.7) k/uL Potassium 3.0 L (3.5-5.1) mmol/L Chloride 109 H (98-107) mmol/L Thrombosis Risk Factor Assmnt - Choose All That Apply Each Factor Represents 1 point: Abnormal pulmonary function (COPD), Age 41-60 years, Obesity (BMI >25) Thrombosis Risk Factor Assessment Total Risk Factor Score: 3 Thrombosis Risk Factor Assessment Level: Moderate Risk Assessment and Plan Plan: Left foot cellulitis -Continue with clindamycin -Pain control -Cellulitis area marked Thrombocytopenia -Similar to baseline -Monitor for now Hypokalemia -Replace and monitor Chronic conditions: Coronary artery disease, COPD, peripheral neuropathy, peripheral arterial disease, hypertension, hyperlipidemia -Continue home medications DVT prophylaxis -Heparin Subq The patient is admitted with an anticipated less than 2 midnight stay for evaluation of L foot cellulitis CODE STATUS: Full Code Discussed with: patent Anticipated discharge date: in am Anticipated discharge place: home A total of 35 minutes was spent on the care of this complex patient more than 50% of the time was spent in counseling and care coordination.
[2020-06-04] MEDS: NICOTINE 14MG/24HR PATCH TRANSDERM PRN (23:17)
[2020-06-04] MEDS: HEPARIN SODIUM,PORCINE 5,000 UNIT/ML 1 ML VIAL SQ SCH (23:17)
[2020-06-04] MEDS: CLINDAMYCIN 600 MG in DEXTROSE 5% IN WATER 50 ML IVPB SCH ×2 (23:28)
[2020-06-05] MEDS: GABAPENTIN 300 MG CAP PO SCH ×3 (01:05→20:39)
[2020-06-05] MEDS: MORPHINE SULFATE 2 MG/ML SYRINGE IVP PRN (01:20)
[2020-06-05] MEDS: METOPROLOL TARTRATE 25 MG TAB PO SCH ×2 (07:58→20:39)
[2020-06-05] MEDS: MULTIVITAMINS, THERA 1 EACH TAB PO SCH (07:58)
[2020-06-05] MEDS: PANTOPRAZOLE 40 MG TABLET PO SCH (07:58)
[2020-06-05] MEDS: HYDROcodone/APAP 10-325MG 1 EACH TAB PO PRN ×3 (07:58→22:32)
[2020-06-05] MEDS: CLINDAMYCIN 600 MG in DEXTROSE 5% IN WATER 50 ML IVPB SCH ×6 (08:00→23:45)
[2020-06-05] MEDS: HEPARIN SODIUM,PORCINE 5,000 UNIT/ML 1 ML VIAL SQ SCH ×3 (08:00→20:39)
[2020-06-05] MEDS: ASPIRIN 325 MG TAB PO SCH (08:06)
[2020-06-05] MEDS ORDERED: GABAPENTIN 300 MG CAP PO SCH (09:00)
[2020-06-05 10:44] LABS: HCT 41.3 % (37.2-46.3); MCH 27.4 pg (27.0-32.0); MCHC 31.5 g/dL (32.0-37.0); MCV 86.9 fL (80.0-97.0); Mean Platelet Volume 14.3 fL (9.5-12.2); Platelet Count 133 X 10*3/uL (140-440); RBC 4.75 X 10*6/uL (4.10-5.20); RDW 15.6 % (11.5-14.5); WBC 14.55 X 10*3/uL (4.50-10.00)
[2020-06-05 11:29] LABS: African American GFR (CKD) 111.5 (60.0-200.0); Anion Gap 10.7 mmol/L (4.00-12.00); BUN/Creat Ratio 17.14 Ratio (12.00-20.00); Calcium 9.2 mg/dL (8.7-10.3); Carbon Dioxide 22.3 mmol/L (21.6-31.8); Non-African American GFR(CKD) 96.2 (60.0-200.0); Potassium 4.1 mmol/L (3.5-5.5)
[2020-06-05] MEDS ORDERED: HYDROmorphone 0.5 MG/0.5 ML SYRINGE IVP STA (11:33)
--- NOTE | 2020-06-05 19:00 | P.PN ---
<Uli Miguel - Last Filed: 06/05/20 18:43> Subjective Progress Note Date: 06/05/20 Principal diagnosis: Cellulitis of left foot Hospital course:: Patient is a 55-year-old female with a past medical history of CAD status post stent, hypertension, hyperlipidemia, COPD, peripheral arterial disease with neuropathy, and Crohn's disease status post bowel resections. Movement presented to the hospital with a chief complaint of left foot pain and redness. Patient reports she initially suffered an injury to the area of her left fifth toe just over 1 year ago in December 2018 on someone accidentally stepped on her foot at her son's wedding. Patient states she had some redness and pain initially and this resolved until last week shortly after cutting her toenails she began noticing the previous wound had returned and was accompanied by mild redness and pain. Patient reports at first she was just watching numbness however it became increasingly painful and upon looking at it she states she had pressed on the top of her foot and noticed a significant amount of white pussy drainage in which she reports, "just shot out". X-ray was completed in the emergency department revealing mild osteoarthritic changes but otherwise unremarkable negative for any signs of osteomyelitis. Patient admitted under our services for cellulitis of left foot requiring IV antibiotics. Physical exam: Patient was seen and fully evaluated at the bedside. Patient reports pain remains uncontrolled. Patient given a one-time dose of Dilaudid in order placed to resume her [place] as and discontinue morphine as patient requested. Patient had noted erythema surrounding left pinky toe/fifth digit of left foot which extended up dorsal surface and currently surpassing previous outline of erythema upon admission. Patient also had increase in WBC count from 11.6-14.55 this morning. We will add on additional antibiotic coverage. Blood cultures negative 24 hours showing no growth. Patient denies having any other complai nts at this time including fever, chills, diaphoresis, headache, lightheadedness,, chest pain, palpitations, shortness of breath or experiencing any new onset numbness/tingling/weakness. General: non toxic, no distress, appears at stated age Derm: warm, dry Head: atraumatic, normocephalic, symmetric Eyes: EOMI, no lid lag, anicteric sclera Mouth: no lip lesion, mucus membranes moist Cardiovascular: S1S2 reg, no murmur, positive posterior tibial pulse bilateral, Lungs: CTA bilateral, no rhonchi, no rales , no accessory muscle use Abdominal: soft, nontender to palpation, no guarding, no appreciable organomegaly Ext: no gross muscle atrophy, no edema, no contractures Neuro: CN II-XI grossly intact, no focal neuro deficits Psych: Alert, oriented, appropriate affect Plan of care: Cellulitis of left foot -X-ray left foot revealing mild osteoarthritic changes but otherwise unremarkable negative for any signs of osteomyelitis. -WBC is increasing from 11.6-14.55 this morning. -Blood cultures showing no growth after 24 hours. -Adding on Rocephin in addition to continuation of IV clindamycin. -Symptomatic care and pain management -Continue to monitor for improvement and/or worsening of erythema. Chronic Idiopathic Thrombocytopenia, stable -Platelet count 133,000. Hypokalemia, resolved Hypertension -Monitor vital signs and Continue daily home medication regimen with metoprolol tartrate. Hyperlipidemia -Continue daily home medication regimen with atorvastatin 80 mg nightly. -Heart healthy diet. COPD, not in acute exacerbation. -Encourage incentive spirometry 10-15 times hourly while awake. -Ventolin 4 times daily as needed for shortness of breath and/or wheezing.. -Patient encouraged and educated on the importance of smoking cessation and risks of continued use. -Nicotine patch. Peripheral arterial disease with neuropathy -Continue daily medication regimen with [place] and Neurontin. Tobacco dependence on cigarettes -Educated on the benefits of smoking cessation and risks of continued use up to and including . -Nicotine patch. CODE STATUS: Full code DVT prophylaxis: Heparin Discussed with: Patient Anticipated discharge date:Clinical course to determine Anticipated discharge place: Home A total of 45 minutes was spent on the care of this complex patient more than 50% of the time was spent in counseling and care coordination. Objective - Vital Signs Vital signs: Vital Signs Temp 98.0 F 06/05/20 06:40 Pulse 76 06/05/20 06:40 Resp 16 06/05/20 06:40 BP 112/75 06/05/20 06:40 Pulse Ox 97 06/05/20 06:40 Intake & Output 06/04/20 06/05/20 06/05/20 18:59 06:59 18:59 Intake Total 720 240 Balance 720 240 Weight 83.915 kg Intake: Oral 720 240 Other: Voiding Method Toilet # Voids 1 - Labs CBC & Chem 7: 06/05/20 05:07 06/05/20 05:07 Labs: Abnormal Lab Results - Last 24 Hours (Table) 06/04/20 06/04/20 06/05/20 Range/Units 16:35 16:35 05:07 WBC 11.6 H 14.55 H (3.8-10.6) k/uL RBC 5.92 H (3.80-5.40) m/uL Hgb 16.6 H (11.4-16.0) gm/dL Hct 50.8 H (34.0-46.0) % MCHC 31.5 L (32.0-37.0) g/dL RDW 16.1 H 15.6 H (11.5-15.5) % Plt Count 96 L 133 L (150-450) k/uL MPV 14.3 H (9.5-12.2) fL Neutrophils # 8.6 H (1.3-7.7) k/uL Potassium 3.0 L (3.5-5.1) mmol/L Chloride 109 H (98-107) mmol/L 06/05/20 Range/Units 05:07 WBC (3.8-10.6) k/uL RBC (3.80-5.40) m/uL Hgb (11.4-16.0) gm/dL Hct (34.0-46.0) % MCHC (32.0-37.0) g/dL RDW (11.5-15.5) % Plt Count (150-450) k/uL MPV (9.5-12.2) fL Neutrophils # (1.3-7.7) k/uL Potassium (3.5-5.1) mmol/L Chloride 110 H (98-107) mmol/L <Shanti Meza - Last Filed: 06/06/20 06:01> Objective - Vital Signs Vital signs: Vital Signs Temp 97.6 F 06/06/20 00:35 Pulse 80 06/06/20 00:35 Resp 16 06/06/20 00:35 BP 116/77 06/06/20 00:35 Pulse Ox 98 06/06/20 00:35 Intake & Output 06/05/20 06/05/20 06/06/20 06:59 18:59 06:59 Intake Total 720 240 400 Output Total 201 Balance 720 240 199 Intake: Oral 720 240 400 Output: Emesis 201 Other: Voiding Method Toilet Toilet # Voids 1 2 3 # Bowel Movements 1 # Emes[place] 1 - Labs CBC & Chem 7: 06/05/20 05:07 06/05/20 05:07 Labs: Abnormal Lab Results - Last 24 Hours (Table) 06/05/20 06/05/20 Range/Units 05:07 05:07 WBC 14.55 H (4.50-10.00) X 10*3/uL MCHC 31.5 L (32.0-37.0) g/dL RDW 15.6 H (11.5-14.5) % Plt Count 133 L (140-440) X 10*3/uL MPV 14.3 H (9.5-12.2) fL Chloride 110 H (96-109) mmol/L Microbiology - Last 24 Hours (Table) 06/04/20 16:36 Blood Culture - Preliminary Blood No Growth after 24 hours Assessment and Plan Assessment: Patient seen and examined independently. Patient was also seen by Uli Miguel NP and case was discussed. I am in agreement with subjective, physical exam, assessment and plan as written above and amended below. Patient seen and examined at bedside. She reports that her left lower extremity initially started with an injury to her foot which led to a blister being formed, she is worried about how well the antibiotics will work. She reports she is still having difficulty fitting her foot into her shoe, she is worried about a bone infection. General: non toxic, no distress, appears at stated age Derm: warm, dry, left foot with an area of redness near the fifth toe, no warmth, no drainage noted, some cracking of the skin in between the fourth and fifth toe. Psych: Alert, oriented, appropriate affect Cellulitis of left foot. -Continues with redness -Increasing white blood cell count -We will add Rocephin. Likely will need a beta lactam antibiotic on discharge. -Continue with clindamycin -Denies any history of anaphylaxis or rash with Augmentin. States she just had an upset stomach.
[2020-06-05] MEDS ORDERED: HYDROmorphone 0.5 MG/0.5 ML SYRINGE IVP ONE (20:00)
[2020-06-05] MEDS: NICOTINE 14MG/24HR PATCH TRANSDERM PRN (20:32)
[2020-06-05] MEDS: ONDANSETRON 4 MG/2 ML VIAL IVP PRN (20:39)
[2020-06-05] MEDS: ATORVASTATIN 80 MG TAB PO SCH (20:39)
[2020-06-05] MEDS ORDERED: MORPHINE SULFATE 2 MG/ML SYRINGE IVP STA (23:57)
[2020-06-06] MEDS ORDERED: KETOROLAC 15 MG/ML 1 ML VIAL IVP STA (00:42)
[2020-06-06] MEDS: HYDROcodone/APAP 10-325MG 1 EACH TAB PO PRN ×4 (04:31→23:37)
[2020-06-06] MEDS: PANTOPRAZOLE 40 MG TABLET PO SCH (07:35)
[2020-06-06] MEDS: MULTIVITAMINS, THERA 1 EACH TAB PO SCH (07:35)
[2020-06-06] MEDS: HEPARIN SODIUM,PORCINE 5,000 UNIT/ML 1 ML VIAL SQ SCH ×3 (07:35→20:13)
[2020-06-06] MEDS: ASPIRIN 325 MG TAB PO SCH (07:36)
[2020-06-06] MEDS: GABAPENTIN 300 MG CAP PO SCH ×2 (07:36→20:14)
[2020-06-06] MEDS: CLINDAMYCIN 600 MG in DEXTROSE 5% IN WATER 50 ML IVPB SCH ×6 (07:50→23:38)
[2020-06-06] MEDS: METOPROLOL TARTRATE 25 MG TAB PO SCH ×2 (09:16→20:14)
[2020-06-06 10:00] LABS: Basophils # (A) 0.1 k/uL (0-0.2); Basophils % (A) 1 %; Eosinophils # (A) 0.3 k/uL (0-0.7); Eosinophils % (A) 2 %; HCT 43.6 % (34.0-46.0); HGB 14.3 gm/dL (11.4-16.0); Lymphocytes % (A) 20 %; MCH 28.5 pg (25.0-35.0); MCHC 32.8 g/dL (31.0-37.0); MCV 86.9 fL (80.0-100.0); Mean Platelet Volume 11.6; Monocytes # (A) 0.6 k/uL (0-1.0); Monocytes % (A) 4 %; Neutrophils # (A) 10.7 k/uL (1.3-7.7); Neutrophils % (A) 72 %; Platelet Count 118 k/uL (150-450); RBC 5.02 m/uL (3.80-5.40); RDW 14.9 % (11.5-15.5); WBC 14.9 k/uL (3.8-10.6)
[2020-06-06 10:10] LABS: African American GFR (CKD) >90 (>60 ml/min/1.73 sqM); Anion Gap 13 mmol/L; Blood Urea Nitrogen 13 mg/dL (7-17); Calcium 9.1 mg/dL (8.4-10.2); Carbon Dioxide 17 mmol/L (22-30); Chloride 112 mmol/L (98-107); Glucose 108 mg/dL (74-99); Non-African American GFR(CKD) >90 (>60 ml/min/1.73 sqM); Potassium 3.7 mmol/L (3.5-5.1); Sodium 142 mmol/L (137-145)
[2020-06-06 10:17] LABS: Large Platelets Present
[2020-06-06] MEDS ORDERED: KETOROLAC 15 MG/ML 1 ML VIAL IVP PRN (15:12)
[2020-06-06] MEDS: KETOROLAC 15 MG/ML 1 ML VIAL IVP PRN ×2 (15:36→22:13)
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
--- NOTE | 2020-06-06 18:16 | P.GSHP ---
History of Present Illness H&P Date: 06/06/20 Chief Complaint: Infection left footLeft foot Patient patient presented several days ago to the emergency room patient states she noted that her foot became infected and had a lot of pus come out of that presented in the emergency room for evaluation. Patient was admitted for treatment is on a clindamycin and has incomplete resolution of the infection Past Medical History Past Medical History: Coronary Artery Disease (CAD), Chest Pain / Angina, COPD, Fibromyalgia, GERD/Reflux, Hypertension, Myocardial Infarction ([place]), Osteoarthr itis (OA), Pneumonia, Vascular Disorder Additional Past Medical History / Comment(s): Crohns, Colitis. Osteoporosis. Chronic back pain & neck pain, DDD, spinal stenosis, nighttime leakage of urine, PAD, old hx kidney stone X1. Last Myocardial Infarction Date:: 02/2014 History of Any Multi-Drug Resistant Organisms: MRSA Date of last positivie culture/infection: 2009 est MDRO Source:: abdominal at Heparin injection site Past Surgical History: Appendectomy, Bowel Resection, Heart Catheterization With Stent, Joint Replacement, Orthopedic Surgery, Tonsillectomy Additional Past Surgical History / Comment(s): 2 Small Bowel Resections D/T Crohns; LEFT TOTAL KNEE REPLACEMENT THEN A REVISION-HAS TITANIUM; Bilateral carpal tunnel, Trigger Fingers/thumb x 6, total of 3 cardiac stents, pain procedures Past Anesthesia/Blood Transfusion Reactions: Motion Sickness Date of Last Stent Placement:: 04/2014 Past Psychological History: No Psychological Hx Reported Additional Psychological History / Comment(s): FOUND SPOUSE ON 03/17/14, HAD [place] 02/19/14. Smoking Status: Light tobacco smoker Past Alcohol Use History: None Reported Additional Past Alcohol Use History / Comment(s): Smoked 10 Years, <1/2 PPD, smokes occ cigarette now - wearing patch now to help quit. Past Drug Use History: None Reported - Past Family History Father Family Medical History: Cancer Additional Family Medical History / Comment(s): LUNG CANCER Mother Additional Family Medical History / Comment(s): WHEN PT WAS AGE 14 NOT SURE WHY, HX OF MENTAL HEALTH ISS Medications and Allergies Home Medications Medication Instructions Recorded Confirmed Type Multivitamins, Thera [Multivitamin 1 tab PO DAILY 10/23/13 06/04/20 History (formulary)] Atorvastatin [Lipitor] 80 mg PO HS #30 tab 02/22/14 06/04/20 Rx Metoprolol Tartrate [Lopressor] 25 mg PO BID #60 tab 02/22/14 06/04/20 Rx Nitroglycerin Sl Tabs [Nitrostat] 0.4 mg SUBLINGUAL Q5M PRN #25 tab 02/22/14 06/04/20 Rx Omeprazole [PriLOSEC] 40 mg PO AC-BRKFST 04/16/15 06/04/20 History Aspirin EC [Ecotrin] 325 mg PO DAILY 07/17/16 06/04/20 History Nicotine 14Mg/24Hr Patch [Habitrol 1 patch TRANSDERM DAILY PRN 05/02/20 06/04/20 History 14Mg/24Hr Patch] Gabapentin [Neurontin] 300 mg PO BID #60 cap 05/08/20 06/04/20 Rx HYDROcodone/APAP 10-325MG [[place] 1 tab PO Q6HR PRN 30 Days #120 tab 05/08/20 06/04/20 Rx 10-325] Albuterol Sulfate [Proair Hfa] 2 puff INHALATION RT-QID PRN 06/04/20 06/04/20 History Allergies Allergy/AdvReac Type Severity Reaction Status Date / Time ibuprofen [From Motrin] Allergy Anaphylaxis Verified 06/04/20 17:49 /Swelling amoxicillin trihydrate AdvReac Nausea & Verified 06/04/20 17:49 [From Augmentin] Vomiting potassium clavulanate AdvReac Nausea & Verified 06/04/20 17:49 [From Augmentin] Vomiting [place]MON Allergy Anaphylaxis Uncoded 06/04/20 15:21 Surgical - Exam Vital Signs Temp Pulse Resp BP Pulse Ox 98.0 F 94 20 141/78 97 06/04/20 15:15 06/04/20 15:15 06/04/20 15:15 06/04/20 15:15 06/04/20 15:15 - Cardiovascular Pedal pulses are patent symmetrical bilateral - Integumentary Patient has localized erythema and edema of the dorsal aspect of the left foot extending from the fourth interdigital space and to the metatarsophalangeal joint area. Above the fifth metatarsal subdermally there appears to be a pocket that is soft and edematous consistent with possible area of accumulated infected material - Neurologic Pain with palpation of the left foot near injury Results - Labs 06/06/20 09:35 06/06/20 09:35 Abnormal Lab Results - Last 24 Hours (Table) 06/06/20 06/06/20 Range/Units 09:35 09:35 WBC 14.9 H (3.8-10.6) k/uL Plt Count 118 L (150-450) k/uL Neutrophils # 10.7 H (1.3-7.7) k/uL Chloride 112 H (98-107) mmol/L Carbon Dioxide 17 L (22-30) mmol/L Glucose 108 H (74-99) mg/dL Microbiology - Last 24 Hours (Table) 06/04/20 16:36 Blood Culture - Preliminary Blood No Growth after 24 hours Diabetes panel 06/06/20 Range/Units 09:35 Sodium 142 (137-145) mmol/L Potassium 3.7 (3.5-5.1) mmol/L Chloride 112 H (98-107) mmol/L Carbon Dioxide 17 L (22-30) mmol/L BUN 13 (7-17) mg/dL Creatinine 0.63 (0.52-1.04) mg/dL Glucose 108 H (74-99) mg/dL Calcium 9.1 (8.4-10.2) mg/dL Calcium panel 06/06/20 Range/Units 09:35 Calcium 9.1 (8.4-10.2) mg/dL Pituitary panel 06/06/20 Range/Units 09:35 Sodium 142 (137-145) mmol/L Potassium 3.7 (3.5-5.1) mmol/L Chloride 112 H (98-107) mmol/L Carbon Dioxide 17 L (22-30) mmol/L BUN 13 (7-17) mg/dL Creatinine 0.63 (0.52-1.04) mg/dL Glucose 108 H (74-99) mg/dL Calcium 9.1 (8.4-10.2) mg/dL Adrenal panel 06/06/20 Range/Units 09:35 Sodium 142 (137-145) mmol/L Potassium 3.7 (3.5-5.1) mmol/L Chloride 112 H (98-107) mmol/L Carbon Dioxide 17 L (22-30) mmol/L BUN 13 (7-17) mg/dL Creatinine 0.63 (0.52-1.04) mg/dL Glucose 108 H (74-99) mg/dL Calcium 9.1 (8.4-10.2) mg/dL Assessment and Plan Assessment: Infection left foot Plan: Exam. Discussed with patient findings and treatment plan. To do a bedside incision and drainage tomorrow morning once we have all the equipment available to perform this procedure. We discussed with patient bedside incision and drainage complications prognosis and wrist. Discussed with patient that further surgery may be required to eradicate this infection no guarantees were implied or given. We will proceed with incision and drainage at bedside tomorrow a.m. Time with Patient: Greater than 30
[2020-06-06] MEDS: ONDANSETRON 4 MG/2 ML VIAL IVP PRN (20:12)
[2020-06-06] MEDS: NICOTINE 14MG/24HR PATCH TRANSDERM PRN (20:14)
[2020-06-06] MEDS: ATORVASTATIN 80 MG TAB PO SCH (20:14)
[2020-06-07] MEDS: HYDROcodone/APAP 10-325MG 1 EACH TAB PO PRN ×4 (05:19→23:04)
[2020-06-07] MEDS ORDERED: LIDOCAINE 1% INJ 10MG/ML (20 ML MDV) SQ ONE (06:00)
[2020-06-07] MEDS: PANTOPRAZOLE 40 MG TABLET PO SCH (07:33)
[2020-06-07] MEDS: GABAPENTIN 300 MG CAP PO SCH ×2 (07:33→20:42)
[2020-06-07] MEDS: METOPROLOL TARTRATE 25 MG TAB PO SCH ×2 (07:34→20:42)
[2020-06-07] MEDS: CLINDAMYCIN 600 MG in DEXTROSE 5% IN WATER 50 ML IVPB SCH ×4 (07:34→15:47)
[2020-06-07] MEDS: MULTIVITAMINS, THERA 1 EACH TAB PO SCH (07:34)
[2020-06-07] MEDS: HEPARIN SODIUM,PORCINE 5,000 UNIT/ML 1 ML VIAL SQ SCH ×2 (08:08→15:47)
--- NOTE | 2020-06-07 08:18 | P.CON ---
Consult Note - . Consult date: 06/07/20 Assessment/Plan:: Patient was seen at bedside today resting comfortably review chart no counter indication to the planned incision and drainage to be performed on the left foot. Reviewed consent patient executed same we discussed with patient the procedure and can and answered patient's questions best our ability regarding the procedure complications prognosis risk expectations expected outcome alternative care. Was performed before the procedure and we performed the incision and drainage. During the procedure was noted that there was purulent pocket of material abscessed at the metatarsophalangeal joint dorsal to the fifth metatarsal head left. Once the procedure was completed we discussed the results with the patient and plan on awaiting culture and sensitivities so we can ensure correct placement of antibiotics before patient is discharged. We will follow
--- NOTE | 2020-06-07 08:23 | P.OP ---
Date of Procedure: 06/07/20 Preoperative Diagnosis: Infection left foot Postoperative Diagnosis: Infection left foot Procedure(s) Performed: Incision and drainage infection left foot Anesthesia: local Surgeon: Alexis Sterling Condition: stable Disposition: no change Indications for Procedure: Patient has a infection of the left foot with a purulent abscess beneath the dermis overlying the fifth metatarsal head. Operative Findings: Consistent with clinical findings Description of Procedure: Patient was seen at bedside and we reviewed the procedure prior to procedure starting. We discussed with patient the procedure complications prognosis risk expectations and patient consented to this procedure. A timeout was performed prior to any surgical intervention. The left foot was then blocked in a Jones fashion about the fifth metatarsal proximal to the infection utilizing 9 mL of 2% Xylocaine plain. The left foot was then prepped and draped in the usual aseptic manner. Attention was directed to the dorsal aspect of the fifth metatarsophalangeal joint where 2 cm linear longitudinal incision was made centered over the MPJ. Incision was carried down into the superficial fascia at which time a purulent abscess was noted and drained. The purulent draining amounted to approximately 3 mL of purulent discharge. This was drained and then the area was copiously lavaged with sterile saline. Once the area was lavaged culture and sensitivities of the wound was taken and sent to pathology for bact erial sensitivity and identification. The wound was then again copiously 5 with sterile saline solution and then was dressed in a mildly compressive manner using 4 x 4's 3 inch Swetha and Kerlix. Patient tolerated the procedure well and was monitored at bedside and was stable. Will continue with current antibiotics and monitor patient until discharge.
[2020-06-07] MEDS: KETOROLAC 15 MG/ML 1 ML VIAL IVP PRN ×2 (09:16→15:59)
[2020-06-07 09:24] LABS: Acanthocytes 2+; HCT 40.6 % (37.2-46.3); HGB 12.6 g/dL (12.0-15.0); MCH 27.8 pg (27.0-32.0); MCV 89.6 fL (80.0-97.0); Platelet Count 124 X 10*3/uL (140-440); RBC 4.53 X 10*6/uL (4.10-5.20); RDW 15.9 % (11.5-14.5)
[2020-06-07] MEDS: ASPIRIN 325 MG TAB PO SCH (09:41)
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
[2020-06-07] MEDS: ATORVASTATIN 80 MG TAB PO SCH (20:42)
[2020-06-08] MEDS: HEPARIN SODIUM,PORCINE 5,000 UNIT/ML 1 ML VIAL SQ SCH ×2 (00:01→08:20)
[2020-06-08] MEDS: CLINDAMYCIN 600 MG in DEXTROSE 5% IN WATER 50 ML IVPB SCH ×4 (00:01→08:49)
[2020-06-08] MEDS: KETOROLAC 15 MG/ML 1 ML VIAL IVP PRN ×3 (00:09→12:16)
[2020-06-08] MEDS: NICOTINE 14MG/24HR PATCH TRANSDERM PRN (00:35)
[2020-06-08] MEDS: HYDROcodone/APAP 10-325MG 1 EACH TAB PO PRN ×2 (04:57→10:37)
[2020-06-08] MEDS: PANTOPRAZOLE 40 MG TABLET PO SCH (06:22)
[2020-06-08] MEDS: MULTIVITAMINS, THERA 1 EACH TAB PO SCH (08:20)
[2020-06-08] MEDS: METOPROLOL TARTRATE 25 MG TAB PO SCH (08:20)
[2020-06-08] MEDS: GABAPENTIN 300 MG CAP PO SCH (08:20)
[2020-06-08] MEDS: ASPIRIN 325 MG TAB PO SCH (08:50)
--- NOTE | 2020-06-08 10:55 | P.CON ---
Consult Note - . Consult date: 06/08/20 Assessment/Plan:: pt seen 24 hour s/p I&D LEFT FOOT PT STATES DIMINSED PAIN and discomfort voices no complaint the left foot is improved with decreased erythema edam and [ain minima; drainage from wound no purulence no pain with palpation neurovascular intact review of labs show gram positice cocci S/P I&D left foot exam review labs discuss findinds plan with patient orders to flush wound with sterile saline apply silvadene dsd to the left foot converet to appropriaite antibiotics once sensativety available and dischage then patient should follow up in office after discharge thank you for consult and allowing me to assist in the care of this patient
[2020-06-08 13:11] LABS: HCT 37.9 % (34.0-46.0); HGB 12.1 gm/dL (11.4-16.0); Hypochromasia Slight; MCH 28.1 pg (25.0-35.0); MCHC 31.9 g/dL (31.0-37.0); MCV 87.9 fL (80.0-100.0); Mean Platelet Volume 12.2; RBC 4.32 m/uL (3.80-5.40); RDW 14.9 % (11.5-15.5); WBC 9.5 k/uL (3.8-10.6)
[2020-06-08 13:31] LABS: Platelet Count 109 k/uL (150-450)
[2020-06-08 14:19] VITALS: BP 104/58; PULSE 65; RESP 18; TEMP 97.8
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
== END 2020-06-08 15:43 | disposition home or self-care (01) | DRG 603 ==
LOC: EC 15:04 → 6NMEDSUR 18:13 → OBSVTOIN 06-07 08:05 → 6PED 06-07 17:37
PROVIDERS: ADMIT Internal Medicine; ATTEND Internal Medicine
PROC: 0J9R3ZZ Drainage of Left Foot Subcutaneous Tissue and Fascia, Percutaneous Approach (ICD-10-PCS; principal; 2020-06-07)
DX: L03.116 Cellulitis of left lower limb (principal); K50.90 Crohn's disease, unspecified, without complications; D69.3 Immune thrombocytopenic purpura; L02.612 Cutaneous abscess of left foot; I25.10 Atherosclerotic heart disease of native coronary artery without angina pectoris; I10 Essential (primary) hypertension; F17.210 Nicotine dependence, cigarettes, uncomplicated; Z95.5 Presence of coronary angioplasty implant and graft; J44.9 Chronic obstructive pulmonary disease, unspecified; I73.9 Peripheral vascular disease, unspecified; G62.9 Polyneuropathy, unspecified; M19.90 Unspecified osteoarthritis, unspecified site; D72.829 Elevated white blood cell count, unspecified; D69.6 Thrombocytopenia, unspecified; E87.6 Hypokalemia; E78.5 Hyperlipidemia, unspecified
CPT/HCPCS: 36415; 80048; 80053; 83605; 85025; 85027; 87040; 87070; 87075; 87077; 87186; 87205; 87635

== ENCOUNTER → 2020-07-31 | Outpatient (CLI) | payer OTHER ==
[2020-07-31 13:56] VITALS: BP 113/74; PULSE 83; RESP 16; TEMP 99
--- NOTE | 2020-07-31 14:12 | P.PN ---
Subjective Progress Note Date: 07/31/20 This is a follow-up visit for this 54 years old female with a chronic history of severe neck pain and low back pain, she is diagnosed with lumbar spondylosis, and sacroiliitis , myofascial pain syndrome cervical area , previously we have done RFA of the medial branch lumbar area ,currently she is complaining of severe neck pain and shoulder blade, and she had low back pain ,the pain increases with any activity, she denies any fever or night sweats, she denies any change in the bowel movements or urination, and no motor or sensory deficits, she continued to use [place] 10/325 every 6 hours, and Neurontin 300 mg 2 times a day, she denies any side effect of the medication. Recently she had an infection in her fourth, and she's been on antibiotics Physical exam -Constitutiona : Cooperative , not in acute distress . -HEENT : nech : supple , no Lymphadenopathy , normal thyroid size . eyes : no ptosis , no icterus, no photophobia . - neurologic : Cranial nerve II to XII intact , no focal neurological deffecit . -psychatric : alert , oriented X 3 , appropriate affect , intact judgment and insight . -Lymphatic : no Lymphadenopathy . - musculoskeltal : Cervical Spine motor stregnth in the deltoid and biceps, normal right side , normal Left side motor stregnth biceps and the wrist extensors normal right side ,normal left side . motor stregnth in the triceps muscle . normal Right side , normal Left side deep tendon reflexes normal at the biceps , normal at Brachioradialis , normal at triceps. Multiple trigger points in the right shoulder area trapezius suprascapular infrascapular area Facet loading test positive bilaterally multiple trigger point identified in the cervical paraspinal muscles bilaterally and trapezius and rhomboid muscles bilaterally Lumber spine moter stegnth lower extremities ,thigh and legs 5/5 Right side , 5/5 Left side Assessment and plan= chronic low back pain secondary to lumbar degenerative disc disease , lumbar spondylosis with lumbar facet arthropathy . Sacroiliitis, Myofascial pain syndrome cervical paraspinal , rhomboid and trapezius muscles chronic and current use of high-risk medication (opioids) Patient denies any side effects of the current pain medication and the current treatment/medication helping the patient to do activity of daily living , Diagnoses, prognosis, treatment options, including but not limited to physical therapy, medication management, interventional therapies, and surgery, were discussed with the patient All the questions answered The narcotic consent was signed and patient agreed and understood the side effects and complications of opioid treatment. Patient signed the narcotic agreement, and was orally counseled, not to overuse, not to abuse, not to Divert , not tp sell pain medication, and to take it as prescribed only, Patient was counseled not to drive or operate heavy equipment while using narcotic medication, and advised not to use alcohol or any Illicit drugs while using the narcotis. understanding that lack of compliance with any of the above instructions, will likely to cause discharge from, the pain service, not to renew his narcotic prescriptions [employer] Reviwed and it was apropriate . urine drug screen ordered reviewed and it was appropriate Medication managements= patient will be given prescription refills for [place] 10/325 by mouth every 6 hours space 120 with 2 refill, Neurontin 300 mg 2 tablets BID 2 refill. Patient given prescription refill for her medication only during the wintertime (had a hard time transportation using the wintertime it takes her 3 hours to come to the pain clinic) She has to take 3 buses to come from [facility] house to [facility], and it would be very hard for her to come during the wintertime Interventions= showing good candidate for trigger point injections , Time with Patient: Less than 30 PQRS Measure Charge Sheet Measure #130: Documentation of Current Meds in Medical Chart: Patient's medications documented in chart Measure #226: Tobacco Use: Screen & Cessation Intervention: Pt screened for tobacco use AND intervention given Measure #111: Pneumonia Vaccination: Pneumococcal vaccine administered or previously received Measure #47: Advance Care Plan: Advance care planning discussed & documented, pt chose/unable to give Measure #412: Opioid Treatment Agreement: Documented signed opioid trtmnt agreemnt min once during opioid trtmnt Measure #408: Opioid Therapy Follow-up Evaluation: Patient had f/u eval minimum every 3 months during opioid therapy Measure #317: Preventitive Care & Scrn High Bld Press & F/U: Normal blood pressure, f/u not required Measure #128: Body Mass Index (BMI) Screening & Follow-up: BMI documented ABOVE normal parameters - f/u documented Measure #131: Pain Assessment & Follow-up: Pain positive & plan documented, Follow-up scheduled Measure #431: Unhealthy Alcohol Use Preventative Care & Scrn: Patient not identified as an unhealthy alcohol user PQRS Narrative: Objective - Vital Signs Vital signs: Vital Signs Temp 99.0 F 07/31/20 13:54 Pulse 83 07/31/20 13:54 Resp 16 07/31/20 13:54 BP 113/74 07/31/20 13:54 Pulse Ox 99 07/31/20 13:54 Intake & Output 07/30/20 07/31/20 07/31/20 18:59 06:59 18:59 Weight 79.379 kg
== END ==
LOC: PNWHC3 13:07
PROVIDERS: ATTEND Specialist
DX: M51.36 Other intervertebral disc degeneration, lumbar region (principal); M47.816 Spondylosis without myelopathy or radiculopathy, lumbar region; M46.1 Sacroiliitis, not elsewhere classified; G89.29 Other chronic pain; M79.18 Myalgia, other site; Z79.891 Long term (current) use of opiate analgesic; F17.200 Nicotine dependence, unspecified, uncomplicated
CPT/HCPCS: 99211

== ENCOUNTER 2020-08-07 08:14 | Emergency (ER) | payer OTHER ==
[2020-08-07 08:19] VITALS: RESP 16
--- NOTE | 2020-08-07 09:00 | XR ---
EXAMINATION TYPE: XR knee complete RT DATE OF EXAM: 08/07/2020 CLINICAL HISTORY: pain TECHNIQUE: Three views of the right knee are obtained. COMPARISON: None. FINDINGS: There is no acute fracture/dislocation. The tri-compartment joint spaces appear within no rmal limits. The overlying soft tissue appears unremarkable. IMPRESSION: There is no acute fracture or dislocation.ICD 10 NO FRACTURE, INITIAL EVALUATION
--- NOTE | 2020-08-07 09:18 | US ---
EXAMINATION TYPE: US venous doppler duplex LE RT DATE OF EXAM: 08/07/2020 8:30 AM COMPARISON: CLINICAL HISTORY: pain. Patient states feeling right knee pop. No swelling. No redness. No hx dvt. SIDE PERFORMED: Right TECHNIQUE: The lower extremity deep venous system is examined utilizing real time linear array sonog kalina with graded compression, doppler sonography and color-flow sonography. VESSELS IMAGED: Common Femoral Vein Deep Femoral Vein Greater Saphenous Vein * Femoral Vein Popliteal Vein Small Saphenous Vein * Proximal Calf Veins (* superficial vessels) Right Leg: Negative for DVT IMPRESSION: No evidence for DVT at this time.
--- NOTE | 2020-08-07 09:28 | ED ---
General Adult HPI - General Chief complaint: Extremity Injury, Lower Stated complaint: R Knee Pain Time Seen by Provider: 08/07/20 08:20 Source: family, RN notes reviewed Mode of arrival: wheelchair Limitations: no limitations - History of Present Illness Initial comments: 55-year-old female with a Located past medical history presents to the emergency room for right knee pain. Patient reports that about 3 weeks ago she was stepping up onto a bus when she started to have right knee pain. States that it has been persistent ever since. He states she did have a few days. Improved but she started to walk and use it again that she has pain in the posterior knee. Patient states she does take pain medications for her that and that did seem to help. Patient denies fevers or chills.Patient has no other complaints at this time including shortness of breath, chest pain, abdominal pain, nausea or vomiting, headache, or visual changes. - Related Data Home Medications Medication Instructions Recorded Confirmed Multivitamins, Thera [Multivitamin 1 tab PO DAILY 10/23/13 07/30/20 (formulary)] Omeprazole [PriLOSEC] 40 mg PO AC-BRKFST 04/16/15 07/30/20 Aspirin EC [Ecotrin] 325 mg PO DAILY 07/17/16 07/30/20 Nicotine 14Mg/24Hr Patch [Habitrol] 1 patch TRANSDERM DAILY PRN 05/02/20 07/30/20 Albuterol Sulfate [Proair Hfa] 2 puff INHALATION RT-QID PRN 06/04/20 07/30/20 Neomycin/Bacitracin/Polymyxinb 1 applic TOPICAL DAILY 07/30/20 07/30/20 [Neosporin Ointment] Tussin Dm 1 dose PO DAILY PRN 07/30/20 07/30/20 Previous Rx's Medication Instructions Recorded Atorvastatin [Lipitor] 80 mg PO HS #30 tab 02/22/14 Metoprolol Tartrate [Lopressor] 25 mg PO BID #60 tab 02/22/14 Nitroglycerin Sl Tabs [Nitrostat] 0.4 mg SUBLINGUAL Q5M PRN #25 tab 02/22/14 Gabapentin [Neurontin] 300 mg PO BID #60 cap 07/31/20 HYDROcodone/APAP 10-325MG [Cope 1 tab PO Q6HR PRN 30 Days #120 tab 07/31/20 10-325] HYDROcodone/APAP 10-325MG [Cope 1 tab PO Q6HR PRN 30 Days #120 tab 07/31/20 10-325] HYDROcodone/APAP 10-325MG [Cope 1 tab PO Q6HR PRN 30 Days #120 tab 07/31/20 10-325] Allergies Allergy/AdvReac Type Severity Reaction Status Date / Time ibuprofen [From Motrin] Allergy Anaphylaxis Verified 08/07/20 08:15 /Swelling amoxicillin trihydrate AdvReac Nausea & Verified 08/07/20 08:15 [From Augmentin] Vomiting potassium clavulanate AdvReac Nausea & Verified 08/07/20 08:15 [From Augmentin] Vomiting SALMON Allergy Anaphylaxis Uncoded 08/07/20 08:15 Review of Systems ROS Statement: Those systems with pertinent positive or pertinent negative responses have been documented in the HPI. ROS Other: All systems not noted in ROS Statement are negative. Past Medical History Past Medical History: Coronary Artery Disease (CAD), Chest Pain / Angina, COPD, Fibromyalgia, GERD/Reflux, Hypertension, Myocardial Infarction (PA), Osteoarthritis (OA), Pneumonia, Vascular Disorder Additional Past Medical History / Comment(s): Crohns, Colitis. Osteoporosis. Chronic back pain & neck pain, DDD, spinal stenosis, nighttime leakage of urine, PAD, old hx kidney stone X1. Last Myocardial Infarction Date:: 02/2014 History of Any Multi-Drug Resistant Organisms: MRSA Date of last positivie culture/infection: 2009 est MDRO Source:: abdominal at Heparin injection site Past Surgical History: Appendectomy, Bowel Resection, Heart Catheterization With Stent, Joint Replacement, Orthopedic Surgery, Tonsillectomy Additional Past Surgical History / Comment(s): 2 Small Bowel Resections D/T Crohns; LEFT TOTAL KNEE REPLACEMENT THEN A REVISION-HAS TITANIUM; Bilateral carpal tunnel, Trigger Fingers/thumb x 6, total of 3 cardiac stents, pain procedures Past Anesthesia/Blood Transfusion Reactions: Motion Sickness Date of Last Stent Placement:: 04/2014 Past Psychological History: No Psychological Hx Reported Smoking Status: Light tobacco smoker Past Alcohol Use History: None Reported Past Drug Use History: None Reported - Past Family History Father Family Medical History: Cancer Additional Family Medical History / Comment(s): LUNG CANCER Mother Additional Family Medical History / Comment(s): WHEN PT WAS AGE 14 NOT SURE WHY, HX OF MENTAL HEALTH ISS General Exam Limitations: no limitations General appearance: alert, in no apparent distress Head exam: Present: atraumatic, normocephalic, normal inspection Eye exam: Present: normal appearance, PERRL, EOMI. Absent: scleral icterus, conjunctival injection, periorbital swelling ENT exam: Present: normal exam, mucous membranes moist Neck exam: Present: normal inspection. Absent: tenderness, meningismus, lymphadenopathy Respiratory exam: Present: normal lung sounds bilaterally. Absent: respiratory distress, wheezes, rales, rhonchi, stridor Cardiovascular Exam: Present: regular rate, normal rhythm, normal heart sounds. Absent: systolic murmur, diastolic murmur, rubs, gallop, clicks Extremities exam: Present: normal capillary refill (Capillary refill less than 2 seconds, DP pulse 2+ right lower extremity), joint swelling (Minimal edema noted to the right knee, no erythema or increased warmth.), other (Sensation intact right lower extremity.). Absent: full ROM ( 90 flexion of the right knee, full extension), tenderness (No significant tenderness noted to the right knee), calf tenderness Course Vital Signs 08/07/20 08:15 Temperature 98.2 F Pulse Rate 84 Respiratory 16 Rate Blood Pressure 131/78 O2 Sat by Pulse 96 Oximetry Medical Decision Making - Medical Decision Making Vitals are stable. HPI and physical exam as documented. X-ray shows no acute fracture or dislocation. Ultrasound of the right lower extremity shows no evidence for DVT. At this time patient's knee was wrapped with an Ceasar wrap. She was referred to orthopedics. She is ambulatory on the knee without difficulty. She will return here for any worsening symptoms. Disposition Clinical Impression: Knee pain, right Disposition: HOME SELF-CARE Condition: Good Instructions (If sedation given, give patient instructions): Knee Sprain (ED) Additional Instructions: Please take your pain medication for pain. Use Ceasar wrap. Follow-up with orthopedics. You may need an MRI. Return to the emergency room for any worsening symptoms. Is patient prescribed a controlled substance at d/c from ED?: No Referrals: Ernesto Carolina [Primary Care Provider] - 1-2 days Reg Caldera MD [STAFF PHYSICIAN] - 1-2 days Time of Disposition: 09:28
[2020-08-07 09:39] VITALS: BP 132/79; PULSE 78; TEMP 98.4
== END 2020-08-07 09:38 | disposition home or self-care (01) ==
LOC: EC 08:14
DX: M25.561 Pain in right knee (principal); M79.89 Other specified soft tissue disorders; I25.10 Atherosclerotic heart disease of native coronary artery without angina pectoris; J44.9 Chronic obstructive pulmonary disease, unspecified; M79.7 Fibromyalgia; I10 Essential (primary) hypertension; M19.90 Unspecified osteoarthritis, unspecified site; I25.2 Old myocardial infarction; G89.29 Other chronic pain; M54.2 Cervicalgia; F17.200 Nicotine dependence, unspecified, uncomplicated; Z79.51 Long term (current) use of inhaled steroids; Z79.899 Other long term (current) drug therapy
CPT/HCPCS: 99284

== ENCOUNTER 2020-09-24 12:17 | Day surgery (SDC) | payer OTHER ==
[2020-09-20 15:42] VITALS: BMI 30.9
[2020-09-24 13:12] VITALS: RESP 16; TEMP 97.7
[2020-09-24] MEDS ORDERED: ROPIVACAINE 5MG/ML 20ML VIAL ONE (13:31)
[2020-09-24] MEDS ORDERED: TRIAMCINOLONE ACETONIDE 40 MG/ML 1 ML VIAL ONE (13:31)
--- NOTE | 2020-09-24 13:38 | P.PCN ---
Date of Procedure: 09/24/20 Surgeon: Angelita Beth Pathology: none sent Condition: stable Disposition: PACU Description of Procedure: Procedure= trigger point injection cervical paraspinal muscles, trapezius muscles, supraspinatus muscles Rt side Preoperative diagnosis=1- myofascial pain syndrome 2-cervical spondylosis Postoperative diagnosis=Same as preop Diagnosis . Complication = none Condition= stable Anesthesia= none Indication for the procedure= patient complaining of severe neck and shoulder pain . multiple trigger point identified in the cervical paraspinal , supraspinatus and trapezius muscles, procedure risk and benefits discussed with the patient she agreed to the preceding patient taken to the procedure room placed in sitting position the neck and shoulder blade area prepped with chlorhexidine 3 done under sterile technique using 25-gauge needle, 10 mL of ropivacaine 0.5% mixed with 20 mg of Kenalog, and 1 mL of the mixture injected at each trigger point after negative aspiration under no paresthesia during the injection. patient tolerated the procedure well without any complications, and patient will follow up in the pain clinic in a few weeks
[2020-09-24 13:47] VITALS: BP 101/66; PULSE 69
== END 2020-09-24 14:25 | disposition home or self-care (01) ==
LOC: ORPAIN 12:17
PROVIDERS: ATTEND Anesthesiology
DX: M79.18 Myalgia, other site (principal); M47.812 Spondylosis without myelopathy or radiculopathy, cervical region; I25.10 Atherosclerotic heart disease of native coronary artery without angina pectoris; Z88.6 Allergy status to analgesic agent; Z88.0 Allergy status to penicillin; N95.9 Unspecified menopausal and perimenopausal disorder; Z79.82 Long term (current) use of aspirin
CPT/HCPCS: 20553; J3301; J2795

== ENCOUNTER → 2020-10-18 | Outpatient (CLI) | payer OTHER ==
--- NOTE | 2020-10-21 13:37 | MM ---
Reason for exam: screening (asymptomatic). Last mammogram was performed 7 years and 9 months ago. History: Patient is postmenopausal. Physical Findings: A clinical breast exam by your physician is recommended on an annual basis and results should be correlated with mammographic findings. MG 3D Screening Mammo W/Cad Bilateral CC and MLO view(s) were taken. Prior study comparison: January 31, 2013, bilateral digital screening mammo w/CAD. June 29, 2006, bilateral screening mammogram w/CAD. There are scattered fibroglandular densities. ASSESSMENT: Negative, BI-RAD 1 RECOMMENDATION: Routine screening mammogram of both breasts in 1 year.
== END | disposition home or self-care (01) ==
LOC: RADMAMWWP 13:14
PROVIDERS: ATTEND Family Medicine
DX: Z12.31 Encounter for screening mammogram for malignant neoplasm of breast (principal); Z78.0 Asymptomatic menopausal state
CPT/HCPCS: 77063; 77067

== ENCOUNTER → 2020-10-23 | Outpatient (CLI) | payer OTHER ==
[2020-10-23 12:48] VITALS: BP 139/81; PULSE 87; RESP 18; TEMP 98.3
--- NOTE | 2020-10-23 12:53 | P.PAINPG ---
Subjective Progress Note Date: 10/23/20 This is a follow-up visit for this 54 years old female with a chronic history of severe neck pain and low back pain, she is diagnosed with lumbar spondylosis, and sacroiliitis , myofascial pain syndrome cervical area , previously we have done RFA of the medial branch lumbar area. In the last visit she had neck and shoulder pain specifically on the right side as well as low back pain. We refilled her medications which include Botkins tens every 6 hours Neurontin 300 mg 3 times a day. We also did a right cervical paraspinal trigger point injections for her. She is here for follow-up today. I'll she feels the trigger point injections helped her about 50%. She thinks it was pretty helpful and would consider repeating it in the future. She would like to repeat epidural steroid injection that she last had in 2019 and she said that was helpful for her. She is about getting a stress test as well not on any blood thinners but otherwise doing well. Physical exam -Constitutiona : Cooperative , not in acute distress . -HEENT : nech : supple , no Lymphadenopathy , normal thyroid size . eyes : no ptosis , no icterus, no photophobia . - neurologic : Cranial nerve II to XII intact , no focal neurological deffecit . -psychatric : alert , oriented X 3 , appropriate affect , intact judgment and insight . -Lymphatic : no Lymphadenopathy . - musculoskeltal : Cervical Spine motor stregnth in the deltoid and biceps, normal right side , normal Left side motor stregnth biceps and the wrist extensors normal right side ,normal left side . motor stregnth in the triceps muscle . normal Right side , normal Left side deep tendon reflexes normal at the biceps , normal at Brachioradialis , normal at triceps. Multiple trigger points in the right shoulder area trapezius suprascapular infrascapular area Facet loading test positive bilaterally Lumber spine moter stegnth lower extremities ,thigh and legs 5/5 Right side , 5/5 Left side. Pain in left low back > right, some decreased sensesation over distal lateral extremities Assessment and plan= chronic low back pain secondary to lumbar degenerative disc disease , lumbar spondylosis with lumbar facet arthropathy . Sacroiliitis, Myofascial pain syndrome cervical paraspinal , rhomboid and trapezius muscles chronic and current use of high-risk medication (opioids) Patient denies any side effects of the current pain medication and the current treatment/medication helping the patient to do activity of daily living , Diagnoses, prognosis, treatment options, including but not limited to physical therapy, medication management, interventional therapies, and surgery, were discussed with the patient All the questions answered The narcotic consent was signed and patient agreed and understood the side effects and complications of opioid treatment. Patient signed the narcotic agreement, and was orally counseled, not to overuse, not to abuse, not to Divert , not tp sell pain medication, and to take it as prescribed only, Patient was counseled not to drive or operate heavy equipment while using narcotic medication, and advised not to use alcohol or any Illicit drugs while using the narcotis. understanding that lack of compliance with any of the above instructions, will likely to cause discharge from, the pain service, not to renew his narcotic prescriptions MAPS Reviwed and it was apropriate . urine drug screen ordered reviewed and it was appropriate Medication managements= patient will be given prescription refills for Botkins 10/325 by mouth every 6 hours #120 with 2 refill, Neurontin 300 mg 2 tablets BID 2 refill. WE give her 3 months as she has difficulty with transportation. Schedule for L4-5 DAVE , I have spent 27 minutes on review of the records, review of the imaging available, [id number] interaction with the patient, medication management, follow-up care coordination and record creation. PQRS Measure Charge Sheet Measure #130: Documentation of Current Meds in Medical Chart: Patient's medications documented in chart Measure #226: Tobacco Use: Screen & Cessation Intervention: Pt screened for tobacco use AND intervention given Measure #111: Pneumonia Vaccination: Pneumococcal vaccine administered or previously received Measure #47: Advance Care Plan: Advance care planning discussed & documented, pt chose/unable to give Measure #412: Opioid Treatment Agreement: Documented signed opioid trtmnt agreemnt min once during opioid trtmnt Measure #408: Opioid Therapy Follow-up Evaluation: Patient had f/u eval minimum every 3 months during opioid therapy Measure #317: Preventitive Care & Scrn High Bld Press & F/U: Normal blood pressure, f/u not required Measure #128: Body Mass Index (BMI) Screening & Follow-up: BMI documented ABOVE normal parameters - f/u documented Measure #131: Pain Assessment & Follow-up: Pain positive & plan documented, Follow-up scheduled Measure #431: Unhealthy Alcohol Use Preventative Care & Scrn: Patient not identified as an unhealthy alcohol user PQRS Narrative: Objective - Vital Signs Vital signs: Intake & Output 10/21/20 10/22/20 10/22/20 18:59 06:59 18:59 Weight 78.471 kg PQRS Measure Charge Sheet PQRS Narrative: Smoking Status Current every day smoker Narcotic Agreement Date Signed 10/25/19 Pain Intensity [Back] 6 Scale Used Numeric (1 - 10) Hx Alcohol Use (MH) No Home Medications: Ambulatory Orders Multivitamins, Thera [Multivitamin (formulary)] 1 tab PO DAILY 10/23/13 Atorvastatin [Lipitor] 80 mg PO HS #30 tab 02/22/14 Metoprolol Tartrate [Lopressor] 25 mg PO BID #60 tab 02/22/14 Nitroglycerin Sl Tabs [Nitrostat] 0.4 mg SUBLINGUAL Q5M PRN #25 tab 02/22/14 Omeprazole [PriLOSEC] 40 mg PO AC-BRKFST 04/16/15 Aspirin EC [Ecotrin] 325 mg PO DAILY 07/17/16 Nicotine 14Mg/24Hr Patch [Habitrol] 1 patch TRANSDERM DAILY PRN 05/02/20 Albuterol Sulfate [Proair Hfa] 2 puff INHALATION RT-QID PRN 06/04/20 Tussin Dm 1 dose PO DAILY PRN 07/30/20 Gabapentin [Neurontin] 300 mg PO BID #60 cap 10/23/20 HYDROcodone/APAP 10-325MG [Botkins 10-325] 1 tab PO Q6HR PRN 30 Days #120 tab 10/23/20 HYDROcodone/APAP 10-325MG [Botkins 10-325] 1 tab PO Q6HR PRN 30 Days #120 tab 10/23/20 HYDROcodone/APAP 10-325MG [Botkins 10-325] 1 tab PO Q6HR PRN 30 Days #120 tab 10/23/20 Controlled Substance Measures - Controlled Substance Measures Is patient prescribed a controlled substance at discharge?: Yes When asked, does pt state using other controlled substances?: No If prescribed controlled substance>3 days was MAPS reviewed?: Yes If Rx opioid, was Start Talking consent form obtained?: Yes If opioid is for acute pain is fill amount 7 days or less?: No Was information provided regarding opioid addiction?: Yes
== END ==
LOC: PNWHC3 12:16
PROVIDERS: ATTEND Anesthesiology
DX: M51.36 Other intervertebral disc degeneration, lumbar region (principal); M47.816 Spondylosis without myelopathy or radiculopathy, lumbar region; M46.1 Sacroiliitis, not elsewhere classified; M79.18 Myalgia, other site; Z79.891 Long term (current) use of opiate analgesic; F17.200 Nicotine dependence, unspecified, uncomplicated; Z88.6 Allergy status to analgesic agent; Z88.1 Allergy status to other antibiotic agents; Z91.013 Allergy to seafood
CPT/HCPCS: 99211

== ENCOUNTER 2020-12-03 12:18 | Day surgery (SDC) | payer OTHER ==
[2020-11-28 10:56] VITALS: BMI 30.4
[2020-12-03 12:49] VITALS: RESP 16; TEMP 97.7
[2020-12-03] MEDS ORDERED: methylPREDNISolone ACETATE 40 MG/ML 1 ML VIAL ONE (13:08)
[2020-12-03] MEDS ORDERED: IOPAMIDOL M200 10 ML VIAL ONE (13:08)
--- NOTE | 2020-12-03 13:20 | P.PCN ---
Date of Procedure: 12/03/20 Procedure(s) Performed: PREOPERATIVE DIAGNOSIS: 1- Lumbar radiculopathy 2-Lumbar spondylosis with Facet arthropathy without myelopathy POSTOPERATIVE DIAGNOSIS: 1-Lumber radiculopathy 2-Lumbar spondylosis with Facet arthropathy without myelopathy. PROCEDURE 1. Lumbar epidural steroid injection under fluoroscopic guidance at the L4-5 level. (Fluoroscopy imaging was available in radiology department) 2. Lumbar epidurogram. ANESTHESIA: Local with 1% lidocaine 3 ml only. EBL: Minimal PROCEDURE INDICATION: The patient with low back pain and radiculitis symptoms unresponsive to conservative treatment. Fluoroscopy was used to optimize visualization of the needle placement and to maximize safety. PROCEDURE DESCRIPTION / TECHNIQUE: The patient was seen and identified in the preoperative area. Risks, benefits, complications including but not limited to infections ,bleeding ,allergic reaction to the medications ,nerve damage and not complete pain releife , and alternatives were discussed with the patient. The patient agreed to proceed with the procedure and signed the consent. IV was started, and vital signs were stable. Patient was taken to the OR and time out was completed. The patient was placed in the prone position on procedure table and a pillow was placed under the abdomen to reduce lumbar lordosis. The lumbosacral area was prepped and draped in the usual sterile fashion.ere closely monitored during the procedure. Vital signs was monitered during the entire procedure. Using anterior-posterior fluoroscopy, the L4-5 interlaminar space was identified and the skin over this site was marked and then infiltrated with 1% lidocaine subcutaneously. Subsequently, a 20-gauge Tuohy epidural needle was inserted and advanced toward the epidural space using the ``Loss of resistance technique and guided by AP and lateral fluoroscopy. The correct needle position in the epidural space was verified with the injection of 2 mL of the water soluble contrast dye Isovue 200 contrast and observing an excellent epidurogram with the epidural spread of the dye, after negative aspiration for blood and CSF and in the absence of paresthesias. Again after negative aspiration, a 6 ml mixture containing 80 mg of Depo-medrol , and 2 ml of preservative free Normal Saline, and 2 ml of preservative free lidocaine 1% solution was injected and a washout of epidurogram was seen. Needle was withdrawn intact, skin was cleansed, and bandages were applied. COMPLICATIONS: None DISPOSITION / PLANS: The patient was placed in a supine position and transferred to the recovery area in a stable condition for observation. There was no evidence of lower extremity motor or sensory deficit after the procedure. Patient was discharged from the recovery room after meeting discharge criteria. Home discharge instructions were given to the patient by the staff. The patient was reexamined prior to discharge. The patient will schedule a follow up in the clinic in 2-4 weeks.
--- NOTE | 2020-12-03 13:37 | FL ---
Fluoroscopy INDICATION: Pain FINDINGS: Fluoroscopy time: 5 seconds. Images obtained: 1. IMPRESSIONS: 1. Documentation of fluoroscopy.
[2020-12-03 13:48] VITALS: BP 103/58; PULSE 62
== END 2020-12-03 13:58 | disposition home or self-care (01) ==
LOC: ORPAIN 12:18
PROVIDERS: ATTEND Specialist
DX: M47.26 Other spondylosis with radiculopathy, lumbar region (principal)
CPT/HCPCS: 62323; J1030; Q9966

== ENCOUNTER 2020-12-19 11:27 | Emergency (ER) | payer OTHER ==
--- NOTE | 2020-12-19 11:48 | ED ---
General Adult HPI - General Chief complaint: Nausea/Vomiting/Diarrhea Stated complaint: Nausea/Vomiting/Weakness Time Seen by Provider: 12/19/20 11:43 Source: patient Mode of arrival: ambulatory Limitations: no limitations - History of Present Illness Initial comments: 55-year-old female with a complicated past medical history including Crohn's disease presents to the emergency room for a chief complaint of abdominal pain and nausea vomiting. Patient states for the past few months she has had intermittent pain and vomiting. However over the past week it has worsened. States the pain is all over in her abdomen. Patient she is vomiting up anything she eats or drinks. Patient states she wants to make sure it is not her Crohn's. She is not currently on any immunosuppressants although has been in the past. She also just developed congestion and a cough.Patient has no other complaints at this time including shortness of breath, chest pain, headache, or visual changes. - Related Data Home Medications Medication Instructions Recorded Confirmed Multivitamins, Thera [Multivitamin 1 tab PO DAILY 10/23/13 11/28/20 (formulary)] Omeprazole [PriLOSEC] 40 mg PO AC-BRKFST 04/16/15 11/28/20 Aspirin EC [Ecotrin] 325 mg PO DAILY 07/17/16 11/28/20 Nicotine 14Mg/24Hr Patch [Habitrol] 1 patch TRANSDERM DAILY PRN 05/02/20 11/28/20 Albuterol Sulfate [Proair Hfa] 2 puff INHALATION RT-QID PRN 06/04/20 11/28/20 Previous Rx's Medication Instructions Recorded Atorvastatin [Lipitor] 80 mg PO HS #30 tab 02/22/14 Metoprolol Tartrate [Lopressor] 25 mg PO BID #60 tab 02/22/14 Nitroglycerin Sl Tabs [Nitrostat] 0.4 mg SUBLINGUAL Q5M PRN #25 tab 02/22/14 Gabapentin [Neurontin] 300 mg PO BID #60 cap 10/23/20 HYDROcodone/APAP 10-325MG [[place] 1 tab PO Q6HR PRN 30 Days #120 tab 10/23/20 10-325] Ondansetron [Zofran ODT] 4 mg PO Q8HR PRN #15 tab 12/19/20 predniSONE 50 mg PO DAILY #4 tablet 12/19/20 Allergies Allergy/AdvReac Type Severity Reaction Status Date / Time ibuprofen [From Motrin] Allergy Anaphylaxis Verified 12/19/20 11:36 /Swelling amoxicillin trihydrate AdvReac Nausea & Verified 12/19/20 11:36 [From Augmentin] Vomiting potassium clavulanate AdvReac Nausea & Verified 12/19/20 11:36 [From Augmentin] Vomiting SALMON Allergy Anaphylaxis Uncoded 12/19/20 11:36 Review of Systems ROS Statement: Those systems with pertinent positive or pertinent negative responses have been documented in the HPI. ROS Other: All systems not noted in ROS Statement are negative. Past Medical History Past Medical History: Coronary Artery Disease (CAD), Chest Pain / Angina, COPD, Fibromyalgia, GERD/Reflux, Hypertension, Myocardial Infarction ([place]), Musculoskeletal Disorder, Osteoarthritis (OA), Pneumonia, Vascular Disorder Additional Past Medical History / Comment(s): Crohns, Colitis. Osteoporosis. Chronic back pain & neck pain, DDD, spinal stenosis, nighttime leakage of urine, PAD, old hx kidney stone X1, Neuropathy in lower legs. Last Myocardial Infarction Date:: 02/2014 History of Any Multi-Drug Resistant Organisms: MRSA Date of last positivie culture/infection: 2009 est MDRO Source:: abdominal at Heparin injection site Past Surgical History: Appendectomy, Bowel Resection, Heart Catheterization With Stent, Joint Replacement, Orthopedic Surgery, Tonsillectomy Additional Past Surgical History / Comment(s): 2 Small Bowel Resections D/T Crohns. LEFT TOTAL KNEE REPLACEMENT, THEN A REVISION-HAS TITANIUM. Bilateral carpal tunnel, Trigger Fingers/Thumb X6, total of 3 cardiac stents, pain procedures. Past Anesthesia/Blood Transfusion Reactions: Motion Sickness Date of Last Stent Placement:: 04/2014 Past Psychological History: No Psychological Hx Reported Smoking Status: Light tobacco smoker - Past Family History Father Family Medical History: Cancer Additional Family Medical History / Comment(s): LUNG CANCER Mother Additional Family Medical History / Comment(s): WHEN PT WAS AGE 14 NOT SURE WHY, HX OF MENTAL HEALTH ISS General Exam Limitations: no limitations General appearance: alert, in no apparent distress Head exam: Present: atraumatic Eye exam: Present: normal appearance, PERRL, EOMI. Absent: scleral icterus, conjunctival injection ENT exam: Present: normal exam, mucous membranes moist Neck exam: Present: normal inspection, full ROM. Absent: tenderness Respiratory exam: Present: normal lung sounds bilaterally. Absent: respiratory distress, wheezes Cardiovascular Exam: Present: regular rate, normal rhythm, normal heart sounds GI/Abdominal exam: Present: soft, tenderness (generalized upper abdominal tenderness), normal bowel sounds. Absent: distended Course Vital Signs 12/19/20 12/19/20 11:32 11:57 Temperature 98.0 F 99.4 F Pulse Rate 84 Respiratory 19 Rate Blood Pressure 132/89 O2 Sat by Pulse 97 Oximetry Medical Decision Making - Medical Decision Making Vitals are stable. Patient is well-appearing. CBC does show leukocytosis which is likely secondary to vomiting. CMP unremarkable. Urinalysis does not show any evidence of infection. CT abdomen and pelvis was obtained which shows no bowel obstruction. Her so proximal some old colectomy noted. There is a mild to moderate diffuse uncomplicated colitis that cannot be excluded however could be related to poor distention. There is also an abnormal prominence the central hypodense endometrial stripe that could reflect trapped fluid from cervical stenosis but and postmenopausal female abnormal thickening or neoplasm cannot be excluded. Nonemergent follow-up advised. At this time patient was given a dose of IV steroids. She does not have any antiemetics at home so can be placed on Zofran. Patient symptoms are controlled with pain medication as well as nausea medication. No vomiting in the emergency room. At this time we try outpatient steroids and Zofran. If symptoms continue to worsen she will need to return for possible admission. Chest x-ray and coronavirus as are also obtained which were both negative given cough. Patient can be decision to follow-up with primary care. Will return here for any worsening symptoms. - Lab Data Result diagrams: 12/19/20 12:11 12/19/20 12:11 Lab Results 12/19/20 12/19/20 12/19/20 Range/Units 12:11 12:11 12:11 WBC 15.0 H (3.8-10.6) k/uL RBC 5.12 (3.80-5.40) m/uL Hgb 14.8 (11.4-16.0) gm/dL Hct 43.0 (34.0-46.0) % MCV 84.0 (80.0-100.0) fL MCH 29.0 (25.0-35.0) pg MCHC 34.5 (31.0-37.0) g/dL RDW 15.5 (11.5-15.5) % Plt Count 160 (150-450) k/uL MPV 11.6 Neutrophils % 70 % Lymphocytes % 23 % Monocytes % 4 % Eosinophils % 1 % Basophils % 0 % Neutrophils # 10.6 H (1.3-7.7) k/uL Lymphocytes # 3.4 (1.0-4.8) k/uL Monocytes # 0.6 (0-1.0) k/uL Eosinophils # 0.1 (0-0.7) k/uL Basophils # 0.0 (0-0.2) k/uL Manual Slide Review Performed Sodium 138 (137-145) mmol/L Potassium 3.8 (3.5-5.1) mmol/L Chloride 107 (98-107) mmol/L Carbon Dioxide 18 L (22-30) mmol/L Anion Gap 13 mmol/L BUN 11 (7-17) mg/dL Creatinine 0.55 (0.52-1.04) mg/dL Est GFR (CKD-EPI)AfAm >90 (>60 ml/min/1.73 sqM) Est GFR (CKD-EPI)NonAf >90 (>60 ml/min/1.73 sqM) Glucose 104 H (74-99) mg/dL Plasma Lactic Acid Slick (0.7-2.0) mmol/L Calcium 10.1 (8.4-10.2) mg/dL Total Bilirubin 0.7 (0.2-1.3) mg/dL AST 31 (14-36) U/L ALT 22 (4-34) U/L Alkaline Phosphatase 49 (38-126) U/L Total Protein 7.5 (6.3-8.2) g/dL Albumin 4.6 (3.5-5.0) g/dL Lipase 176 (23-300) U/L Urine Color Yellow Urine Appearance Cloudy H (Clear) Urine pH 5.5 (5.0-8.0) Ur Specific [place] 1.028 (1.001-1.035) Urine Protein 1+ H (Negative) Urine Glucose (UA) Negative (Negative) Urine Ketones Trace H (Negative) Urine Blood Negative (Negative) Urine Nitrite Negative (Negative) Urine Bilirubin Negative (Negative) Urine Urobilinogen 2.0 (<2.0) mg/dL Ur Leukocyte Esterase Negative (Negative) Urine RBC 1 (0-5) /hpf Urine WBC 1 (0-5) /hpf Ur Squamous Epith Cells 1 (0-4) /hpf Urine Mucus Few H (None) /hpf Coronavirus (PCR) (Not Detectd) 12/19/20 12/19/20 Range/Units 12:11 14:14 WBC (3.8-10.6) k/uL RBC (3.80-5.40) m/uL Hgb (11.4-16.0) gm/dL Hct (34.0-46.0) % MCV (80.0-100.0) fL MCH (25.0-35.0) pg MCHC (31.0-37.0) g/dL RDW (11.5-15.5) % Plt Count (150-450) k/uL MPV Neutrophils % % Lymphocytes % % Monocytes % % Eosinophils % % Basophils % % Neutrophils # (1.3-7.7) k/uL Lymphocytes # (1.0-4.8) k/uL Monocytes # (0-1.0) k/uL Eosinophils # (0-0.7) k/uL Basophils # (0-0.2) k/uL Manual Slide Review Sodium (137-145) mmol/L Potassium (3.5-5.1) mmol/L Chloride (98-107) mmol/L Carbon Dioxide (22-30) mmol/L Anion Gap mmol/L BUN (7-17) mg/dL Creatinine (0.52-1.04) mg/dL Est GFR (CKD-EPI)AfAm (>60 ml/min/1.73 sqM) Est GFR (CKD-EPI)NonAf (>60 ml/min/1.73 sqM) Glucose (74-99) mg/dL Plasma Lactic Acid Slick 1.6 (0.7-2.0) mmol/L Calcium (8.4-10.2) mg/dL Total Bilirubin (0.2-1.3) mg/dL AST (14-36) U/L ALT (4-34) U/L Alkaline Phosphatase (38-126) U/L Total Protein (6.3-8.2) g/dL Albumin (3.5-5.0) g/dL Lipase (23-300) U/L Urine Color Urine Appearance (Clear) Urine pH (5.0-8.0) Ur Specific [place] (1.001-1.035) Urine Protein (Negative) Urine Glucose (UA) (Negative) Urine Ketones (Negative) Urine Blood (Negative) Urine Nitrite (Negative) Urine Bilirubin (Negative) Urine Urobilinogen (<2.0) mg/dL Ur Leukocyte Esterase (Negative) Urine RBC (0-5) /hpf Urine WBC (0-5) /hpf Ur Squamous Epith Cells (0-4) /hpf Urine Mucus (None) /hpf Coronavirus (PCR) Not Detected (Not Detectd) Disposition Clinical Impression: Abdominal pain, Nausea & vomiting Disposition: HOME SELF-CARE Condition: Good Instructions (If sedation given, give patient instructions): Acute Nausea and Vomiting (ED), Abdominal Pain (ED) Additional Instructions: Please take medications as directed. Take Zofran as needed for nausea. Take prednisone starting tomorrow as you were given a dose in the emergency room today. Follow-up with primary care and GI. Return to the emergency room for any worsening symptoms. Prescriptions: predniSONE 50 mg PO DAILY #4 tablet Ondansetron [Zofran ODT] 4 mg PO Q8HR PRN #15 tab PRN Reason: Nausea Is patient prescribed a controlled substance at d/c from ED?: No Referrals: Ernesto Carolina [Primary Care Provider] - 1-2 days Leonie Jewell MD [STAFF PHYSICIAN] - 1-2 days Time of Disposition: 11:45
[2020-12-19] MEDS ORDERED: ONDANSETRON 4 MG/2 ML VIAL IVP STA (12:04)
[2020-12-19] MEDS ORDERED: SODIUM CHLORIDE 0.9% 1,000 ML IV STA (12:04)
[2020-12-19] MEDS ORDERED: MORPHINE SULFATE 4 MG/ML SYRINGE IV STA (12:04)
[2020-12-19] MEDS ORDERED: HYDROmorphone 0.5 MG/0.5 ML SYRINGE IVP STA ×2 (12:36→14:20)
[2020-12-19 12:43] LABS: ALT 22 U/L (4-34); AST 31 U/L (14-36); African American GFR (CKD) >90 (>60 ml/min/1.73 sqM); Albumin 4.6 g/dL (3.5-5.0); Alkaline Phosphatase 49 U/L (38-126); Anion Gap 13 mmol/L; Blood Urea Nitrogen 11 mg/dL (7-17); Calcium 10.1 mg/dL (8.4-10.2); Carbon Dioxide 18 mmol/L (22-30); Chloride 107 mmol/L (98-107); Glucose 104 mg/dL (74-99); Lipase 176 U/L (23-300); Non-African American GFR(CKD) >90 (>60 ml/min/1.73 sqM); Potassium 3.8 mmol/L (3.5-5.1); Sodium 138 mmol/L (137-145); Total Bilirubin 0.7 mg/dL (0.2-1.3); Total Protein 7.5 g/dL (6.3-8.2)
[2020-12-19 12:48] LABS: Appearance,Urine Cloudy (Clear); Bilirubin,Urine Negative (Negative); Blood,Urine Negative (Negative); Color,Urine Yellow; Glucose,Urine (UA) Negative (Negative); Ketones,Urine Trace (Negative); Leukocyte Esterase,Urine Negative (Negative); Mucus,Urine Few /hpf; Nitrite,Urine Negative (Negative); PH, Urine 5.5 (5.0-8.0); Protein,Urine 1+ (Negative); RBC,Urine 1 /hpf (0-5); Specific Gravity,Urine 1.028 (1.001-1.035); Squamous Epithelial Cell,Urine 1 /hpf (0-4); WBC,Urine 1 /hpf (0-5)
[2020-12-19 12:58] LABS: Basophils % (A) 0 %; Eosinophils # (A) 0.1 k/uL (0-0.7); Eosinophils % (A) 1 %; HGB 14.8 gm/dL (11.4-16.0); Lymphocytes # (A) 3.4 k/uL (1.0-4.8); Lymphocytes % (A) 23 %; MCHC 34.5 g/dL (31.0-37.0); Mean Platelet Volume 11.6; Monocytes # (A) 0.6 k/uL (0-1.0); Monocytes % (A) 4 %; Neutrophils # (A) 10.6 k/uL (1.3-7.7); Neutrophils % (A) 70 %; Platelet Count 160 k/uL (150-450); RBC 5.12 m/uL (3.80-5.40); RDW 15.5 % (11.5-15.5)
--- NOTE | 2020-12-19 13:12 | CT ---
EXAMINATION TYPE: CT abdomen pelvis w con DATE OF EXAM: 12/19/2020 HISTORY: LUQ pain, nausea, vomiting CT DLP: 929.3mGycm Automated Exposure Control for Dose Reduction was Utilized. CONTRAST: CT scan of the abdomen and pelvis is performed without oral but with IV Contrast, patient injected wi th 100 mL of Isovue 300. COMPARISON: CT abdomen and pelvis November 23, 2015 FINDINGS: LUNG BASES: Mild bibasilar linear scarring and/or atelectasis with overall mosaic attenuation redemon strated. Small scattered nodules again seen, for reference is a 4 mm posterior lateral nodule axial i mage 14 and 4 to 5 mm lateral nodule axial image 7 along with 5 mm nodule axial image 1 anteriorly. A ll not significantly changed from prior. LIVER/GB: Visualized liver heterogeneously hypodense suggesting mild diffuse fatty infiltration. No b iliary dilatation. PANCREAS: No significant abnormality is seen. SPLEEN: No significant abnormality is seen. ADRENALS: No significant abnormality is seen. KIDNEYS: No significant abnormality is seen. BOWEL: Suboptimal evaluation of bowel without enteric contrast. No suspicious small or large bowel di latation is seen. Stomach poorly distended and thus suboptimally evaluated. Surgical changes proximal partial colectomy with small bowel anastomosis right mid abdomen anteriorly axial image 41 noted. Th ere is [id number] wall thickening nearly all visualized colon. A few distal colonic diverticula without surrounding fat stranding. UTERUS/ADNEXA: Anteverted uterus redemonstrated. Central endometrial hypodensity axial image 61 measu res up to 12 mm which is abnormal for a postmenopausal female correlating with sagittal image 63. Non emergent follow-up advised. LYMPH NODES: No greater than 1cm abdominal or pelvic lymph nodes are appreciated. OSSEOUS STRUCTURES: Read 1 anterolisthesis L4 on L5 with mild to moderate disc space narrowing and va cuum disc phenomenon. Moderate disc space narrowing with anterior spurring and sclerosis and vacuum d isc phenomenon at T11-T12 level. OTHER: Moderate to severe calcified plaque of the distal abdominal aorta extends into branch vessels. IMPRESSION: 1. No bowel obstruction. Partial proximal colectomy changes noted. A mild to moderate diffuse uncompl icated colitis cannot be excluded. Finding could be product of poor distention. Correlate clinically. 2. Abnormal prominence to the central hypodense endometrial stripe could reflect trapped fluid from c ervical stenosis but in postmenopausal female abnormal thickening or neoplasm cannot be excluded and follow-up nonemergent pelvic ultrasound advised to further evaluate.
[2020-12-19] MEDS ORDERED: methylPREDNISolone SOD SUCCI 125 MG/2 ML VIAL IV STA (14:21)
[2020-12-19] MEDS ORDERED: HYDROcodone/APAP 10-325MG 1 EACH TAB PO ONE (14:21)
--- NOTE | 2020-12-19 14:49 | XR ---
EXAMINATION TYPE: XR chest 2V DATE OF EXAM: 12/19/2020 COMPARISON: Chest x-ray June 24, 2018 HISTORY: Cough for a few weeks. TECHNIQUE: Frontal and lateral views of the chest are obtained. FINDINGS: There is a chronic parenchymal changes bilaterally without suspicious focal air space opac ity, pleural effusion, or pneumothorax seen. The cardiac silhouette size is stable and within normal limits. The osseous structures are intact. Cholecystectomy clips noted. IMPRESSION: Chronic changes without new acute pulmonary process.
[2020-12-19 15:52] VITALS: BP 134/76; PULSE 80; RESP 18; TEMP 98
== END 2020-12-19 15:54 | disposition home or self-care (01) ==
LOC: EC 11:27
DX: R10.84 Generalized abdominal pain (principal); R11.2 Nausea with vomiting, unspecified; I10 Essential (primary) hypertension; I25.10 Atherosclerotic heart disease of native coronary artery without angina pectoris; I25.2 Old myocardial infarction; J44.9 Chronic obstructive pulmonary disease, unspecified; K21.9 Gastro-esophageal reflux disease without esophagitis; M19.90 Unspecified osteoarthritis, unspecified site; F17.200 Nicotine dependence, unspecified, uncomplicated; Z20.822 Contact with and (suspected) exposure to COVID-19; Z79.82 Long term (current) use of aspirin; Z88.0 Allergy status to penicillin; Z88.6 Allergy status to analgesic agent; Z87.442 Personal history of urinary calculi; Z90.49 Acquired absence of other specified parts of digestive tract; Z90.89 Acquired absence of other organs; Z96.652 Presence of left artificial knee joint
CPT/HCPCS: 99284; 96374; 96375 ×2; 96376; 96361; 36415; 80053; 83605; 83690; 85025; 81001; 87635; 71046; 74177; J2930; J2405; J1170; Q9967

== ENCOUNTER 2021-01-13 09:55 | Emergency (ER) | payer OTHER ==
[2021-01-13 10:42] VITALS: RESP 18; TEMP 99
--- NOTE | 2021-01-13 13:08 | ED ---
General Adult HPI - General Chief complaint: Recheck/Abnormal Lab/Rx Stated complaint: revisit - nausea, rash Time Seen by Provider: 01/13/21 12:37 Source: patient Mode of arrival: ambulatory Limitations: no limitations - History of Present Illness Initial comments: Dictation was produced using [employer] dictation software. please excuse any grammatical, word or spelling errors. Chief Complaint: 55-year-old female with multiple comorbidities. She presents to emergency department for rash and poor oral tolerance. History of Present Illness: Patient's 55-year-old female she presents with a rash. She was treating with nystatin cream. States the nystatin cream is not helping. She has a rash under her left breast and seems like it spreading. She is not trying oral antibiotics. Patient reports history of MRSA. Denies any fever, chills or night sweats. She states that the rash is likely as burning. Patient also complaining of poor oral tolerance. She has history of Crohn's disease. States that these episodes of poor oral tolerance have been ongoing for the last several months. She has not followed up with her GI doctor. She was here last month for the same issue. At that point we did not have GI coverage and she was sent home with instructions to follow-up per she did not follow-up. Patient was at home by herself 2-3 hours of [place]. She states that she had to catch the bus to get here. Patient feels like she needs to be admitted for IV vancomycin to treat her rash. Denies Any constitutional symptoms. The ROS documented in this emergency department record has been reviewed and confirmed by me. Those systems with pertinent positive or negative responses have been documented in the HPI. All other systems are other negative and/or noncontributory. PHYSICAL EXAM: General Impression: Alert and oriented x3, not in acute distress HEENT: Normocephalic atraumatic, extra-ocular movements intact, pupils equal and reactive to light bilaterally, mucous membranes moist. Cardiovascular: Heart regular rate and rhythm Chest: Able to complete full sentences, no retractions, no tachypnea Abdomen: abdomen soft, non-tender, non-distended, no organomegaly Musculoskeletal: Pulses present and equal in all extremities, no peripheral edema Motor: no focal deficits noted Neurological: CN II-XII grossly intact, no focal motor or sensory deficits noted Skin: Erythematous scaly rash under the left breasts, there is also satellite sites with small pustules to the anterior abdomen Psych: Normal affect and mood ED course: 55-year-old feel presents to the emergency department for rash and poor oral tolerance. Patient states the rash has been ongoing for the last several days. Being treated with nystatin cream. She has a history of MRSA. States that the cream is not working. Patient also complaining of several months of poor oral tolerance. Vital signs upon arrival are within acceptable limits. Patient is requesting inpatient admission. Abdomen evaluation obtained. CBC unremarkable. Metabolic panel within acceptable limits. Vital panel negative for cold 8, RSV or influenza. Abdominal x-rays shows possible enteritis. Patient reevaluated bedside at 3:00 PM found to be stable medical condition. She tolerated oral intake. She is well-appearing and does not appear to be in significant distress. Patient case discussed with her primary care doctor who instructs me to tell the patient to follow-up in his clinic tomorrow. Patient given one time dose of fluconazole for intertrigo. Given start pack for Bactrim and duration for concerns of MRSA rash. EKG interpretation: Ventricular rate 89, normal sinus rhythm,. 150, QRS 74, QTC 4:30. No ID prolongation, no QTC prolongation, no ST or T-wave changes noted. Overall, this EKG is unremarkable - Related Data Home Medications Medication Instructions Recorded Confirmed Multivitamins, Thera [Multivitamin 1 tab PO DAILY 10/23/13 11/28/20 (formulary)] Omeprazole [PriLOSEC] 40 mg PO AC-BRKFST 04/16/15 11/28/20 Aspirin EC [Ecotrin] 325 mg PO DAILY 07/17/16 11/28/20 Nicotine 14Mg/24Hr Patch [Habitrol] 1 patch TRANSDERM DAILY PRN 05/02/20 11/28/20 Albuterol Sulfate [Proair Hfa] 2 puff INHALATION RT-QID PRN 06/04/20 11/28/20 Previous Rx's Medication Instructions Recorded Atorvastatin [Lipitor] 80 mg PO HS #30 tab 02/22/14 Metoprolol Tartrate [Lopressor] 25 mg PO BID #60 tab 02/22/14 Nitroglycerin Sl Tabs [Nitrostat] 0.4 mg SUBLINGUAL Q5M PRN #25 tab 11/20/14 Gabapentin [Neurontin] 300 mg PO BID #60 cap 10/23/20 HYDROcodone/APAP 10-325MG [[place] 1 tab PO Q6HR PRN 30 Days #120 tab 10/23/20 10-325] Ondansetron [Zofran ODT] 4 mg PO Q8HR PRN #15 tab 12/19/20 predniSONE 50 mg PO DAILY #4 tablet 12/19/20 Sulfamethox-Tmp 800-160Mg [Bactrim 1 tab PO Q12HR 5 Days #10 tab 01/13/21 DS 800-160 mg] Allergies Allergy/AdvReac Type Severity Reaction Status Date / Time ibuprofen [From Motrin] Allergy Anaphylaxis Verified 01/13/21 10:42 /Swelling amoxicillin trihydrate AdvReac Nausea & Verified 01/13/21 10:42 [From Augmentin] Vomiting potassium clavulanate AdvReac Nausea & Verified 01/13/21 10:42 [From Augmentin] Vomiting SALMON Allergy Anaphylaxis Uncoded 01/13/21 10:42 Review of Systems ROS Statement: Those systems with pertinent positive or pertinent negative responses have been documented in the HPI. ROS Other: All systems not noted in ROS Statement are negative. Past Medical History Past Medical History: Coronary Artery Disease (CAD), Chest Pain / Angina, COPD, Fibromyalgia, GERD/Reflux, Hypertension, Myocardial Infarction ([place]), Muscu loskeletal Disorder, Osteoarthritis (OA), Pneumonia, Vascular Disorder Additional Past Medical History / Comment(s): Crohns, Colitis. Osteoporosis. Chronic back pain & neck pain, DDD, spinal stenosis, nighttime leakage of urine, PAD, old hx kidney stone X1, Neuropathy in lower legs. Last Myocardial Infarction Date:: 02/2014 History of Any Multi-Drug Resistant Organisms: MRSA Date of last positivie culture/infection: 2009 est MDRO Source:: abdominal at Heparin injection site Past Surgical History: Appendectomy, Bowel Resection, Heart Catheterization With Stent, Joint Replacement, Orthopedic Surgery, Tonsillectomy Additional Past Surgical History / Comment(s): 2 Small Bowel Resections D/T Crohns. LEFT TOTAL KNEE REPLACEMENT, THEN A REVISION-HAS TITANIUM. Bilateral carpal tunnel, Trigger Fingers/Thumb X6, total of 3 cardiac stents, pain procedures. Past Anesthesia/Blood Transfusion Reactions: Motion Sickness Date of Last Stent Placement:: 04/2014 Past Psychological History: No Psychological Hx Reported Smoking Status: Never smoker, Light tobacco smoker Past Alcohol Use History: None Reported Past Drug Use History: None Reported - Past Family History Father Family Medical History: Cancer Additional Family Medical History / Comment(s): LUNG CANCER Mother Additional Family Medical History / Comment(s): WHEN PT WAS AGE 14 NOT SURE WHY, HX OF MENTAL HEALTH ISS General Exam Limitations: no limitations Course Vital Signs 01/13/21 01/13/21 10:40 14:00 Temperature 99.0 F Pulse Rate 92 Respiratory 18 18 Rate Blood Pressure 130/72 O2 Sat by Pulse 97 Oximetry Medical Decision Making - Lab Data Result diagrams: 01/13/21 13:42 01/13/21 13:42 Lab Results 01/13/21 01/13/21 01/13/21 Range/Units 13:30 13:42 13:42 WBC 15.6 H (3.8-10.6) k/uL RBC 4.89 (3.80-5.40) m/uL Hgb 13.7 (11.4-16.0) gm/dL Hct 41.4 (34.0-46.0) % MCV 84.6 (80.0-100.0) fL MCH 28.0 (25.0-35.0) pg MCHC 33.1 (31.0-37.0) g/dL RDW 15.7 H (11.5-15.5) % Plt Count 149 L (150-450) k/uL MPV 11.6 Neutrophils % 69 % Lymphocytes % 24 % Monocytes % 4 % Eosinophils % 1 % Basophils % 0 % Neutrophils # 10.8 H (1.3-7.7) k/uL Lymphocytes # 3.7 (1.0-4.8) k/uL Monocytes # 0.7 (0-1.0) k/uL Eosinophils # 0.1 (0-0.7) k/uL Basophils # 0.0 (0-0.2) k/uL Manual Slide Review Performed Large Platelets Present RBC Morphology Normal Sodium 139 (137-145) mmol/L Potassium 3.3 L (3.5-5.1) mmol/L Chloride 109 H (98-107) mmol/L Carbon Dioxide 20 L (22-30) mmol/L Anion Gap 10 mmol/L BUN 9 (7-17) mg/dL Creatinine 0.54 (0.52-1.04) mg/dL Est GFR (CKD-EPI)AfAm >90 (>60 ml/min/1.73 sqM) Est GFR (CKD-EPI)NonAf >90 (>60 ml/min/1.73 sqM) Glucose 102 H (74-99) mg/dL Plasma Lactic Acid Slick (0.7-2.0) mmol/L Calcium 9.4 (8.4-10.2) mg/dL Magnesium 1.7 (1.6-2.3) mg/dL Total Bilirubin 0.5 (0.2-1.3) mg/dL AST 26 (14-36) U/L ALT 15 (4-34) U/L Alkaline Phosphatase 51 (38-126) U/L Total Protein 6.7 (6.3-8.2) g/dL Albumin 4.0 (3.5-5.0) g/dL Lipase 76 (23-300) U/L Influenza Type A (PCR) Not Detected (Not Detectd) Influenza Type B (PCR) Not Detected (Not Detectd) RSV (PCR) Not Detected (Not Detectd) SARS-CoV-2 (PCR) Not Detected (Not Detectd) 01/13/21 Range/Units 13:42 WBC (3.8-10.6) k/uL RBC (3.80-5.40) m/uL Hgb (11.4-16.0) gm/dL Hct (34.0-46.0) % MCV (80.0-100.0) fL MCH (25.0-35.0) pg MCHC (31.0-37.0) g/dL RDW (11.5-15.5) % Plt Count (150-450) k/uL MPV Neutrophils % % Lymphocytes % % Monocytes % % Eosinophils % % Basophils % % Neutrophils # (1.3-7.7) k/uL Lymphocytes # (1.0-4.8) k/uL Monocytes # (0-1.0) k/uL Eosinophils # (0-0.7) k/uL Basophils # (0-0.2) k/uL Manual Slide Review Large Platelets RBC Morphology Sodium (137-145) mmol/L Potassium (3.5-5.1) mmol/L Chloride (98-107) mmol/L Carbon Dioxide (22-30) mmol/L Anion Gap mmol/L BUN (7-17) mg/dL Creatinine (0.52-1.04) mg/dL Est GFR (CKD-EPI)AfAm (>60 ml/min/1.73 sqM) Est GFR (CKD-EPI)NonAf (>60 ml/min/1.73 sqM) Glucose (74-99) mg/dL Plasma Lactic Acid Slick 1.2 (0.7-2.0) mmol/L Calcium (8.4-10.2) mg/dL Magnesium (1.6-2.3) mg/dL Total Bilirubin (0.2-1.3) mg/dL AST (14-36) U/L ALT (4-34) U/L Alkaline Phosphatase (38-126) U/L Total Protein (6.3-8.2) g/dL Albumin (3.5-5.0) g/dL Lipase (23-300) U/L Influenza Type A (PCR) (Not Detectd) Influenza Type B (PCR) (Not Detectd) RSV (PCR) (Not Detectd) SARS-CoV-2 (PCR) (Not Detectd) Disposition Clinical Impression: Rash Disposition: HOME SELF-CARE Condition: Good Prescriptions: Sulfamethox-Tmp 800-160Mg [Bactrim DS 800-160 mg] 1 tab PO Q12HR 5 Days #10 tab Is patient prescribed a controlled substance at d/c from ED?: No Referrals: Ernesto Carolina [Primary Care Provider] - 1-2 days
[2021-01-13] MEDS ORDERED: ONDANSETRON 4 MG/2 ML VIAL IVP STA (13:34)
[2021-01-13 14:03] LABS: Basophils % (A) 0 %; Eosinophils # (A) 0.1 k/uL (0-0.7); Eosinophils % (A) 1 %; HCT 41.4 % (34.0-46.0); HGB 13.7 gm/dL (11.4-16.0); Lymphocytes # (A) 3.7 k/uL (1.0-4.8); Lymphocytes % (A) 24 %; MCHC 33.1 g/dL (31.0-37.0); MCV 84.6 fL (80.0-100.0); Mean Platelet Volume 11.6; Monocytes # (A) 0.7 k/uL (0-1.0); Monocytes % (A) 4 %; Neutrophils # (A) 10.8 k/uL (1.3-7.7); Neutrophils % (A) 69 %; Platelet Count 149 k/uL (150-450); RBC 4.89 m/uL (3.80-5.40); RDW 15.7 % (11.5-15.5); WBC 15.6 k/uL (3.8-10.6)
[2021-01-13 14:13] LABS: ALT 15 U/L (4-34); AST 26 U/L (14-36); African American GFR (CKD) >90 (>60 ml/min/1.73 sqM); Alkaline Phosphatase 51 U/L (38-126); Anion Gap 10 mmol/L; Blood Urea Nitrogen 9 mg/dL (7-17); Calcium 9.4 mg/dL (8.4-10.2); Carbon Dioxide 20 mmol/L (22-30); Chloride 109 mmol/L (98-107); Glucose 102 mg/dL (74-99); Lipase 76 U/L (23-300); Magnesium 1.7 mg/dL (1.6-2.3); Non-African American GFR(CKD) >90 (>60 ml/min/1.73 sqM); Potassium 3.3 mmol/L (3.5-5.1); Sodium 139 mmol/L (137-145); Total Bilirubin 0.5 mg/dL (0.2-1.3); Total Protein 6.7 g/dL (6.3-8.2)
[2021-01-13] MEDS ORDERED: HYDROcodone/APAP 10-325MG 1 EACH TAB PO ONE (14:22)
--- NOTE | 2021-01-13 14:23 | XR ---
Abdomen HISTORY: Vomiting, nausea, history of Crohn's Frontal view the abdomen submitted and correlated to prior CT 12/19/2020 There is air-fluid levels present without bowel distention. Lung bases are clear. There is a spinal c urvature. Probable phleboliths present within the pelvis. Vascular calcifications are noted. IMPRESSION: Correlate for possible enteritis. Follow-up as indicated.
[2021-01-13 14:43] LABS: Large Platelets Present
[2021-01-13] MEDS ORDERED: FLUCONAZOLE 150 MG TAB PO STA (15:09)
[2021-01-13] MEDS ORDERED: SULFAMETH-TMP DS STARTER PACK 2 TAB BTL PO STA (15:12)
[2021-01-13 15:52] VITALS: BP 135/71; PULSE 86
== END 2021-01-13 15:58 | disposition home or self-care (01) ==
LOC: EC 09:55
DX: R21 Rash and other nonspecific skin eruption (principal); I10 Essential (primary) hypertension; I25.10 Atherosclerotic heart disease of native coronary artery without angina pectoris; J44.9 Chronic obstructive pulmonary disease, unspecified; K21.9 Gastro-esophageal reflux disease without esophagitis; I25.2 Old myocardial infarction; M19.90 Unspecified osteoarthritis, unspecified site; F17.290 Nicotine dependence, other tobacco product, uncomplicated; Z20.822 Contact with and (suspected) exposure to COVID-19; Z79.82 Long term (current) use of aspirin; Z88.6 Allergy status to analgesic agent; Z87.442 Personal history of urinary calculi; Z90.49 Acquired absence of other specified parts of digestive tract; Z90.89 Acquired absence of other organs; Z96.652 Presence of left artificial knee joint
CPT/HCPCS: 99283; 96374; 36415; 93005; 80053; 83605; 83690; 83735; 85025; 87636; 74018; J2405

== ENCOUNTER → 2021-01-15 | Outpatient (CLI) | payer OTHER ==
[2021-01-15 13:40] VITALS: BP 124/65; PULSE 77; RESP 18; TEMP 99.2
--- NOTE | 2021-01-15 14:22 | P.PN ---
Subjective Progress Note Date: 01/15/21 This is a follow-up visit for this 54 years old female with a chronic history of severe neck pain and low back pain, she is diagnosed with lumbar spondylosis, and sacroiliitis , myofascial pain syndrome cervical area , previously we have done RFA of the medial branch lumbar area , and LESI , it is controlled between medication management and interventional pain management, she denies any fever or night sweats, she denies any change in the bowel movements or urination, and no motor or sensory deficits, she continued to use [place] 10/325 every 6 hours, and Neurontin 300 mg 2 times a day, she denies any side effect of the medication. Recently she had skin infection , and she's been on antibiotics Physical exam -Constitutiona : Cooperative , not in acute distress . -HEENT : nech : supple , no Lymphadenopathy , normal thyroid size . eyes : no ptosis , no icterus, no photophobia . - neurologic : Cranial nerve II to XII intact , no focal neurological deffecit . -psychatric : alert , oriented X 3 , appropriate affect , intact judgment and insight . -Lymphatic : no Lymphadenopathy . -skin = multiple skin rash identified which most of it is covered with gauze - musculoskeltal : Cervical Spine motor stregnth in the deltoid and biceps, normal right side , normal Left side motor stregnth biceps and the wrist extensors normal right side ,normal left side . motor stregnth in the triceps muscle . normal Right side , normal Left side deep tendon reflexes normal at the biceps , normal at Brachioradialis , normal at triceps. Multiple trigger points in the right shoulder area trapezius suprascapular infrascapular area Facet loading test positive bilaterally multiple trigger point identified in the cervical paraspinal muscles bilaterally and trapezius and rhomboid muscles bilaterally Lumber spine moter stegnth lower extremities ,thigh and legs 5/5 Right side , 5/5 Left side Assessment and plan= chronic low back pain secondary to lumbar degenerative disc disease , lumbar spondylosis with lumbar facet arthropathy . Sacroiliitis, Myofascial pain syndrome chronic and current use of high-risk medication (opioids) Patient denies any side effects of the current pain medication and the current treatment/medication helping the patient to do activity of daily living , Diagnoses, prognosis, treatment options, including but not limited to physical therapy, medication management, interventional therapies, and surgery, were discussed with the patient All the questions answered The narcotic consent was signed and patient agreed and understood the side effects and complications of opioid treatment. Patient signed the narcotic agreement, and was orally counseled, not to overuse, not to abuse, not to Divert , not tp sell pain medication, and to take it as prescribed only, Patient was counseled not to drive or operate heavy equipment while using narcotic medication, and advised not to use alcohol or any Illicit drugs while using the narcotis. understanding that lack of compliance with any of the above instructions, will likely to cause discharge from, the pain service, not to renew his narcotic prescriptions MAPS Reviwed and it was apropriate . urine drug screen ordered reviewed and it was appropriate Medication managements= patient will be given prescription refills for [place] 10/325 by mouth every 6 hours space 120 with 1 refill, Neurontin 300 mg 2 tablets BID 1 refill. , Time with Patient: Less than 30 PQRS Measure Charge Sheet Measure #130: Documentation of Current Meds in Medical Chart: Patient's medications documented in chart Measure #226: Tobacco Use: Screen & Cessation Intervention: Pt screened for tobacco use AND intervention given Measure #111: Pneumonia Vaccination: Pneumococcal vaccine administered or previously received Measure #47: Advance Care Plan: Advance care planning discussed & documented, pt chose/unable to give Measure #412: Opioid Treatment Agreement: Documented signed opioid trtmnt agreemnt min once during opioid trtmnt Measure #408: Opioid Therapy Follow-up Evaluation: Patient had f/u eval minimum every 3 months during opioid therapy Measure #317: Preventitive Care & Scrn High Bld Press & F/U: Normal blood pressure, f/u not required Measure #128: Body Mass Index (BMI) Screening & Follow-up: BMI documented ABOVE normal parameters - f/u documented Measure #131: Pain Assessment & Follow-up: Pain positive & plan documented, Follow-up scheduled Measure #431: Unhealthy Alcohol Use Preventative Care & Scrn: Patient not identified as an unhealthy alcohol user PQRS Narrative: Objective - Vital Signs Vital signs: Vital Signs Temp 99.2 F 01/15/21 13:36 Pulse 77 01/15/21 13:36 Resp 18 01/15/21 13:36 BP 124/65 01/15/21 13:36 Pulse Ox Intake & Output 01/14/21 01/15/21 01/15/21 18:59 06:59 18:59 Weight 79.379 kg
== END ==
LOC: PNWHC3 13:03
PROVIDERS: ATTEND Specialist
DX: M51.36 Other intervertebral disc degeneration, lumbar region (principal); M47.816 Spondylosis without myelopathy or radiculopathy, lumbar region; G89.29 Other chronic pain; M46.1 Sacroiliitis, not elsewhere classified; M79.18 Myalgia, other site; Z79.891 Long term (current) use of opiate analgesic; F17.200 Nicotine dependence, unspecified, uncomplicated; Z88.6 Allergy status to analgesic agent; Z88.1 Allergy status to other antibiotic agents; Z91.013 Allergy to seafood
CPT/HCPCS: 80307; G0482; G0463; 99212

== ENCOUNTER → 2021-02-24 | Outpatient (CLI) | payer OTHER ==
--- NOTE | 2021-02-24 23:08 | US ---
EXAMINATION TYPE: US transvaginal DATE OF EXAM: 02/24/2021 COMPARISON: CT 12/19/2020 CLINICAL HISTORY: 55-year-old female N80.9 ENDOMETRIOSIS. Thickened endometrium. TECHNIQUE: Transvaginal (TV). Date of LMP: post menopausal, no HRT. FINDINGS: EXAM MEASUREMENTS: Uterus: 6.5 x 3.2 x 3.9 cm Endometrial Stripe: 1.5 cm Right Ovary: 1.8 x 0.9 x 1.6 cm Left Ovary: 1.6 x 1.3 x 1.6 cm 1. Uterus: Anteverted and otherwise wnl 2. Endometrium: Abnormally thickened and irregular. 3. Right Ovary: wnl 4. Left Ovary: wnl 5. Bilateral Adnexa: wnl 6. Posterior cul-de-sac: no free fluid IMPRESSION: Excessively thickened endometrial stripe for a postmenopausal female. The stripe measures 1.5 cm in t hickness. Differential considerations include endometrial hyperplasia, polyps, and endometrial carcin shannan. Further evaluation recommended.
== END | disposition home or self-care (01) ==
LOC: RADUSWWP 13:04
PROVIDERS: ATTEND Family Medicine
DX: N80.9 Endometriosis, unspecified (principal); Z78.0 Asymptomatic menopausal state
CPT/HCPCS: 76830

== ENCOUNTER → 2021-03-12 | Outpatient (CLI) | payer OTHER ==
[2021-03-12 13:28] VITALS: BP 132/64; PULSE 98; RESP 18; TEMP 98.4
--- NOTE | 2021-03-12 14:02 | P.PN ---
Subjective Progress Note Date: 03/12/21 This is a follow-up visit for this 55 years old female with a chronic history of severe neck pain and low back pain, she is diagnosed with lumbar spondylosis, and sacroiliitis , myofascial pain syndrome cervical area , previously we have done RFA of the medial branch lumbar area , and LESI , the pain is controlled between medication management and interventional pain management, she denies any fever or night sweats, she denies any change in the bowel movements or urination, and no motor or sensory deficits, she continued to use [place] 10/325 every 6 hours, and Neurontin 300 mg 2 times a day, she denies any side effect of the medication. Recently she had skin infection , and she's been on antibiotics for MRSA infection, currently she is complaining of severe muscle spasm periodically in the right lumbar area Physical exam -Constitutiona : Cooperative , not in acute distress . -HEENT : nech : supple , no Lymphadenopathy , normal thyroid size . eyes : no ptosis , no icterus, no photophobia . - neurologic : Cranial nerve II to XII intact , no focal neurological deffecit . -psychatric : alert , oriented X 3 , appropriate affect , intact judgment and insight . -Lymphatic : no Lymphadenopathy . -skin = multiple skin rash identified which most of it is covered with gauze - musculoskeltal : Cervical Spine motor stregnth in the deltoid and biceps, normal right side , normal Left side motor stregnth biceps and the wrist extensors normal right side ,normal left side . motor stregnth in the triceps muscle . normal Right side , normal Left side deep tendon reflexes normal at the biceps , normal at Brachioradialis , normal at triceps. Multiple trigger points in the right shoulder area trapezius suprascapular infrascapular area Facet loading test positive bilaterally multiple trigger point identified in the cervical paraspinal muscles bilaterally and trapezius and rhomboid muscles bilaterally Lumber spine moter stegnth lower extremities ,thigh and legs 5/5 Right side , 5/5 Left side Multiple trigger point identified in the right side lumbar paraspinal muscles Assessment and plan= chronic low back pain secondary to lumbar degenerative disc disease , lumbar spondylosis with lumbar facet arthropathy . Sacroiliitis, Myofascial pain syndrome chronic and current use of high-risk medication (opioids) Patient denies any side effects of the current pain medication and the current treatment/medication helping the patient to do activity of daily living , Diagnoses, prognosis, treatment options, including but not limited to physical therapy, medication management, interventional therapies, and surgery, were discussed with the patient All the questions answered The narcotic consent was signed and patient agreed and understood the side effects and complications of opioid treatment. Patient signed the narcotic agreement, and was orally counseled, not to overuse, not to abuse, not to Divert , not tp sell pain medication, and to take it as prescribed only, Patient was counseled not to drive or operate heavy equipment while using narcotic medication, and advised not to use alcohol or any Illicit drugs while using the narcotis. understanding that lack of compliance with any of the above instructions, will likely to cause discharge from, the pain service, not to renew his narcotic prescriptions MAPS Reviwed and it was apropriate . urine drug screen ordered reviewed and it was appropriate Medication managements= patient will be given prescription refills for [place] 10/325 by mouth every 6 hours space 120 with 2refill, Neurontin 300 mg 2 tablets BID 2 refill. (Had a hard time finding transportation during the wintertime for this reason we will give her a refill for 3 months) And could benefit from muscle relaxant Zanaflex 4 mg when necessary dispensed 30 , Time with Patient: Less than 30 PQRS Measure Charge Sheet Measure #130: Documentation of Current Meds in Medical Chart: Patient's medications documented in chart Measure #226: Tobacco Use: Screen & Cessation Intervention: Pt screened for tobacco use AND intervention given Measure #111: Pneumonia Vaccination: Pneumococcal vaccine administered or previously received Measure #47: Advance Care Plan: Advance care planning discussed & documented, pt chose/unable to give Measure #412: Opioid Treatment Agreement: Documented signed opioid trtmnt agreemnt min once during opioid trtmnt Measure #408: Opioid Therapy Follow-up Evaluation: Patient had f/u eval minimum every 3 months during opioid therapy Measure #317: Preventitive Care & Scrn High Bld Press & F/U: Normal blood pressure, f/u not required Measure #128: Body Mass Index (BMI) Screening & Follow-up: BMI documented ABOVE normal parameters - f/u documented Measure #131: Pain Assessment & Follow-up: Pain positive & plan documented, Follow-up scheduled Measure #431: Unhealthy Alcohol Use Preventative Care & Scrn: Patient not identified as an unhealthy alcohol user PQRS Narrative: Objective - Vital Signs Vital signs: Vital Signs Temp 98.4 F 03/12/21 13:26 Pulse 98 03/12/21 13:26 Resp 18 03/12/21 13:26 BP 132/64 03/12/21 13:26 Pulse Ox 96 03/12/21 13:26 Intake & Output 03/11/21 03/12/21 03/12/21 18:59 06:59 18:59 Weight 78.471 kg
== END ==
LOC: PNWHC3 13:01
PROVIDERS: ATTEND Specialist
DX: G89.29 Other chronic pain (principal); M51.36 Other intervertebral disc degeneration, lumbar region; M47.816 Spondylosis without myelopathy or radiculopathy, lumbar region; M46.1 Sacroiliitis, not elsewhere classified; M79.18 Myalgia, other site; F17.200 Nicotine dependence, unspecified, uncomplicated; Z79.891 Long term (current) use of opiate analgesic; Z88.6 Allergy status to analgesic agent; Z88.1 Allergy status to other antibiotic agents; Z88.8 Allergy status to other drugs, medicaments and biological substances; Z91.013 Allergy to seafood
CPT/HCPCS: 99211

== ENCOUNTER → 2021-06-04 | Outpatient (CLI) | payer OTHER ==
[2021-06-04 14:17] VITALS: BP 129/58; PULSE 91; RESP 18; TEMP 98.5
--- NOTE | 2021-06-04 14:21 | P.PN ---
Subjective Progress Note Date: 06/04/21 Principal diagnosis: A 56 yr old female with a history of severe and chronic low back pain secondary to lumbar degenerative disc diseases and lumbar spondylosis with facet arthropathy presents today for medication refills. Pain level waxes and wanes in intensity throughout the day but is currently 6 out of 10, dull and achy in the lower aspects of the lumbar spine with radiating pain left and right of midline accompanying stiffness in the paraspinal muscles bilaterally. Pain is provoked by bending, lifting, twisting, standing for periods of 20 minutes or walking for periods of 10 minutes or more. Pain is alleviated with medications, injections, physical therapy in the past, heat, ice, massage, repositioning and rest. Interventional pain procedures completed include LESI L4-L5 Patient is currently on [place] 10/325 #120, Neurontin 300 mg #60, Zanaflex 4 mg #60 Patient denies any side effects of the medication(s), denies excessive drowsiness or sleepiness, denies suicidal ideation and reports that the current pain medication is helping to control the pain and improve activities of daily living. Patient denies any motor or sensory deficits. Patient denies any fever or night sweats, denies any change in the bowel movements or urination. Physical Examination: -Constitutional: Cooperative. Not in acute distress . -HEENT: Neck is supple. No lymphadenopathy. No thyromegaly. Normal thyroid size. Eyes: No ptosis , no icterus, no photophobia. ENT: No auditory deficits. Normal oropharynx. No Thrush. - Respiratory: Chest clear to auscultations bilaterally. No wheezing. No rhonchi. - Cardiovascular: Regular rate and rhythm. S1 / S2 , no S3 , no S4. - Gastrointestinal: Abdomen soft no tenderness. Bowel sounds positive in all four quadrants. No organomegaly. - Genitourinary: Deferred. - Neurologic: Cranial nerve II to XII intact. No focal neurological deficits. - Psychatric: Alert & oriented x 3. Matching mood & appropriate affect. Judgment and insight intact. - Lymphatic: No Lymphadenopathy. - Musculoskeletal: Cervical spine: Muscle bulk/ tone/ strength in the bilateral upper extremities normal. Facet loading test cervical area positive. Lumbar spine: Motor bulk/ tone/ strength lower extremities , thigh and legs : 5/5 Deep tendon reflexes : Normal Knee Jerk. Normal Ankle Jerk . Vertebral body tenderness to palpation over L4, L5 Lumbar Facet Loading Test positive L4 to L5 with accompanying paraspinal muscle spasms bilaterally Straight Leg Raise: positive at 30 degrees right side/ left side Gaenslen's Test positive Sacral spine : Severe tenderness over the Sacroiliac joint: right side / left side Range of motion: Flexion of the lumbar spine <60 degrees Range of motion: Extension of the lumbar spine <20 degrees Gaenslen's Test positive Silvana test: positive right side / left side Assessment and plan: Chronic low back pain secondary to lumbar degenerative disc disease , lumbar spondylosis with facet arthropathy without myelopathy Chronic and current use of high-risk medication (Opioids). The patient was counseled about risk of opioid use, psychological risk associated with opioids and was orally counseled to not overuse , divert or sell medications. Pt is to store medication in a safe location. The patient is counseled against driving while using narcotic medications and also not to use alcohol or any illicit recreational drugs. Patient verbalized understanding that the lack of compliance will result in failure to renew narcotic prescription(s) as well as possible discharge from the clinic Diagnoses, prognosis and treatment options including but not limited to physical therapy, surgical interventions, interventional therapies and medication management including narcotics and adjuvant medication were discussed. All patient questions answered UDS from January, reviewed and consistent. MAPS reviewed and it was appropriate. Prescription refill for [place] 10/325 #120 with 2 refills, Neurontin 300 mg #60 with 2 refills, Zanaflex 4 mg #60 with 2 refills I have spent 31 minutes on patient care today. Dr Melo was available by phone for the evaluation of this patient. The time was used to review the medical records including relevant urine studies and Prescription history (MAPs), review of the available imaging, evaluation and examination of the patient, coordination of care with the medical staff and if applicable referring physicians, as well as creation of the medical record Objective - Vital Signs Vital signs: Vital Signs Temp 98.5 F 06/04/21 14:11 Pulse 91 06/04/21 14:11 Resp 18 06/04/21 14:11 BP 129/58 06/04/21 14:11 Pulse Ox Intake & Output 06/03/21 06/04/21 06/04/21 18:59 06:59 18:59 Weight 77.111 kg PQRS Measure Charge Sheet Mode of Arrival: Ambulatory - Pain Location Lower Back Non-Pharmacological Interventions: Heat, Inactivity Pharmacological Interventions: Epidural, Medication PQRS Narrative: Smoking Status Current every day smoker Narcotic Agreement Date Signed 01/15/21 Blood Pressure 129/58 Pain Intensity [Lower Back] 5 Scale Used Numeric (1 - 10) Hx Alcohol Use (MH) No Home Medications: Ambulatory Orders Multivitamins, Thera [Multivitamin (formulary)] 1 tab PO DAILY 10/23/13 Atorvastatin [Lipitor] 80 mg PO HS #30 tab 02/22/14 Metoprolol Tartrate [Lopressor] 25 mg PO BID #60 tab 02/22/14 Nitroglycerin Sl Tabs [Nitrostat] 0.4 mg SUBLINGUAL Q5M PRN #25 tab 02/22/14 Omeprazole [PriLOSEC] 40 mg PO AC-BRKFST 04/16/15 Aspirin EC [Ecotrin] 325 mg PO DAILY 07/17/16 Nicotine 14Mg/24Hr Patch [Habitrol] 1 patch TRANSDERM DAILY PRN 05/02/20 Albuterol Sulfate [Proair Hfa] 2 puff INHALATION RT-QID PRN 06/04/20 Nystatin 100,000Unit/gm Cream [Mycostatin Cream] 1 applic TOPICAL BID 01/14/21 Gabapentin [Neurontin] 300 mg PO BID 30 Days #60 cap 06/04/21 HYDROcodone/APAP 10-325MG [[place] 10-325] 1 tab PO Q6HR PRN 30 Days #120 tab 06/04/21 HYDROcodone/APAP 10-325MG [[place] 10-325] 1 tab PO Q6HR PRN 30 Days #120 tab 06/04/21 HYDROcodone/APAP 10-325MG [[place] 10-325] 1 tab PO Q6HR PRN 30 Days #120 tab 06/04/21 tiZANidine HCL [Zanaflex] 4 mg PO Q8HR PRN 30 Days #60 tab 06/04/21
== END ==
LOC: PNWHC3 13:00
PROVIDERS: ATTEND Physician Assistant Medical
DX: G89.29 Other chronic pain (principal); M51.36 Other intervertebral disc degeneration, lumbar region; M47.816 Spondylosis without myelopathy or radiculopathy, lumbar region; F17.200 Nicotine dependence, unspecified, uncomplicated; Z79.891 Long term (current) use of opiate analgesic; Z88.6 Allergy status to analgesic agent; Z88.1 Allergy status to other antibiotic agents; Z91.013 Allergy to seafood
CPT/HCPCS: 99211

== ENCOUNTER → 2021-08-27 | Outpatient (CLI) | payer OTHER ==
--- NOTE | 2021-08-27 13:39 | P.PN ---
Subjective Progress Note Date: 08/27/21 Principal diagnosis: A 56 yr old female with a history of severe and chronic low back pain secondary to lumbar degenerative disc diseases and lumbar spondylosis with facet arthropathy presents today for medication refills. Pain level is currently at 3/10 in intensity while medicated but 8/10 without medications. Pain is sharp, shooting towards her hips BL. Pain is provoked by bending, lifting, stooping. Pain is alleviated with medications, topicals, heat & ice, use of a massage device, repositioning and rest. She prefers to take Zanaflex at bedtime. Patient is currently on [place] 10/325mg #120, Neurontin 300mg #60, Zanaflex prn. Patient denies any side effects of the medication(s), denies excessive drowsiness or sleepiness, denies suicidal ideation and reports that the current pain medication is helping to control the pain and improve activities of daily living. Patient denies any motor or sensory deficits. Patient denies any fever or night sweats, denies any change in the bowel movements or urination. Physical Examination: -Constitutional: Cooperative. Not in acute distress . -HEENT: Neck is supple. No lymphadenopathy. No thyromegaly. Normal thyroid size. Eyes: No ptosis , no icterus, no photophobia. ENT: No auditory deficits. Normal oropharynx. No Thrush. - Respiratory: Chest clear to auscultations bilaterally. No wheezing. No rhonchi. - Cardiovascular: Regular rate and rhythm. S1 / S2 , no S3 , no S4. - Gastrointestinal: Abdomen soft no tenderness. Bowel sounds positive in all four quadrants. No organomegaly. - Genitourinary: Deferred. - Neurologic: Cranial nerve II to XII intact. No focal neurological deficits. - Psychatric: Alert & oriented x 3. Matching mood & appropriate affect. Judgment and insight intact. - Lymphatic: No Lymphadenopathy. - Musculoskeletal: Cervical spine: Muscle bulk/ tone/ strength in the bilateral upper extremities normal Vertebral body tenderness to palpation over Facet loading test positive Thoracic spine Muscle bulk / tone/ strength in the bilateral paraspinal muscles normal Vertebral body tender to palpation over Facet loading test positive Lumbar spine: Motor bulk/ tone/ strength lower extremities , thigh and legs : 5/5 Deep tendon reflexes : Normal Knee Jerk. Normal Ankle Jerk . Vertebral body tenderness to palpation over L4, L5 Lumbar Facet Loading Test positive Straight Leg Raise: positive at 30 degrees right side/ left side Gaenslen's Test positive Sacral spine : Severe tenderness over the Sacroiliac joint: right side / left side Range of motion: Flexion of the lumbar spine <60 degrees Range of motion: Extension of the lumbar spine <20 degrees Gaenslen's Test positive Jared's Test positive Silvana test: positive right side / left side Thigh Thrust Test Sacral Thrust Test Assessment and plan: Chronic low back pain secondary to lumbar degenerative disc disease , lumbar spondylosis with facet arthropathy without myelopathy Chronic and current use of high-risk medication (Opioids). The patient was counseled about risk of opioid use, psychological risk associated with opioids and was orally counseled to not overuse , divert or sell medications. Pt is to store medication in a safe location. The patient is counseled against driving while using narcotic medications and also not to use alcohol or any illicit recreational drugs. Patient verbalized understanding that the lack of compliance will result in failure to renew narcotic prescription(s) as well as possible discharge from the clinic Diagnoses, prognosis and treatment options including but not limited to physical therapy, surgical interventions, interventional therapies and medication management including narcotics and adjuvant medication were discussed. All patient questions answered MAPS reviewed and it was appropriate. Urine for UDS collected today 08/27/21 Prescription refill for [place] 10/325mg #120/ Neurontin 300mg #60, Zanaflex w refills. I have spent 31 minutes on patient care today. Dr Melo was available by phone for the evaluation of this patient. The time was used to review the medical records including relevant urine studies and Prescription history (MAPs), review of the available imaging, evaluation and examination of the patient, coordination of care with the medical staff and if applicable referring physicians, as well as creation of the medical record PQRS Measure Charge Sheet PQRS Narrative: Smoking Status Current every day smoker Narcotic Agreement Date Signed 01/15/21 Hx Alcohol Use (MH) No Home Medications: Ambulatory Orders Multivitamins, Thera [Multivitamin (formulary)] 1 tab PO DAILY 10/23/13 Atorvastatin [Lipitor] 80 mg PO HS #30 tab 02/22/14 Metoprolol Tartrate [Lopressor] 25 mg PO BID #60 tab 02/22/14 Nitroglycerin Sl Tabs [Nitrostat] 0.4 mg SUBLINGUAL Q5M PRN #25 tab 02/22/14 Omeprazole [PriLOSEC] 40 mg PO AC-BRKFST 04/16/15 Aspirin EC [Ecotrin] 325 mg PO DAILY 07/17/16 Nicotine 14Mg/24Hr Patch [Habitrol] 1 patch TRANSDERM DAILY PRN 05/02/20 Albuterol Sulfate [Proair Hfa] 2 puff INHALATION RT-QID PRN 06/04/20 Nystatin 100,000Unit/gm Cream [Mycostatin Cream] 1 applic TOPICAL BID 01/14/21 Gabapentin [Neurontin] 300 mg PO BID 30 Days #60 cap 06/04/21 tiZANidine HCL [Zanaflex] 4 mg PO Q8HR PRN 30 Days #60 tab 06/04/21 Gabapentin [Neurontin] 300 mg PO BID #60 cap 06/06/21 HYDROcodone/APAP 10-325MG [[place] 10-325] 1 tab PO Q6H PRN 30 Days #120 tab 06/06/21 HYDROcodone/APAP 10-325MG [[place] 10-325] 1 tab PO Q6H PRN 30 Days #120 tab 06/06/21 HYDROcodone/APAP 10-325MG [[place] 10-325] 1 tab PO Q6H PRN 30 Days #120 tab 06/06/21 HYDROcodone/APAP 10-325MG [[place] 10-325] 1 tab PO Q6HR PRN 30 Days #120 tab 06/12/21
[2021-08-27 13:57] VITALS: BP 158/75; PULSE 93; RESP 12; TEMP 98.1
== END ==
LOC: PNWHC3 13:06
PROVIDERS: ATTEND Specialist
DX: M51.36 Other intervertebral disc degeneration, lumbar region (principal); M47.816 Spondylosis without myelopathy or radiculopathy, lumbar region; G89.29 Other chronic pain; Z79.891 Long term (current) use of opiate analgesic; F17.200 Nicotine dependence, unspecified, uncomplicated; Z88.6 Allergy status to analgesic agent; Z88.1 Allergy status to other antibiotic agents; Z91.013 Allergy to seafood
CPT/HCPCS: 80307; G0482; G0463; 99211

== ENCOUNTER → 2021-09-03 | Outpatient (CLI) | payer OTHER ==
[2021-09-03 18:34] LABS: Basophils # (A) 0.05 X 10*3/uL (0.00-0.10); Basophils % (A) 0.4 %; Eosinophils # (A) 0.07 X 10*3/uL (0.04-0.35); Eosinophils % (A) 0.6 %; HCT 43.6 % (37.2-46.3); HGB 13.2 g/dL (12.0-15.0); Immature Grans, Automated 0.2 %; Lymphocytes # (A) 3.47 X 10*3/uL (0.90-5.00); Lymphocytes % (A) 28.7 %; MCH 26.9 pg (27.0-32.0); MCHC 30.3 g/dL (32.0-37.0); Mean Platelet Volume 13.6 fL (9.5-12.2); Monocytes # (A) 0.56 X 10*3/uL (0.20-1.00); Monocytes % (A) 4.6 %; NRBC Per 100 WBC 0 /100 WBCS (0.0-0.0); Neutrophils # (A) 7.92 X 10*3/uL (1.80-7.70); Neutrophils % (A) 65.5 %; Platelet Count 137 X 10*3/uL (140-440); RDW 16.3 % (11.5-14.5)
== END | disposition home or self-care (01) ==
LOC: LABPAT 11:09
PROVIDERS: ATTEND Obstetrics & Gynecology
DX: Z01.812 Encounter for preprocedural laboratory examination (principal)
CPT/HCPCS: 85025

== ENCOUNTER → 2021-09-03 | Outpatient (CLI) | payer OTHER ==
[2021-09-03 18:17] LABS: ALT 16 U/L (8-44); AST 22 U/L (13-35); African American GFR (CKD) 102.8 (60.0-200.0); Albumin 4.3 g/dL (3.8-4.9); Albumin/Globulin Ratio 1.62 (1.60-3.17); Alkaline Phosphatase 37 U/L (41-126); BUN/Creat Ratio 12.27 Ratio (12.00-20.00); Blood Urea Nitrogen 9.1 mg/dL (9.0-27.0); Calcium 9.6 mg/dL (8.7-10.3); Carbon Dioxide 25.1 mmol/L (20.0-27.5); Chloride 109 mmol/L (96-109); Chol/HDL Ratio 2.37 Ratio; Globulin 2.7 g/dL (1.6-3.3); Glucose 94 mg/dL (70-110); LDL Cholesterol,Calculated 59.7 mg/dL (0.0-131.0); Non-African American GFR(CKD) 88.7 (60.0-200.0); Potassium 3.7 mmol/L (3.5-5.5); Sodium 144 mmol/L (135-145); VLDL Calculation 14.24 mg/dL (5.00-40.00)
== END | disposition home or self-care (01) ==
LOC: LABWHC1 11:14
PROVIDERS: ATTEND Family Medicine
DX: Z00.00 Encounter for general adult medical examination without abnormal findings (principal); J30.9 Allergic rhinitis, unspecified; J44.9 Chronic obstructive pulmonary disease, unspecified; I25.10 Atherosclerotic heart disease of native coronary artery without angina pectoris; K50.90 Crohn's disease, unspecified, without complications; R09.81 Nasal congestion; Z72.0 Tobacco use
CPT/HCPCS: 36415; 80053; 80061

== ENCOUNTER 2021-09-10 10:52 | Day surgery (SDC) | payer OTHER ==
[2021-09-08 16:34] VITALS: BMI 30.9
--- NOTE | 2021-09-09 18:42 | P.HPOB ---
History of Present Illness H&P Date: 09/09/21 Chief Complaint: Endometrial thickening on ultrasound This is a 56 y.o. female, 3, para 2, who presents for dilatation and curettage with hysteroscopy due to endometrial thickening on ultrasound. She had an incidental finding of thickened endometrium when she was in the ER and had a CT scan. Ultrasound follow-up on 02/24/2021 showed uterus measuring 6.5x 3.2 x3.9 cm, with endometrial thickness of 1.5 cm. Ovaries were normal. She denies any postmenopausal bleeding. OBHx: . History of 2 vaginal deliveries. 1 miscarriage. 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 Disabled. Review of Systems Constitutional: Reports fatigue, Denies chills, Denies fever Eyes: bilateral blurred vision, denies pain Ears: bilateral: decreased hearing Ears, nose, mouth and throat: Denies headache, Denies sore throat Cardiovascular: Denies chest pain, Denies shortness of breath Respiratory: Denies cough Gastrointestinal: Reports bloating, Reports constipation, Reports diarrhea, Denies abdominal pain, Denies nausea, Denies vomiting Genitourinary: Reports mixed incontinence, Reports urinary frequency, Denies dysuria, Denies hematuria Menstruation: Reports postmenopausal Musculoskeletal: Reports low back pain, Reports myalgias, Reports neck pain Neurological: Reports numbness, Reports weakness Psychiatric: Denies anxiety, Denies depression Hematologic/Lymphatic: Reports easy bruising Past Medical History Past Medical History: Coronary Artery Disease (CAD), Chest Pain / Angina, COPD, Fibromyalgia, GERD/Reflux, Hypertension, Myocardial Infarction (OK), Musculoskeletal Disorder, Osteoarthritis (OA), Pneumonia, Vascular Disorder Additional Past Medical History / Comment(s): Crohns, Colitis. Osteoporosis. Chronic back pain & neck pain, DDD, spinal stenosis, nighttime leakage of urine, PAD, old hx kidney stone X1, Neuropathy in lower legs.MIGRAINE HEADACHE Last Myocardial Infarction Date:: 02/2014 History of Any Multi-Drug Resistant Organisms: MRSA Date of last positivie culture/infection: 2019 MDRO Source:: abdominal Past Surgical History: Appendectomy, Bowel Resection, Heart Catheterization With Stent, Joint Replacement, Orthopedic Surgery, Tonsillectomy Additional Past Surgical History / Comment(s): 2 Small Bowel Resections D/T Crohns. LEFT TOTAL KNEE REPLACEMENT, THEN A REVISION-HAS TITANIUM. Bilateral carpal tunnel, Trigger Fingers/Thumb X6, total of 3 cardiac stents, pain procedures. D&C. Past Anesthesia/Blood Transfusion Reactions: Motion Sickness Date of Last Stent Placement:: 04/2014 Past Psychological History: No Psychological Hx Reported Smoking Status: Former smoker Past Alcohol Use History: None Reported Past Drug Use History: None Reported - Past Family History Father Family Medical History: Cancer Additional Family Medical History / Comment(s): LUNG CANCER Mother Additional Family Medical History / Comment(s): WHEN PT WAS AGE 14 NOT SURE WHY, HX OF MENTAL HEALTH ISS Medications and Allergies Home Medications Medication Instructions Recorded Confirmed Type Multivitamins, Thera [Multivitamin 1 tab PO DAILY 10/23/13 09/08/21 History (formulary)] Atorvastatin [Lipitor] 80 mg PO HS #30 tab 02/22/14 09/08/21 Rx Metoprolol Tartrate [Lopressor] 25 mg PO BID #60 tab 02/22/14 09/08/21 Rx Nitroglycerin Sl Tabs [Nitrostat] 0.4 mg SUBLINGUAL Q5M PRN #25 tab 02/22/14 09/08/21 Rx Omeprazole [PriLOSEC] 40 mg PO AC-BRKFST 04/16/15 09/08/21 History Aspirin EC [Ecotrin] 325 mg PO DAILY 07/17/16 09/08/21 History Nicotine 14Mg/24Hr Patch [Habitrol] 1 patch TRANSDERM DAILY PRN 05/02/20 09/08/21 History Albuterol Sulfate [Proair Hfa] 2 puff INHALATION RT-QID PRN 06/04/20 09/08/21 History Nystatin 100,000Unit/gm Cream 1 applic TOPICAL BID PRN 01/14/21 09/08/21 History [Mycostatin Cream] Gabapentin [Neurontin] 300 mg PO BID 30 Days #60 cap 08/27/21 09/08/21 Rx HYDROcodone/APAP 10-325MG [[place] 1 tab PO Q6H PRN 30 Days #120 tab 08/27/21 09/08/21 Rx 10-325] tiZANidine HCL [Zanaflex] 4 mg PO Q8HR PRN 30 Days #60 tab 08/27/21 09/08/21 Rx Allergies Allergy/AdvReac Type Severity Reaction Status Date / Time ibuprofen [From Motrin] Allergy Anaphylaxis Verified 09/08/21 15:38 /Swelling amoxicillin trihydrate AdvReac Nausea & Verified 09/08/21 15:38 [From Augmentin] Vomiting potassium clavulanate AdvReac Nausea & Verified 09/08/21 15:38 [From Augmentin] Vomiting SALMON Allergy Anaphylaxis Uncoded 09/08/21 15:38 Exam Osteopathic Statement: *. No significant issues noted on an osteopathic structural exam other than those noted in the History and Physical/Consult. HEENT: within normal limits Heart: regular rate and rhythm Lungs: clear to auscultation bilaterally Abdomen: soft, non-tender Pelvic: uterus small, anteverted, non-tender, no adnexal masses or tenderness Extremities: negative Adwoa's Assessment and Plan (1) Endometrial thickening on ultrasound Status: Acute Code(s): R93.89 - ABNORMAL FINDINGS ON DX IMAGING OF OTH BODY STRUCTURES SNOMED Code(s): 017050733 Plan: Proceed with dilatation and curettage with hysteroscopy. Cardiac clearance obtained from Dr. Horowitz. I have discussed the risks, benefits, and alternative therapies for the above- mentioned procedure and for both sedation/anesthesia as well as necessary blood products administration, if indicated, as they pertain to this patient. The patient has indicated her understanding and acceptance of the risks and procedures discussed.
[~2021-09-10 10:52] MED LIST changes: +DEXAMETHASONE SOD PHOSPHATE 4 MG/ML 1 ML VIAL IV ONE; +HYDROmorphone 0.5 MG/0.5 ML SYRINGE IVP PRN; -LACTATED RINGERS 1,000 ML IV SCH; +LIDOCAINE 1% (10MG/ML) FOR IV START INTRADERMA PRN; +MIDAZOLAM 2 MG/2 ML VIAL IV PRN; +ONDANSETRON 4 MG/2 ML VIAL IVP ONE; +Pre Op ABX Message 1 EACH MISC MISCELLANE ONE
[2021-09-10] MEDS: LACTATED RINGERS 1,000 ML IV SCH ×2 (11:38→12:30)
[2021-09-10] MEDS ORDERED: SCOPOLAMINE 1 MG/72 HR PATCH TRANSDERM ONE (11:46)
[2021-09-10] MEDS ORDERED: MIDAZOLAM 2 MG/2 ML VIAL ONE (12:28)
[2021-09-10] MEDS ORDERED: PROPOFOL 10 MG/ML 20 ML VIAL IV ONE (12:28)
[2021-09-10] MEDS ORDERED: SUCCINYLCHOLINE CHLORIDE 100 MG/5 ML SYR IV ONE (12:28)
[2021-09-10] MEDS ORDERED: ALBUTEROL HFA INHALER INHALATION ONE (12:28)
[2021-09-10] MEDS ORDERED: LIDOCAINE 2% INJ 20 MG/ML (2 ML VIAL) ONE (12:28)
[2021-09-10] MEDS ORDERED: fentaNYL (PF) 50 MCG/ML 2 ML AMP ONE (12:28)
--- NOTE | 2021-09-10 13:02 | P.OP ---
Date of Procedure: 09/10/21 Preoperative Diagnosis: Endometrial thickening on ultrasound Postoperative Diagnosis: Same Procedure(s) Performed: Dilation and curettage with hysteroscopy Anesthesia: LUANA Surgeon: Jessica Talamantes Estimated Blood Loss (ml): 3 Pathology: other (Endometrial curettings) Condition: stable Disposition: same day Indications for Procedure: This is a 56 y.o. female, 3, para 2, who presents for dilatation and curettage with hysteroscopy due to endometrial thickening on ultrasound. She had an incidental finding of thickened endometrium when she was in the ER and had a CT scan. Ultrasound follow-up on 02/24/2021 showed uterus measuring 6.5x 3.2 x3.9 cm, with endometrial thickness of 1.5 cm. Ovaries were normal. She denies any postmenopausal bleeding. Operative Findings: Uterus is anteverted and sounded to 8 cm. No adnexal masses are palpated. Grade 2 rectocele is noted and grade 1 uterine prolapse is noted. Upon hysteroscopy, background endometrium appears atrophic and both tubal ostia are visualized. There are several large polyps noted. Description of Procedure: The patient is taken to the operating room where she is placed in the dorsal lithotomy position. She is prepped and draped in the normal sterile fashion. Her bladder is drained with a catheter. Examination is performed under anesthesia. Uterus is sounded be anteverted, with no adnexal masses palpated. A grade 2 rectocele is noted and grade 1 uterine prolapse is noted. A weighted speculum was placed in the patient's vagina. A right angle retractor is used to visualize the cervix. The anterior lip of the cervix is grasped with a single- tooth tenaculum. Cervix is gently dilated with a Wang dilator and then the uterus is sounded to 8 cm. Cervix is gently dilated further with Wang dilators until a hysteroscope could be passed. Hysteroscopy is performed using normal saline. The above noted findings are made and pictures are taken. The scope was withdrawn. Cervix is gently dilated further. A polyp forcep was introduced and a large amount of polypoid type tissue was obtained. Next a medium-size sharp curet was reduced and sharp curettage was performed until a gritty texture was noted. Very scant endometrial tissue was obtained. Next the single-tooth tenaculum was removed from the anterior lip of the cervix. No bleeding is noted. All instrument are removed from the vagina. Patient is then taken to recovery room in stable condition.
[2021-09-10 13:14] VITALS: TEMP 97.5
[2021-09-10 13:47] VITALS: RESP 14
[2021-09-10 14:05] VITALS: BP 131/70; PULSE 77
== END 2021-09-10 14:40 | disposition home or self-care (01) ==
LOC: OR 10:52
PROVIDERS: ATTEND Obstetrics & Gynecology
DX: R93.89 Abnormal findings on diagnostic imaging of other specified body structures (principal); I25.10 Atherosclerotic heart disease of native coronary artery without angina pectoris; I25.2 Old myocardial infarction; K21.9 Gastro-esophageal reflux disease without esophagitis; I10 Essential (primary) hypertension; J44.9 Chronic obstructive pulmonary disease, unspecified; K50.90 Crohn's disease, unspecified, without complications; M19.90 Unspecified osteoarthritis, unspecified site; M81.0 Age-related osteoporosis without current pathological fracture; Z79.82 Long term (current) use of aspirin; Z80.1 Family history of malignant neoplasm of trachea, bronchus and lung; Z87.442 Personal history of urinary calculi; Z88.0 Allergy status to penicillin; Z88.1 Allergy status to other antibiotic agents; Z95.5 Presence of coronary angioplasty implant and graft; Z87.891 Personal history of nicotine dependence; M79.7 Fibromyalgia; Z88.6 Allergy status to analgesic agent
CPT/HCPCS: 58558; 88305; J2250; J1100; J2405; J3010; J0330; J2704; J2001

== ENCOUNTER → 2021-09-19 | Outpatient (CLI) | payer OTHER ==
--- NOTE | 2021-09-19 15:55 | XR ---
EXAMINATION TYPE: XR foot complete LT DATE OF EXAM: 09/19/2021 CLINICAL HISTORY: Open wound TECHNIQUE: Frontal, lateral and oblique images of the left foot are obtained. COMPARISON: None. FINDINGS: There is no acute fracture/dislocation evident. The joint spaces appear within normal spaulding its. Soft tissue wound is noted near the head of the fifth metatarsal. No evidence for bony destructi on at this time. If there are symptoms of osteomyelitis IMPRESSION: There is no acute fracture or dislocation. ICD 10 NO FRACTURE, INITIAL EVALUATION
== END | disposition home or self-care (01) ==
LOC: RADXRMAIN 15:35
PROVIDERS: ATTEND Podiatrist
DX: S91.302A Unspecified open wound, left foot, initial encounter (principal)

== ENCOUNTER → 2021-10-22 | Outpatient (CLI) | payer OTHER ==
[2021-10-22 13:39] VITALS: BP 134/86; PULSE 87; RESP 18; TEMP 98.4
--- NOTE | 2021-10-22 14:00 | P.PAINPG ---
PQRS Measure Charge Sheet Comment: A 56 yr old female with a history of severe and chronic low back pain secondary to lumbar degenerative disc diseases and lumbar spondylosis with facet arthropathy presents today for medication refills. Pain level is currently at 5/10 in intensity, constant, dull/ achy in character without radiation of pain. Pain is provoked by walking/standing for periods of 20 min or more, or lifting. Pain is alleviated with home stretching regimen, heat, ice, repositioning and rest. Patient is currently on [place] 10/325 #120, Neurontin 300mg #60, Zanaflex Patient denies any side effects of the medication(s), denies excessive drowsiness or sleepiness, denies suicidal ideation and reports that the current pain medication is helping to control the pain and improve activities of daily living. Patient denies any motor or sensory deficits. Patient denies any fever or night sweats, denies any change in the bowel movements or urination. Physical Examination: -Constitutional: Cooperative. Not in acute distress . - Neurologic: Cranial nerve II to XII intact. No focal neurological deficits. - Psychatric: Alert & oriented x 3. Matching mood & appropriate affect. Judgment and insight intact. - Musculoskeletal: Cervical spine: Muscle bulk/ tone/ strength in the bilateral upper extremities normal Vertebral body tenderness to palpation over Spurling test positive Distraction test positive Facet loading test positive Thoracic spine Muscle bulk / tone/ strength in the bilateral paraspinal muscles normal Vertebral body tender to palpation over Facet loading test positive Lumbar spine: Motor bulk/ tone/ strength lower extremities , thigh and legs : 5/5 Deep tendon reflexes : Normal Knee Jerk. Normal Ankle Jerk . Vertebral body tenderness to palpation over L3, L4, L5 Lumbar Facet Loading Test positive Straight Leg Raise: positive at 30 degrees right side/ left side Gaenslen's Test positive Sacral spine : Severe tenderness over the Sacroiliac joint: right side / left side Range of motion: Flexion of the lumbar spine <60 degrees Range of motion: Extension of the lumbar spine <20 degrees Gaenslen's Test positive Jared's Test positive Silvana test: positive right side / left side Thigh Thrust Test Sacral Thrust Test Assessment and plan: Chronic low back pain secondary to lumbar degenerative disc disease , lumbar spondylosis with facet arthropathy without myelopathy Chronic and current use of high-risk medication (Opioids). The patient was counseled about risk of opioid use, psychological risk associated with opioids and was orally counseled to not overuse , divert or sell medications. Pt is to store medication in a safe location. The patient is counseled against driving while using narcotic medications and also not to use alcohol or any illicit recreational drugs. Patient verbalized understanding that the lack of compliance will result in failure to renew narcotic prescription(s) as well as possible discharge from the clinic Diagnoses, prognosis and treatment options including but not limited to physical therapy, surgical interventions, interventional therapies and medication management including narcotics and adjuvant medication were discussed. All patient questions answered MAPS reviewed and it was appropriate. UDS from 08/27/21 reviewed and consistent Prescription refill for [place] 10/325mg #120, Neurontin 300mg #60, Zanaflex prn w 2 refill Add Lidoderm 5% patches QAM on AA prn pain remove at bedtime 330 w 2 refills I have spent less than 30 minutes on patient care today. Dr Melo was available by phone for the evaluation of this patient. The time was used to review the medical records including relevant urine studies and Prescription history (MAPs), review of the available imaging, evaluation and examination of the patient, coordination of care with the medical staff and if applicable referring physicians, as well as creation of the medical record PQRS Narrative: Smoking Status Current every day smoker Narcotic Agreement Date Signed 01/15/21 Hx Alcohol Use (MH) No Home Medications: Ambulatory Orders Multivitamins, Thera [Multivitamin (formulary)] 1 tab PO DAILY 10/23/13 Atorvastatin [Lipitor] 80 mg PO HS #30 tab 02/22/14 Metoprolol Tartrate [Lopressor] 25 mg PO BID #60 tab 02/22/14 Nitroglycerin Sl Tabs [Nitrostat] 0.4 mg SUBLINGUAL Q5M PRN #25 tab 02/22/14 Omeprazole [PriLOSEC] 40 mg PO AC-BRKFST 04/16/15 Aspirin EC [Ecotrin] 325 mg PO DAILY 07/17/16 Nicotine 14Mg/24Hr Patch [Habitrol] 1 patch TRANSDERM DAILY PRN 05/02/20 Albuterol Sulfate [Proair Hfa] 2 puff INHALATION RT-QID PRN 06/04/20 Nystatin 100,000Unit/gm Cream [Mycostatin Cream] 1 applic TOPICAL BID PRN 01/14/21 Gabapentin [Neurontin] 300 mg PO BID 30 Days #60 cap 08/27/21 HYDROcodone/APAP 10-325MG [[place] 10-325] 1 tab PO Q6H PRN 30 Days #120 tab 08/27/21 tiZANidine HCL [Zanaflex] 4 mg PO Q8HR PRN 30 Days #60 tab 08/27/21 Controlled Substance Measures - Controlled Substance Measures Is patient prescribed a controlled substance at discharge?: Yes When asked, does pt state using other controlled substances?: No If Rx opioid, was Start Talking consent form obtained?: Yes Was information provided regarding opioid addiction?: Yes
== END ==
LOC: PNWHC3 13:10
PROVIDERS: ATTEND Specialist
DX: M51.36 Other intervertebral disc degeneration, lumbar region (principal); M47.816 Spondylosis without myelopathy or radiculopathy, lumbar region; G89.29 Other chronic pain; Z79.891 Long term (current) use of opiate analgesic; Z88.6 Allergy status to analgesic agent; Z88.1 Allergy status to other antibiotic agents; Z91.013 Allergy to seafood; F17.200 Nicotine dependence, unspecified, uncomplicated
CPT/HCPCS: 99211

== ENCOUNTER → 2021-11-11 | Outpatient (CLI) | payer OTHER ==
--- NOTE | 2021-11-11 16:40 | BD ---
EXAMINATION TYPE: Axial Bone Density DATE OF EXAM: 11/11/2021 CLINICAL HISTORY: 56 years year old Female. ICD-10 CODE: M810 KNOWN OSTEOPOROSIS Height: 61 Weight: 177.3 FRAX RISK QUESTIONS: Alcohol (3 or more units per day): NO Family History (Parent hip fracture): NO Glucocorticoids (More than 3mos): NO History of Fracture in Adulthood: NO Secondary Osteoporosis: 1. Type 1 Diabetes: NO 2. Hyperthyroidism: NO 3. Menopause before 45: YES 4. Malnutrition: NO 5. Chronic liver disease: NO Rheumatoid Arthritis: NO Current Tobacco Use: NO RISK FACTORS HISTORY OF: Hip Fracture (Right/Left): NO Spine Fracture: NO History of Wrist Fracture: NO Surgery to Spine/Hip(right/left)/Wrist (right/left): CARPAL TUNNEL 2006, Family History of Osteoporosis: NO Active: MODERATE Diet low in dairy products/other sources of calcium: YES Postmenopausal woman: YES Take estrogen and/or progesterone medications: NO Lost more than 2 inches in height since high school: YES Frequent falls: NO Poor Health: NO Hyperparathyroidism: NO Adrenal Insufficiency: NO MEDICATIONS: Prednisone or other steroids: NO Thyroid Medications: NO Osteoporosis Medications: NO Additional Medications: CHOLESTEROL MEDS, BP MEDS, MULTI VIT., REFLUX MEDS Additional History: EXAM MEASUREMENTS: Bone mineral densitometry was performed using the [employer] System. Bone mineral density as measured about the Lumbar spine is: ----- L1-L4(G/cm2): 1.078 T Score Values are as follows: ----- L1: -1.7 ----- L2: -1.5 ----- L3: -0.3 ----- L4: -0.3 ----- L1-L4: -0.9 Bone mineral density has: INCREASED 1.0 % since study of: 03/14/2010 Bone mineral density about the R hip (g/cm2): 0.724 Bone mineral density about the L hip (g/cm2): 0.624 T Score values are as follows: -----R Neck: -2.3 -----L Neck: -3.0 -----R Total: -2.0 -----L Total: -2.3 Bone mineral density has: DECREASED 18.7% % since study of: 03/14/2010 FRAX%s: The graph provided illustrates a 12.6% chance for a major osteoporotic fx and a 3.3% chance f or the hips probability for fx in 10 years time. IMPRESSION: Osteoporosis (T Score less than -2.5). There is increased fracture risk and therapy is usually indicated based on age. Re-Screen 1-2 years. NOTE: T-SCORE=SD OF THE YOUNG ADULT MEAN.
--- NOTE | 2021-11-12 08:33 | MM ---
Reason for Exam: Screening (asymptomatic). Last mammogram was performed 1 year(s) and 1 month(s) ago. Patient History: Menarche at age 11. First Full-Term at age 21. Postmenopausal. Patient has history of breast feeding. Risk Values: Anne 5 year model risk: 1.2%. NCI Lifetime model risk: 6.9%. Prior Study Comparison: 06/29/2006 Bilateral Screening Mammogram, [facility]. 01/31/2013 Bilateral Screening Mammogram, [facility]. 10/18/2020 Bilateral Screening Mammogram, [facility]. Tissue Density: There are scattered fibroglandular densities. Findings: Analyzed By CAD. There is no suspicious group of microcalcifications or new suspicious mass in either breast. Stable chronic nodularity in the right breast. No significant change from prior exams. Overall Assessment: Benign, BI-RAD 2 Management: Screening Mammogram of both breasts in 1 year. A clinical breast exam by your physician is recommended on an annual basis and results should be correlated with mammographic findings. Electronically signed and approved by: Franko Aponte D.O.
== END | disposition home or self-care (01) ==
LOC: RADMAMWWP 11:26
PROVIDERS: ATTEND Obstetrics & Gynecology
DX: Z12.31 Encounter for screening mammogram for malignant neoplasm of breast (principal); M81.0 Age-related osteoporosis without current pathological fracture; Z78.0 Asymptomatic menopausal state
CPT/HCPCS: 77063; 77067; 77080

== ENCOUNTER → 2022-03-11 | Outpatient (CLI) | payer OTHER ==
[2022-03-11 16:05] LABS: Basophils # (A) 0.1 k/uL (0-0.2); Basophils % (A) 0 %; Eosinophils # (A) 0.1 k/uL (0-0.7); Eosinophils % (A) 1 %; HGB 14.1 gm/dL (11.4-16.0); Hypochromasia Slight; Lymphocytes # (A) 3.2 k/uL (1.0-4.8); Lymphocytes % (A) 28 %; MCH 29.4 pg (25.0-35.0); MCHC 32.8 g/dL (31.0-37.0); MCV 89.5 fL (80.0-100.0); Mean Platelet Volume 11.9; Monocytes # (A) 0.5 k/uL (0-1.0); Monocytes % (A) 4 %; Neutrophils # (A) 7.4 k/uL (1.3-7.7); Neutrophils % (A) 65 %; RDW 14.7 % (11.5-15.5); WBC 11.4 k/uL (3.8-10.6)
[2022-03-11 16:57] LABS: Large Platelets Present
[2022-03-11 17:09] LABS: Erythrocyte Sedimentation Rate 14 mm/hr (0-20)
[2022-03-11 23:56] LABS: ALT 16 U/L (8-44); AST 18 U/L (13-35); Albumin 4.4 g/dL (3.8-4.9); Albumin/Globulin Ratio 1.92 (1.60-3.17); Alkaline Phosphatase 38 U/L (41-126); BUN/Creat Ratio 14.78 Ratio (12.00-20.00); C Reactive Protein <0.30 mg/dL (0.00-0.80); Calcium 9.7 mg/dL (8.7-10.3); Carbon Dioxide 23.6 mmol/L (20.0-27.5); Chloride 106 mmol/L (96-109); Globulin 2.3 g/dL (1.6-3.3); Glucose 88 mg/dL (70-110); Non-African American GFR(CKD) 96.6 (60.0-200.0); Potassium 3.9 mmol/L (3.5-5.5); Sodium 145 mmol/L (135-145); Total Protein 6.7 g/dL (6.2-8.2)
== END | disposition home or self-care (01) ==
LOC: LABWHC1 14:01
PROVIDERS: ATTEND Family Medicine
DX: M25.50 Pain in unspecified joint (principal)
CPT/HCPCS: 36415; 80053; 85025; 85652; 86038; 86039; 86140

== ENCOUNTER → 2022-03-11 | Outpatient (CLI) | payer OTHER ==
[2022-03-11 13:46] VITALS: BP 102/75; PULSE 88; RESP 18; TEMP 98.1
--- NOTE | 2022-03-11 14:26 | P.PAINPG ---
PQRS Measure Charge Sheet Comment: A 56 yr old female with a history of severe and chronic low back painx years secondary to lumbar DDD and spondylosis with facet arthropathy without myelopathy presents today for medication refills. Pain level is currently at 6/10 in intensity, constant, localized in the mid to lower lumbar spine, throbbing in character w shooting towards the BL hips. Pain is provoked by lifting or standing for periods of 15 min or more. Pain is alleviated with home exercise regimen daily, heat, ice, topicals, medications, use of a cane for ambulation, repositioning and rest. Interventional pain procedures completed include LESIs Patient is currently on [place], Zanaflex, Neurontin Patient denies any side effects of the medication(s), denies excessive drowsiness or sleepiness, denies suicidal ideation and reports that the current pain medication is helping to control the pain and improve activities of daily living. Patient denies any motor or sensory deficits. Patient denies any fever or night sweats, denies any change in the bowel movements or urination. Physical Examination: -Constitutional: Cooperative. Not in acute distress . - Neurologic: Cranial nerve II to XII intact. No focal neurological deficits. - Psychatric: Alert & oriented x 3. Matching mood & appropriate affect. Judgment and insight intact. - Musculoskeletal: Cervical spine: Muscle bulk/ tone/ strength in the bilateral upper extremities normal Vertebral body tenderness to palpation over Spurling test positive Distraction test positive Facet loading test positive Thoracic spine Muscle bulk / tone/ strength in the bilateral paraspinal muscles normal Vertebral body tender to palpation over Facet loading test positive Lumbar spine: Motor bulk/ tone/ strength lower extremities , thigh and legs : 5/5 Deep tendon reflexes : Normal Knee Jerk. Normal Ankle Jerk . Vertebral body tenderness to palpation over L3, L4, L5 Lumbar Facet Loading Test positive Straight Leg Raise: positive at 30 degrees right side/ left side Gaenslen's Test positive Sacral spine : Severe tenderness over the Sacroiliac joint: right side / left side Range of motion: Flexion of the lumbar spine <60 degrees Range of motion: Extension of the lumbar spine <20 degrees Gaenslen's Test positive Silvana test: positive right side / left side Thigh Thrust Test Sacral Thrust Test Assessment and plan: Chronic low back pain secondary to lumbar degenerative disc disease, spondylosis with facet arthropathy without myelopathy Chronic and current use of high-risk medication (Opioids). The patient was counseled about risk of opioid use, psychological risk associated with opioids and was orally counseled to not overuse , divert or sell medications. Pt is to store medication in a safe location. The patient is counseled against driving while using narcotic medications and also not to use alcohol or any illicit recreational drugs. Patient verbalized understanding that the lack of compliance will result in failure to renew narcotic prescription(s) as well as possible discharge from the clinic Diagnoses, prognosis and treatment options including but not limited to physical therapy, surgical interventions, interventional therapies and medication management including narcotics and adjuvant medication were discussed. All patient questions answered MAPS reviewed and it was appropriate. UDS collected today 03/11/22 Prescription refill for [place] 10/325mg #120, Neurontin 300mg #60, Zanaflex #90 w 2 RF. I have spent less than 30 minutes on patient care today. Dr Melo was available by phone for the evaluation of this patient. The time was used to review the medical records including relevant urine studies and Prescription history (MAPs), review of the available imaging, evaluation and examination of the patient, coordination of care with the medical staff and if applicable referring physicians, as well as creation of the medical record PQRS Narrative: Smoking Status Current every day smoker Narcotic Agreement Date Signed 01/15/21 Hx Alcohol Use (MH) No Home Medications: Ambulatory Orders Multivitamins, Thera [Multivitamin (formulary)] 1 tab PO DAILY 10/23/13 Atorvastatin [Lipitor] 80 mg PO HS #30 tab 02/22/14 Metoprolol Tartrate [Lopressor] 25 mg PO BID #60 tab 02/22/14 Nitroglycerin Sl Tabs [Nitrostat] 0.4 mg SUBLINGUAL Q5M PRN #25 tab 02/22/14 Omeprazole [PriLOSEC] 40 mg PO AC-BRKFST 04/16/15 Aspirin EC [Ecotrin] 325 mg PO DAILY 07/17/16 Nicotine 14Mg/24Hr Patch [Habitrol] 1 patch TRANSDERM DAILY PRN 05/02/20 Albuterol Sulfate [Proair Hfa] 2 puff INHALATION RT-QID PRN 06/04/20 Nystatin 100,000Unit/gm Cream [Mycostatin Cream] 1 applic TOPICAL BID PRN 01/14/21 tiZANidine HCL [Zanaflex] 4 mg PO Q8HR PRN 30 Days #60 tab 08/27/21 Lidocaine 5% Patch [Lidoderm] 1 each TP Q24H 30 Days #30 patch 10/22/21 Gabapentin [Neurontin] 300 mg PO BID 30 Days #60 cap 03/11/22 HYDROcodone/APAP 10-325MG [[place] 10-325] 1 tab PO Q6H PRN 30 Days #120 tab 03/11/22 HYDROcodone/APAP 10-325MG [[place] 10-325] 1 tab PO Q6HR PRN 30 Days #120 tab HYDROcodone/APAP 10-325MG [[place] 10-325] 1 tab PO Q6HR PRN 30 Days #120 tab 03/11/22 tiZANidine [Zanaflex] 4 mg PO Q8HR PRN 30 Days #90 tab 03/11/22 Controlled Substance Measures - Controlled Substance Measures Is patient prescribed a controlled substance at discharge?: Yes When asked, does pt state using other controlled substances?: No If prescribed controlled substance>3 days was MAPS reviewed?: Yes If Rx opioid, was Start Talking consent form obtained?: Yes Was information provided regarding opioid addiction?: Yes
== END ==
LOC: PNWHC3 12:56
PROVIDERS: ATTEND Specialist
DX: M47.816 Spondylosis without myelopathy or radiculopathy, lumbar region (principal); M51.36 Other intervertebral disc degeneration, lumbar region; G89.29 Other chronic pain; Z79.891 Long term (current) use of opiate analgesic; Z88.0 Allergy status to penicillin; Z88.1 Allergy status to other antibiotic agents; Z91.013 Allergy to seafood; Z88.6 Allergy status to analgesic agent; F17.200 Nicotine dependence, unspecified, uncomplicated
CPT/HCPCS: 80307; G0482; G0463; 99212

== ENCOUNTER → 2022-08-24 | Outpatient (CLI) | payer OTHER ==
--- NOTE | 2022-08-24 14:30 | XR ---
EXAMINATION TYPE: XR foot complete 3 views LT DATE OF EXAM: 08/24/2022 Comparison: 09/19/2021 Clinical History: 57-year-old female M79.672 Findings: Mild bunion formation. Mild degenerative change first MTP joint. Bipartite tibial sesamoid. Moderate- sized plantar heel spur. There is some soft tissue thickening at the origin of the plantar fascia. No acute fracture, subluxation, dislocation seen. Impression: 1. Moderate sized plantar heel spur. Possible plantar fasciitis. Clinically correlate. 2. Mild first MTP joint with bunion.
== END | disposition home or self-care (01) ==
LOC: RADXRMAIN 14:05
PROVIDERS: ATTEND Family Medicine
DX: M77.32 Calcaneal spur, left foot (principal); M21.612 Bunion of left foot; M79.672 Pain in left foot

== ENCOUNTER → 2022-08-26 | Outpatient (CLI) | payer OTHER ==
[2022-08-26 14:03] VITALS: BP 130/78; PULSE 83; RESP 18; TEMP 98.5
--- NOTE | 2022-08-26 14:32 | P.PAINPG ---
PQRS Measure Charge Sheet Comment: A 57 yr old female with a history of severe and chronic LBP secondary to lumbar DDD and spondylosis with facet arthropathy without myelopathy presents today for medication refills. Pain level is provoked at 6 /10 in intensity, constant, localized in the lumbar spine, pulsing in character w shooting towards the R hip. Pain is provoked by bending, lifting. Pain is alleviated with home exercise regimen daily, PT 6 yrs ago, heat, ice, topicals, medications, use of a cane for ambulation, repositioning and rest. Procedures include DAVE L4-L5 x1 Patient is currently on [place] 10/325mg #120, Zanaflex #90, Neurontin #60 Patient denies any side effects of the medication(s), denies excessive drowsiness or sleepiness, denies suicidal ideation and reports that the current pain medication is helping to control the pain and improve activities of daily living. Patient denies any motor or sensory deficits. Patient denies any fever or night sweats, denies any change in the bowel movements or urination. Physical Examination: -Constitutional: Cooperative. Not in acute distress . - Neurologic: Cranial nerve II to XII intact. No focal neurological deficits. - Psychatric: Alert & oriented x 3. Matching mood & appropriate affect. Judgment and insight intact. - Musculoskeletal: Cervical spine: Muscle bulk/ tone/ strength in the bilateral upper extremities normal Vertebral body tenderness to palpation over Spurling test positive Distraction test positive Facet loading test positive Thoracic spine Muscle bulk / tone/ strength in the bilateral paraspinal muscles normal Vertebral body tender to palpation over Facet loading test positive Lumbar spine: Motor bulk/ tone/ strength lower extremities , thigh and legs : 5/5 Deep tendon reflexes : Normal Knee Jerk. Normal Ankle Jerk . Vertebral body tenderness to palpation over L4, L5 + Kulkarni Test Positive over L5 Lumbar Facet Loading Test positive Straight Leg Raise: positive at 30 degrees right side/ left side Gaenslen's Test positive Sacral spine : Severe tenderness over the Sacroiliac joint: right side / left side Range of motion: Flexion of the lumbar spine <60 degrees Range of motion: Extension of the lumbar spine <20 degrees Gaenslen's Test positive Silvana test: positive right side / left side Thigh Thrust Test Sacral Thrust Test Assessment and plan: Chronic LBP secondary to lumbar DDD, spondylosis with facet arthropathy without myelopathy Recommendation of DAVE L4-L5. May need a series of injections for optimal pain relief. Risks, benefits of procedure discussed and pt verbalized understanding. Protocol for discontinuation/ continuation of medications nicanor procedure discussed. Chronic and current use of high-risk medication (Opioids). The patient was counseled about risk of opioid use, psychological risk associated with opioids and was orally counseled to not overuse , divert or sell medications. Pt is to store medication in a safe location. The patient is counseled against driving while using narcotic medications and also not to use alcohol or any illicit recreational drugs. Patient verbalized understanding that the lack of compliance will result in failure to renew narcotic prescription(s) as well as possible discharge from the clinic Diagnoses, prognosis and treatment options including but not limited to physical therapy, surgical interventions, interventional therapies and medication management including narcotics and adjuvant medication were discussed. All patient questions answered MAPS reviewed and it was appropriate. Prescription refill for [place] 10/325mg #120, Zanaflex #90, Neurontin #60, Lidoderm patches w 2 RF I have spent less than 30 minutes on patient care today. Dr Melo was available by phone for the evaluation of this patient. The time was used to review the medical records including relevant urine studies and Prescription history (MAPs), review of the available imaging, evaluation and examination of the patient, coordination of care with the medical staff and if applicable referring physicians, as well as creation of the medical record PQRS Narrative: Smoking Status Current every day smoker Narcotic Agreement Date Signed 01/15/21 Hx Alcohol Use (MH) No Home Medications: Ambulatory Orders Multivitamins, Thera [Multivitamin (formulary)] 1 tab PO DAILY 10/23/13 Atorvastatin [Lipitor] 80 mg PO HS #30 tab 02/22/14 Metoprolol Tartrate [Lopressor] 25 mg PO BID #60 tab 02/22/14 Nitroglycerin Sl Tabs [Nitrostat] 0.4 mg SUBLINGUAL Q5M PRN #25 tab 02/22/14 Omeprazole [PriLOSEC] 40 mg PO AC-BRKFST 04/16/15 Aspirin EC [Ecotrin] 325 mg PO DAILY 07/17/16 Nicotine 14Mg/24Hr Patch [Habitrol] 1 patch TRANSDERM DAILY PRN 05/02/20 Albuterol Sulfate [Proair Hfa] 2 puff INHALATION RT-QID PRN 06/04/20 Nystatin 100,000Unit/gm Cream [Mycostatin Cream] 1 applic TOPICAL BID PRN 01/14/21 tiZANidine HCL [Zanaflex] 4 mg PO Q8HR PRN 30 Days #60 tab 08/27/21 Gabapentin [Neurontin] 300 mg PO BID 30 Days #60 cap 08/26/22 HYDROcodone/APAP 10-325MG [[place] 10-325] 1 tab PO Q6H PRN 30 Days #120 tab 08/26/22 HYDROcodone/APAP 10-325MG [[place] 10-325] 1 tab PO Q6HR PRN 30 Days #120 tab 08/26/22 HYDROcodone/APAP 10-325MG [[place] 10-325] 1 tab PO Q6HR PRN 30 Days #120 tab 08/26/22 Lidocaine 5% Patch [Lidoderm 5% Patch] 1 each TP Q24H 30 Days #30 patch 08/26/22 tiZANidine [Zanaflex] 4 mg PO Q8HR PRN 30 Days #90 tab 08/26/22 Controlled Substance Measures - Controlled Substance Measures Is patient prescribed a controlled substance at discharge?: Yes When asked, does pt state using other controlled substances?: Yes If prescribed controlled substance>3 days was MAPS reviewed?: Yes
== END ==
LOC: PNWHC3 12:32
PROVIDERS: ATTEND Specialist
DX: M51.36 Other intervertebral disc degeneration, lumbar region (principal); M47.816 Spondylosis without myelopathy or radiculopathy, lumbar region; G89.29 Other chronic pain; Z79.891 Long term (current) use of opiate analgesic; Z88.6 Allergy status to analgesic agent; Z88.0 Allergy status to penicillin; Z88.8 Allergy status to other drugs, medicaments and biological substances; F17.200 Nicotine dependence, unspecified, uncomplicated
CPT/HCPCS: 80307; G0482; G0463; 99212

== ENCOUNTER 2022-10-22 13:43 | Emergency (ER) | payer OTHER ==
[2022-10-22] MEDS ORDERED: SODIUM CHLORIDE 0.9% 1,000 ML IV STA (14:31)
[2022-10-22] MEDS ORDERED: HYDROmorphone 1 MG/ML 1 ML SYRINGE IVP STA ×2 (14:32→16:22)
[2022-10-22] MEDS ORDERED: KETOROLAC 15 MG/ML 1 ML VIAL IVP STA (14:34)
--- NOTE | 2022-10-22 14:40 | ED ---
Abdominal Pain HPI - General Chief Complaint: Abdominal Pain Stated Complaint: R side pain front/back Time Seen by Provider: 10/22/22 14:20 Source: patient, RN notes reviewed Mode of arrival: wheelchair Limitations: no limitations - History of Present Illness Initial Comments: This is a 57-year-old female who presents to the emergency department for abdo moses pain. States that this has been intermittent over the last 3 weeks, but seems to have gotten a lot worse over the last couple of days. This is localized to the right upper quadrant and right upper back. Denies any nausea or vomiting. Reports a history kidney stones, but states that that is always in the back and this feels different. She has never experienced a sensation like this in the past. Denies any known gallbladder issues. States that the pain is worse after eating. However, movement also makes it worse. Denies any diarrhea or constipation. Denies any fevers, chills, sore throat, cough, dyspnea, chest pain, palpitations, nausea, vomiting, diarrhea, or headaches. MD Complaint: abdominal pain Location: RUQ Radiation: R flank - Related Data Home Medications Medication Instructions Recorded Confirmed Multivitamins, Thera [Multivitamin 1 tab PO DAILY 10/23/13 08/26/22 (formulary)] Omeprazole [PriLOSEC] 40 mg PO AC-BRKFST 04/16/15 08/26/22 Aspirin EC [Ecotrin] 325 mg PO DAILY 07/17/16 08/26/22 Nicotine 14Mg/24Hr Patch [Habitrol] 1 patch TRANSDERM DAILY PRN 05/02/20 08/26/22 Albuterol Sulfate [Proair Hfa] 2 puff INHALATION RT-QID PRN 06/04/20 08/26/22 Nystatin 100,000Unit/gm Cream 1 applic TOPICAL BID PRN 01/14/21 08/26/22 [Mycostatin Cream] Previous Rx's Medication Instructions Recorded Atorvastatin [Lipitor] 80 mg PO HS #30 tab 02/22/14 Metoprolol Tartrate [Lopressor] 25 mg PO BID #60 tab 02/22/14 Nitroglycerin Sl Tabs [Nitrostat] 0.4 mg SUBLINGUAL Q5M PRN #25 tab 02/22/14 tiZANidine HCL [Zanaflex] 4 mg PO Q8HR PRN 30 Days #60 tab 08/27/21 Gabapentin [Neurontin] 300 mg PO BID 30 Days #60 cap 08/26/22 HYDROcodone/APAP 10-325MG [[place] 1 tab PO Q6H PRN 30 Days #120 tab 08/26/22 10-325] HYDROcodone/APAP 10-325MG [[place] 1 tab PO Q6HR PRN 30 Days #120 tab 08/26/22 10-325] HYDROcodone/APAP 10-325MG [[place] 1 tab PO Q6HR PRN 30 Days #120 tab 08/26/22 10-325] Lidocaine 5% Patch [Lidoderm 5% 1 each TP Q24H 30 Days #30 patch 08/26/22 Patch] tiZANidine [Zanaflex] 4 mg PO Q8HR PRN 30 Days #90 tab 08/26/22 Ketorolac [Toradol] 10 mg PO Q6HR PRN #15 tab 10/22/22 cefUROXime axetiL [Ceftin] 500 mg PO BID 7 Days #14 tab 10/22/22 Allergies Allergy/AdvReac Type Severity Reaction Status Date / Time ibuprofen [From Motrin] Allergy Anaphylaxis Verified 10/22/22 13:45 /Swelling amoxicillin trihydrate AdvReac Nausea & Verified 10/22/22 13:45 [From Augmentin] Vomiting potassium clavulanate AdvReac Nausea & Verified 10/22/22 13:45 [From Augmentin] Vomiting SALMON Allergy Anaphylaxis Uncoded 10/22/22 13:45 Review of Systems ROS Statement: Those systems with pertinent positive or pertinent negative responses have been documented in the HPI. ROS Other: All systems not noted in ROS Statement are negative. Past Medical History Past Medical History: Coronary Artery Disease (CAD), Chest Pain / Angina, COPD, Fibromyalgia, GERD/Reflux, Hypertension, Myocardial Infarction ([place]), Musculoskeletal Disorder, Osteoarthritis (OA), Pneumonia, Vascular Disorder Additional Past Medical History / Comment(s): Crohns, Colitis. Osteoporosis. Chronic back pain & neck pain, DDD, spinal stenosis, nighttime leakage of urine, PAD, old hx kidney stone X1, Neuropathy in lower legs. Last Myocardial Infarction Date:: 02/2014 History of Any Multi-Drug Resistant Organisms: None Reported, MRSA Date of last positivie culture/infection: 2009 est MDRO Source:: abdominal at Heparin injection site Past Surgical History: Appendectomy, Bowel Resection, Heart Catheterization With Stent, Joint Replacement, Orthopedic Surgery, Tonsillectomy Additional Past Surgical History / Comment(s): 2 Small Bowel Resections D/T Crohns. LEFT TOTAL KNEE REPLACEMENT, THEN A REVISION-HAS TITANIUM. Bilateral carpal tunnel, Trigger Fingers/Thumb X6, total of 3 cardiac stents, pain procedures. Past Anesthesia/Blood Transfusion Reactions: Motion Sickness Date of Last Stent Placement:: 04/2014 Past Psychological History: No Psychological Hx Reported Smoking Status: Current every day smoker, Light tobacco smoker - Past Family History Father Family Medical History: Cancer Additional Family Medical History / Comment(s): LUNG CANCER Mother Additional Family Medical History / Comment(s): WHEN PT WAS AGE 14 NOT SURE WHY, HX OF MENTAL HEALTH ISS General Exam Limitations: no limitations General appearance: alert, in distress Head exam: Present: atraumatic, normocephalic, normal inspection Respiratory exam: Present: normal lung sounds bilaterally. Absent: respiratory distress, wheezes, rales, rhonchi, stridor Cardiovascular Exam: Present: regular rate, normal rhythm, normal heart sounds. Absent: systolic murmur, diastolic murmur, rubs, gallop, clicks GI/Abdominal exam: Present: soft, tenderness (RUQ), normal bowel sounds. Absent: distended Neurological exam: Present: alert, oriented X3, CN II-XII intact Psychiatric exam: Present: normal affect, normal mood Skin exam: Present: warm, dry, intact, normal color. Absent: rash Course Vital Signs 10/22/22 10/22/22 10/22/22 13:45 14:52 16:12 Temperature 99.1 F Pulse Rate 105 H 81 89 Respiratory 16 20 20 Rate Blood Pressure 157/85 135/75 170/83 O2 Sat by Pulse 98 97 99 Oximetry 10/22/22 17:27 Temperature 98.3 F Pulse Rate 75 Respiratory 18 Rate Blood Pressure 135/76 O2 Sat by Pulse 98 Oximetry Medical Decision Making - Medical Decision Making This is a 57-year-old female who presents to the emergency department for abdominal pain. Was pt. sent in by a medical professional or institution? @ -No Did you speak to anyone other than the patient for history? @ -No Did you review nursing and triage notes? @ -Yes, and I agree, it is accurate with regards to the patient's symptoms. Were old charts reviewed? @ -No Differential Diagnosis? @ -Differential Abdominal Pain Women: Appendicitis, Cholecystitis, diverticulosis, ischemic bowel, pancreatitis, hepatitis, UTI, gastroenteritis, AAA, incarcerated hernia, bowel obstruction, constipation, inflammatory bowel, hepatitis, peptic ulcer disease, splenic infarction, perforated viscus, vulvitis, ovarian torsion, PID, kidney stone, placenta abruption, this is not meant to be an all-inclusive list EKG interpreted by me (3pts min.)? @ -EKG interpreted by me demonstrating the following: Sinus rhythm. Ventricular rate 77 bpm, TX interval 150 ms, QRS duration 82 ms, QTC 397 ms. X-rays interpreted by me (1pt min.)? @ -Not obtained CT interpreted by me (1pt min.)? @ -Computed tomography scan of the abdomen and pelvis obtained. My interpretation identifies no evidence of bowel wall thickening or free air. U/S interpreted by me (1pt. min.)? @ -Gallbladder ultrasound obtained. My interpretation identifies no evidence of cholelithiasis. What testing was considered but not performed? (CT, X-rays, U/S, labs)? Why? @ -None What meds were considered but not given? Why? @ -None Did you discuss the management of the patient with other professionals? @ -No Did you reconcile home meds? @ -No Was smoking cessation discussed for >3mins.? @ -No Was critical care preformed (if so, how long)? @ -No Were there social determinants of health that impacted care today? How? (Homelessness, low income, unemployed, alcoholism, drug addiction, transportation, low edu. Level, literacy, decrease access to med. care, snf, rehab)? @ -No Was there de-escalation of care discussed even if they declined? (Discuss DNR or withdrawal of care, Hospice)? @ -No What co-morbidities impacted this encounter? (DM, HTN, Smoking, COPD, CAD, Cancer, CVA, Hep., AIDS, mental health diagnosis, sleep apnea, morbid obesity)? @ -Fibromyalgia, Crohn's disease Was patient admitted / discharged? @ -Discharged. Lab work obtained revealing leukocytosis and no other actionable findings. We initially obtained a gallbladder ultrasound, however this revealed no acute process. Given the level of the patient's pain, computed tomography scan of the abdomen and pelvis was subsequently obtained. This also identified no acute findings. UA does have moderate leukesterase and white blood cells present. Given the leukocytosis with back pain, will treat patient for possible UTI. She was given a dose of ceftriaxone in the emergency department. Prescription for Ceftin and Toradol provided with dosing instructions reviewed. She will otherwise continue with her pain medication at home. Undiagnosed new problem with uncertain prognosis? @ -None Drug Therapy requiring intensive monitoring for toxicity (Heparin, Nitro, Insulin, Cardizem)? @ -None Were any procedures done? @ -None Diagnosis/symptom? @ -Right sided abdominal pain, UTI Acute, or Chronic, or Acute on Chronic? @ -Acute Uncomplicated (without systemic symptoms) or Complicated (systemic symptoms)? @ -Uncomplicated Side effects of treatment? @ -None Exacerbation, Progression, or Severe Exacerbation] @ -Not applicable Poses a threat to life or bodily function? @ -No Return precautions reviewed in depth, the patient is instructed to return to the emergency department with any new, worsening, or concerning symptoms. Patient verbalized understanding. This case was discussed in detail with the attending ED physician, Dr. Hodges. Presentation, findings, and treatment plan discussed in detail as well. - Lab Data Result diagrams: 10/22/22 14:45 10/22/22 14:45 Lab Results 10/22/22 10/22/22 10/22/22 Range/Units 14:45 14:45 14:45 WBC 12.5 H (3.8-10.6) k/uL RBC 5.14 (3.80-5.40) m/uL Hgb 15.2 (11.4-16.0) gm/dL Hct 45.8 (34.0-46.0) % MCV 89.1 (80.0-100.0) fL MCH 29.6 (25.0-35.0) pg MCHC 33.3 (31.0-37.0) g/dL RDW 14.7 (11.5-15.5) % Plt Count 135 L (150-450) k/uL MPV 11.4 Neutrophils % 68 % Lymphocytes % 26 % Monocytes % 5 % Eosinophils % 1 % Basophils % 0 % Neutrophils # 8.4 H (1.3-7.7) k/uL Lymphocytes # 3.2 (1.0-4.8) k/uL Monocytes # 0.6 (0-1.0) k/uL Eosinophils # 0.1 (0-0.7) k/uL Basophils # 0.0 (0-0.2) k/uL Sodium 142 (137-145) mmol/L Potassium 3.7 (3.5-5.1) mmol/L Chloride 108 H (98-107) mmol/L Carbon Dioxide 22 (22-30) mmol/L Anion Gap 12 mmol/L BUN 9 (7-17) mg/dL Creatinine 0.65 (0.52-1.04) mg/dL Est GFR (CKD-EPI)AfAm >90 (>60 ml/min/1.73 sqM) Est GFR (CKD-EPI)NonAf >90 (>60 ml/min/1.73 sqM) Glucose 98 (74-99) mg/dL Plasma Lactic Acid Slick 1.4 (0.7-2.0) mmol/L Calcium 9.7 (8.4-10.2) mg/dL Total Bilirubin 0.6 (0.2-1.3) mg/dL AST 34 (14-36) U/L ALT 23 (4-34) U/L Alkaline Phosphatase 52 (38-126) U/L Total Protein 7.8 (6.3-8.2) g/dL Albumin 4.5 (3.5-5.0) g/dL Amylase 64 (30-110) U/L Lipase 151 (23-300) U/L Urine Color Urine Appearance (Clear) Urine pH (5.0-8.0) Ur Specific [place] (1.001-1.035) Urine Protein (Negative) Urine Glucose (UA) (Negative) Urine Ketones (Negative) Urine Blood (Negative) Urine Nitrite (Negative) Urine Bilirubin (Negative) Urine Urobilinogen (<2.0) mg/dL Ur Leukocyte Esterase (Negative) Urine RBC (0-5) /hpf Urine WBC (0-5) /hpf Ur Squamous Epith Cells (0-4) /hpf Hyaline Casts (0-2) /lpf Urine Mucus (None) /hpf 10/22/22 Range/Units 15:38 WBC (3.8-10.6) k/uL RBC (3.80-5.40) m/uL Hgb (11.4-16.0) gm/dL Hct (34.0-46.0) % MCV (80.0-100.0) fL MCH (25.0-35.0) pg MCHC (31.0-37.0) g/dL RDW (11.5-15.5) % Plt Count (150-450) k/uL MPV Neutrophils % % Lymphocytes % % Monocytes % % Eosinophils % % Basophils % % Neutrophils # (1.3-7.7) k/uL Lymphocytes # (1.0-4.8) k/uL Monocytes # (0-1.0) k/uL Eosinophils # (0-0.7) k/uL Basophils # (0-0.2) k/uL Sodium (137-145) mmol/L Potassium (3.5-5.1) mmol/L Chloride (98-107) mmol/L Carbon Dioxide (22-30) mmol/L Anion Gap mmol/L BUN (7-17) mg/dL Creatinine (0.52-1.04) mg/dL Est GFR (CKD-EPI)AfAm (>60 ml/min/1.73 sqM) Est GFR (CKD-EPI)NonAf (>60 ml/min/1.73 sqM) Glucose (74-99) mg/dL Plasma Lactic Acid Slick (0.7-2.0) mmol/L Calcium (8.4-10.2) mg/dL Total Bilirubin (0.2-1.3) mg/dL AST (14-36) U/L ALT (4-34) U/L Alkaline Phosphatase (38-126) U/L Total Protein (6.3-8.2) g/dL Albumin (3.5-5.0) g/dL Amylase (30-110) U/L Lipase (23-300) U/L Urine Color Dark Yellow Urine Appearance Clear (Clear) Urine pH 5.5 (5.0-8.0) Ur Specific [place] 1.020 (1.001-1.035) Urine Protein Trace H (Negative) Urine Glucose (UA) Negative (Negative) Urine Ketones Trace H (Negative) Urine Blood Negative (Negative) Urine Nitrite Negative (Negative) Urine Bilirubin Negative (Negative) Urine Urobilinogen <2.0 (<2.0) mg/dL Ur Leukocyte Esterase Moderate H (Negative) Urine RBC 2 (0-5) /hpf Urine WBC 9 H (0-5) /hpf Ur Squamous Epith Cells 2 (0-4) /hpf Hyaline Casts 1 (0-2) /lpf Urine Mucus Occasional H (None) /hpf - Radiology Data Radiology results: report reviewed, image reviewed Disposition Clinical Impression: Right sided abdominal pain, UTI (urinary tract infection) Disposition: HOME SELF-CARE Instructions (If sedation given, give patient instructions): Abdominal Pain (ED) Additional Instructions: Return to the emergency department with any new, worsening, or concerning symptoms. Take the antibiotic as prescribed for 7 days. You can take the Torad ol with your pain medication for additional relief. Follow up with your primary care provider in 1-2 days. Prescriptions: cefUROXime axetiL [Ceftin] 500 mg PO BID 7 Days #14 tab Ketorolac [Toradol] 10 mg PO Q6HR PRN #15 tab PRN Reason: Pain Is patient prescribed a controlled substance at d/c from ED?: No Referrals: Jaun Cook MD [Primary Care Provider] - 1-2 days
[2022-10-22 14:59] LABS: Basophils % (A) 0 %; Eosinophils # (A) 0.1 k/uL (0-0.7); Eosinophils % (A) 1 %; HCT 45.8 % (34.0-46.0); HGB 15.2 gm/dL (11.4-16.0); Lymphocytes # (A) 3.2 k/uL (1.0-4.8); Lymphocytes % (A) 26 %; MCH 29.6 pg (25.0-35.0); MCHC 33.3 g/dL (31.0-37.0); MCV 89.1 fL (80.0-100.0); Mean Platelet Volume 11.4; Monocytes # (A) 0.6 k/uL (0-1.0); Monocytes % (A) 5 %; Neutrophils # (A) 8.4 k/uL (1.3-7.7); Neutrophils % (A) 68 %; Platelet Count 135 k/uL (150-450); RBC 5.14 m/uL (3.80-5.40); RDW 14.7 % (11.5-15.5); WBC 12.5 k/uL (3.8-10.6)
[2022-10-22 15:13] LABS: ALT 23 U/L (4-34); AST 34 U/L (14-36); African American GFR (CKD) >90 (>60 ml/min/1.73 sqM); Albumin 4.5 g/dL (3.5-5.0); Alkaline Phosphatase 52 U/L (38-126); Amylase 64 U/L (30-110); Anion Gap 12 mmol/L; Blood Urea Nitrogen 9 mg/dL (7-17); Calcium 9.7 mg/dL (8.4-10.2); Carbon Dioxide 22 mmol/L (22-30); Chloride 108 mmol/L (98-107); Glucose 98 mg/dL (74-99); Lipase 151 U/L (23-300); Non-African American GFR(CKD) >90 (>60 ml/min/1.73 sqM); Potassium 3.7 mmol/L (3.5-5.1); Sodium 142 mmol/L (137-145); Total Bilirubin 0.6 mg/dL (0.2-1.3); Total Protein 7.8 g/dL (6.3-8.2)
--- NOTE | 2022-10-22 15:35 | US ---
EXAMINATION TYPE: US gallbladder DATE OF EXAM: 10/22/2022 COMPARISON: CT abdomen pelvis 12/19/2020 CLINICAL INDICATION: Female, 57 years old with history of RUQ pain; Patient states she is NPO. HX cr ohns. TECHNIQUE: Multiple sonographic images of the right upper quadrant are obtained. FINDINGS: EXAM MEASUREMENTS: Liver Length: 14.7 cm Gallbladder Wall: 0.2 cm CBD: 0.6 cm CHD: 0.5 cm Right Kidney: 10.1 x 5.0 x 4.5 cm Pancreas: Echogenic in appearance. Main pancreatic duct = 3.5 mm. Which is at the upper limits of n ormal Tail obscured by overlying bowel gas Liver: wnl Gallbladder: wnl Evidence for sonographic Blunt's sign: neg CBD: wnl CHD: wnl Right Kidney: No hydronephrosis or masses seen Main pancreatic duct is at the upper limits of normal. The pancreatic tail is excluded by overlying b owel gas. The liver is hyperechoic in appearance without focal lesion. Gallbladder is unremarkable wi thout evidence of wall thickening, cholelithiasis, or pericholecystic fluid. Per gas leak inspector, negativ e sonographic Blunt sign. The common bile and common hepatic ducts are within normal limits. No hydr onephrosis, solid mass, or nephrolithiasis involving the right kidney. IMPRESSION: 1. No ultrasound evidence for an acute process. 2. Hepatic steatosis.
--- NOTE | 2022-10-22 16:20 | CT ---
EXAMINATION TYPE: CT abdomen pelvis w con CT DLP: 1065.3 mGycm, Automated exposure control for dose reduction was used. DATE OF EXAM: 10/22/2022 4:10 PM COMPARISON: CT abdomen pelvis most recent from 12/19/2020, gallbladder ultrasound 10/22/2022 . CLINICAL INDICATION:Female, 57 years old with history of Right sided abdominal pain; Right sided abdo moses pain TECHNIQUE: Standard CT of the abdomen and pelvis following the administration of 100 cc of Isovue 3 00 IV contrast material. Coronal and sagittal reformats were performed. FINDINGS: LOWER CHEST: Posterior dependent subsegmental atelectasis is noted. Coronary artery calcifications. ABDOMEN LIVER: Diffusely hypoattenuating parenchyma. GALLBLADDER AND BILE DUCTS: Unremarkable. PANCREAS: Unremarkable. SPLEEN: Unremarkable. ADRENAL GLANDS: Unremarkable. KIDNEYS AND URETERS: No evidence of hydronephrosis or renal calculus. The kidneys enhance symmetrical ly. Bilateral renal vascular calcifications. PELVIS BLADDER: Under distended, limiting evaluation. REPRODUCTIVE: Unremarkable. ABDOMEN & PELVIS STOMACH AND BOWEL: Stomach and duodenum are unremarkable. Submucosal fat deposition within the sigmoi d colon and rectum. Postsurgical changes of the ascending colon with anastomosis identified. No evide nce of bowel obstruction. PERITONEUM: No evidence of pneumoperitoneum or free fluid. VASCULATURE: Moderate atherosclerotic calcifications are present throughout the abdominal aorta and i ts branches. No evidence of aortic aneurysm. MUSCULOSKELETAL: No acute osseous abnormalities. Grade 1 anterolisthesis of L3 on L4 without evidence of pars defects. LYMPH NODES: No gross evidence for lymphadenopathy. SOFT TISSUE/ABDOMINAL WALL: Epigastric ventral wall hernia containing fat and mesenteric vessels. Add itional smaller supraumbilical fat-containing hernia. IMPRESSION: 1. No acute abdominal/pelvic process. 2. Hepatic steatosis.
[2022-10-22] MEDS ORDERED: ORPHENADRINE 30 MG/ML 2 ML VIAL IVP STA (16:22)
[2022-10-22 16:38] LABS: Appearance,Urine Clear (Clear); Bilirubin,Urine Negative (Negative); Blood,Urine Negative (Negative); Color,Urine Dark Yellow; Glucose,Urine (UA) Negative (Negative); Hyaline Casts,Urine 1 /lpf (0-2); Ketones,Urine Trace (Negative); Leukocyte Esterase,Urine Moderate (Negative); Mucus,Urine Occasional /hpf; Nitrite,Urine Negative (Negative); PH, Urine 5.5 (5.0-8.0); Protein,Urine Trace (Negative); RBC,Urine 2 /hpf (0-5); Squamous Epithelial Cell,Urine 2 /hpf (0-4); Urobilinogen,Urine <2.0 mg/dL (<2.0); WBC,Urine 9 /hpf (0-5)
[2022-10-22] MEDS ORDERED: cefTRIAXone IN SWFI 1,000 MG/10 ML SYRINGE IVP STA (17:05)
[2022-10-22 17:30] VITALS: BP 135/76; PULSE 75; RESP 18; TEMP 98.3
== END 2022-10-22 17:57 | disposition home or self-care (01) ==
LOC: EC 13:43
DX: N39.0 Urinary tract infection, site not specified (principal); I10 Essential (primary) hypertension; I25.2 Old myocardial infarction; J44.9 Chronic obstructive pulmonary disease, unspecified; I25.10 Atherosclerotic heart disease of native coronary artery without angina pectoris; K21.9 Gastro-esophageal reflux disease without esophagitis; K50.90 Crohn's disease, unspecified, without complications; M79.7 Fibromyalgia; F17.200 Nicotine dependence, unspecified, uncomplicated; Z79.82 Long term (current) use of aspirin; Z79.899 Other long term (current) drug therapy; Z88.0 Allergy status to penicillin; Z88.1 Allergy status to other antibiotic agents; Z88.6 Allergy status to analgesic agent; Z91.013 Allergy to seafood; Z90.49 Acquired absence of other specified parts of digestive tract
CPT/HCPCS: 36415; 93005; 80053; 82150; 83605; 83690; 85025; 81001; 76705; 74177; 99285; 96374; 96375 ×3; 96376; 96361; J2360; J0696; J1170; J1885; Q9967

== ENCOUNTER → 2022-11-18 | Outpatient (CLI) | payer OTHER ==
[2022-11-18 13:41] VITALS: BP 136/88; PULSE 92; RESP 17; TEMP 98
--- NOTE | 2022-11-18 14:44 | P.PAINPG ---
PQRS Measure Charge Sheet Comment: A 57 yr old female with a history of severe and chronic LBP secondary to lumbar DDD and spondylosis with facet arthropathy without myelopathy presents today for medication refills. Pain level is provoked at 6 /10 in intensity, constant, localized in the lumbar spine, throbbing, pulsing in character w shooting towards the R hip. Pain is provoked by bending, lifting. Pain is alleviated with home exercise regimen daily, PT 6 yrs ago, heat, ice, topicals, medications, use of a cane for ambulation, repositioning and rest. Awaiting DAVE L4-L5 #2 which needed to be rescheduled due to an acute UTI. Procedures include DAVE L4-L5 x1 Patient is currently on [place] 10/325mg #120, Zanaflex #90, Neurontin #60 Patient denies any side effects of the medication(s), denies excessive drowsiness or sleepiness, denies suicidal ideation and reports that the current pain medication is helping to control the pain and improve activities of daily living. Patient denies any motor or sensory deficits. Patient denies any fever or night sweats, denies any change in the bowel movements or urination. Physical Examination: -Constitutional: Cooperative. Not in acute distress . - Neurologic: Cranial nerve II to XII intact. No focal neurological deficits. - Psychatric: Alert & oriented x 3. Matching mood & appropriate affect. Judgment and insight intact. - Musculoskeletal: Cervical spine: Muscle bulk/ tone/ strength in the bilateral upper extremities normal Vertebral body tenderness to palpation over Spurling test positive Distraction test positive Facet loading test positive Thoracic spine Muscle bulk / tone/ strength in the bilateral paraspinal muscles normal Vertebral body tender to palpation over Facet loading test positive Lumbar spine: Motor bulk/ tone/ strength lower extremities , thigh and legs : 5/5 Deep tendon reflexes : Normal Knee Jerk. Normal Ankle Jerk . Vertebral body tenderness to palpation over L4, L5 + Kulkarni Test Positive over L5 Lumbar Facet Loading Test positive Straight Leg Raise: positive at 30 degrees right side/ left side Gaenslen's Test positive Sacral spine : Severe tenderness over the Sacroiliac joint: right side / left side Range of motion: Flexion of the lumbar spine <60 degrees Range of motion: Extension of the lumbar spine <20 degrees Gaenslen's Test positive Silvana test: positive right side / left side Thigh Thrust Test Sacral Thrust Test Assessment and plan: Chronic LBP secondary to lumbar DDD, spondylosis with facet arthropathy without myelopathy Chronic and current use of high-risk medication (Opioids). The patient was counseled about risk of opioid use, psychological risk associated with opioids and was orally counseled to not overuse , divert or sell medications. Pt is to store medication in a safe location. The patient is counseled against driving while using narcotic medications and also not to use alcohol or any illicit recreational drugs. Patient verbalized understanding that the lack of compliance will result in failure to renew narcotic prescription(s) as well as possible discharge from the clinic Diagnoses, prognosis and treatment options including but not limited to physical therapy, surgical interventions, interventional therapies and medication management including narcotics and adjuvant medication were discussed. All patient questions answered MAPS reviewed and it was appropriate. Prescription refill for [place] 10/325mg #120, Zanaflex #90, Neurontin #60 w 2 RF I have spent less than 30 minutes on patient care today. Dr Melo was available by phone for the evaluation of this patient. The time was used to review the medical records including relevant urine studies and Prescription history (MAPs), review of the available imaging, evaluation and examination of the patient, coordination of care with the medical staff and if applicable referring physicians, as well as creation of the medical record PQRS Narrative: Smoking Status Current every day smoker Narcotic Agreement Date Signed 01/15/21 Hx Alcohol Use (MH) No Home Medications: Ambulatory Orders Multivitamins, Thera [Multivitamin (formulary)] 1 tab PO DAILY 10/23/13 Atorvastatin [Lipitor] 80 mg PO HS #30 tab 02/22/14 Metoprolol Tartrate [Lopressor] 25 mg PO BID #60 tab 02/22/14 Nitroglycerin Sl Tabs [Nitrostat] 0.4 mg SUBLINGUAL Q5M PRN #25 tab 02/22/14 Omeprazole [PriLOSEC] 40 mg PO AC-BRKFST 04/16/15 Aspirin EC [Ecotrin] 325 mg PO DAILY 07/17/16 Nicotine 14Mg/24Hr Patch [Habitrol] 1 patch TRANSDERM DAILY PRN 05/02/20 Albuterol Sulfate [Proair Hfa] 2 puff INHALATION RT-QID PRN 06/04/20 Nystatin 100,000Unit/gm Cream [Mycostatin Cream] 1 applic TOPICAL BID PRN 01/14/21 tiZANidine HCL [Zanaflex] 4 mg PO Q8HR PRN 30 Days #60 tab 08/27/21 Lidocaine 5% Patch [Lidoderm 5% Patch] 1 each TP Q24H 30 Days #30 patch 08/26/22 Ketorolac [Toradol] 10 mg PO Q6HR PRN #15 tab 10/22/22 cefUROXime axetiL [Ceftin] 500 mg PO BID 7 Days #14 tab 10/22/22 Ketorolac [Toradol] 10 mg PO Q8HR #15 tab 10/23/22 cefUROXime axetiL [Cefuroxime] 500 mg PO BID #14 tab 10/23/22 Gabapentin [Neurontin] 300 mg PO BID 30 Days #60 cap 11/18/22 HYDROcodone/APAP 10-325MG [[place] 10-325] 1 tab PO Q6H PRN 30 Days #120 tab 11/18/22 HYDROcodone/APAP 10-325MG [[place] 10-325] 1 tab PO Q6HR PRN 30 Days #120 tab 11/03 09/25 HYDROcodone/APAP 10-325MG [[place] 10-325] 1 tab PO Q6HR PRN 30 Days #120 tab 11/18/22 tiZANidine [Zanaflex] 4 mg PO Q8HR PRN 30 Days #90 tab 11/18/22 Controlled Substance Measures - Controlled Substance Measures Is patient prescribed a controlled substance at discharge?: Yes When asked, does pt state using other controlled substances?: No If prescribed controlled substance>3 days was MAPS reviewed?: Yes
== END ==
LOC: PNWHC3 13:06
PROVIDERS: ATTEND Specialist
DX: M51.36 Other intervertebral disc degeneration, lumbar region (principal); M47.816 Spondylosis without myelopathy or radiculopathy, lumbar region; G89.29 Other chronic pain; Z79.891 Long term (current) use of opiate analgesic; Z79.899 Other long term (current) drug therapy; Z88.1 Allergy status to other antibiotic agents; F17.200 Nicotine dependence, unspecified, uncomplicated; Z88.6 Allergy status to analgesic agent; Z88.0 Allergy status to penicillin; Z91.012 Allergy to eggs
CPT/HCPCS: 99211

== ENCOUNTER 2022-12-03 09:49 | Day surgery (SDC) | payer OTHER ==
[~2022-12-03 09:49] MED LIST changes: -DEXAMETHASONE SOD PHOSPHATE 4 MG/ML 1 ML VIAL IV ONE; -HYDROmorphone 0.5 MG/0.5 ML SYRINGE IVP PRN; +LACTATED RINGERS 1,000 ML IV SCH; -LIDOCAINE 1% (10MG/ML) FOR IV START INTRADERMA PRN; -MIDAZOLAM 2 MG/2 ML VIAL IV PRN; -ONDANSETRON 4 MG/2 ML VIAL IVP ONE; -Pre Op ABX Message 1 EACH MISC MISCELLANE ONE
[2022-12-03 10:24] VITALS: RESP 16; TEMP 97.6
[2022-12-03] MEDS ORDERED: IOPAMIDOL M200 10 ML VIAL ONE (10:42)
[2022-12-03] MEDS ORDERED: methylPREDNISolone ACETATE 80 MG/ML 1 ML VIAL ONE (10:42)
--- NOTE | 2022-12-03 10:49 | P.PCN ---
Date of Procedure: 12/03/22 Procedure(s) Performed: PREOPERATIVE DIAGNOSIS: 1- Lumbar radiculopathy 2-Lumbar spondylosis with Facet arthropathy without myelopathy. 3-lumbar degenerative disc disease. POSTOPERATIVE DIAGNOSIS: 1-Lumber radiculopathy 2-Lumbar spondylosis with Facet arthropathy without myelopathy. 3-lumbar degenerative disc disease PROCEDURE 1. Lumbar epidural steroid injection under fluoroscopic guidance at the L4-5 level. (Fluoroscopy imaging was available in radiology department) 2. Lumbar epidurogram. ANESTHESIA: Local with 1% lidocaine 3 ml only. EBL: Minimal PROCEDURE INDICATION: The patient with low back pain and radiculitis symptoms unresponsive to conservative treatment. Fluoroscopy was used to optimize visualization of the needle placement and to maximize safety. PROCEDURE DESCRIPTION / TECHNIQUE: The patient was seen and identified in the preoperative area. Risks, benefits, complications including but not limited to infections ,bleeding ,allergic reaction to the medications ,nerve damage and not complete pain releife , and alternatives were discussed with the patient. The patient agreed to proceed with the procedure and signed the consent. IV was started, and vital signs were stable. Patient was taken to the OR and time out was completed. The patient was placed in the prone position on procedure table and a pillow was placed under the abdomen to reduce lumbar lordosis. The lumbosacral area was prepped and draped in the usual sterile fashion.ere closely monitored during the procedure. Vital signs was monitered during the entire procedure. Using anterior-posterior fluoroscopy, the L4-5 interlaminar space was identified and the skin over this site was marked and then infiltrated with 1% lidocaine subcutaneously. Subsequently, a 20-gauge Tuohy epidural needle was inserted and advanced toward the epidural space using the ``Loss of resistance technique and guided by AP and lateral fluoroscopy. The correct needle position in the epidural space was verified with the injection of 2 mL of the water soluble contrast dye Isovue 200 contrast and observing an excellent epidurogram with the epidural spread of the dye, after negative aspiration for blood and CSF and in the absence of paresthesias. Again after negative aspiration, a 6 ml mixture containing 80 mg of Depo-medrol , and 2 ml of preservative free Normal Saline, and 2 ml of preservative free lidocaine 1% solution was injected and a washout of epidurogram was seen. Needle was withdrawn intact, skin was cleansed, and bandages were applied. COMPLICATIONS: None DISPOSITION / PLANS: The patient was placed in a supine position and transferred to the recovery area in a stable condition for observation. There was no evidence of lower extremity motor or sensory deficit after the procedure. Patient was discharged from the recovery room after meeting discharge criteria. Home discharge instructions were given to the patient by the staff. The patient was reexamined prior to discharge. The patient will schedule a follow up in the clinic in 2-4 weeks.
[2022-12-03 10:54] VITALS: BP 135/85; PULSE 73
--- NOTE | 2022-12-03 11:24 | FL ---
Intraoperative/procedural fluoroscopic services were provided for lumbar epidural steroid injection L 4-L5. Total fluoroscopy time is 4.1 seconds with a total of 1 submitted image to PACS. Total DAP 0.01 680 mGym2. Please see the operative note for further details.
== END 2022-12-03 11:18 | disposition home or self-care (01) ==
LOC: ORPAIN 09:49
PROVIDERS: ATTEND Specialist
DX: M51.16 Intervertebral disc disorders with radiculopathy, lumbar region (principal); M47.26 Other spondylosis with radiculopathy, lumbar region; Z79.82 Long term (current) use of aspirin; Z79.899 Other long term (current) drug therapy
CPT/HCPCS: 62323; J1040; Q9966

== ENCOUNTER → 2023-02-10 | Outpatient (CLI) | payer OTHER ==
[2023-02-10 14:02] VITALS: BP 132/76; PULSE 86; RESP 16; TEMP 98.9
--- NOTE | 2023-02-10 14:59 | P.PAINPG ---
PQRS Measure Charge Sheet Comment: A 57 yr old female with a history of severe and chronic LBP secondary to lumbar DDD and spondylosis with facet arthropathy without myelopathy presents today for medication refills and evaluation s/p DAVE L4-L5 #2. Pt states she experienced 55% pain relief x 2 mo s/p procedure. Pain level is provoked at 6 /10 in intensity, constant, localized in the lumbar spine, throbbing, pulsing in character w shooting towards the R hip. Pain is provoked by bending, lifting. Pain is alleviated with home exercise regimen daily, PT 6 yrs ago, heat, ice, topicals, medications, use of a cane for ambulation, repositioning and rest. Procedures include DAVE L4-L5 x1 Patient is currently on [place] 10/325mg #120, Zanaflex #90, Neurontin #60 Patient denies any side effects of the medication(s), denies excessive drowsiness or sleepiness, denies suicidal ideation and reports that the current pain medication is helping to control the pain and improve activities of daily living. Patient denies any motor or sensory deficits. Patient denies any fever or night sweats, denies any change in the bowel movements or urination. Physical Examination: -Constitutional: Cooperative. Not in acute distress . - Neurologic: Cranial nerve II to XII intact. No focal neurological deficits. - Psychatric: Alert & oriented x 3. Matching mood & appropriate affect. Judgment and insight intact. - Musculoskeletal: Cervical spine: Muscle bulk/ tone/ strength in the bilateral upper extremities normal Vertebral body tenderness to palpation over Spurling test positive Distraction test positive Facet loading test positive Thoracic spine Muscle bulk / tone/ strength in the bilateral paraspinal muscles normal Vertebral body tender to palpation over Facet loading test positive Lumbar spine: Motor bulk/ tone/ strength lower extremities , thigh and legs : 5/5 Deep tendon reflexes : Normal Knee Jerk. Normal Ankle Jerk . Vertebral body tenderness to palpation over L4, L5 + Kulkarni Test Positive over L5 Lumbar Facet Loading Test positive Straight Leg Raise: positive at 30 degrees right side/ left side Gaenslen's Test positive Sacral spine : Severe tenderness over the Sacroiliac joint: right side / left side Range of motion: Flexion of the lumbar spine <60 degrees Range of motion: Extension of the lumbar spine <20 degrees Gaenslen's Test positive Silvana test: positive right side / left side Thigh Thrust Test Sacral Thrust Test Assessment and plan: Chronic LBP secondary to lumbar DDD, spondylosis with facet arthropathy without myelopathy Chronic and current use of high-risk medication (Opioids). The patient was counseled about risk of opioid use, psychological risk associated with opioids and was orally counseled to not overuse , divert or sell medications. Pt is to store medication in a safe location. The patient is counseled against driving while using narcotic medications and also not to use alcohol or any illicit recreational drugs. Patient verbalized understanding that the lack of compliance will result in failure to renew narcotic prescription(s) as well as possible discharge from the clinic Diagnoses, prognosis and treatment options including but not limited to physical therapy, surgical interventions, interventional therapies and medication management including narcotics and adjuvant medication were discussed. All patient questions answered MAPS reviewed and it was appropriate. UDS collected 02/10/23. Opiate/ narcotic agreement renewed 02/10/23. Prescription refill for [place] 10/325mg #120, Zanaflex #90, Neurontin #60 w 2 RF I have spent less than 30 minutes on patient care today. Dr Melo was available by phone for the evaluation of this patient. The time was used to review the medical records including relevant urine studies and Prescription history (MAPs), review of the available imaging, evaluation and examination of the patient, coordination of care with the medical staff and if applicable referring physicians, as well as creation of the medical record - Pain Location Bilateral Lower Back Pharmacological Interventions: Scheduled Medication PQRS Narrative: Smoking Status Current every day smoker Narcotic Agreement Date Signed 01/15/21 Hx Alcohol Use (MH) No Home Medications: Ambulatory Orders Multivitamins, Thera [Multivitamin (formulary)] 1 tab PO DAILY 10/23/13 Atorvastatin [Lipitor] 80 mg PO HS #30 tab 02/22/14 Metoprolol Tartrate [Lopressor] 25 mg PO BID #60 tab 02/22/14 Nitroglycerin Sl Tabs [Nitrostat] 0.4 mg SUBLINGUAL Q5M PRN #25 tab 02/22/14 Omeprazole [PriLOSEC] 40 mg PO AC-BRKFST 04/16/15 Aspirin EC [Ecotrin] 325 mg PO DAILY 07/17/16 Nicotine 14Mg/24Hr Patch [Habitrol] 1 patch TRANSDERM DAILY PRN 05/02/20 Albuterol Sulfate [Proair Hfa] 2 puff INHALATION RT-QID PRN 06/04/20 Lidocaine 5% Patch [Lidoderm 5% Patch] 1 each TP Q24H 30 Days #30 patch 08/26/22 Gabapentin [Neurontin] 300 mg PO BID 30 Days #60 cap 02/10/23 Hydrocodone/Acetaminophen [Hydrocodone/Acetaminophen 10-300 mg] 1 tab PO Q6H PRN 30 Days #120 tab 02/10/23 Hydrocodone/Acetaminophen [Hydrocodone/Acetaminophen 10-300 mg] 1 tab PO Q6HR PRN 30 Days #120 tab 02/10/23 Hydrocodone/Acetaminophen [Hydrocodone/Acetaminophen 10-300 mg] 1 tab PO QID PRN 30 Days #120 tab 02/10/23 tiZANidine [Zanaflex] 4 mg PO Q8HR PRN 30 Days #90 tab 02/10/23 Controlled Substance Measures - Controlled Substance Measures Is patient prescribed a controlled substance at discharge?: Yes When asked, does pt state using other controlled substances?: No If prescribed controlled substance>3 days was MAPS reviewed?: Yes
== END ==
LOC: PNWHC3 13:01
PROVIDERS: ATTEND Specialist
DX: M51.36 Other intervertebral disc degeneration, lumbar region (principal); M47.816 Spondylosis without myelopathy or radiculopathy, lumbar region; F17.200 Nicotine dependence, unspecified, uncomplicated; G89.29 Other chronic pain; Z51.81 Encounter for therapeutic drug level monitoring; Z79.891 Long term (current) use of opiate analgesic; Z79.82 Long term (current) use of aspirin; Z88.6 Allergy status to analgesic agent; Z88.8 Allergy status to other drugs, medicaments and biological substances
CPT/HCPCS: 80307; G0463; 99213

== ENCOUNTER → 2023-05-05 | Outpatient (CLI) | payer OTHER ==
[2023-05-05 13:51] VITALS: BP 141/75; PULSE 72; RESP 15; TEMP 98.5
--- NOTE | 2023-05-05 14:44 | P.PAINPG ---
PQRS Measure Charge Sheet Comment: A 57 yr old female with a history of severe and chronic LBP secondary to lumbar DDD and spondylosis with facet arthropathy without myelopathy presents today for medication refills. Pain level is provoked at 6 /10 in intensity, constant, localized in the lumbar spine, throbbing, pulsing in character w shooting towards the BL hips, R> L. Pain is provoked by bending, lifting. Pain is alleviated with home exercise regimen daily, PT 6 yrs ago, heat, ice, topicals, medications, use of a cane for ambulation, repositioning and rest. Procedures include DAVE L4-L5 x1 Patient is currently on [place] 10/325mg #120, Zanaflex #90, Neurontin #60 Patient denies any side effects of the medication(s), denies excessive drowsiness or sleepiness, denies suicidal ideation and reports that the current pain medication is helping to control the pain and improve activities of daily living. Patient denies any motor or sensory deficits. Patient denies any fever or night sweats, denies any change in the bowel movements or urination. Physical Examination: -Constitutional: Cooperative. Not in acute distress . - Neurologic: Cranial nerve II to XII intact. No focal neurological deficits. - Psychatric: Alert & oriented x 3. Matching mood & appropriate affect. Judgment and insight intact. - Musculoskeletal: Cervical spine: Muscle bulk/ tone/ strength in the bilateral upper extremities normal Vertebral body tenderness to palpation over Spurling test positive Distraction test positive Facet loading test positive Thoracic spine Muscle bulk / tone/ strength in the bilateral paraspinal muscles normal Vertebral body tender to palpation over Facet loading test positive Lumbar spine: Motor bulk/ tone/ strength lower extremities , thigh and legs : 5/5 Deep tendon reflexes : Normal Knee Jerk. Normal Ankle Jerk . Vertebral body tenderness to palpation over L4, L5 + Kulkarni Test Positive over L5 Lumbar Facet Loading Test positive Straight Leg Raise: positive at 30 degrees right side/ left side Gaenslen's Test positive Sacral spine : Severe tenderness over the Sacroiliac joint: right side / left side Range of motion: Flexion of the lumbar spine <60 degrees Range of motion: Extension of the lumbar spine <20 degrees Gaenslen's Test positive Silvana test: positive right side / left side Thigh Thrust Test Sacral Thrust Test Assessment and plan: Chronic LBP secondary to lumbar DDD, spondylosis with facet arthropathy without myelopathy Chronic and current use of high-risk medication (Opioids). The patient was counseled about risk of opioid use, psychological risk associated with opioids and was orally counseled to not overuse , divert or sell medications. Pt is to store medication in a safe location. The patient is counseled against driving while using narcotic medications and also not to use alcohol or any illicit recreational drugs. Patient verbalized understanding that the lack of compliance will result in failure to renew narcotic prescription(s) as well as possible discharge from the clinic Diagnoses, prognosis and treatment options including but not limited to physical therapy, surgical interventions, interventional therapies and medication management including narcotics and adjuvant medication were discussed. All patient questions answered MAPS reviewed and it was appropriate. UDS fr 02/10/23 reviewed and consistent. Opiate/ narcotic agreement renewed 02/10/23. Prescription refill for [place] 10/325mg #120, Zanaflex #90, Neurontin #60 w 2 RF I have spent less than 30 minutes on patient care today. Dr Melo was available by phone for the evaluation of this patient. The time was used to review the medical records including relevant urine studies and Prescription history (MAPs), review of the available imaging, evaluation and examination of the patient, coordination of care with the medical staff and if applicable referring physicians, as well as creation of the medical record PQRS Narrative: Smoking Status Current every day smoker Narcotic Agreement Date Signed 01/15/21 Hx Alcohol Use (MH) No Home Medications: Ambulatory Orders Multivitamins, Thera [Multivitamin (formulary)] 1 tab PO DAILY 10/23/13 Atorvastatin [Lipitor] 80 mg PO HS #30 tab 02/22/14 Metoprolol Tartrate [Lopressor] 25 mg PO BID #60 tab 02/22/14 Nitroglycerin Sl Tabs [Nitrostat] 0.4 mg SUBLINGUAL Q5M PRN #25 tab 02/22/14 Omeprazole [PriLOSEC] 40 mg PO AC-BRKFST 04/16/15 Aspirin EC [Ecotrin] 325 mg PO DAILY 07/17/16 Nicotine 14Mg/24Hr Patch [Habitrol] 1 patch TRANSDERM DAILY PRN 05/02/20 Albuterol Sulfate [Proair Hfa] 2 puff INHALATION RT-QID PRN 06/04/20 Lidocaine 5% Patch [Lidoderm 5% Patch] 1 each TP Q24H 30 Days #30 patch 08/26/22 Gabapentin [Neurontin] 300 mg PO BID 30 Days #60 cap 05/05/23 Hydrocodone/Acetaminophen [Hydrocodone/Acetaminophen 10-300 mg] 1 tab PO Q6H PRN 30 Days #120 tab 05/05/23 Hydrocodone/Acetaminophen [Hydrocodone/Acetaminophen 10-300 mg] 1 tab PO Q6HR PRN 30 Days #120 tab 05/05/23 Hydrocodone/Acetaminophen [Hydrocodone/Acetaminophen 10-300 mg] 1 tab PO Q6HR PRN 30 Days #120 tab 05/05/23 tiZANidine [Zanaflex] 4 mg PO Q8HR PRN 30 Days #90 tab 05/05/23 Controlled Substance Measures - Controlled Substance Measures Is patient prescribed a controlled substance at discharge?: Yes When asked, does pt state using other controlled substances?: No If prescribed controlled substance>3 days was MAPS reviewed?: Yes
== END ==
LOC: PNWHC3 13:19
PROVIDERS: ATTEND Anesthesiology
DX: M51.36 Other intervertebral disc degeneration, lumbar region (principal); M47.816 Spondylosis without myelopathy or radiculopathy, lumbar region; M54.50 Low back pain, unspecified; F17.200 Nicotine dependence, unspecified, uncomplicated; Z79.891 Long term (current) use of opiate analgesic; Z88.1 Allergy status to other antibiotic agents; Z91.048 Other nonmedicinal substance allergy status; Z91.013 Allergy to seafood; Z79.82 Long term (current) use of aspirin
CPT/HCPCS: 99211

== ENCOUNTER → 2023-07-28 | Outpatient (CLI) | payer OTHER ==
[2023-07-28 13:57] VITALS: BP 139/79; PULSE 89; RESP 15; TEMP 97.7
--- NOTE | 2023-07-28 14:38 | P.PAINPG ---
Objective - Vital Signs Vital signs: Intake & Output 07/27/23 07/28/23 07/28/23 18:59 06:59 18:59 Weight 80.286 kg PQRS Measure Charge Sheet Comment: A 58 yr old female with a history of severe and chronic LBP secondary to lumbar DDD and spondylosis with facet arthropathy without myelopathy presents today for medication refills. Pain level is provoked at 5 /10 in intensity, constant, localized in the lumbar spine, throbbing, pulsing in character w shooting towards the BL hips, R> L. Pain is provoked by bending, lifting. Pain is alleviated with home exercise regimen daily, PT 6 yrs ago, heat, ice, topicals, medications, use of a cane for ambulation, repositioning and rest. Procedures include DAVE L4-L5 x1 Patient is currently on [place] 10/325mg #120, Zanaflex #90, Neurontin #60, Lidoderm 5% #30 Patient denies any side effects of the medication(s), denies excessive drowsiness or sleepiness, denies suicidal ideation and reports that the current pain medication is helping to control the pain and improve activities of daily living. Patient denies any motor or sensory deficits. Patient denies any fever or night sweats, denies any change in the bowel movements or urination. Physical Examination: -Constitutional: Cooperative. Not in acute distress . - Neurologic: Cranial nerve II to XII intact. No focal neurological deficits. - Psychatric: Alert & oriented x 3. Matching mood & appropriate affect. Judgment and insight intact. - Musculoskeletal: Cervical spine: Muscle bulk/ tone/ strength in the bilateral upper extremities normal Vertebral body tenderness to palpation over Spurling test positive Distraction test positive Facet loading test positive Thoracic spine Muscle bulk / tone/ strength in the bilateral paraspinal muscles normal Vertebral body tender to palpation over Facet loading test positive Lumbar spine: Motor bulk/ tone/ strength lower extremities , thigh and legs : 5/5 Deep tendon reflexes : Normal Knee Jerk. Normal Ankle Jerk . Vertebral body tenderness to palpation over L4, L5 + Kulkarni Test Positive over L5 Lumbar Facet Loading Test positive Straight Leg Raise: positive at 30 degrees right side/ left side Gaenslen's Test positive Sacral spine : Severe tenderness over the Sacroiliac joint: right side / left side Range of motion: Flexion of the lumbar spine <60 degrees Range of motion: Extension of the lumbar spine <20 degrees Gaenslen's Test positive Silvana test: positive right side / left side Thigh Thrust Test Sacral Thrust Test Assessment and plan: Chronic LBP secondary to lumbar DDD, spondylosis with facet arthropathy without myelopathy Chronic and current use of high-risk medication (Opioids). The patient was counseled about risk of opioid use, psychological risk associated with opioids and was orally counseled to not overuse , divert or sell medications. Pt is to store medication in a safe location. The patient is counseled against driving while using narcotic medications and also not to use alcohol or any illicit recreational drugs. Patient verbalized understanding that the lack of compliance will result in failure to renew narcotic prescription(s) as well as possible discharge from the clinic Diagnoses, prognosis and treatment options including but not limited to physical therapy, surgical interventions, interventional therapies and medication management including narcotics and adjuvant medication were discussed. All patient questions answered MAPS reviewed and it was appropriate. UDS fr 02/10/23 reviewed and consistent. Opiate/ narcotic agreement renewed 02/10/23. Prescription refill for [place] 10/325mg #120, Zanaflex #90, Neurontin #60, Lidoderm 5% #30 w 2 RF I have spent less than 30 minutes on patient care today. Dr Melo was available by phone for the evaluation of this patient. The time was used to review the medical records including relevant urine studies and Prescription history (MAPs), review of the available imaging, evaluation and examination of the patient, coordination of care with the medical staff and if applicable referring physicians, as well as creation of the medical record PQRS Narrative: Smoking Status Current every day smoker Narcotic Agreement Date Signed 02/10/23 Hx Alcohol Use (MH) No Home Medications: Ambulatory Orders Multivitamins, Thera [Multivitamin (formulary)] 1 tab PO DAILY 10/23/13 Atorvastatin [Lipitor] 80 mg PO HS #30 tab 02/22/14 Metoprolol Tartrate [Lopressor] 25 mg PO BID #60 tab 02/22/14 Nitroglycerin Sl Tabs [Nitrostat] 0.4 mg SUBLINGUAL Q5M PRN #25 tab 02/22/14 Omeprazole [PriLOSEC] 40 mg PO AC-BRKFST 04/16/15 Aspirin EC [Ecotrin] 325 mg PO DAILY 07/17/16 Nicotine 14Mg/24Hr Patch [Habitrol] 1 patch TRANSDERM DAILY PRN 05/02/20 Albuterol Sulfate [Proair Hfa] 2 puff INHALATION RT-QID PRN 06/04/20 Gabapentin [Neurontin] 300 mg PO BID 30 Days #60 cap 07/28/23 Hydrocodone/Acetaminophen [Hydrocodone/Acetaminophen 10-300 mg] 1 tab PO Q6H PRN 30 Days #120 tab 07/28/23 Hydrocodone/Acetaminophen [Hydrocodone/Acetaminophen 10-300 mg] 1 tab PO Q6HR PRN 30 Days #120 tab 07/28/23 Hydrocodone/Acetaminophen [Hydrocodone/Acetaminophen 10-300 mg] 1 tab PO Q6HR PRN 30 Days #120 tab 07/28/23 Lidocaine 5% Patch [Lidoderm 5% Patch] 1 each TP Q24H 30 Days #30 patch 07/28/23 tiZANidine [Zanaflex] 4 mg PO Q8HR PRN 30 Days #90 tab 07/28/23 Controlled Substance Measures - Controlled Substance Measures Is patient prescribed a controlled substance at discharge?: Yes When asked, does pt state using other controlled substances?: No If prescribed controlled substance>3 days was MAPS reviewed?: Yes
== END ==
LOC: PNWHC3 13:22
PROVIDERS: ATTEND Specialist
DX: M51.36 Other intervertebral disc degeneration, lumbar region (principal); M47.816 Spondylosis without myelopathy or radiculopathy, lumbar region; G89.29 Other chronic pain; Z79.891 Long term (current) use of opiate analgesic; F17.200 Nicotine dependence, unspecified, uncomplicated; Z88.6 Allergy status to analgesic agent; Z88.8 Allergy status to other drugs, medicaments and biological substances; Z91.013 Allergy to seafood
CPT/HCPCS: 99211

== ENCOUNTER → 2023-07-28 | Outpatient (CLI) | payer OTHER ==
[2023-07-28 19:12] LABS: ALT 17 U/L (8-44); AST 24 U/L (13-35); LDL Cholesterol,Calculated 57.9 mg/dL (0.0-131.0)
== END | disposition home or self-care (01) ==
LOC: LABWHC1 14:10
PROVIDERS: ATTEND Internal Medicine Interventional Cardiology
DX: E78.2 Mixed hyperlipidemia (principal)
CPT/HCPCS: 36415; 80061; 84450; 84460

== ENCOUNTER → 2023-07-30 | Outpatient (CLI) | payer OTHER ==
--- NOTE | 2023-08-05 14:32 | XR ---
EXAMINATION TYPE: XR chest 1V DATE OF EXAM: 07/30/2023 3:25 PM CLINICAL INDICATION:Female, 58 years old with history of R07.9 CHEST PAIN, UNSPECIFIED; PHH. Cough an d shortness of breath. COMPARISON: Chest radiographs from 12/19/2020 TECHNIQUE: XR chest 1V Frontal view of the chest. FINDINGS: Lungs/Pleura: There is no evidence of pleural effusion, focal consolidation, or pneumothorax. Pulmonary vascularity: Normal pulmonary venous congestion. Stable chronic appearing interstitial thic kening, fibrosis or scarring. Heart/mediastinum: Cardiomediastinal silhouette is unremarkable. Musculoskeletal: No acute osseous pathology. Other findings: None Lines/Tubes: None. IMPRESSION: No acute cardiopulmonary disease/process.
== END | disposition home or self-care (01) ==
LOC: RADXRMAIN 15:12
PROVIDERS: ATTEND Internal Medicine Interventional Cardiology
DX: R07.9 Chest pain, unspecified (principal); R06.02 Shortness of breath; R05.9 Cough, unspecified
CPT/HCPCS: 71045

== ENCOUNTER → 2023-10-13 | Outpatient (CLI) | payer OTHER ==
[2023-10-13 14:02] VITALS: BP 160/71; PULSE 88; RESP 16; TEMP 97.1
--- NOTE | 2023-10-13 14:04 | P.PAINPG ---
Objective - Vital Signs Vital signs: Intake & Output 10/12/23 10/13/23 10/13/23 18:59 06:59 18:59 Weight 77.111 kg PQRS Measure Charge Sheet Comment: A 58 yr old female with a history of severe and chronic LBP secondary to lumbar DDD and spondylosis with facet arthropathy without myelopathy presents today for medication refills. Pain level is provoked at 6 /10 in intensity, constant, localized in the lumbar spine, throbbing, pulsing in character w shooting towards the BL hips, R> L. Pain is provoked by bending, lifting. Pain is alleviated with home exercise regimen daily, PT 6 yrs ago, heat, ice, topicals, medications, use of a cane for ambulation, repositioning and rest. Procedures include DAVE L4-L5 x1 Patient is currently on [place] 10/325mg #120, Zanaflex #90, Neurontin #60, Lidoderm 5% #30 Patient denies any side effects of the medication(s), denies excessive drowsiness or sleepiness, denies suicidal ideation and reports that the current pain medication is helping to control the pain and improve activities of daily living. Patient denies any motor or sensory deficits. Patient denies any fever or night sweats, denies any change in the bowel movements or urination. Physical Examination: -Constitutional: Cooperative. Not in acute distress . - Neurologic: Cranial nerve II to XII intact. No focal neurological deficits. - Psychatric: Alert & oriented x 3. Matching mood & appropriate affect. Judgment and insight intact. - Musculoskeletal: Cervical spine: Muscle bulk/ tone/ strength in the bilateral upper extremities normal Vertebral body tenderness to palpation over Spurling test positive Distraction test positive Facet loading test positive Thoracic spine Muscle bulk / tone/ strength in the bilateral paraspinal muscles normal Vertebral body tender to palpation over Facet loading test positive Lumbar spine: Motor bulk/ tone/ strength lower extremities , thigh and legs : 5/5 Deep tendon reflexes : Normal Knee Jerk. Normal Ankle Jerk . Vertebral body tenderness to palpation over L4, L5 + Kulkarni Test Positive over L5 Lumbar Facet Loading Test positive Straight Leg Raise: positive at 30 degrees right side/ left side Gaenslen's Test positive Sacral spine : Severe tenderness over the Sacroiliac joint: right side / left side Range of motion: Flexion of the lumbar spine <60 degrees Range of motion: Extension of the lumbar spine <20 degrees Gaenslen's Test positive Silvana test: positive right side / left side Thigh Thrust Test Sacral Thrust Test Assessment and plan: Chronic LBP secondary to lumbar DDD, spondylosis with facet arthropathy without myelopathy Chronic and current use of high-risk medication (Opioids). The patient was counseled about risk of opioid use, psychological risk associated with opioids and was orally counseled to not overuse , divert or sell medications. Pt is to store medication in a safe location. The patient is counseled against driving while using narcotic medications and also not to use alcohol or any illicit recreational drugs. Patient verbalized understanding that the lack of compliance will result in failure to renew narcotic prescription(s) as well as possible discharge from the clinic Diagnoses, prognosis and treatment options including but not limited to physical therapy, surgical interventions, interventional therapies and medication management including narcotics and adjuvant medication were discussed. All patient questions answered MAPS reviewed and it was appropriate. UDS collected 10/13/23. Opiate/ narcotic agreement renewed 02/10/23. Prescription refill for [place] 10/325mg #120, Zanaflex #90, Neurontin #60, Lidoderm 5% #30 w 2 RF I have spent less than 30 minutes on patient care today. Dr Melo was available by phone for the evaluation of this patient. The time was used to review the medical records including relevant urine studies and Prescription history (MAPs), review of the available imaging, evaluation and examination of the patient, coordination of care with the medical staff and if applicable referring physicians, as well as creation of the medical record PQRS Narrative: Smoking Status Current every day smoker Narcotic Agreement Date Signed 02/10/23 Hx Alcohol Use (MH) No Home Medications: Ambulatory Orders Multivitamins, Thera [Multivitamin (formulary)] 1 tab PO DAILY 10/23/13 Atorvastatin [Lipitor] 80 mg PO HS #30 tab 02/22/14 Metoprolol Tartrate [Lopressor] 25 mg PO BID #60 tab 02/22/14 Nitroglycerin Sl Tabs [Nitrostat] 0.4 mg SUBLINGUAL Q5M PRN #25 tab 02/22/14 Omeprazole [PriLOSEC] 40 mg PO AC-BRKFST 04/16/15 Aspirin EC [Ecotrin] 325 mg PO DAILY 07/17/16 Nicotine 14Mg/24Hr Patch [Habitrol] 1 patch TRANSDERM DAILY PRN 05/02/20 Albuterol Sulfate [Proair Hfa] 2 puff INHALATION RT-QID PRN 06/04/20 Gabapentin [Neurontin] 300 mg PO BID 30 Days #60 cap 07/28/23 Hydrocodone/Acetaminophen [Hydrocodone/Acetaminophen 10-300 mg] 1 tab PO Q6H PRN 30 Days #120 tab 07/28/23 Hydrocodone/Acetaminophen [Hydrocodone/Acetaminophen 10-300 mg] 1 tab PO Q6HR PRN 30 Days #120 tab 07/28/23 Hydrocodone/Acetaminophen [Hydrocodone/Acetaminophen 10-300 mg] 1 tab PO Q6HR PRN 30 Days #120 tab 07/28/23 Lidocaine 5% Patch [Lidoderm 5% Patch] 1 each TP Q24H 30 Days #30 patch 07/28/23 tiZANidine [Zanaflex] 4 mg PO Q8HR PRN 30 Days #90 tab 07/28/23 Controlled Substance Measures - Controlled Substance Measures Is patient prescribed a controlled substance at discharge?: Yes When asked, does pt state using other controlled substances?: Yes If prescribed controlled substance>3 days was MAPS reviewed?: Yes
== END ==
LOC: PNWHC3 13:11
PROVIDERS: ATTEND Specialist
DX: M51.36 Other intervertebral disc degeneration, lumbar region (principal); M47.816 Spondylosis without myelopathy or radiculopathy, lumbar region; F17.200 Nicotine dependence, unspecified, uncomplicated; Z79.891 Long term (current) use of opiate analgesic; Z88.6 Allergy status to analgesic agent; Z88.8 Allergy status to other drugs, medicaments and biological substances; Z91.013 Allergy to seafood
CPT/HCPCS: 80307; G0463; 99212

== ENCOUNTER → 2024-01-26 | Outpatient (CLI) | payer OTHER ==
[2024-01-26 13:44] VITALS: BP 139/67; PULSE 79; RESP 18; TEMP 98
--- NOTE | 2024-01-26 14:43 | P.PAINPG ---
PQRS Measure Charge Sheet Comment: A 58 yr old female with a history of severe and chronic LBP secondary to radiculopathy, spondylosis and facet arthropathy without myelopathy presents today for medication refills. Pain level is provoked at 6 /10 in intensity, constant, localized in the lumbar spine, throbbing, pulsing in character w shooting towards the BL hips, R> L. Pain is provoked by bending, lifting. Pain is alleviated with home exercise regimen daily, PT 6 yrs ago, heat, ice, topicals, medications, use of a cane for ambulation, repositioning and rest. Procedures include DAVE L4-L5 x1 Patient is currently on [place] 10/325mg #120, Zanaflex #90, Neurontin #60, Lidoderm 5% #30 Patient denies any side effects of the medication(s), denies excessive drowsiness or sleepiness, denies suicidal ideation and reports that the current pain medication is helping to control the pain and improve activities of daily living. Patient denies any motor or sensory deficits. Patient denies any fever or night sweats, denies any change in the bowel movements or urination. Physical Examination: -Constitutional: Cooperative. Not in acute distress . - Neurologic: Cranial nerve II to XII intact. No focal neurological deficits. - Psychatric: Alert & oriented x 3. Matching mood & appropriate affect. Judgment and insight intact. - Musculoskeletal: Cervical spine: Muscle bulk/ tone/ strength in the bilateral upper extremities normal Vertebral body tenderness to palpation over Spurling test positive Distraction test positive Facet loading test positive Thoracic spine Muscle bulk / tone/ strength in the bilateral paraspinal muscles normal Vertebral body tender to palpation over Facet loading test positive Lumbar spine: Motor bulk/ tone/ strength lower extremities , thigh and legs : 5/5 Deep tendon reflexes : Normal Knee Jerk. Normal Ankle Jerk . Vertebral body tenderness to palpation over L4, L5 + Kulkarni Test Positive over L5 Lumbar Facet Loading Test positive Straight Leg Raise: positive at 30 degrees right side/ left side Gaenslen's Test positive Sacral spine : Severe tenderness over the Sacroiliac joint: right side / left side Range of motion: Flexion of the lumbar spine <60 degrees Range of motion: Extension of the lumbar spine <20 degrees Gaenslen's Test positive Silvana test: positive right side / left side Thigh Thrust Test Sacral Thrust Test Assessment and plan: Chronic LBP secondary to radiculopathy, spondylosis with facet arthropathy without myelopathy Chronic and current use of high-risk medication (Opioids). The patient was counseled about risk of opioid use, psychological risk associated with opioids and was orally counseled to not overuse , divert or sell medications. Pt is to store medication in a safe location. The patient is counseled against driving while using narcotic medications and also not to use alcohol or any illicit recreational drugs. Patient verbalized understanding that the lack of compliance will result in failure to renew narcotic prescription(s) as well as possible discharge from the clinic Diagnoses, prognosis and treatment options including but not limited to physical therapy, surgical interventions, interventional therapies and medication management including narcotics and adjuvant medication were discussed. All patient questions answered MAPS reviewed and it was appropriate. UDS from 10/13/23 reviewed and consistent. Opiate/ narcotic agreement renewed 02/10/23. Prescription refill for [place] 10/325mg #120, Zanaflex #90, Neurontin #60, Lidoderm 5% #30 w 2 RF I have spent less than 30 minutes on patient care today. Dr Melo was available by phone for the evaluation of this patient. The time was used to review the medical records including relevant urine studies and Prescription history (MAPs), review of the available imaging, evaluation and examination of the patient, coordination of care with the medical staff and if applicable referring physicians, as well as creation of the medical record PQRS Narrative: Smoking Status Current every day smoker Narcotic Agreement Date Signed 02/10/23 Hx Alcohol Use (MH) No Home Medications: Ambulatory Orders Multivitamins, Thera [Multivitamin (formulary)] 1 tab PO DAILY 10/23/13 Atorvastatin [Lipitor] 80 mg PO HS #30 tab 02/22/14 Metoprolol Tartrate [Lopressor] 25 mg PO BID #60 tab 02/22/14 Nitroglycerin Sl Tabs [Nitrostat] 0.4 mg SUBLINGUAL Q5M PRN #25 tab 02/22/14 Omeprazole [PriLOSEC] 40 mg PO AC-BRKFST 04/16/15 Aspirin EC [Ecotrin] 325 mg PO DAILY 07/17/16 Nicotine 14Mg/24Hr Patch [Habitrol] 1 patch TRANSDERM DAILY PRN 05/02/20 Albuterol Sulfate [Proair Hfa] 2 puff INHALATION RT-QID PRN 06/04/20 Gabapentin [Neurontin] 300 mg PO BID 30 Days #60 cap 10/13/23 Hydrocodone/Acetaminophen [Hydrocodone/Acetaminophen 10-300 mg] 1 tab PO Q6H PRN 30 Days #120 tab 10/13/23 Hydrocodone/Acetaminophen [Hydrocodone/Acetaminophen 10-300 mg] 1 tab PO Q6HR PRN 30 Days #120 tab 10/13/23 Hydrocodone/Acetaminophen [Hydrocodone/Acetaminophen 10-300 mg] 1 tab PO Q6HR PRN 30 Days #120 tab 10/13/23 Lidocaine 5% Patch [Lidoderm 5% Patch] 1 each TP Q24H 30 Days #30 patch 10/13/23 tiZANidine [Zanaflex] 4 mg PO BID PRN 30 Days #60 tab 10/13/23 Controlled Substance Measures - Controlled Substance Measures Is patient prescribed a controlled substance at discharge?: Yes When asked, does pt state using other controlled substances?: No If prescribed controlled substance>3 days was MAPS reviewed?: Yes
== END ==
LOC: PNWHC3 13:19
PROVIDERS: ATTEND Specialist
CPT/HCPCS: 99211

== ENCOUNTER 2024-02-17 11:39 | Emergency (ER) | payer OTHER ==
[2024-02-17 11:56] VITALS: TEMP 98.7
--- NOTE | 2024-02-17 12:29 | ED ---
Lower Extremity Injury HPI - General Chief Complaint: Extremity Injury, Lower Stated Complaint: Sore on L foot Time Seen by Provider: 02/17/24 11:56 Source: patient, RN notes reviewed Mode of arrival: wheelchair Limitations: no limitations - History of Present Illness Initial Comments: This is a 58-year-old female presenting with left fifth digit pain (7 out of 10) x 2 days. Patient patient endorses seeing a local or in the joint of her fifth toe with a white tendon/bone protruding from the area last night that has since resolved/retracted. Patient endorses history of I&D and IV antibiotics for the affected joint in 2019 for presumed septic arthritis open laceration at the time. Patient denies recent trauma to the area. Patient denies fever, chills, fatigue, body aches. Onset/Timin -: days(s) Injury: Toes: Left Severity scale (1-10): 7 Improves With: immobilization Worsens With: movement, palpation - Related Data Home Medications Medication Instructions Recorded Confirmed Multivitamins, Thera [Multivitamin 1 tab PO DAILY 10/23/13 10/13/23 (formulary)] Omeprazole [PriLOSEC] 40 mg PO AC-BRKFST 04/16/15 10/13/23 Aspirin EC [Ecotrin] 325 mg PO DAILY 07/17/16 10/13/23 Nicotine 14Mg/24Hr Patch [Habitrol] 1 patch TRANSDERM DAILY PRN 05/02/20 10/13/23 Albuterol Sulfate [Proair Hfa] 2 puff INHALATION RT-QID PRN 06/04/20 10/13/23 Previous Rx's Medication Instructions Recorded Atorvastatin [Lipitor] 80 mg PO HS #30 tab 02/22/14 Metoprolol Tartrate [Lopressor] 25 mg PO BID #60 tab 02/22/14 Nitroglycerin Sl Tabs [Nitrostat] 0.4 mg SUBLINGUAL Q5M PRN #25 tab 02/22/14 Gabapentin [Neurontin] 300 mg PO BID 30 Days #60 cap 01/26/24 Hydrocodone/Acetaminophen 1 tab PO Q6H PRN 30 Days #120 tab 01/26/24 [Hydrocodone/Acetaminophen 10-300 mg] Hydrocodone/Acetaminophen 1 tab PO Q6HR PRN 30 Days #120 tab 01/26/24 [Hydrocodone/Acetaminophen 10-300 mg] Hydrocodone/Acetaminophen 1 tab PO Q6HR PRN 30 Days #120 tab 01/26/24 [Hydrocodone/Acetaminophen 10-300 mg] tiZANidine [Zanaflex] 4 mg PO BID PRN 30 Days #60 tab 01/26/24 Lidocaine 5% Oint [Xylocaine 5% 1 applic TOPICAL DAILY 30 Days #50 02/02/24 Oint] gm Cephalexin [Keflex] 500 mg PO Q6HR 10 Days #40 cap 02/17/24 Fluconazole 150 mg PO DIRECTED #2 tab 02/17/24 Allergies Allergy/AdvReac Type Severity Reaction Status Date / Time ibuprofen [From Motrin] Allergy Anaphylaxis Verified 02/17/24 11:52 /Swelling potassium clavulanate AdvReac Nausea & Verified 02/17/24 11:52 [From Augmentin] Vomiting SALMON Allergy Anaphylaxis Uncoded 02/17/24 11:52 Review of Systems ROS Statement: Those systems with pertinent positive or pertinent negative responses have been documented in the HPI. ROS Other: All systems not noted in ROS Statement are negative. Past Medical History Past Medical History: Coronary Artery Disease (CAD), Chest Pain / Angina, COPD, Fibromyalgia, GERD/Reflux, Hypertension, Myocardial Infarction (NV), Musculoskeletal Disorder, Osteoarthritis (OA), Pneumonia, Vascular Disorder Additional Past Medical History / Comment(s): Crohns, Colitis. Osteoporosis. Chronic back pain & neck pain, DDD, spinal stenosis, nighttime leakage of urine, PAD, old hx kidney stone X1, Neuropathy in lower legs. Last Myocardial Infarction Date:: 02/2014 History of Any Multi-Drug Resistant Organisms: None Reported, MRSA Date of last positivie culture/infection: 2009 est MDRO Source:: abdominal at Heparin injection site Past Surgical History: Appendectomy, Bowel Resection, Heart Catheterization With Stent, Joint Replacement, Orthopedic Surgery, Tonsillectomy Additional Past Surgical History / Comment(s): 2 Small Bowel Resections D/T Crohns. LEFT TOTAL KNEE REPLACEMENT, THEN A REVISION-HAS TITANIUM. Bilateral carpal tunnel, Trigger Fingers/Thumb X6, total of 3 cardiac stents, pain procedures. Past Anesthesia/Blood Transfusion Reactions: Motion Sickness Date of Last Stent Placement:: 04/2014 Past Psychological History: No Psychological Hx Reported Smoking Status: Former smoker Past Alcohol Use History: None Reported Past Drug Use History: None Reported - Past Family History Father Family Medical History: Cancer Additional Family Medical History / Comment(s): LUNG CANCER Mother Additional Family Medical History / Comment(s): WHEN PT WAS AGE 14 NOT SURE WHY, HX OF MENTAL HEALTH ISS General Exam Limitations: no limitations General appearance: alert, in no apparent distress Head exam: Present: atraumatic, normocephalic, normal inspection Eye exam: Present: normal appearance, PERRL, EOMI. Absent: scleral icterus, conjunctival injection, periorbital swelling ENT exam: Present: normal exam, mucous membranes moist Neck exam: Present: normal inspection. Absent: tenderness, meningismus, lymphadenopathy Respiratory exam: Present: normal lung sounds bilaterally. Absent: respiratory distress, wheezes, rales, rhonchi, stridor Cardiovascular Exam: Present: regular rate, normal rhythm, normal heart sounds. Absent: systolic murmur, diastolic murmur, rubs, gallop, clicks GI/Abdominal exam: Present: soft, normal bowel sounds. Absent: distended, tenderness, guarding, rebound, rigid Extremities exam: Present: full ROM, tenderness (Left fifth MTP joint tenderness 0.5 cm opening in skin on dorsal aspect. No surrounding erythema, obvious discharge, ecchymosis, edema, bleeding. Positive pain with passive flexion of joint), normal capillary refill. Absent: pedal edema, joint swelling, calf tenderness Back exam: Present: normal inspection Neurological exam: Present: alert, oriented X3, CN II-XII intact Psychiatric exam: Present: normal affect, normal mood Skin exam: Present: warm, dry, intact, normal color. Absent: rash Course Vital Signs 02/17/24 02/17/24 11:52 16:19 Temperature 98.7 F Pulse Rate 84 77 Respiratory 18 20 Rate Blood Pressure 142/85 129/82 O2 Sat by Pulse 99 98 Oximetry Medical Decision Making - Medical Decision Making Was pt. sent in by a medical professional or institution (, PA, PARTY PLAN SALES AGENT, urgent care, hospital, or intermediate...) When possible be specific @ -No Did you speak to anyone other than the patient for history (EMS, parent, family, police, friend...)? What history was obtained from this source @ -No Did you review nursing and triage notes (agree or disagree)? Why? @ -I reviewed and agree with nursing and triage notes Were old charts reviewed (outside hosp., previous admission, EMS record, old EKG, old radiological studies, urgent care reports/EKG's, intermediate records)? Report findings @ -No old charts were reviewed Differential Diagnosis (chest pain, altered mental status, abdominal pain women, abdominal pain men, vaginal bleeding, weakness, fever, dyspnea, syncope, headache, dizziness, GI bleed, back pain, seizure, CVA, palpatations, mental health, musculoskeletal)? @ -Perforation of skin, septic arthritis, cellulitis, dislocation, this is not having, symptoms EKG interpreted by me (3pts min.). @ -Not done X-rays interpreted by me (1pt min.). @ -Left foot x-ray reveals no obvious signs of osteomyelitis, fracture, foreign body or dislocation. Soft tissue indicates likely infection. CT interpreted by me (1pt min.). @ -None done U/S interpreted by me (1pt. min.). @ -None done What testing was considered but not performed or refused? (CT, X-rays, U/S, labs)? Why? @ -None What meds were considered but not given or refused? Why? @ -None Did you discuss the management of the patient with other professionals (professionals i.e. , PA, PARTY PLAN SALES AGENT, lab, RT, psych nurse, psychiatric social worker, intellectual property lawyer, teacher, chief operations officer, mental health case manager)? Give summary @ -No Was smoking cessation discussed for >3mins.? @ -No Was critical care preformed (if so, how long)? @ -No Were there social determinants of health that impacted care today? How? (Homelessness, low income, unemployed, alcoholism, drug addiction, transportation, low edu. Level, literacy, decrease access to med. care, [facility], rehab)? @ -No Was there de-escalation of care discussed even if they declined (Discuss DNR or withdrawal of care, Hospice)? DNR status @ -No What co-morbidities impacted this encounter? (DM, HTN, Smoking, COPD, CAD, Cancer, CVA, ARF, Chemo, Hep., AIDS, mental health diagnosis, sleep apnea, morbid obesity)? @ -None Was patient admitted / discharged? Hospital course, mention meds given and route, prescriptions, significant lab abnormalities, going to OR and other pertinent info. @ -Discharge. Left foot x-ray revealed no osteomyelitis, fracture, foreign body or dislocation. Indications of skin infection noted on x-ray. Patient endorses some concern that a more severe underlying etiology may be occurring and would like second pain/podiatry to evaluate. Advised patient that podiatry is not on hand but had Dr. Hernandez come evaluate and speak to patient. Dr. Hernandez advised patient to follow-up with podiatry and wound care clinic. Advised to return to ER if symptoms worsen or do not improve with p.o. Keflex sent to pharmacy. Undiagnosed new problem with uncertain prognosis? @ -No Drug Therapy requiring intensive monitoring for toxicity (Heparin, Nitro, Insulin, Cardizem)? @ -No Were any procedures done? @ -No Diagnosis/symptom? @ -Cellulitis and perforation of the skin of the toe Acute, or Chronic, or Acute on Chronic? @ -Acute on chronic Uncomplicated (without systemic symptoms) or Complicated (systemic symptoms)? @ -Uncomplicated Side effects of treatment? @ -No Exacerbation, Progression, or Severe Exacerbation? @ -Progression Poses a threat to life or bodily function? How? (Chest pain, USA, NV, pneumonia, PE, COPD, DKA, ARF, appy, cholecystitis, CVA, Diverticulitis, Homicidal, Suicidal, threat to staff... and all critical care pts) @ -No Disposition Clinical Impression: Cellulitis of left toe, Puncture wound of foot Disposition: HOME SELF-CARE Condition: Good Instructions (If sedation given, give patient instructions): Puncture Wound in the Foot (ED) Additional Instructions: Follow-up with podiatry and wound care center in next 24 to 48 hours. Return to ER if localized symptoms worsen or fever develops Prescriptions: Fluconazole 150 mg PO DIRECTED #2 tab Cephalexin [Keflex] 500 mg PO Q6HR 10 Days #40 cap Is patient prescribed a controlled substance at d/c from ED?: No Referrals: Jaun Cook MD [Primary Care Provider] - 1-2 days Time of Disposition: 15:57
[2024-02-17] MEDS: HYDROmorphone 0.5 MG/0.5 ML SYRINGE IM STA ×2 (12:55→15:10)
--- NOTE | 2024-02-17 13:49 | XR ---
EXAMINATION TYPE: XR foot complete LT DATE OF EXAM: 02/17/2024 12:43 PM COMPARISON: None. CLINICAL INDICATION: Female, 58 years old with history of Left fifth digit MTP joint open perforation , TECHNIQUE: 3 view(s) obtained. FINDINGS: There is a tiny stable ossification lateral to the proximal phalanx fifth digit. Old avulsion could b e considered. Soft tissue changes are within the fifth digit could indicate underlying infection. No cortical erosion is evident Plantar calcaneal heel spur is present. No acute fractures are evident. There may be some soft tissue swelling of the distal fourth digit IMPRESSION: 1. No suspicious changes for osteomyelitis. Infection within the soft tissues at the base of fifth d igit likely present. Follow-up 3 phase bone scan can be performed for sufficient clinical suspicion f or osteomyelitis. [facility], , 02/17/2024 1:47 PM
[2024-02-17] MEDS: CEPHALEXIN 500 MG CAP PO STA (16:11)
[2024-02-17 16:20] VITALS: BP 129/82; PULSE 77; RESP 20
== END 2024-02-17 16:20 | disposition home or self-care (01) ==
LOC: EC 11:39
DX: S91.135A Puncture wound without foreign body of left lesser toe(s) without damage to nail, initial encounter (principal); L03.032 Cellulitis of left toe; Z87.891 Personal history of nicotine dependence; Z88.6 Allergy status to analgesic agent; Z88.1 Allergy status to other antibiotic agents; Z88.0 Allergy status to penicillin; X58.XXXA Exposure to other specified factors, initial encounter
CPT/HCPCS: 73630; 99284; 96372 ×2; J1171

== ENCOUNTER → 2024-04-19 | Outpatient (CLI) | payer OTHER ==
[2024-04-19 14:56] VITALS: BP 102/69; PULSE 78; RESP 16; TEMP 98.5
--- NOTE | 2024-04-19 16:08 | P.PAINPG ---
PQRS Measure Charge Sheet Comment: A 58 yr old female with a history of severe and chronic LBP secondary to radiculopathy, spondylosis and facet arthropathy without myelopathy presents today for medication refills. Pain level is provoked at 7 /10 in intensity, constant, localized in the lumbar spine, throbbing, pulsing in character w shooting towards the BL hips, R> L. Pain is provoked by bending, lifting. Pain is alleviated with home exercise regimen daily, PT 6 yrs ago, heat & ice (temporary), topicals, medications, use of a cane for ambulation, repositioning and rest. Procedures include DAVE L4-L5 x1 Patient is currently on [place] 10/325mg #120, Zanaflex #90, Neurontin #60, Lidoderm 5% #30 Patient denies any side effects of the medication(s), denies excessive drowsiness or sleepiness, denies suicidal ideation and reports that the current pain medication is helping to control the pain and improve activities of daily living. Patient denies any motor or sensory deficits. Patient denies any fever or night sweats, denies any change in the bowel movements or urination. Physical Examination: -Constitutional: Cooperative. Not in acute distress . - Neurologic: Cranial nerve II to XII intact. No focal neurological deficits. - Psychatric: Alert & oriented x 3. Matching mood & appropriate affect. Judgment and insight intact. - Musculoskeletal: Cervical spine: Muscle bulk/ tone/ strength in the bilateral upper extremities normal Vertebral body tenderness to palpation over Spurling test positive Distraction test positive Facet loading test positive Thoracic spine Muscle bulk / tone/ strength in the bilateral paraspinal muscles normal Vertebral body tender to palpation over Facet loading test positive Lumbar spine: Motor bulk/ tone/ strength lower extremities , thigh and legs : 5/5 Deep tendon reflexes : Normal Knee Jerk. Normal Ankle Jerk . Vertebral body tenderness to palpation over L4, L5 + Kulkarni Test Positive over L5 Lumbar Facet Loading Test positive Straight Leg Raise: positive at 30 degrees right side/ left side Gaenslen's Test positive Sacral spine : Severe tenderness over the Sacroiliac joint: right side / left side Range of motion: Flexion of the lumbar spine <60 degrees Range of motion: Extension of the lumbar spine <20 degrees Gaenslen's Test positive Silvana test: positive right side / left side Thigh Thrust Test Sacral Thrust Test Assessment and plan: Chronic LBP secondary to radiculopathy, spondylosis with facet arthropathy without myelopathy Chronic and current use of high-risk medication (Opioids). The patient was counseled about risk of opioid use, psychological risk associated with opioids and was orally counseled to not overuse , divert or sell medications. Pt is to store medication in a safe location. The patient is counseled against driving while using narcotic medications and also not to use alcohol or any illicit recreational drugs. Patient verbalized understanding that the lack of compliance will result in failure to renew narcotic prescription(s) as well as possible discharge from the clinic Diagnoses, prognosis and treatment options including but not limited to physical therapy, surgical interventions, interventional therapies and medication management including narcotics and adjuvant medication were discussed . All patient questions answered MAPS reviewed and it was appropriate. UDS collected 04/19/24. Opiate/ narcotic agreement renewed 02/10/23. Prescription refill for [place] 10/325mg #120, Zanaflex #90, Neurontin #60, Lidoderm 5% #30 w 2 RF I have spent less than 30 minutes on patient care today. Dr Melo was available by phone for the evaluation of this patient. The time was used to review the medical records including relevant urine studies and Prescription history (MAPs), review of the available imaging, evaluation and examination of the patient, coordination of care with the medical staff and if applicable referring physicians, as well as creation of the medical record PQRS Narrative: Smoking Status Current every day smoker Narcotic Agreement Date Signed 01/26/24 Hx Alcohol Use (MH) No Home Medications: Ambulatory Orders Multivitamins, Thera [Multivitamin (formulary)] 1 tab PO DAILY 10/23/13 Atorvastatin [Lipitor] 80 mg PO HS #30 tab 02/22/14 Metoprolol Tartrate [Lopressor] 25 mg PO BID #60 tab 02/22/14 Nitroglycerin Sl Tabs [Nitrostat] 0.4 mg SUBLINGUAL Q5M PRN #25 tab 02/22/14 Omeprazole [PriLOSEC] 40 mg PO AC-BRKFST 04/16/15 Aspirin EC [Ecotrin] 325 mg PO DAILY 07/17/16 Albuterol Sulfate [Proair Hfa] 2 puff INHALATION RT-QID PRN 06/04/20 Gabapentin [Neurontin] 300 mg PO BID 30 Days #60 cap 01/26/24 Hydrocodone/Acetaminophen [Hydrocodone/Acetaminophen 10-300 mg] 1 tab PO Q6H PRN 30 Days #120 tab 01/26/24 Hydrocodone/Acetaminophen [Hydrocodone/Acetaminophen 10-300 mg] 1 tab PO Q6HR PRN 30 Days #120 tab 01/26/24 Hydrocodone/Acetaminophen [Hydrocodone/Acetaminophen 10-300 mg] 1 tab PO Q6HR PRN 30 Days #120 tab 01/26/24 tiZANidine [Zanaflex] 4 mg PO BID PRN 30 Days #60 tab 01/26/24 Lidocaine 5% Oint [Xylocaine 5% Oint] 1 applic TOPICAL DAILY 30 Days #50 gm 02/02/24 Fluconazole 150 mg PO DIRECTED #2 tab 02/17/24 Melatonin 2 tab PO HS 04/19/24 Controlled Substance Measures - Controlled Substance Measures Is patient prescribed a controlled substance at discharge?: Yes When asked, does pt state using other controlled substances?: No If prescribed controlled substance>3 days was MAPS reviewed?: Yes
== END ==
LOC: PNWHC3 13:22
PROVIDERS: ATTEND Specialist
DX: M47.26 Other spondylosis with radiculopathy, lumbar region (principal); F17.210 Nicotine dependence, cigarettes, uncomplicated; Z88.6 Allergy status to analgesic agent; Z88.8 Allergy status to other drugs, medicaments and biological substances
CPT/HCPCS: 80307; G0463; 99212

== ENCOUNTER → 2024-07-12 | Outpatient (CLI) | payer OTHER ==
[2024-07-12 13:35] VITALS: BP 145/106; PULSE 67; RESP 17; TEMP 98.2
--- NOTE | 2024-07-12 15:12 | P.PAINPG ---
PQRS Measure Charge Sheet Comment: A 59 yr old female with a history of severe and chronic LBP secondary to radiculopathy, spondylosis and facet arthropathy without myelopathy presents today for medication refills. Pain level is provoked at 6 /10 in intensity, constant, localized in the lumbar spine, throbbing, pulsing in character w shooting towards the BL hips, R> L. Pain is provoked by bending, lifting. Pain is alleviated with home exercise regimen daily, PT 6 yrs ago, heat & ice (temporary), topicals, medications, use of a cane for ambulatory assistance, repositioning and rest. Procedures include DAVE L4-L5 x1 Patient is currently on [place] 10/325mg #120, Zanaflex #90, Neurontin #60, Lidoderm 5% #30 Patient denies any side effects of the medication(s), denies excessive drowsiness or sleepiness, denies suicidal ideation and reports that the current pain medication is helping to control the pain and improve activities of daily living. Patient denies any motor or sensory deficits. Patient denies any fever or night sweats, denies any change in the bowel movements or urination. Physical Examination: -Constitutional: Cooperative. Not in acute distress . - Neurologic: Cranial nerve II to XII intact. No focal neurological deficits. - Psychatric: Alert & oriented x 3. Matching mood & appropriate affect. Judgment and insight intact. - Musculoskeletal: Cervical spine: Muscle bulk/ tone/ strength in the bilateral upper extremities normal Vertebral body tenderness to palpation over Spurling test positive Distraction test positive Facet loading test positive Thoracic spine Muscle bulk / tone/ strength in the bilateral paraspinal muscles normal Vertebral body tender to palpation over Facet loading test positive Lumbar spine: Motor bulk/ tone/ strength lower extremities , thigh and legs : 5/5 Deep tendon reflexes : Normal Knee Jerk. Normal Ankle Jerk . Vertebral body tenderness to palpation over L4, L5 + Kulkarni Test Positive over L5 Lumbar Facet Loading Test positive Straight Leg Raise: positive at 30 degrees right side/ left side Gaenslen's Test positive Sacral spine : Severe tenderness over the Sacroiliac joint: right side / left side Range of motion: Flexion of the lumbar spine <60 degrees Range of motion: Extension of the lumbar spine <20 degrees Gaenslen's Test positive Silvana test: positive right side / left side Thigh Thrust Test Sacral Thrust Test Assessment and plan: Chronic LBP secondary to radiculopathy, spondylosis with facet arthropathy without myelopathy Recommendation of DAVE L4-L5 #1. Risks, benefits of procedure discussed and patient verbalized understanding. Protocol for discontinuation/continuation of medication surrounding procedure discussed. Chronic and current use of high-risk medication (Opioids). The patient was counseled about risk of opioid use, psychological risk associated with opioids and was orally counseled to not overuse , divert or sell medications. Pt is to store medication in a safe location. The patient is counseled against driving while using narcotic medications and also not to use alcohol or any illicit recreational drugs. Patient verbalized understanding that the lack of compliance will result in failure to renew narcotic prescription(s) as well as possible discharge from the clinic Diagnoses, prognosis and treatment options including but not limited to physical therapy, surgical interventions, interventional therapies and medication management including narcotics and adjuvant medication were discussed. All patient questions answered MAPS reviewed and it was appropriate. UDS from 04/19/24 reviewed and consistent. Opiate/ narcotic agreement renewed 07/12/24. Prescription refill for Incr [place] 10/325mg #150, Zanaflex #90, Neurontin #60, Lidoderm 5% #30 w 2 RF I have spent less than 30 minutes on patient care today. Dr Melo was available by phone for the evaluation of this patient. The time was used to review the medical records including relevant urine studies and Prescription history (MAPs), review of the available imaging, evaluation and examination of the patient, coordination of care with the medical staff and if applicable referring physicians, as well as creation of the medical record - Pain Location Lower Back Non-Pharmacological Interventions: Heat, Ice Pharmacological Interventions: Medication, Topical Medication PQRS Narrative: Smoking Status Current every day smoker Narcotic Agreement Date Signed 01/26/24 Hx Alcohol Use (MH) No Home Medications: Ambulatory Orders Multivitamins, Thera [Multivitamin (formulary)] 1 tab PO DAILY 10/23/13 Atorvastatin [Lipitor] 80 mg PO HS #30 tab 02/22/14 Metoprolol Tartrate [Lopressor] 25 mg PO BID #60 tab 02/22/14 Nitroglycerin Sl Tabs [Nitrostat] 0.4 mg SUBLINGUAL Q5M PRN #25 tab 02/22/14 Omeprazole [PriLOSEC] 40 mg PO AC-BRKFST 04/16/15 Aspirin EC [Ecotrin] 325 mg PO DAILY 07/17/16 Albuterol Sulfate [Proair Hfa] 2 puff INHALATION RT-QID PRN 06/04/20 Fluconazole 150 mg PO DIRECTED #2 tab 02/17/24 Melatonin 2 tab PO HS 04/19/24 Gabapentin [Neurontin] 300 mg PO BID 30 Days #60 cap 07/12/24 Hydrocodone/Acetaminophen [Hydrocodone/Acetaminophen 10-300 mg] 1 tab PO Q4-6H PRN 30 Days #150 tab 07/12/24 Hydrocodone/Acetaminophen [Hydrocodone/Acetaminophen 10-300 mg] 1 tab PO Q4-6H PRN 30 Days #150 tab 07/12/24 Hydrocodone/Acetaminophen [Hydrocodone/Acetaminophen 10-300 mg] 1 tab PO Q4-6H PRN 30 Days #150 tab 07/12/24 Lidocaine 5% Oint [Xylocaine 5% Oint] 1 applic TOPICAL DAILY 30 Days #50 gm 07/12/24 tiZANidine [Zanaflex] 4 mg PO BID PRN 30 Days #60 tab 07/12/24 Controlled Substance Measures - Controlled Substance Measures Is patient prescribed a controlled substance at discharge?: Yes When asked, does pt state using other controlled substances?: No If prescribed controlled substance>3 days was MAPS reviewed?: Yes If Rx opioid, was Start Talking consent form obtained?: Yes Was information provided regarding opioid addiction?: Yes
== END ==
LOC: PNWHC3 12:58
PROVIDERS: ATTEND Specialist
DX: M47.816 Spondylosis without myelopathy or radiculopathy, lumbar region (principal); G89.29 Other chronic pain; F17.200 Nicotine dependence, unspecified, uncomplicated; Z88.6 Allergy status to analgesic agent; Z88.8 Allergy status to other drugs, medicaments and biological substances; Z91.013 Allergy to seafood
CPT/HCPCS: 99212

== ENCOUNTER → 2024-07-26 | Outpatient (CLI) | payer OTHER ==
--- NOTE | 2024-07-26 14:40 | MM ---
Reason for Exam: Screening (asymptomatic). Last mammogram was performed 2 year(s) and 8 month(s) ago. Patient History: Menarche at age 11. First Full-Term at age 21. Postmenopausal. Patient has history of breast feeding. Risk Values: Anne 5 year model risk: 1.3%. NCI Lifetime model risk: 6.4%. Prior Study Comparison: 01/31/2013 Bilateral Screening Mammogram, [facility]. 10/18/2020 Bilateral Screening Mammogram, [facility]. 11/11/2021 Bilateral MG 3D screening mammo w/cad, [facility]. Tissue Density: There are scattered areas of fibroglandular density. Findings: Analyzed By CAD. There is no suspicious group of microcalcifications or new suspicious mass in either breast. Overall Assessment: Negative, BI-RAD 1 Management: Screening Mammogram of both breasts in 1 year. . Patient should continue monthly self-breast exams. A clinical breast exam by your physician is recommended on an annual basis. This exam should not preclude additional follow-up of suspicious palpable abnormalities. Note on Anne scores and lifetime risk: 1. A Anne score greater than 3% is considered moderate risk. If this is the case, consider specialist referral to assess eligibility for a risk reducing agent. 2. If overall lifetime risk for the development of breast cancer is 20% or higher, the patient may qualify for future screening with alternating mammogram and breast MRI. [facility], , 07/26/2024 2:37 PM. Electronically signed and approved by: Buddy Stringer M.D. Radiologis
== END | disposition home or self-care (01) ==
LOC: RADMAMWWP 14:03
PROVIDERS: ATTEND Internal Medicine
DX: Z12.31 Encounter for screening mammogram for malignant neoplasm of breast (principal); R92.323 Mammographic fibroglandular density, bilateral breasts; Z78.0 Asymptomatic menopausal state
CPT/HCPCS: 77063; 77067

== ENCOUNTER 2024-08-04 13:07 | Day surgery (SDC) | payer OTHER ==
[2024-08-02 11:32] VITALS: BMI 30.6
[2024-08-04 13:29] VITALS: TEMP 97.6
[2024-08-04] MEDS ORDERED: IOPAMIDOL M200 10 ML VIAL ONE (14:32)
[2024-08-04] MEDS ORDERED: methylPREDNISolone ACETATE 80 MG/ML 1 ML VIAL ONE (14:32)
--- NOTE | 2024-08-04 14:44 | P.PCN ---
Date of Procedure: 08/04/24 Procedure(s) Performed: PREOPERATIVE DIAGNOSIS: 1- Lumbar radiculopathy 2-Lumbar spondylosis with Facet arthropathy without myelopathy. 3-lumbar degenerative disc disease. POSTOPERATIVE DIAGNOSIS: 1-Lumber radiculopathy 2-Lumbar spondylosis with Facet arthropathy without myelopathy. 3-lumbar degenerative disc disease PROCEDURE 1. Lumbar epidural steroid injection under fluoroscopic guidance at the L5-S1 level. (Fluoroscopy imaging was available in radiology department) 2. Lumbar epidurogram. ANESTHESIA: Local with 1% lidocaine 3 ml only. EBL: Minimal PROCEDURE INDICATION: The patient with low back pain and radiculitis symptoms unresponsive to conservative treatment. Fluoroscopy was used to optimize visualization of the needle placement and to maximize safety. PROCEDURE DESCRIPTION / TECHNIQUE: The patient was seen and identified in the preoperative area. Risks, benefits, complications including but not limited to infections ,bleeding ,allergic reaction to the medications ,nerve damage and not complete pain releife , and alternatives were discussed with the patient. The patient agreed to proceed with the procedure and signed the consent., and vital signs were stable. Patient was taken to the OR and time out was completed. The patient was placed in the prone position on procedure table and a pillow was placed under the abdomen to reduce lumbar lordosis. The lumbosacral area was prepped and draped in the usual sterile fashion.ere closely monitored during the procedure. Vital signs was monitered during the entire procedure. Using anterior-posterior fluoroscopy, the L5-S1 interlaminar space was identified and the skin over this site was marked and then infiltrated with 1% lidocaine subcutaneously. Subsequently, a 18-gauge Tuohy epidural needle was inserted and advanced toward the epidural space using the ``Loss of resistance technique and guided by AP and lateral fluoroscopy. The correct needle position in the epidural space was verified with the injection of 2 mL of the water soluble contrast dye Isovue 200 contrast and observing an excellent epidurogram with the epidural spread of the dye, after negative aspiration for blood and CSF and in the absence of paresthesias. Again after negative aspiration, a 6 ml mixture containing 80 mg of Depo-medrol , and 2 ml of preservative free Normal Saline, and 2 ml of preservative free lidocaine 1% solution was injected and a washout of epidurogram was seen. Needle was withdrawn intact, skin was cleansed, and bandages were applied. note= attempted first at L4-5 I was not able to enter the epidural space at L4-5 level for this reason the procedure was converted to L5-S1 COMPLICATIONS: None DISPOSITION / PLANS: The patient was placed in a supine position and transferred to the recovery area in a stable condition for observation. There was no evidence of lower extremity motor or sensory deficit after the procedure. Patient was discharged from the recovery room after meeting discharge criteria. Home discharge instructions were given to the patient by the staff. The patient was reexamined prior to discharge. The patient will schedule a follow up in the clinic in 2-4 weeks.
[2024-08-04 14:50] VITALS: RESP 17
--- NOTE | 2024-08-04 14:54 | FL ---
EXAMINATION TYPE: FL guided pain mgmt statistic DATE OF EXAM: 08/04/2024 FLUOROSCOPY LESI, 4SEC FL TIME, DAP=.[id number]. One image is submitted. [facility], Workstation: [email or web address], 08/04/2024 2:52 PM
[2024-08-04 15:07] VITALS: BP 132/70; PULSE 79
== END 2024-08-04 15:13 | disposition home or self-care (01) ==
LOC: ORPAIN 13:07
PROVIDERS: ATTEND Specialist
DX: M47.26 Other spondylosis with radiculopathy, lumbar region (principal); M51.16 Intervertebral disc disorders with radiculopathy, lumbar region
CPT/HCPCS: 62323; Q9966; J1010